=== PATIENT | male | born 1975 | race Caucasian/White ===

== ENCOUNTER 2020-02-04 13:03 | Outpatient (REF) | payer MEDICARE, MEDICAID, SELFPAY ==
[2020-02-04 13:58] LABS: MANUAL DIFF FLAG NO
[2020-02-04 14:12] LABS: Basophils Percent Auto 0.5 % (0-2); Eosinophils Absolute Auto 0.1 X10*3/uL (0.0-0.4); Eosinophils Percent Auto 1.3 % (0-4); Hematocrit 43.1 % (42-52); Hemoglobin 14.9 g/dl (14.0-18.0); Imm Gran Abs Auto 0.01 X10*3/uL (0.00-0.03); Imm Gran Pct Auto 0.1 % (0.0-0.4); Lymphocytes Absolute Auto 2.3 X10*3/uL (1.2-4.9); Lymphocytes Percent Auto 27.2 % (20-40); Mean Corpuscular HGB Conc 34.6 g/dl (31.0-36.0); Mean Corpuscular Hemoglobin 31.4 pg (27.0-33.0); Mean Corpuscular Volume 90.7 fL (80-98); Mean Platelet Volume 11.1 fL (9.4-12.4); Monocytes Absolute Auto 0.7 X10*3/uL (0.1-1.2); Monocytes Percent Auto 8.6 % (2-11); Neutrophils Absolute Auto 5.3 X10*3/uL (2.0-8.3); Neutrophils Percent Auto 62.3 % (45-73); Platelet Count 227 X10*3/uL (160-400); Red Blood Count 4.75 X10*6/uL (4.60-5.80); Red Cell Distribution Width 11.9 % (11.0-16.0); White Blood Count 8.5 X10*3/uL (4.8-10.8)
[2020-02-04 14:30] LABS: Alanine Aminotransferase 15 U/L (0-40); Albumin Level 4.5 g/dL (3.5-5.0); Alkaline Phosphatase 67 U/L (39-117); Anion Gap 14 (12-20); Aspartate Amino Transferase 19 U/L (5-37); Bilirubin Total 0.4 mg/dL (0.0-1.0); Blood Urea Nitrogen 9 mg/dL (9-16); Carbon Dioxide 27 mmol/L (22-29); Chloride 103 mmol/L (96-108); Estimated Glomerular Filt Rate > 60; Glucose Fasting 90 mg/dL (60-99); Potassium 4.2 mmol/l (3.3-5.1); Sodium 140 mmol/L (135-145); Total Protein 7.3 g/dL (6.5-8.0)
== END 2020-02-04 13:04 | disposition home or self-care (01) ==
LOC: HO.HMGCLDS 13:03
PROVIDERS: PCP Nurse Practitioner Family; Visit Provider Nurse Practitioner Family
DX: F20.9 Schizophrenia, unspecified (principal)
CPT/HCPCS: 36415; 80053; 85025

== ENCOUNTER 2020-03-22 12:42 | Outpatient (REF) | payer MEDICARE, MEDICAID, SELFPAY ==
--- NOTE | 2020-03-22 12:47 | XR_ITS ---
EXAMINATION: CHEST AND RIGHT RIB X-RAY CLINICAL INFORMATION: Pleurodynia. Chest pain with breathing. COMPARISON: Previous chest x-ray December 2015 TECHNIQUE: PA and lateral chest x-ray. 3 views of the right ribs. FINDINGS: Chest: Cardiac and mediastinal contours are normal. The lungs are clear. There is no pleural effusion or pneumothorax. Bony structures are unremarkable. Right rib x-rays: The no fracture or bone lesion is seen. XR/XR ribs RT 2V IMPRESSION: Unremarkable chest and right rib x-rays .
--- NOTE | 2020-03-22 12:47 | XR_ITS ---
EXAMINATION: CHEST AND RIGHT RIB X-RAY CLINICAL INFORMATION: Pleurodynia. Chest pain with breathing. COMPARISON: Previous chest x-ray December 2015 TECHNIQUE: PA and lateral chest x-ray. 3 views of the right ribs. FINDINGS: Chest: Cardiac and mediastinal contours are normal. The lungs are clear. There is no pleural effusion or pneumothorax. Bony structures are unremarkable. Right rib x-rays: The no fracture or bone lesion is seen. XR/XR chest 2V IMPRESSION: Unremarkable chest and right rib x-rays .
[2020-03-22 14:12] LABS: MANUAL DIFF FLAG NO
[2020-03-22 14:25] LABS: Basophils Absolute Auto 0.1 X10*3/uL (0.0-0.2); Basophils Percent Auto 0.6 % (0-2); Eosinophils Absolute Auto 0.2 X10*3/uL (0.0-0.4); Eosinophils Percent Auto 1.9 % (0-4); Hematocrit 40.6 % (42-52); Hemoglobin 13.5 g/dl (14.0-18.0); Imm Gran Abs Auto 0.07 X10*3/uL (0.00-0.03); Imm Gran Pct Auto 0.7 % (0.0-0.4); Lymphocytes Absolute Auto 3.2 X10*3/uL (1.2-4.9); Lymphocytes Percent Auto 33.2 % (20-40); Mean Corpuscular HGB Conc 33.3 g/dl (31.0-36.0); Mean Corpuscular Hemoglobin 31.4 pg (27.0-33.0); Mean Corpuscular Volume 94.4 fL (80-98); Monocytes Absolute Auto 0.9 X10*3/uL (0.1-1.2); Monocytes Percent Auto 8.7 % (2-11); Neutrophils Absolute Auto 5.4 X10*3/uL (2.0-8.3); Neutrophils Percent Auto 54.9 % (45-73); Platelet Count 223 X10*3/uL (160-400); Red Cell Distribution Width 13.2 % (11.0-16.0); White Blood Count 9.8 X10*3/uL (4.8-10.8)
[2020-03-22 14:33] LABS: Alanine Aminotransferase 11 U/L (0-40); Albumin Level 4.4 g/dL (3.5-5.0); Alkaline Phosphatase 64 U/L (39-117); Anion Gap 13 (12-20); Aspartate Amino Transferase 14 U/L (5-37); Bilirubin Total 0.3 mg/dL (0.0-1.0); Blood Urea Nitrogen 6 mg/dL (9-16); Calcium 9.1 mg/dL (8.4-10.2); Carbon Dioxide 29 mmol/L (22-29); Chloride 102 mmol/L (96-108); Estimated Glomerular Filt Rate > 60; Glucose Random 61 mg/dL (60-115); Potassium 4.3 mmol/l (3.3-5.1); Sodium 140 mmol/L (135-145); Total Protein 7.2 g/dL (6.5-8.0)
== END 2020-03-22 12:43 | disposition home or self-care (01) ==
LOC: HO.HMGCX 12:42
PROVIDERS: PCP Nurse Practitioner Family; Visit Provider Nurse Practitioner Family
DX: R07.1 Chest pain on breathing (principal); R07.81 Pleurodynia
CPT/HCPCS: 36415; 71046; 71100; 80053; 85025

== ENCOUNTER 2020-07-27 16:00 | Outpatient (RCR) | payer MEDICARE, MEDICAID, SELFPAY ==
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
--- NOTE | 2020-09-26 14:14 | MHC.PT.DC ---
[facility] [place] Office [place] Office [place] Office [address] Sarah Flynn [address] [phone] F: [phone] F: [phone] F: [phone] F: [phone] Physical Therapy Discharge Report Diagnosis: This is a 44 yo male presenting to skilled PT with a script for low back pain. Date of Surgery: Date of Evaluation: 05/02/20 Date of Discharge: 09/26/20 Treatments to Date: 8 Cancellations to Date: 0 No Shows to Date: 0 Discharge Status: Patient Elected to Stop Discharge Summary: Pt declined further exs at the last tx session. Pt discharged from his L/S declined DC paperwork. Per last note patient was not compliant with HEP. Electronically signed by: Lindsey Horn PT Please sign and return to therapist. Thank you for your referral.
== END 2020-09-26 14:15 | disposition home or self-care (01) ==
LOC: HO.PTCHIC 16:00
PROVIDERS: PCP Nurse Practitioner Family; Visit Provider Nurse Practitioner Family
DX: M54.5 Low back pain (principal)
CPT/HCPCS: 97110; 97162

== ENCOUNTER 2020-08-09 15:47 | Outpatient (REF) | payer MEDICARE, MEDICAID, SELFPAY ==
--- NOTE | ~2020-08-09 | XR_ITS ---
EXAMINATION: XR KNEE, LEFT CLINICAL INFORMATION: Pain left knee COMPARISON: None TECHNIQUE: Four views of the left knee. FINDINGS: Bones and soft tissues are normal. No fracture or joint effusion. Alignment is anatomic. Joint spaces are well maintained. No abnormal soft tissue calcification. XR/XR knee LT 4V IMPRESSION: Unremarkable left knee exam.
== END 2020-08-09 15:48 | disposition home or self-care (01) ==
LOC: HO.HMGCX 15:47
PROVIDERS: PCP Nurse Practitioner Family; Visit Provider Nurse Practitioner Family
DX: M25.562 Pain in left knee (principal)
CPT/HCPCS: 73564

== ENCOUNTER 2020-09-28 15:46 | Emergency (ER) | payer MEDICARE, MEDICAID, SELFPAY ==
[2020-09-28 16:08] VITALS: BP 131/81; PULSE 95; RESP 18; TEMP 36.7; O2SAT 100; BMI 21.4
--- NOTE | 2020-09-28 16:17 | PC.NURSE ---
Pt uncooperative with intake process, refused to speak to nurse, and refused to provide urine sample. Pt hostile, agitated.
--- NOTE | 2020-09-28 16:33 | ED_ITS ---
HPI - Psych General Chief Complaint: Psychiatric Symptoms Stated Complaint: CRISIS Time Seen by Provider: 09/28/20 16:25 Source: EMS Mode of arrival: EMS Limitations: other ( uncooperative) History of Present Illness HPI Narrative: patient comes to emergency room by EMS, accompanied by PD. Patient was seen earlier today by [facility]. Patient was Section 12. Patient states that he was told by a provider not to take fluphenazine, then told by another provider that if he would be off of that he needed to be hospitalized. Patient very angry, uncooperative. According to EMS, it earlier today, patient made disturbing call to his brother. Also per EMS, seems that the patient has been threatening homicidal ideation towards his sister. Patient states that he has been compliant with his medication, today is the 1st day that he does not fluphenazine complaint: homicidal ideation Related Data Home Medications Medication Instructions Recorded Confirmed divalproex 2 tab PO BEDTIME 09/28/20 09/28/20 Previous Rx's Medication Instructions Recorded ibuprofen 400 mg tablet 400 mg PO BID PRN #60 tab 03/30/20 thiamine HCl (vitamin B1) 100 mg 100 mg PO DAILY #90 tab 07/07/20 tablet cholecalciferol (vitamin D3) 50 50 mcg PO DAILY #90 cap 08/02/20 mcg (2,000 unit) capsule Allergies Allergy/AdvReac Type Severity Reaction Status Date / Time risperidone [From RISPERDAL] Allergy Unknown UNKNOWN Unverified 08/09/20 15:13 topiramate [From TOPAMAX] Allergy Unknown HEADACHE Unverified 08/09/20 15:13 Review of Systems Review of Systems: Endocrine : No Polyuria, No Polydipsia, No Temperature Intolerance Yes Other ( uncooperative) COUNT INCLUDES THE [facility] Past Medical History Medical History GERD (gastroesophageal reflux disease) Mood disorder Surgical History No pertinent past surgical history Family History Family History Father No problems noted. Mother Breast cancer Diabetes mellitus Brother No problems noted. Sister No problems noted. Social History Social History Alcohol intake: current Alcohol intake frequency: a few times a month Advance Directives: No Advance Directives Information Provided: Yes Physical Exam Vital Signs: Vital Signs: Last Vital Signs Temp 98.1 F 09/28/20 19:20 Pulse 76 09/28/20 19:20 Resp 18 09/28/20 19:20 BP 116/63 09/28/20 19:20 Pulse Ox 100 09/28/20 19:20 Body Mass Index 21.4 Appearance: Alert. Oriented X3. angry Eyes: Pupils equal, round and reactive to light. ENT: Pharynx normal. Neck: Normal inspection. CVS: refused physical exam Respiratory: refused Abdomen: refused Skin: normal skin color Extremities: moves all extremities, steady gait Neuro: Oriented X 3. no motor deficits, cranial nerves 2-12 grossly intact. Psych: Angry, not violent, refuses to talk Course Course Course Narrative: At this time, 18:00, physician javi velazquez is started, patient's vitals are stable, patient refusing labs. [facility] consult pending. Patient is under Section 12 N consult pending, sign out given to Dr. Ulloa physician observation was started, this is a late entry, so far patient has refused all his labs Discharge Plan Discharge Prescriptions: No Action ibuprofen 400 mg tablet 400 mg PO BID PRN (Reason: for fever) Qty: 60 RF: 2 thiamine HCl (vitamin B1) 100 mg tablet 100 mg PO DAILY Qty: 90 RF: 0 cholecalciferol (vitamin D3) 50 mcg (2,000 unit) capsule 50 mcg PO DAILY Qty: 90 RF: 1 divalproex 500 mg tablet extended release 24 hr 2 tab PO BEDTIME RF: 0
[2020-09-28] MEDS: Ibuprofen 400 MG TABLET PO (19:11)
[2020-09-28 19:20] VITALS: BP 116/63; PULSE 76; RESP 18; TEMP 36.7; O2SAT 100
--- NOTE | 2020-09-28 21:35 | MHC.CARE ---
I Contacted [facility] for some clarity. Pt was evaluated in the community, reportedly sectioned 12 bedsearch by [facility] howevever [facility] did not type an assessment. Interactive Media Designer Angela shares that she will be sending a new clinician over to see him due to the mistake.
[2020-09-28] MEDS: Divalproex Sodium ER 500 MG TAB.ER.24H 1000 MG PO (22:13)
--- NOTE | 2020-09-28 22:30 | PC.NURSE ---
Patient is pacing, restless, upset being here in [facility], using abusive comments towards his mother and sister, demanding loudly and disruptively for N clinician, compliant with his HS PO medication, refusing labs, [facility] called spoke with Gala, notified that patient is on section 12 inpatient bed search however patient will be seen tentatively tonight for full assessment, will continue to monitor.
--- NOTE | 2020-09-29 02:49 | PC.NURSE ---
JEREMY met with patient, reported patient may be discharge tomorrow however clinician did not get hold of collateral at this hour, disposition for the patient is MARGARETH f/u in the morning, patient appears sleeping at this time, will continue to monitor
--- NOTE | 2020-09-29 04:12 | PC.NURSE ---
Patient very rudely refused labs order for third time, stating that he doesn't have to be here, furious and upset for not being at [facility], pacing in and out of his room, will continue to monitor.
--- NOTE | 2020-09-29 06:41 | PC.NURSE ---
Patient was up whole night, pacing in and out of room, refused all labs, refused vital sign assessment, behavior loud and disruptive, self dialoguing at times, no distress observed/reported, refused to take meds for the restlessness, disposition is MARGARETH f/u by [facility] in AM, will continue to monitor.
--- NOTE | 2020-09-29 07:12 | PC.NURSE ---
patient awakened early appears in no distress, patient presentds as loud and irritable patient responds in a contradictory sarcastic fashion to staff thanks for yelling at me when staff spoke to him loudly from a distance in regard to returning trays. this staff writer told the patient your perceptions are unique .
--- NOTE | 2020-09-29 08:21 | PC.NURSE ---
patient continues to be rude and sarcastic to staff despite staff approaching client in an attempt at peacekeeping you gys are overworked and margie to have jobs nikole been unemployed since 2014
[2020-09-29] MEDS: Thiamine HCL 100 MG TABLET PO (09:49)
[2020-09-29] MEDS: Cholecalciferol (Vitamin D3) 25 MCG TABLET 50 MCG PO (09:49)
== END 2020-09-29 18:17 | disposition home or self-care (01) ==
PROVIDERS: Emergency Provider Emergency Medicine; PCP Nurse Practitioner Family
DX: F20.9 Schizophrenia, unspecified (principal); R45.850 Homicidal ideations; F12.10 Cannabis abuse, uncomplicated; Z79.899 Other long term (current) drug therapy
CPT/HCPCS: 99285

== ENCOUNTER 2020-11-04 14:00 | Outpatient (RCR) | payer MEDICARE, MEDICAID, SELFPAY ==
--- NOTE | 2020-09-15 15:06 | MHC.PT.EP ---
[facility] [place] Office [place] Office [place] Office [address] Sarah Flynn [address] [phone] F: [phone] F: [phone] F: [phone] F: [phone] Physical Therapy Plan of Care Date of Evaluation: Date of Surgery: Diagnosis: pain in left knee Assessment: 44 y/o male referred to PT for pain in L knee. The pain had insidious onset starting . Per pt rep~2 months ago with no specific incident, but he recalls hitting his knee on his bed post repeatedly and falling down the stairs around the time of the pain onset. Pt complains of limitations with functional squatting, sometimes walking, and with kneeling/gardening. Examination shows limited HS/gastroc length, impaired gait with longer stance phase on R, decreased trevon, and pain with functional squatting, decreased strength, R posterior innominate. Recommend PT 2x/week for 4 weeks to address impairments, implement HEP, and improve functional mobility. Pt requests 1x/week. Frequency and Duration: The patient will be seen 2x/week for 4 weeks Short Term Goals: 2 weeks: 1. I with HEP 2. Increase hip abd. strength B by 1 MMT score Perforator Operator Goals: 4 weeks: 1. I with HEP and self-management of sx 2. Pt will demonstrate proper squat form with pain <3/10 3. Pt will be able to kneel/garden with pain <3/10 Treatment Plan: Modalities to reduce pain, spasms and effusion. Manual therapy to restore motion and function. Therapeutic exercise to improve strength and flexibility. Neuromuscular re-education for posture and balance. Therapeutic activities to return to functional activities of daily living. Electronically signed by: Concha Licea PT Please sign and return to therapist. Thank you for your referral.
--- NOTE | 2020-11-25 12:52 | MHC.PT.DC ---
[facility] [place] Office [place] Office [place] [address] Sarah Flynn [address] [phone] F: [phone] F: [phone] F: [phone] F: [phone] Physical Therapy Discharge Report Diagnosis: pain in left knee Date of Surgery: Date of Evaluation: 09/15/20 Date of Discharge: 11/25/20 Treatments to Date: 6 Cancellations to Date: 4 No Shows to Date: 4 Discharge Status: Visit Non-compliance Discharge Summary: Pt d/d secondary to noncompliance with scheduling policy and noncompliance with physical therapy. He reports not wanting to perform PT exercises and id d/c. Electronically signed by: Concha Licea PT Please sign and return to therapist. Thank you for your referral.
== END 2020-11-25 12:52 | disposition home or self-care (01) ==
LOC: HO.PTCHIC 14:00
PROVIDERS: PCP Nurse Practitioner Family; Visit Provider Nurse Practitioner Family
DX: M25.562 Pain in left knee (principal)
CPT/HCPCS: 97110; 97140; 97161

== ENCOUNTER 2020-11-28 17:14 | Inpatient (IN) | payer MEDICARE, MEDICAID, SELFPAY ==
--- NOTE | ~2020-11-28 | XR_ITS ---
EXAMINATION: XR FACIAL BONES CLINICAL INFORMATION: Question foreign body COMPARISON: None TECHNIQUE: 2 views of the facial bones were obtained. FINDINGS: No gross facial bone fracture. Bilateral dental implants noted. No radiopaque foreign body identified. Visualized paranasal sinuses are well aerated. There is mild thickening of the left mastoid air cells. Visualized portion of the cervical spine are grossly unremarkable. XR/XR facial bones <3V IMPRESSION: No radiopaque foreign body.
[2020-11-28 17:31] VITALS: BP 127/87; PULSE 112; RESP 18; TEMP 37.4; O2SAT 96; BMI 28.2
--- NOTE | 2020-11-28 17:50 | PC.NURSE ---
YELENA Dorman at bedside for initial evaluation of patient. Pt calm/cooperative at this time, but occasionally having difficulty answering questions, not making direct eye contact. This RN having to repeat herself multiple times.
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
--- NOTE | 2020-11-28 18:03 | PC.NURSE ---
Patient refusing all orders except COVID swab and facial xray to check for shoelace in my sinus
[2020-11-28 18:35] LABS: COVID-19 Test Negative (Negative)
--- NOTE | 2020-11-28 18:39 | PC.NURSE ---
Patient having conversation with himself, responding to internal stimuli - occasionally swearing. Xray clear. Will continue to monitor.
--- NOTE | 2020-11-28 19:10 | MHC.CARE ---
CARE team contacted [facility] re: pt who arrived by ambulance on a Sect 12. Confirmed that pt has been evaluated and is an inpt psych bedsearch. pod staff updated. Requested that assessment be sent once it's completed by the caseworker intake.
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
[2020-11-28] MEDS: OLANZapine 5 MG TABLET PO (20:49)
[2020-11-28] MEDS: Divalproex Sodium ER 500 MG TAB.ER.24H 1000 MG PO (20:49)
--- NOTE | 2020-11-28 20:57 | PC.NURSE ---
Pysch consult completed, ordered Olanzapine 5 mg and Depakote, administered as ordered/patient compliant, will continue to monitor.
[2020-11-28 21:50] LABS: Amphetamine Screen Urine Not Detected (Not Detect); Barbiturates, Urine Not Detected (Not Detect); Benzodiazepines Screen Urine Not Detected (Not Detect); Cannabinoid Screen Urine POSITIVE (Not Detect); Cocaine Screen Urine Not Detected (Not Detect); Fentanyl, urine Not Detected (Not Detect); Opiate Screen Urine Not Detected (Not Detect); Phencyclidine Screen Urine Not Detected (Not Detect)
[2020-11-29 05:37] VITALS: BP 139/85; PULSE 83; RESP 18; TEMP 36.6; O2SAT 97
--- NOTE | 2020-11-29 06:18 | PC.NURSE ---
Patient slept through the night, no distress observed/reported, patient was out of room for bathroom use and back, was compliant VS assessment, provided urine sample for URIARTE, + effect from PRN Olanzapine 5 mg, patient disposition per [facility] is section 12 inpatient bed search, VSS, behavior non-concerning at this time, will continue to monitor.
[2020-11-29] MEDS: Ibuprofen 600 MG TABLET PO (08:30)
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
[2020-11-29 12:18] VITALS: RESP 20
[2020-11-29] MEDS: OLANZapine 5 MG TABLET PO (20:59)
[2020-11-29] MEDS: Divalproex Sodium ER 500 MG TAB.ER.24H 1000 MG PO (20:59)
--- NOTE | 2020-11-29 22:10 | PC.ADMIT ---
Pt is a 45 year old male who to M% from [facility] [place] ED at approx 21:30 on a cv status. Pt is covid -. Utox+ for MJ. Pt mentioned that he has been known to and was agitated and restless. Pt was evaluted in his home by Emir Florence which was initiated by his mother due to significant decompensation over the last week. Pt verbalized during admit that he stopped talking medication about a week ago, poor sleep, and talking non-stop. Pt denied SI/HI/VH/AH and pain during admit. Pt was loud, restless,sweating and refusing to respond to most questions during his admission.
[2020-11-30 06:00] VITALS: BP 125/62; PULSE 82; RESP 16; TEMP 36.2; O2SAT 95
[2020-11-30] MEDS: Thiamine HCL 100 MG TABLET PO (08:22)
[2020-11-30] MEDS: Cholecalciferol (Vitamin D3) 25 MCG TABLET 50 MCG PO (08:23)
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
[2020-11-30] MEDS: Divalproex Sodium 500 MG TABLET.DR PO (12:15)
[2020-11-30] MEDS: Divalproex Sodium ER 500 MG TAB.ER.24H 1000 MG PO (22:04)
[2020-12-01 07:00] VITALS: BMI 26.3
[2020-12-01] MEDS: Thiamine HCL 100 MG TABLET PO (08:12)
[2020-12-01] MEDS: Cholecalciferol (Vitamin D3) 25 MCG TABLET 50 MCG PO (08:12)
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
[2020-12-01 18:40] VITALS: RESP 16
[2020-12-01] MEDS: Acetaminophen 325 MG TABLET 650 MG PO (20:11)
[2020-12-01] MEDS: Divalproex Sodium ER 500 MG TAB.ER.24H 1500 MG PO (20:17)
--- NOTE | 2020-12-01 20:21 | PC.NURSE ---
Pt took 1000mg of Depakote. Pt refused to take one 500mg tab. Total dose ordered was 1500mg
[2020-12-02] MEDS: Thiamine HCL 100 MG TABLET PO (08:39)
[2020-12-02] MEDS: Cholecalciferol (Vitamin D3) 25 MCG TABLET 50 MCG PO (08:39)
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
[2020-12-02] MEDS: Magnesium Hydrox/Alum Hydrox 30 ML ORAL.SUSP PO (10:58)
--- NOTE | 2020-12-02 13:59 | PC.NURSE ---
Lambert approached the nurses station requesting the speak with this technical proposal writer as he wanted to know if he was being discharged on his 3 day notice. met with pt privately with the door open as he was hostile and agitated. Explained to pt we would be filing for court commitment as we feel he is not ready for discharge to his hostility and agitated behavior. Pt. is known to this technical proposal writer from [facility] and previous hospitalizations). pt stated to this technical proposal writer I remember the first time I came here as a patient and you said, lambert take this little white pill because it would make my zunilda bigger . I told pt I would never say that as it is not true and he stated you did, I'm not stupid or crazy. I remeber you saying that . as he put his fingers to his head suggesting a crazy gesture. Pt. continued the conversation asking how my black was. (knew him from [facility] years ago) What, did he take a big smelly shit and you kicked him out? Attempted to redirect pt to the topic of being here on the psych unit for treatment and he stated Do you guys still jerk each other off? At this point I told him the conversation was not appropriate and I was ending the conversation.
[2020-12-02 16:22] VITALS: RESP 16
[2020-12-02] MEDS: Divalproex Sodium ER 500 MG TAB.ER.24H 1500 MG PO (20:02)
--- NOTE | 2020-12-02 20:02 | PC.NURSE ---
Pt took 1000mg of Depakote. Pt refused to take one 500mg tab. Total dose ordered was 1500mg
[2020-12-03] MEDS: Thiamine HCL 100 MG TABLET PO (09:32)
[2020-12-03] MEDS: Cholecalciferol (Vitamin D3) 25 MCG TABLET 50 MCG PO (09:32)
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
[2020-12-03 16:32] VITALS: RESP 16
[2020-12-03] MEDS: Magnesium Hydrox/Alum Hydrox 30 ML ORAL.SUSP PO (19:22)
[2020-12-03] MEDS: Divalproex Sodium ER 500 MG TAB.ER.24H 1500 MG PO (19:23)
[2020-12-04] MEDS: Thiamine HCL 100 MG TABLET PO (07:55)
[2020-12-04] MEDS: Cholecalciferol (Vitamin D3) 25 MCG TABLET 50 MCG PO (07:55)
--- NOTE | 2020-12-04 12:34 | HO.PSYCHPN ---
Subjective Subjective Date of Service: 12/04/20 Reason For Visit: crisis Interim History: seen in bedroom. Guarded and paranoid with automobile and property underwriter. Reports that he feels half and that his family say he should not be taking medications. Reports that he sleeps so he can pay attention. Was asking the court process. Was stating that he does not believe he is being given medications and things may be getting switched and felt like Tylenol made his penis shrinking and his genital areas itch and paranoid around staff. . Medication Compliance: Intermittent Review of Systems Acute medical concerns: No Review of Systems Review of Systems Yes Unobtainable due to mental status Mental Status Exam Mental Status Exam Narrative: in day room. Irritable. Guarded. Disorganized and bizarre statements. Appear paranoid. No evidence of SI. Insight and judgment limited Diagnostics Vital Signs (24Hr): Vital Signs - 24 hr 12/03/20 16:32 Respiratory Rate 16 Body Mass Index 26.3 Imaging Radiology Impressions: ITS Impressions Face X-Ray 11/28/20 17:53 IMPRESSION: No radiopaque foreign body. Medications Medications Current Medications Generic Name Dose Route Start Last Admin Trade Name Freq PRN Reason Stop Dose Admin Acetaminophen 650 mg 11/29/20 21:10 12/01/20 20:11 Acetaminophen 325 Mg Tablet PO 650 mg Q6H PRN Administration Headache/Pain Mild Scale (1-3) Al Hydroxide/Mg Hydroxide 30 ml 11/29/20 21:10 12/03/20 19:22 Magnesium Hydrox/Alum Hydrox 30 Ml Oral.Susp PO 30 ml Q6H PRN Administration Heartburn/Nausea Divalproex Sodium 1,500 mg 12/01/20 21:00 12/03/20 19:23 Divalproex Sodium Er 500 Mg Tab.Er.24h PO 1,000 mg BEDTIME LORENZA Administration Ibuprofen 400 mg 11/29/20 21:10 Ibuprofen 400 Mg Tablet PO BID PRN for fever Lorazepam 1 mg 12/02/20 09:13 Lorazepam 1 Mg Tablet PO TID PRN anxiety/agitation Magnesium Hydroxide 30 ml 11/29/20 21:10 Milk Of Magnesia 30 Ml Oral.Susp PO DAILY PRN Constipation Olanzapine 5 mg 11/30/20 14:53 Olanzapine 5 Mg Tablet PO TID PRN psychosis, agitation Thiamine HCl 100 mg 11/30/20 09:00 12/04/20 07:55 Thiamine Hcl 100 Mg Tablet PO 100 mg DAILY LORENZA Administration Trazodone HCl 50 mg 11/29/20 21:10 Trazodone Hcl 50 Mg Tablet PO BEDTIME PRN Insomnia Vitamin D 50 mcg 11/30/20 09:00 12/04/20 07:55 Cholecalciferol (Vitamin D3) 25 Mcg Tablet PO 50 mcg DAILY LORENZA Administration Allergies Allergies Allergy/AdvReac Type Severity Reaction Status Date / Time risperidone [From RISPERDAL] Allergy Unknown UNKNOWN Verified 11/28/20 17:37 topiramate [From TOPAMAX] Allergy Unknown HEADACHE Verified 11/28/20 17:37 Assessment & Plan Assessment & Plan (1) Schizoaffective disorder, bipolar type: Status: Acute Code(s): F25.0 - Schizoaffective disorder, bipolar type Assessment and Plan: IMPRESSIoN: Patient is a 45 y.o. Male who carries a dx of schizoaffective disorder, bipolar type and moderate cannabis use disorder. Patient's mother called crisis Patient is currently floridly manic, with loud and pressured speech, disorganized in speech and behavior and with distinctly irritable/agitated presentation, glaring and yelling at people, intrusive and intimidating. Patient lacks insight. He says he is fine and wants to discharge. Patient is currently willing to take Depakote. He refuses other mood stabilizers or other medications. Patient gave automobile and property underwriter verbal permission to call his outpatient psychiatrist Dr. Hernandez (even giving automobile and property underwriter the correct phone number) to discuss his case; call placed. Pt remains floridly manic, intrusive, easily triggered to agitation, loud, provocative and confrontational. No insight. He is taking depakote but refuses any other medications including antipsychotics which he's been on in the past. Pt has 3 day notice due and insists on leaving hospital on 12/02/20 when 3 day notice due. Pt triggered a peer into feeling defensive and altercation only avoided by staff intervention. Patient has already made peers and staff on the unit, including automobile and property underwriter, wary of being alone with patient out of consideration for safety. Pt's illness and subsequent current symptoms are making others feel threatened and he is in imminent risk for defensive pre-emptive aggression from others. Team agrees need to file for civil commitment. PLAN: *filed for civil commitment. Patient initially signed CV; he later signed 3 day notice Q 15 minutes checks for now; will monitor and consider increasing Increased Depakote to 1500 mg q.h.s. (patient remains floridly manic despite being on 1000 mg for stay 2-3 days) -pt refuses labs for depakote level and associated med monitoring; will reschedule labs after a few more days when hopeful patient is more organized and willing to have labwork Zyprexa remains as a p.r.n. for agitation Will continue to pursue collateral (Dr. Hernandez: [phone]) Currently patient presents as intrusive, intimidating and is without any insight. 12/04/2020: No changes to current treatment plan as per primary team and court hearing pending Greater than 50% of the session was spent on counseling and/or coordination of care Reason for contiued inpatient stay Substantial Risk for: inability to function
[2020-12-04 16:33] VITALS: RESP 16
[2020-12-04] MEDS: Divalproex Sodium ER 500 MG TAB.ER.24H 1500 MG PO (20:04)
--- NOTE | 2020-12-04 20:05 | PC.NURSE ---
Pt took 1000mg of Depakote. Pt refused to take one 500mg tab. Total dose ordered was 1500mg
[2020-12-05] MEDS: Cholecalciferol (Vitamin D3) 25 MCG TABLET 50 MCG PO (07:47)
[2020-12-05] MEDS: Thiamine HCL 100 MG TABLET PO (07:48)
--- NOTE | 2020-12-05 12:35 | HO.PSYCHPN ---
Subjective Subjective Date of Service: 12/05/20 Reason For Visit: crisis Interim History: Seen in room today. Still guarded. Still expresses himself loudly and appears angry. Eager to focus on discharge planning. I agree regarding his family. Was making disorganized statements talking about needing water, then family, money and then his grandpa Boubacar. Medication Compliance: Yes Side effects from medications: No Review of Systems Acute medical concerns: No Review of Systems Review of Systems Noncontributory Mental Status Exam Mental Status Exam Narrative: Seen in bedroom. Irritable. Guarded. Disorganized and bizarre statements. Appear paranoid. No evidence of SI. Insight and judgment limited Diagnostics Vital Signs (24Hr): Vital Signs - 24 hr 12/04/20 16:33 Respiratory Rate 16 Body Mass Index 26.3 Imaging Radiology Impressions: ITS Impressions Face X-Ray 11/28/20 17:53 IMPRESSION: No radiopaque foreign body. Medications Medications Current Medications Generic Name Dose Route Start Last Admin Trade Name Freq PRN Reason Stop Dose Admin Acetaminophen 650 mg 11/29/20 21:10 12/01/20 20:11 Acetaminophen 325 Mg Tablet PO 650 mg Q6H PRN Administration Headache/Pain Mild Scale (1-3) Al Hydroxide/Mg Hydroxide 30 ml 11/29/20 21:10 12/03/20 19:22 Magnesium Hydrox/Alum Hydrox 30 Ml Oral.Susp PO 30 ml Q6H PRN Administration Heartburn/Nausea Divalproex Sodium 1,500 mg 12/01/20 21:00 12/04/20 20:04 Divalproex Sodium Er 500 Mg Tab.Er.24h PO 1,000 mg BEDTIME LORENZA Administration Ibuprofen 400 mg 11/29/20 21:10 Ibuprofen 400 Mg Tablet PO BID PRN for fever Lorazepam 1 mg 12/02/20 09:13 Lorazepam 1 Mg Tablet PO TID PRN anxiety/agitation Magnesium Hydroxide 30 ml 11/29/20 21:10 Milk Of Magnesia 30 Ml Oral.Susp PO DAILY PRN Constipation Olanzapine 5 mg 11/30/20 14:53 Olanzapine 5 Mg Tablet PO TID PRN psychosis, agitation Thiamine HCl 100 mg 11/30/20 09:00 12/05/20 07:48 Thiamine Hcl 100 Mg Tablet PO 100 mg DAILY LORENZA Administration Trazodone HCl 50 mg 11/29/20 21:10 Trazodone Hcl 50 Mg Tablet PO BEDTIME PRN Insomnia Vitamin D 50 mcg 11/30/20 09:00 12/05/20 07:47 Cholecalciferol (Vitamin D3) 25 Mcg Tablet PO 50 mcg DAILY LORENZA Administration Allergies Allergies Allergy/AdvReac Type Severity Reaction Status Date / Time risperidone [From RISPERDAL] Allergy Unknown UNKNOWN Verified 11/28/20 17:37 topiramate [From TOPAMAX] Allergy Unknown HEADACHE Verified 11/28/20 17:37 Assessment & Plan Assessment & Plan (1) Schizoaffective disorder, bipolar type: Status: Acute Code(s): F25.0 - Schizoaffective disorder, bipolar type Assessment and Plan: IMPRESSIoN: Patient is a 45 y.o. Male who carries a dx of schizoaffective disorder, bipolar type and moderate cannabis use disorder. Patient's mother called crisis Patient is currently floridly manic, with loud and pressured speech, disorganized in speech and behavior and with distinctly irritable/agitated presentation, glaring and yelling at people, intrusive and intimidating. Patient lacks insight. He says he is fine and wants to discharge. Patient is currently willing to take Depakote. He refuses other mood stabilizers or other medications. Patient gave junior underwriter verbal permission to call his outpatient psychiatrist Dr. Hernandez (even giving junior underwriter the correct phone number) to discuss his case; call placed. Pt remains floridly manic, intrusive, easily triggered to agitation, loud, provocative and confrontational. No insight. He is taking depakote but refuses any other medications including antipsychotics which he's been on in the past. Pt has 3 day notice due and insists on leaving hospital on 12/02/20 when 3 day notice due. Pt triggered a peer into feeling defensive and altercation only avoided by staff intervention. Patient has already made peers and staff on the unit, including junior underwriter, wary of being alone with patient out of consideration for safety. Pt's illness and subsequent current symptoms are making others feel threatened and he is in imminent risk for defensive pre-emptive aggression from others. Team agrees need to file for civil commitment. PLAN: *filed for civil commitment. Patient initially signed CV; he later signed 3 day notice Q 15 minutes checks for now; will monitor and consider increasing Increased Depakote to 1500 mg q.h.s. (patient remains floridly manic despite being on 1000 mg for stay 2-3 days) -pt refuses labs for depakote level and associated med monitoring; will reschedule labs after a few more days when hopeful patient is more organized and willing to have labwork Zyprexa remains as a p.r.n. for agitation Will continue to pursue collateral (Dr. Hernandez: [phone]) Currently patient presents as intrusive, intimidating and is without any insight. 12/05/2020: No changes to current treatment plan as per primary team and court hearing pending Greater than 50% of the session was spent on counseling and/or coordination of care Reason for contiued inpatient stay Substantial Risk for: inability to function
[2020-12-05 18:00] VITALS: PULSE 60; TEMP 36.3
[2020-12-05] MEDS: Divalproex Sodium ER 500 MG TAB.ER.24H 1500 MG PO (19:47)
--- NOTE | 2020-12-05 20:15 | PC.NURSE ---
Pt took 1000mg of Depakote. Pt refused to take one 500mg tab. Total dose ordered was 1500mg
[2020-12-05] MEDS: Calcium Carbonate 750 MG TAB.CHEW PO (20:16)
[2020-12-05] MEDS: Magnesium Hydrox/Alum Hydrox 30 ML ORAL.SUSP PO (23:21)
--- NOTE | 2020-12-06 16:53 | P.PNPSI_ITS ---
Subjective Subjective Date of Service: 12/06/20 Reason For Visit: crisis Interim History: pt seen on 12/06 Postage Machine Operator met with patient who remains loud and with pressured speech. Postage Machine Operator asked about if he would be willing to take other medications, such as Prolixin which his mother reported to the team that he had previously been doing well on and started to decompensate after he discontinued this medication. 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 He then asked job specification writer what medication the nurse gave him for his headache last , which was acetaminophen, and said it gave me a baby zunilda... What kind of place is this? Some doctor you are... Of note, earlier this morning social Work overheard patient yelling loudly in the hallway, throwing the medication he was given (which was a vitamin) and saying fucking poison you give me. He then proceeded to walk down the [place] loudly saying to no one fuck you and fuck the Catholics. Mental Status Exam Mental Status Exam Narrative: Pt is alert and oriented to self, place, but not situation. Behavior is guarded, irritable, talking loudly, sometimes yelling or swearing; unkempt hair; mood is irritable and affect irritable; eye contact intense; Speech is moderately pressured but less so, and loud; intermittent psychomotor agitation present; thought process is disorganized but a little improved and for moments he can remain goal directed but still returns to tangential, illogical thinking; Thought content is on discharge or other various, unrelated topics inappropriate for context, but less than on admission;? delusional content, paranoid ideations and grandiosity present; denies any SI/HI. Denies AVH; Patients insight and judgment impaired. Diagnostics Vital Signs (24Hr): Vital Signs - 24 hr 12/05/20 18:00 Temperature 97.3 F Pulse Rate 60 Body Mass Index 26.3 Imaging Radiology Impressions: ITS Impressions Face X-Ray 11/28/20 17:53 IMPRESSION: No radiopaque foreign body. Medications Medications Current Medications Generic Name Dose Route Start Last Admin Trade Name Freq PRN Reason Stop Dose Admin Acetaminophen 650 mg 11/29/20 21:10 12/01/20 20:11 Acetaminophen 325 Mg Tablet PO 650 mg Q6H PRN Administration Headache/Pain Mild Scale (1-3) Al Hydroxide/Mg Hydroxide 30 ml 11/29/20 21:10 12/05/20 23:21 Magnesium Hydrox/Alum Hydrox 30 Ml Oral.Susp PO 30 ml Q6H PRN Administration Heartburn/Nausea Calcium Carbonate 750 mg 12/05/20 09:00 12/06/20 08:40 Calcium Carbonate 750 Mg Tab.Chew PO Not Given BID@0900,1700 LORENZA Divalproex Sodium 1,500 mg 12/01/20 21:00 12/05/20 19:47 Divalproex Sodium Er 500 Mg Tab.Er.24h PO 1,000 mg BEDTIME LORENZA Administration Ibuprofen 400 mg 11/29/20 21:10 Ibuprofen 400 Mg Tablet PO BID PRN for fever Lorazepam 1 mg 12/02/20 09:13 Lorazepam 1 Mg Tablet PO TID PRN anxiety/agitation Magnesium Hydroxide 30 ml 11/29/20 21:10 Milk Of Magnesia 30 Ml Oral.Susp PO DAILY PRN Constipation Olanzapine 5 mg 11/30/20 14:53 Olanzapine 5 Mg Tablet PO TID PRN psychosis, agitation Thiamine HCl 100 mg 11/30/20 09:00 12/06/20 08:40 Thiamine Hcl 100 Mg Tablet PO Not Given DAILY LORENZA Trazodone HCl 50 mg 11/29/20 21:10 Trazodone Hcl 50 Mg Tablet PO BEDTIME PRN Insomnia Vitamin D 50 mcg 11/30/20 09:00 12/06/20 08:40 Cholecalciferol (Vitamin D3) 25 Mcg Tablet PO Not Given DAILY LORENZA Allergies Allergies Allergy/AdvReac Type Severity Reaction Status Date / Time risperidone [From RISPERDAL] Allergy Unknown UNKNOWN Verified 11/28/20 17:37 topiramate [From TOPAMAX] Allergy Unknown HEADACHE Verified 11/28/20 17:37 Assessment & Plan Assessment & Plan (1) Schizoaffective disorder, bipolar type: Status: Acute Code(s): F25.0 - Schizoaffective disorder, bipolar type Assessment and Plan: IMPRESSIoN: Patient is a 45 y.o. Male who carries a dx of schizoaffective disorder, bipolar type and moderate cannabis use disorder. Patient's mother called crisis Patient is currently floridly manic, with loud and pressured speech, disorganized in speech and behavior and with distinctly irritable/agitated presentation, glaring and yelling at people, intrusive and intimidating. Patient lacks insight. He says he is fine and wants to discharge. Patient is currently willing to take Depakote. He refuses other mood stabilizers or other medications. Patient gave job specification writer verbal permission to call his outpatient psychiatrist Dr. Hernandez (even giving job specification writer the correct phone number) to discuss his case; call placed. Pt remains floridly manic, intrusive, easily triggered to agitation, loud, provocative and confrontational. No insight. He is taking depakote but refuses any other medications including antipsychotics which he's been on in the past. Pt has 3 day notice due and insists on leaving hospital on 12/02/20 when 3 day notice due. Pt triggered a peer into feeling defensive and altercation only avoided by staff intervention. Patient has already made peers and staff on the unit, including job specification writer, wary of being alone with patient out of consideration for safety. Pt's illness and subsequent current symptoms are making others feel threatened and he is in imminent risk for defensive pre-emptive aggression from others. Team agrees need to file for civil commitment. Patient has improved a little since admission in taking Depakote 1000 mg regularly however he remains with disorganized speech and behavior, easily agitated and confrontational and without insight. Patient continues to refuse labs for Depakote level and associated medication monitoring. He refuses any other medication PLAN: *filed for civil commitment. Patient initially signed CV; he later signed 3 day notice Q 15 minutes checks for now; will monitor and consider increasing Increased Depakote to 1500 mg q.h.s. however, pt has refused only taking 1000mg (patient remains floridly manic despite being on 1000 mg for stay 2-3 days) -pt refuses labs for depakote level and associated med monitoring; will reschedule labs after a few more days when hopeful patient is more organized and willing to have labwork Zyprexa remains as a p.r.n. for agitation Will continue to pursue collateral (Dr. Hernandez: [phone]) Currently patient presents as intrusive, intimidating and is without any insight. Greater than 50% of the session was spent on counseling and/or coordination of care Reason for contiued inpatient stay Substantial Risk for: harm to self, harm to others, inability to function and rapid decompensation
[2020-12-06 18:00] VITALS: BP 124/76; PULSE 86
[2020-12-06] MEDS: Divalproex Sodium ER 500 MG TAB.ER.24H 1500 MG PO (20:49)
[2020-12-07 07:58] VITALS: BP 122/74; PULSE 92; RESP 18; TEMP 36.2; O2SAT 97
[2020-12-07] MEDS: Magnesium Hydrox/Alum Hydrox 30 ML ORAL.SUSP PO (20:14)
[2020-12-07] MEDS: Divalproex Sodium ER 500 MG TAB.ER.24H 1500 MG PO (20:16)
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
[2020-12-08 06:00] VITALS: BP 126/76; PULSE 101; RESP 16; TEMP 36.2; O2SAT 98
[2020-12-08 07:00] VITALS: BMI 25.9
[2020-12-08] MEDS: Calcium Carbonate 750 MG TAB.CHEW PO (08:09)
[2020-12-08] MEDS: Cholecalciferol (Vitamin D3) 25 MCG TABLET 50 MCG PO (08:09)
[2020-12-08 16:27] VITALS: RESP 16
--- NOTE | 2020-12-08 16:48 | HO.PSYCHPN ---
Subjective Subjective Date of Service: 12/08/20 Reason For Visit: crisis Interim History: Pt seen on 12/08 Patient walking up and down the halls singing and yelling loudly; as typewriter assembly and parts inspector approaches patient looks at typewriter assembly and parts inspector but keep some walking and does not stop to talk. Court held today for civil commitment and substituted judgment which was ordered. Mental Status Exam Mental Status Exam Narrative: ?Pt is alert and oriented to self, place, but not situation. Behavior is irritable, talking loudly, sometimes yelling or swearing; unkempt hair; mood is irritable and affect irritable; eye contact intense; Speech is moderately pressured and loud; psychomotor agitation present; thought process is disorganized; Thought content is on discharge or other various, unrelated topics inappropriate for context;? delusional content, paranoid ideations and grandiosity present; denies any SI/HI. Denies AVH; Patients insight and judgment impaired. Diagnostics Vital Signs (24Hr): Vital Signs - 24 hr 12/08/20 06:00 12/08/20 16:27 Temperature 97.1 F Pulse Rate 101 H Respiratory Rate 16 16 Blood Pressure 126/76 Pulse Oximetry 98 Body Mass Index 25.9 Imaging Radiology Impressions: ITS Impressions Face X-Ray 11/28/20 17:53 IMPRESSION: No radiopaque foreign body. Medications Medications Current Medications Generic Name Dose Route Start Last Admin Trade Name Venturaq PRN Reason Stop Dose Admin Acetaminophen 650 mg 11/29/20 21:10 12/01/20 20:11 Acetaminophen 325 Mg Tablet PO 650 mg Q6H PRN Administration Headache/Pain Mild Scale (1-3) Al Hydroxide/Mg Hydroxide 30 ml 11/29/20 21:10 12/07/20 20:14 Magnesium Hydrox/Alum Hydrox 30 Ml Oral.Susp PO 30 ml Q6H PRN Administration Heartburn/Nausea Artificial Tears 2 drop 12/07/20 13:54 Artificial Tears 15 Ml Drops EYE-BOTH TID PRN Dry Eyes Calcium Carbonate 750 mg 12/05/20 09:00 12/08/20 08:09 Calcium Carbonate 750 Mg Tab.Chew PO 750 mg BID@0900,1700 LORENZA Administration Divalproex Sodium 1,500 mg 12/01/20 21:00 12/07/20 20:16 Divalproex Sodium Er 500 Mg Tab.Er.24h PO 1,500 mg BEDTIME LORENZA Administration Ibuprofen 400 mg 11/29/20 21:10 Ibuprofen 400 Mg Tablet PO BID PRN for fever Magnesium Hydroxide 30 ml 11/29/20 21:10 Milk Of Magnesia 30 Ml Oral.Susp PO DAILY PRN Constipation Olanzapine 5 mg 11/30/20 14:53 Olanzapine 5 Mg Tablet PO TID PRN psychosis, agitation Trazodone HCl 50 mg 11/29/20 21:10 Trazodone Hcl 50 Mg Tablet PO BEDTIME PRN Insomnia Vitamin D 50 mcg 11/30/20 09:00 12/08/20 08:09 Cholecalciferol (Vitamin D3) 25 Mcg Tablet PO 50 mcg DAILY LORENZA Administration Allergies Allergies Allergy/AdvReac Type Severity Reaction Status Date / Time risperidone [From RISPERDAL] Allergy Unknown UNKNOWN Verified 11/28/20 17:37 topiramate [From TOPAMAX] Allergy Unknown HEADACHE Verified 11/28/20 17:37 Assessment & Plan Assessment & Plan (1) Schizoaffective disorder, bipolar type: Status: Acute Code(s): F25.0 - Schizoaffective disorder, bipolar type Assessment and Plan: IMPRESSIoN: Patient is a 45 y.o. Male who carries a dx of schizoaffective disorder, bipolar type and moderate cannabis use disorder. Patient's mother called crisis Patient is currently floridly manic, with loud and pressured speech, disorganized in speech and behavior and with distinctly irritable/agitated presentation, glaring and yelling at people, intrusive and intimidating. Patient lacks insight. He says he is fine and wants to discharge. Patient is currently willing to take Depakote. He refuses other mood stabilizers or other medications. Patient gave typewriter assembly and parts inspector verbal permission to call his outpatient psychiatrist Dr. Hernandez (even giving typewriter assembly and parts inspector the correct phone number) to discuss his case; call placed. Pt remains floridly manic, intrusive, easily triggered to agitation, loud, provocative and confrontational. No insight. He is taking depakote but refuses any other medications including antipsychotics which he's been on in the past. Pt has 3 day notice due and insists on leaving hospital on 12/02/20 when 3 day notice due. Pt triggered a peer into feeling defensive and altercation only avoided by staff intervention. Patient has already made peers and staff on the unit, including typewriter assembly and parts inspector, wary of being alone with patient out of consideration for safety. Pt's illness and subsequent current symptoms are making others feel threatened and he is in imminent risk for defensive pre-emptive aggression from others. Team agrees need to file for civil commitment. Patient has improved a little since admission in taking Depakote 1000 mg regularly however he remains with disorganized speech and behavior, easily agitated and confrontational and without insight. Patient continues to refuse labs for Depakote level and associated medication monitoring. He refuses any other medication PLAN: COURT ORDERED CIVIL COMMITMENT AND SUBSTITUTED JUDGMENT PATIENT ON DEUTSCH Will start Prolixin once court paperwork arrives Q 15 minutes checks for now; will monitor and consider increasing Increased Depakote to 1500 mg q.h.s. however, pt has thus far refused only taking 1000mg (patient remains floridly manic despite being on 1000 mg for stay 2-3 days) -pt refuses labs for depakote level and associated med monitoring; will reschedule labs after a few more days when hopeful patient is more organized and willing to have labwork Ansleyyprexa remains as a p.r.n. for agitation Currently patient presents as intrusive, intimidating and is without any insight. Greater than 50% of the session was spent on counseling and/or coordination of care Reason for contiued inpatient stay Substantial Risk for: inability to function
[2020-12-08] MEDS: Divalproex Sodium ER 500 MG TAB.ER.24H 1500 MG PO (20:16)
[2020-12-09 06:00] VITALS: BP 137/84; PULSE 74; RESP 16; TEMP 35.9; O2SAT 99
[2020-12-09] MEDS: Calcium Carbonate 750 MG TAB.CHEW PO ×3 (09:30→19:17)
[2020-12-09] MEDS: Cholecalciferol (Vitamin D3) 25 MCG TABLET 50 MCG PO (09:30)
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
[2020-12-09 16:19] VITALS: BP 153/60; PULSE 98; TEMP 36.7
[2020-12-09] MEDS: fluPHENAZine HCl 5 MG TABLET PO (19:17)
[2020-12-09] MEDS: Divalproex Sodium ER 500 MG TAB.ER.24H 1000 MG PO (19:17)
[2020-12-10 06:00] VITALS: BP 121/65; PULSE 60; RESP 16; TEMP 36.1; O2SAT 95
[2020-12-10] MEDS: Cholecalciferol (Vitamin D3) 25 MCG TABLET 50 MCG PO (08:30)
[2020-12-10] MEDS: Calcium Carbonate 750 MG TAB.CHEW PO ×4 (08:31→20:04)
[2020-12-10] MEDS: fluPHENAZine HCl 5 MG TABLET PO (20:04)
[2020-12-10] MEDS: Divalproex Sodium ER 500 MG TAB.ER.24H 1000 MG PO (20:04)
[2020-12-10] MEDS: Milk of Magnesia 30 ML ORAL.SUSP PO (20:04)
--- NOTE | 2020-12-11 00:27 | HO.PSYCHPN ---
Subjective Subjective Date of Service: 12/10/20 Reason For Visit: crisis Subjective Notes: Cerna Warning and Section 8 Healthcare Proxy: No Guardianship: No Medical Problems Affecting Mental Status: No Interim History: Patient seen and discussed with team. He has been adherent with prolixin per Pete's order. Patient evaluated this morning and upon interview he repoerts his mood is Not really that good, says this is because he feels sick and the medication is not working for my benefit. Says he doesnt get any sleep because someone wakes me up due to checks. He went to group, says it was boring. Thinks his father may be visiting today. Eating okay. No questions or concerns.? In the milieu, patient is safe in behavior, less agitated since starting medication, has been walking and is visible. Denies SI/SIB/HI upon inquiry. He appears less irritable and denies assaultive ideation. Says he feels safe. Medication Compliance: Yes Side effects from medications: No Attending Groups: Yes Review of Systems Medical Review of Systems: unchanged Mental Status Exam Mental Status Exam Narrative: Pt is alert and oriented to self, place, but not situation. Behavior is less irritable, talking loudly, sometimes yelling or swearing; unkempt hair; mood is notably less irritable since taking prolixin, affect irritable; eye contact intense; Speech is moderately pressured but less so, and softer; intermittent psychomotor agitation present; thought process is disorganized but a little improved and for moments he can remain goal directed but still returns to tangential, illogical thinking; Thought content is on discharge or other various, unrelated topics inappropriate for context, but less than on admission;? delusional content, paranoid ideations and grandiosity present; denies any SI/HI. Denies AVH; Patients insight and judgment impaired. Diagnostics Vital Signs (24Hr): Vital Signs - 24 hr 12/10/20 06:00 Temperature 97.0 F Pulse Rate 60 Respiratory Rate 16 Blood Pressure 121/65 Pulse Oximetry 95 Body Mass Index 25.9 Imaging Radiology Impressions: ITS Impressions Face X-Ray 11/28/20 17:53 IMPRESSION: No radiopaque foreign body. Medications Medications Current Medications Generic Name Dose Route Start Last Admin Trade Name Freq PRN Reason Stop Dose Admin Acetaminophen 650 mg 11/29/20 21:10 12/01/20 20:11 Acetaminophen 325 Mg Tablet PO 650 mg Q6H PRN Administration Headache/Pain Mild Scale (1-3) Al Hydroxide/Mg Hydroxide 30 ml 11/29/20 21:10 12/07/20 20:14 Magnesium Hydrox/Alum Hydrox 30 Ml Oral.Susp PO 30 ml Q6H PRN Administration Heartburn/Nausea Artificial Tears 2 drop 12/07/20 13:54 Artificial Tears 15 Ml Drops EYE-BOTH TID PRN Dry Eyes Calcium Carbonate 750 mg 12/09/20 16:00 12/10/20 20:04 Calcium Carbonate 750 Mg Tab.Chew PO 750 mg Q4H LORENZA Administration Divalproex Sodium 1,000 mg 12/09/20 21:00 12/10/20 20:04 Divalproex Sodium Er 500 Mg Tab.Er.24h PO 1,000 mg BEDTIME LORENZA Administration Fluphenazine HCl 5 mg 12/09/20 21:00 12/10/20 20:04 Fluphenazine Hcl 5 Mg Tablet PO 5 mg BEDTIME LORENZA Administration Ibuprofen 400 mg 11/29/20 21:10 Ibuprofen 400 Mg Tablet PO BID PRN for fever Magnesium Hydroxide 30 ml 11/29/20 21:10 12/10/20 20:04 Milk Of Magnesia 30 Ml Oral.Susp PO 30 ml DAILY PRN Administration Constipation Olanzapine 5 mg 11/30/20 14:53 Olanzapine 5 Mg Tablet PO TID PRN psychosis, agitation Trazodone HCl 50 mg 11/29/20 21:10 Trazodone Hcl 50 Mg Tablet PO BEDTIME PRN Insomnia Vitamin D 50 mcg 11/30/20 09:00 12/10/20 08:30 Cholecalciferol (Vitamin D3) 25 Mcg Tablet PO 50 mcg DAILY LORENZA Administration Ziprasidone 10 mg 12/09/20 12:40 Ziprasidone Mesylate 20 Mg Vial IM DAILY PRN IF REFUSES Scheduled Antipsychotic Allergies Allergies Allergy/AdvReac Type Severity Reaction Status Date / Time risperidone [From RISPERDAL] Allergy Unknown UNKNOWN Verified 11/28/20 17:37 topiramate [From TOPAMAX] Allergy Unknown HEADACHE Verified 11/28/20 17:37 Assessment & Plan Assessment & Plan (1) Schizoaffective disorder, bipolar type: Status: Acute Code(s): F25.0 - Schizoaffective disorder, bipolar type Assessment and Plan: IMPRESSIoN: Patient is a 45 y.o. Male who carries a dx of schizoaffective disorder, bipolar type and moderate cannabis use disorder. Patient's mother called crisis Patient is currently floridly manic, with loud and pressured speech, disorganized in speech and behavior and with distinctly irritable/agitated presentation, glaring and yelling at people, intrusive and intimidating. Patient lacks insight. He says he is fine and wants to discharge. Patient is currently willing to take Depakote. He refuses other mood stabilizers or other medications. Patient gave information writer verbal permission to call his outpatient psychiatrist Dr. Hernandez (even giving information writer the correct phone number) to discuss his case; call placed. Pt remains floridly manic, intrusive, easily triggered to agitation, loud, provocative and confrontational. No insight. He is taking depakote but refuses any other medications including antipsychotics which he's been on in the past. Pt has 3 day notice due and insists on leaving hospital on 12/02/20 when 3 day notice due. Pt triggered a peer into feeling defensive and altercation only avoided by staff intervention. Patient has already made peers and staff on the unit, including information writer, wary of being alone with patient out of consideration for safety. Pt's illness and subsequent current symptoms are making others feel threatened and he is in imminent risk for defensive pre-emptive aggression from others. Team agrees need to file for civil commitment. Patient has improved a little since admission in taking Depakote 1000 mg regularly however he remains with disorganized speech and behavior, easily agitated and confrontational and without insight. Patient continues to refuse labs for Depakote level and associated medication monitoring. He refuses any other medication PLAN: *filed for civil commitment. Patient initially signed CV; he later signed 3 day notice Q 15 minutes checks for now; will monitor and consider increasing Increased Depakote to 1500 mg q.h.s. however, pt has thus far refused only taking 1000mg (patient remains floridly manic despite being on 1000 mg for stay 2-3 days) -pt refuses labs for depakote level and associated med monitoring; will reschedule labs after a few more days when hopeful patient is more organized and willing to have labwork Zyprexa remains as a p.r.n. for agitation Will continue to pursue collateral (Dr. Hernandez: [phone]) Currently patient presents as intrusive, intimidating and is without any insight. 12/10: Pt is med adherent and overall less agitated/ irritable, softer spoken. Continues to present with paranoid ideations and poor insight into symptoms or risks of not treating his thought disorder, perseverative on discharge and that medication is not helpful to him despite apparent benefit. Greater than 50% of the session was spent on counseling and/or coordination of care Reason for contiued inpatient stay Substantial Risk for: rapid decompensation and med/psych decompensation
[2020-12-11] MEDS: Calcium Carbonate 750 MG TAB.CHEW PO ×4 (00:32→20:43)
[2020-12-11] MEDS: Cholecalciferol (Vitamin D3) 25 MCG TABLET 50 MCG PO ×2 (07:58→07:59)
--- NOTE | 2020-12-11 15:06 | P.PNPSI_ITS ---
Subjective Subjective Date of Service: 12/11/20 Reason For Visit: crisis Subjective Notes: Cerna Warning and Section 8 Healthcare Proxy: No Guardianship: No Medical Problems Affecting Mental Status: No Interim History: Patient seen and discussed with team. He has been adherent with prolixin per Pete's order. Per staff weapons officer he has better behavioral control since medication start but he is tense overall. He utilized PRN tums for indigestion. Patient evaluated this morning and upon interview he reports he took tums, I cant really eat hospital food. He is perseverative on not needing medication and says he is in the hospital because im always getting blamed for shit, claims he was med adherent prior to admission although he was not. Says his parents dont want to talk to him but denies this bothering him. No questions or concerns. In the milieu, patient is safe in behavior, less agitated since starting medication, has been walking and is visible. Denies SI/SIB/HI upon inquiry. He appears less irritable and denies assaultive ideation. Says he feels safe. Medication Compliance: Yes Side effects from medications: No Attending Groups: Yes Review of Systems Medical Review of Systems: unchanged Mental Status Exam Mental Status Exam Narrative: Pt is alert and oriented to self, place, but not situation. Behavior is less irritable, talking loudly, sometimes yelling or swearing; unkempt hair; mood is notably less irritable since taking prolixin, affect irritable; eye contact intense; Speech is moderately pressured but less so, and softer; intermittent psychomotor agitation present; thought process is disorganized but a little improved and for moments he can remain goal directed but still returns to tangential, illogical thinking; Thought content is on discharge or other various, unrelated topics inappropriate for context, but less than on admission;? delusional content, paranoid ideations and grandiosity present; denies any SI/HI. Denies AVH; Patients insight and judgment impaired. Diagnostics Vital Signs (24Hr): Body Mass Index 25.9 Imaging Radiology Impressions: ITS Impressions Face X-Ray 11/28/20 17:53 IMPRESSION: No radiopaque foreign body. Medications Medications Current Medications Generic Name Dose Route Start Last Admin Trade Name Freq PRN Reason Stop Dose Admin Acetaminophen 650 mg 11/29/20 21:10 12/01/20 20:11 Acetaminophen 325 Mg Tablet PO 650 mg Q6H PRN Administration Headache/Pain Mild Scale (1-3) Al Hydroxide/Mg Hydroxide 30 ml 11/29/20 21:10 12/07/20 20:14 Magnesium Hydrox/Alum Hydrox 30 Ml Oral.Susp PO 30 ml Q6H PRN Administration Heartburn/Nausea Artificial Tears 2 drop 12/07/20 13:54 Artificial Tears 15 Ml Drops EYE-BOTH TID PRN Dry Eyes Calcium Carbonate 750 mg 12/09/20 16:00 12/11/20 13:30 Calcium Carbonate 750 Mg Tab.Chew PO Not Given Q4H LORENZA Divalproex Sodium 1,000 mg 12/09/20 21:00 12/10/20 20:04 Divalproex Sodium Er 500 Mg Tab.Er.24h PO 1,000 mg BEDTIME LORENZA Administration Fluphenazine HCl 5 mg 12/09/20 21:00 12/10/20 20:04 Fluphenazine Hcl 5 Mg Tablet PO 5 mg BEDTIME LORENZA Administration Ibuprofen 400 mg 11/29/20 21:10 Ibuprofen 400 Mg Tablet PO BID PRN for fever Magnesium Hydroxide 30 ml 11/29/20 21:10 12/10/20 20:04 Milk Of Magnesia 30 Ml Oral.Susp PO 30 ml DAILY PRN Administration Constipation Olanzapine 5 mg 11/30/20 14:53 Olanzapine 5 Mg Tablet PO TID PRN psychosis, agitation Trazodone HCl 50 mg 11/29/20 21:10 Trazodone Hcl 50 Mg Tablet PO BEDTIME PRN Insomnia Vitamin D 50 mcg 11/30/20 09:00 12/11/20 07:59 Cholecalciferol (Vitamin D3) 25 Mcg Tablet PO 50 mcg DAILY LORENZA Administration Ziprasidone 10 mg 12/09/20 12:40 Ziprasidone Mesylate 20 Mg Vial IM DAILY PRN IF REFUSES Scheduled Antipsychotic Allergies Allergies Allergy/AdvReac Type Severity Reaction Status Date / Time risperidone [From RISPERDAL] Allergy Unknown UNKNOWN Verified 11/28/20 17:37 topiramate [From TOPAMAX] Allergy Unknown HEADACHE Verified 11/28/20 17:37 Assessment & Plan Assessment & Plan (1) Schizoaffective disorder, bipolar type: Status: Acute Code(s): F25.0 - Schizoaffective disorder, bipolar type Assessment and Plan: IMPRESSIoN: Patient is a 45 y.o. Male who carries a dx of schizoaffective disorder, bipolar type and moderate cannabis use disorder. Patient's mother called crisis Patient is currently floridly manic, with loud and pressured speech, disorganized in speech and behavior and with distinctly irritable/agitated presentation, glaring and yelling at people, intrusive and intimidating. Patient lacks insight. He says he is fine and wants to discharge. Patient is currently willing to take Depakote. He refuses other mood stabilizers or other medications. Patient gave assembly instructions writer verbal permission to call his outpatient psychiatrist Dr. Hernandez (even giving assembly instructions writer the correct phone number) to discuss his case; call placed. Pt remains floridly manic, intrusive, easily triggered to agitation, loud, provocative and confrontational. No insight. He is taking depakote but refuses any other medications including antipsychotics which he's been on in the past. Pt has 3 day notice due and insists on leaving hospital on 12/02/20 when 3 day notice due. Pt triggered a peer into feeling defensive and altercation only avoided by staff intervention. Patient has already made peers and staff on the unit, including assembly instructions writer, wary of being alone with patient out of consideration for safety. Pt's illness and subsequent current symptoms are making others feel threatened and he is in imminent risk for defensive pre-emptive aggression from others. Team agrees need to file for civil commitment. Patient has improved a little since admission in taking Depakote 1000 mg regularly however he remains with disorganized speech and behavior, easily agitated and confrontational and without insight. Patient continues to refuse labs for Depakote level and associated medication monitoring. He refuses any other medication PLAN: *filed for civil commitment. Patient initially signed CV; he later signed 3 day notice Q 15 minutes checks for now; will monitor and consider increasing Increased Depakote to 1500 mg q.h.s. however, pt has thus far refused only taking 1000mg (patient remains floridly manic despite being on 1000 mg for stay 2-3 days) -pt refuses labs for depakote level and associated med monitoring; will reschedule labs after a few more days when hopeful patient is more organized and willing to have labwork Zyprexa remains as a p.r.n. for agitation Will continue to pursue collateral (Dr. Hernandez: [phone]) Currently patient presents as intrusive, intimidating and is without any insight. 12/10: Pt is med adherent and overall less agitated/ irritable, softer spoken. Continues to present with paranoid ideations and poor insight into symptoms or risks of not treating his thought disorder, perseverative on discharge and that medication is not helpful to him despite apparent benefit. 12/11: Continues to be med adherent and responding to prolixin. Continues to lack insight and present with paranoid, persecutory delusions. Affect is irritable. Greater than 50% of the session was spent on counseling and/or coordination of care Reason for contiued inpatient stay Substantial Risk for: rapid decompensation and med/psych decompensation
[2020-12-11 17:45] VITALS: BP 117/62; PULSE 101; RESP 16; TEMP 36.4; O2SAT 96
[2020-12-11] MEDS: fluPHENAZine HCl 5 MG TABLET PO (20:43)
[2020-12-11] MEDS: Divalproex Sodium ER 500 MG TAB.ER.24H 1000 MG PO (20:43)
[2020-12-12] MEDS: Calcium Carbonate 750 MG TAB.CHEW PO ×6 (01:39→22:01)
[2020-12-12] MEDS: Cholecalciferol (Vitamin D3) 25 MCG TABLET 50 MCG PO (08:04)
--- NOTE | 2020-12-12 11:17 | P.PNPSI_ITS ---
Subjective Subjective Date of Service: 12/12/20 Reason For Visit: crisis Interim History: Patient said that he is sleeping a little better since starting Prolixin; denies side effects. He agrees to increasing to 10 mg. He asks when he can get out of here and director underwriter sales said that he seems to be more calm and doing better and hopefully it will be that long. Patient refers to his sister using angry words and somehow how she was in a pornographic magazine although he is able to be redirected back to pertinent topic. Patient refuses blood work saying he only gets blood drawn if his primary care says so. Clinical Information Systems Director offered to call primary care however patient said that he wanted to try and call him 1st to which director underwriter sales agreed. Staff agrees that patient is less intrusive and seems to be improving. Mental Status Exam Mental Status Exam Narrative: Pt is alert and oriented to self, place, but not situation. Behavior is less intrusive; unkempt hair; mood is notably less irritable since taking prolixin; affect irritable; eye contact adequate, not intense, not glaring; Speech is less pressured and he's able to listen for longer; still intermittent psychomotor agitation but less so; thought process is able to be goal directed for longer periods, though it is still disorganized and with tangential, illogical thinking; Thought content is on medications management and how long needs to be in hospital as well as on other various, unrelated topics inappropriate for context; delusional content, paranoid ideations and grandiosity present; denies any SI/HI. Denies AVH; Patients insight and judgment impaired but improving. Diagnostics Vital Signs (24Hr): Vital Signs - 24 hr 12/11/20 17:45 Temperature 97.5 F Pulse Rate 101 H Respiratory Rate 16 Blood Pressure 117/62 Pulse Oximetry 96 Body Mass Index 25.9 Imaging Radiology Impressions: ITS Impressions Face X-Ray 11/28/20 17:53 IMPRESSION: No radiopaque foreign body. Medications Medications Current Medications Generic Name Dose Route Start Last Admin Trade Name Freq PRN Reason Stop Dose Admin Acetaminophen 650 mg 11/29/20 21:10 12/01/20 20:11 Acetaminophen 325 Mg Tablet PO 650 mg Q6H PRN Administration Headache/Pain Mild Scale (1-3) Al Hydroxide/Mg Hydroxide 30 ml 11/29/20 21:10 12/07/20 20:14 Magnesium Hydrox/Alum Hydrox 30 Ml Oral.Susp PO 30 ml Q6H PRN Administration Heartburn/Nausea Artificial Tears 2 drop 12/07/20 13:54 Artificial Tears 15 Ml Drops EYE-BOTH TID PRN Dry Eyes Calcium Carbonate 750 mg 12/09/20 16:00 12/12/20 09:12 Calcium Carbonate 750 Mg Tab.Chew PO 750 mg Q4H LORENZA Administration Divalproex Sodium 1,000 mg 12/09/20 21:00 12/11/20 20:43 Divalproex Sodium Er 500 Mg Tab.Er.24h PO 1,000 mg BEDTIME LORENZA Administration Fluphenazine HCl 10 mg 12/12/20 21:00 Fluphenazine Hcl 5 Mg Tablet PO BEDTIME LORENZA Ibuprofen 400 mg 11/29/20 21:10 Ibuprofen 400 Mg Tablet PO BID PRN for fever Magnesium Hydroxide 30 ml 11/29/20 21:10 12/10/20 20:04 Milk Of Magnesia 30 Ml Oral.Susp PO 30 ml DAILY PRN Administration Constipation Olanzapine 5 mg 11/30/20 14:53 Olanzapine 5 Mg Tablet PO TID PRN psychosis, agitation Trazodone HCl 50 mg 11/29/20 21:10 Trazodone Hcl 50 Mg Tablet PO BEDTIME PRN Insomnia Vitamin D 50 mcg 11/30/20 09:00 12/12/20 08:04 Cholecalciferol (Vitamin D3) 25 Mcg Tablet PO 50 mcg DAILY LORENZA Administration Ziprasidone 10 mg 12/09/20 12:40 Ziprasidone Mesylate 20 Mg Vial IM DAILY PRN IF REFUSES Scheduled Antipsychotic Allergies Allergies Allergy/AdvReac Type Severity Reaction Status Date / Time risperidone [From RISPERDAL] Allergy Unknown UNKNOWN Verified 11/28/20 17:37 topiramate [From TOPAMAX] Allergy Unknown HEADACHE Verified 11/28/20 17:37 Assessment & Plan Assessment & Plan (1) Schizoaffective disorder, bipolar type: Status: Acute Code(s): F25.0 - Schizoaffective disorder, bipolar type Assessment and Plan: IMPRESSIoN: Patient is a 45 y.o. Male who carries a dx of schizoaffective disorder, bipolar type and moderate cannabis use disorder.? Patient's mother called crisis Patient is currently floridly manic, with loud and pressured speech, disorganized in speech and behavior and with distinctly irritable/agitated presentation, glaring and yelling at people, intrusive and intimidating.? Patient lacks insight.? He says he is fine and wants to discharge.? Patient is currently willing to take Depakote.? He refuses other mood stabilizers or other medications.? Patient gave director underwriter sales verbal permission to call his outpatient psychiatrist Dr. Hernandez (even giving director underwriter sales the correct phone number) to discuss his case; call placed. Pt remains floridly manic, intrusive, easily triggered to agitation, loud, provocative and confrontational. No insight. He is taking depakote but refuses any other medications including antipsychotics which he's been on in the past. Pt has 3 day notice due and insists on leaving hospital on 12/02/20 when 3 day notice due. Pt triggered a peer into feeling defensive and altercation only avoided by staff intervention. Patient has already made peers and staff on the unit, including director underwriter sales, wary of being alone with patient out of consideration for safety.? Pt's illness and subsequent current symptoms are making others feel threatened and he is in imminent risk for defensive pre-emptive aggression from others.? Team agrees need to file for civil commitment. Patient has improved a little since admission in taking Depakote 1000 mg regular [address] however he remains with disorganized speech and behavior, easily agitated and confrontational and without insight. Patient continues to refuse labs for Depakote level and associated medication monitoring. covering provider 12/10: Pt is med adherent and overall less agitated/ irritable, softer spoken. Continues to present with paranoid ideations and poor insight into symptoms or risks of not treating his thought disorder, perseverative on discharge and that medication is not helpful to him despite apparent benefit. 12/11: Continues to be med adherent and responding to prolixin. Continues to lack insight and present with paranoid, persecutory delusions. Affect is irritable. PLAN: COURT ORDERED CIVIL COMMITMENT AND SUBSTITUTED JUDGMENT on 12/08/20 PATIENT ON DEUTSCH INCREASED TO Prolixin 10 MG qhs (pt says he was on 20mg as oupt, though may have been 15mg) IM ziprasidone IF REFUSES PO Q 15 minutes checks for now; will monitor and consider increasing continue Depakote back to 1000 mg q.h.s. (outpt dose, since he is not on prolixin). -pt refuses labs for depakote level and associated med monitoring; will again reschedule labs after a few more days when hopeful patient is more organized and willing to have labwork Zyprexa p.r.n. for agitation Greater than 50% of the session was spent on counseling and/or coordination of care Reason for contiued inpatient stay Substantial Risk for: inability to function
[2020-12-12 18:30] VITALS: BP 133/79; PULSE 106; TEMP 36.1
[2020-12-12] MEDS: Divalproex Sodium ER 500 MG TAB.ER.24H 1000 MG PO (21:52)
[2020-12-12] MEDS: fluPHENAZine HCl 5 MG TABLET 10 MG PO (21:52)
[2020-12-13 06:00] VITALS: BP 125/75; PULSE 98; TEMP 35.9; O2SAT 99
[2020-12-13] MEDS: Calcium Carbonate 750 MG TAB.CHEW PO ×4 (06:03→21:01)
[2020-12-13] MEDS: Cholecalciferol (Vitamin D3) 25 MCG TABLET 50 MCG PO (08:33)
[2020-12-13 09:37] LABS: Alanine Aminotransferase 21 U/L (0-40); Alkaline Phosphatase 60 U/L (39-117); Anion Gap 11 (12-20); Aspartate Amino Transferase 17 U/L (5-37); Bilirubin Direct < 0.2 mg/dL (0.0-0.5); Bilirubin Total 0.5 mg/dL (0.0-1.0); Blood Urea Nitrogen 19 mg/dL (9-16); Carbon Dioxide 31 mmol/L (22-29); Chloride 104 mmol/L (96-108); Cholesterol 186 mg/dL; Creatinine Clr Calc Pharmacy 115.3; Estimated Glomerular Filt Rate > 60; HDL Cholesterol 42 mg/dL; LDL Cholesterol Calculated 127 mg/dl; Potassium 4.5 mmol/L (3.3-5.1); Sodium 141 mmol/L (135-145); Total Protein 6.4 g/dL (6.5-8.0); Triglycerides 86 mg/dL
[2020-12-13 11:10] LABS: Reflex LDLD? No
[2020-12-13 17:50] VITALS: RESP 16
[2020-12-13 19:39] LABS: MANUAL DIFF FLAG NO
[2020-12-13 19:50] LABS: Basophils Absolute Auto 0.1 X10*3/uL (0.0-0.2); Basophils Percent Auto 0.6 % (0-2); Eosinophils Absolute Auto 0.2 X10*3/uL (0.0-0.4); Eosinophils Percent Auto 2.9 % (0-4); Hematocrit 42.2 % (42-52); Hemoglobin 14.7 g/dl (14.0-18.0); Imm Gran Abs Auto 0.02 X10*3/uL (0.00-0.03); Imm Gran Pct Auto 0.3 % (0.0-0.4); Lymphocytes Absolute Auto 2.9 X10*3/uL (1.2-4.9); Lymphocytes Percent Auto 36.4 % (20-40); Mean Corpuscular HGB Conc 34.8 g/dl (31.0-36.0); Mean Corpuscular Hemoglobin 32.2 pg (27.0-33.0); Mean Corpuscular Volume 92.5 fL (80-98); Mean Platelet Volume 10.7 fL (9.4-12.4); Monocytes Absolute Auto 0.7 X10*3/uL (0.1-1.2); Monocytes Percent Auto 9.3 % (2-11); Neutrophils Percent Auto 50.5 % (45-73); Platelet Count 202 X10*3/uL (160-400); Red Blood Count 4.56 X10*6/uL (4.60-5.80); Red Cell Distribution Width 11.8 % (11.0-16.0); White Blood Count 7.9 X10*3/uL (4.8-10.8)
[2020-12-13 20:12] LABS: Valproate 55.1 mcg/mL (50.0-100.0)
[2020-12-13] MEDS: Divalproex Sodium ER 500 MG TAB.ER.24H 1000 MG PO (21:01)
[2020-12-13] MEDS: fluPHENAZine HCl 5 MG TABLET 10 MG PO (21:01)
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
[2020-12-14] MEDS: Cholecalciferol (Vitamin D3) 25 MCG TABLET 50 MCG PO (08:54)
[2020-12-14] MEDS: Calcium Carbonate 750 MG TAB.CHEW PO ×2 (12:05→20:28)
--- NOTE | 2020-12-14 13:09 | HO.PSYCHPN ---
Subjective Subjective Date of Service: 12/14/20 Reason For Visit: crisis Interim History: Patient said that he is sleeping better. He asks when he thinks he will be discharged and literary writer says that it be good to get his parents input to see if he is back to his normal self. Patient says parents are coming today and we can talk with them together. Patient says he thinks may read that Prolixin is an antibiotic because he felt like a war arm was crawling up his throat but now he does not feel that way, concluding that Prolixin has antibiotic properties. Field Automobile Adjuster did some reality testing highlighting bipolar disorders propensity to cause delusional thinking and how Prolixin has remedied that, however patient remained fixated on this delusional thought and Prolixin as an antibiotic. Patient says he does not want Dr. Hernandez any more but a younger doctor. Patient had a lot of questions about deciding whether to work with [facility], saying they do not allow any alcohol in their apartments. He says he'll buy a 6 pack of beer which will last the week and does not want to give that up. Patient agreed to continue considering Mental Status Exam Mental Status Exam Narrative: Pt is alert and oriented to self, place, and increasingly situation. Behavior still pacing halls, but he is more calm, not intense and not intrusive; unkempt hair but adequate hygiene; mood is better i guess and notably less irritable since taking prolixin; affect constricted; eye contact adequate, not intense, not glaring; Speech is not pressured, not so overly loud; mild intermittent psychomotor agitation with walking halls; thought process is able to be linear and goal directed for longer periods, though it is still becomes disorganized and with tangential, illogical thinking; Thought content is on medication management and how long needs to be in hospital as well as on other various, unrelated topics inappropriate for context; still with delusional content, paranoid ideations but less grandiosity; denies any SI/HI. Denies AVH; Patients insight and judgment impaired but improving. Diagnostics Vital Signs (24Hr): Vital Signs - 24 hr 12/13/20 17:50 Respiratory Rate 16 Body Mass Index 25.9 Labs Results: 12/13/20 19:29 12/13/20 08:19 Labs: Laboratory Results - last 48 hr 09/12/13/20 12/13/20 08:19 19:29 19:29 WBC 7.9 RBC 4.56 L Hgb 14.7 Hct 42.2 MCV 92.5 MCH 32.2 MCHC 34.8 RDW 11.8 Plt Count 202 MPV 10.7 Immature Gran % (Auto) 0.3 Neut % (Auto) 50.5 Lymph % (Auto) 36.4 [place] % (Auto) 9.3 Eos % (Auto) 2.9 Baso % (Auto) 0.6 Lymph # (Auto) 2.9 [place] # (Auto) 0.7 Eos # (Auto) 0.2 Baso # (Auto) 0.1 Abs Immat Gran (auto) 0.02 Absolute Neuts (auto) 4.0 Absolute Nucleated RBC 0.000 Nucleated RBC % (auto) 0.0 Sodium 141 Potassium 4.5 Chloride 104 Carbon Dioxide 31 H Anion Gap 11 L BUN 19 H D Creatinine 0.95 Estim Creat Clear Calc 115.3 Estimated GFR > 60 Total Bilirubin 0.5 Direct Bilirubin < 0.2 AST 17 ALT 21 Alkaline Phosphatase 60 Total Protein 6.4 L Albumin 4.0 Triglycerides 86 Cholesterol 186 LDL Cholesterol, Calc 127 HDL Cholesterol 42 Valproic Acid 55.1 Imaging Radiology Impressions: ITS Impressions Face X-Ray 11/28/20 17:53 IMPRESSION: No radiopaque foreign body. Medications Medications Current Medications Generic Name Dose Route Start Last Admin Trade Name Freq PRN Reason Stop Dose Admin Acetaminophen 650 mg 11/29/20 21:10 12/01/20 20:11 Acetaminophen 325 Mg Tablet PO 650 mg Q6H PRN Administration Headache/Pain Mild Scale (1-3) Al Hydroxide/Mg Hydroxide 30 ml 11/29/20 21:10 12/07/20 20:14 Magnesium Hydrox/Alum Hydrox 30 Ml Oral.Susp PO 30 ml Q6H PRN Administration Heartburn/Nausea Artificial Tears 2 drop 12/07/20 13:54 Artificial Tears 15 Ml Drops EYE-BOTH TID PRN Dry Eyes Calcium Carbonate 750 mg 12/09/20 16:00 12/14/20 12:05 Calcium Carbonate 750 Mg Tab.Chew PO 750 mg Q4H LORENZA Administration Divalproex Sodium 1,000 mg 12/09/20 21:00 12/13/20 21:01 Divalproex Sodium Er 500 Mg Tab.Er.24h PO 1,000 mg BEDTIME LORENZA Administration Fluphenazine HCl 10 mg 12/12/20 21:00 12/13/20 21:01 Fluphenazine Hcl 5 Mg Tablet PO 10 mg BEDTIME LORENZA Administration Ibuprofen 400 mg 11/29/20 21:10 Ibuprofen 400 Mg Tablet PO BID PRN for fever Magnesium Hydroxide 30 ml 11/29/20 21:10 12/10/20 20:04 Milk Of Magnesia 30 Ml Oral.Susp PO 30 ml DAILY PRN Administration Constipation Olanzapine 5 mg 11/30/20 14:53 Olanzapine 5 Mg Tablet PO TID PRN psychosis, agitation Trazodone HCl 50 mg 11/29/20 21:10 Trazodone Hcl 50 Mg Tablet PO BEDTIME PRN Insomnia Vitamin D 50 mcg 11/30/20 09:00 12/14/20 08:54 Cholecalciferol (Vitamin D3) 25 Mcg Tablet PO 50 mcg DAILY LORENZA Administration Ziprasidone 10 mg 12/09/20 12:40 Ziprasidone Mesylate 20 Mg Vial IM DAILY PRN IF REFUSES Scheduled Antipsychotic Allergies Allergies Allergy/AdvReac Type Severity Reaction Status Date / Time risperidone [From RISPERDAL] Allergy Unknown UNKNOWN Verified 11/28/20 17:37 topiramate [From TOPAMAX] Allergy Unknown HEADACHE Verified 11/28/20 17:37 Assessment & Plan Assessment & Plan (1) Schizoaffective disorder, bipolar type: Status: Acute Code(s): F25.0 - Schizoaffective disorder, bipolar type Assessment and Plan: IMPRESSIoN: Patient is a 45 y.o. Male who carries a dx of schizoaffective disorder, bipolar type and moderate cannabis use disorder.? Patient's mother called crisis Patient is currently floridly manic, with loud and pressured speech, disorganized in speech and behavior and with distinctly irritable/agitated presentation, glaring and yelling at people, intrusive and intimidating.? Patient lacks insight.? He says he is fine and wants to discharge.? Patient is currently willing to take Depakote.? He refuses other mood stabilizers or other medications.? Patient gave literary writer verbal permission to call his outpatient psychiatrist Dr. Hernandez (even giving literary writer the correct phone number) to discuss his case; call placed. Pt remains floridly manic, intrusive, easily triggered to agitation, loud, provocative and confrontational. No insight. He is taking depakote but refuses any other medications including antipsychotics which he's been on in the past. Pt has 3 day notice due and insists on leaving hospital on 12/02/20 when 3 day notice due. Pt triggered a peer into feeling defensive and altercation only avoided by staff intervention. Patient has already made peers and staff on the unit, including literary writer, wary of being alone with patient out of consideration for safety.? Pt's illness and subsequent current symptoms are making others feel threatened and he is in imminent risk for defensive pre-emptive aggression from others.? Team agrees need to file for civil commitment. Patient has improved a little since admission in taking Depakote 1000 mg regularly however he remains with disorganized speech and behavior, easily agitated and confrontational and without insight. Patient continues to refuse labs for Depakote level and associated medication monitoring. -still has paranoid delusions and some disorganized thinking however he continues to improve on Prolixin; no longer intrusive or confrontational and much more able to have conversation Consented to lab work -patient considering [facility] PL[facility]: COURT ORDERED CIVIL COMMITMENT AND SUBSTITUTED JUDGMENT on 12/08/20 PATIENT ON GET Continue Prolixin 10 MG qhs (pt says he was on 20mg as oupt, though may have been 15mg) IM ziprasidone IF REFUSES PO Q 15 minutes checks for now; will monitor and consider increasing continue Depakote 1000 mg q.h.s. (outpt dose, since he is not on prolixin). (labs/level grossly WNL) Zyprexa p.r.n. for agitation Greater than 50% of the session was spent on counseling and/or coordination of care Reason for contiued inpatient stay Substantial Risk for: rapid decompensation
[2020-12-14] MEDS: fluPHENAZine HCl 5 MG TABLET 10 MG PO (20:27)
[2020-12-14] MEDS: Divalproex Sodium ER 500 MG TAB.ER.24H 1000 MG PO (20:28)
[2020-12-15 06:00] VITALS: BP 121/66; PULSE 75; RESP 16; TEMP 36.2; O2SAT 98
[2020-12-15 07:00] VITALS: BMI 26.7
[2020-12-15] MEDS: Calcium Carbonate 750 MG TAB.CHEW PO (09:55)
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
[2020-12-15] MEDS: fluPHENAZine HCl 5 MG TABLET 15 MG PO (20:28)
[2020-12-15] MEDS: Divalproex Sodium ER 500 MG TAB.ER.24H 1000 MG PO (20:28)
[2020-12-16 06:00] VITALS: BP 99/56; PULSE 75; RESP 16; TEMP 36.5; O2SAT 98
[2020-12-16] MEDS: Calcium Carbonate 750 MG TAB.CHEW PO ×2 (08:29→12:42)
[2020-12-16] MEDS: Cholecalciferol (Vitamin D3) 25 MCG TABLET 50 MCG PO (08:29)
--- NOTE | 2020-12-16 16:39 | HO.PSYCHPN ---
Subjective Subjective Date of Service: 12/16/20 Reason For Visit: crisis Interim History: Irritable today. Denied any medication side effects. Asked video game script writer if he knew what he was doing. Patient asked video game script writer about DMH saying he was still considering. Mental Status Exam Mental Status Exam Narrative: Pt is alert and oriented to self, place, and increasingly situation. Behavior still pacing halls, but he is more calm, not intense and not intrusive; unkempt hair but adequate hygiene; mood is better i guess and notably less irritable since taking prolixin; affect constricted; eye contact adequate, not intense, not glaring; Speech is not pressured, not so overly loud; mild intermittent psychomotor agitation with walking halls; thought process is able to be linear and goal directed for longer periods, though it is still becomes disorganized and with tangential, illogical thinking; Thought content is on medication management and how long needs to be in hospital as well as on other various, unrelated topics inappropriate for context; still with delusional content, paranoid ideations but less grandiosity; denies any SI/HI. Denies AVH; Patients insight and judgment impaired but improving. Diagnostics Vital Signs (24Hr): Vital Signs - 24 hr 12/16/20 06:00 Temperature 97.7 F Pulse Rate 75 Respiratory Rate 16 Blood Pressure 99/56 L Pulse Oximetry 98 Body Mass Index 26.7 Labs Results: 12/13/20 19:29 12/13/20 08:19 Imaging Radiology Impressions: ITS Impressions Face X-Ray 11/28/20 17:53 IMPRESSION: No radiopaque foreign body. Medications Medications Current Medications Acetaminophen (Acetaminophen 325 Mg Tablet) 650 mg PO Q6H PRN PRN Reason: Headache/Pain Mild Scale (1-3) Last Admin: 12/01/20 20:11 Dose: 650 mg Documented by: Al Hydroxide/Mg Hydroxide (Magnesium Hydrox/Alum Hydrox 30 Ml Oral.Susp) 30 ml PO Q6H PRN PRN Reason: Heartburn/Nausea Last Admin: 12/07/20 20:14 Dose: 30 ml Documented by: Artificial Tears (Artificial Tears 15 Ml Drops) 2 drop EYE-BOTH TID PRN PRN Reason: Dry Eyes Calcium Carbonate (Calcium Carbonate 750 Mg Tab.Chew) 750 mg PO Q4H LORENZA Last Admin: 12/16/20 16:36 Dose: Not Given Documented by: Divalproex Sodium (Divalproex Sodium Er 500 Mg Tab.Er.24h) 1,000 mg PO BEDTIME LORENZA Last Admin: 12/15/20 20:28 Dose: 1,000 mg Documented by: Fluphenazine HCl (Fluphenazine Hcl 5 Mg Tablet) 15 mg PO BEDTIME LORENZA Last Admin: 12/15/20 20:28 Dose: 15 mg Documented by: Ibuprofen (Ibuprofen 400 Mg Tablet) 400 mg PO BID PRN PRN Reason: for fever Magnesium Hydroxide (Milk Of Magnesia 30 Ml Oral.Susp) 30 ml PO DAILY PRN PRN Reason: Constipation Last Admin: 12/10/20 20:04 Dose: 30 ml Documented by: Olanzapine (Olanzapine 5 Mg Tablet) 5 mg PO TID PRN PRN Reason: psychosis, agitation Trazodone HCl (Trazodone Hcl 50 Mg Tablet) 50 mg PO BEDTIME PRN PRN Reason: Insomnia Vitamin D (Cholecalciferol (Vitamin D3) 25 Mcg Tablet) 50 mcg PO DAILY LORENZA Last Admin: 12/16/20 08:29 Dose: 50 mcg Documented by: Ziprasidone (Ziprasidone Mesylate 20 Mg Vial) 10 mg IM DAILY PRN PRN Reason: IF REFUSES Scheduled Antipsychotic Allergies Allergies Allergy/AdvReac Type Severity Reaction Status Date / Time risperidone [From RISPERDAL] Allergy Unknown UNKNOWN Verified 11/28/20 17:37 topiramate [From TOPAMAX] Allergy Unknown HEADACHE Verified 11/28/20 17:37 Assessment & Plan Assessment & Plan (1) Schizoaffective disorder, bipolar type: Status: Acute Code(s): F25.0 - Schizoaffective disorder, bipolar type Assessment and Plan: IMPRESSIoN: Patient is a 45 y.o. Male who carries a dx of schizoaffective disorder, bipolar type and moderate cannabis use disorder.? Patient's mother called crisis Patient is currently floridly manic, with loud and pressured speech, disorganized in speech and behavior and with distinctly irritable/agitated presentation, glaring and yelling at people, intrusive and intimidating.? Patient lacks insight.? He says he is fine and wants to discharge.? Patient is currently willing to take Depakote.? He refuses other mood stabilizers or other medications.? Patient gave video game script writer verbal permission to call his outpatient psychiatrist Dr. Hernandez (even giving video game script writer the correct phone number) to discuss his case; call placed. Pt remains floridly manic, intrusive, easily triggered to agitation, loud, provocative and confrontational. No insight. He is taking depakote but refuses any other medications including antipsychotics which he's been on in the past. Pt has 3 day notice due and insists on leaving hospital on 12/02/20 when 3 day notice due. Pt triggered a peer into feeling defensive and altercation only avoided by staff intervention. Patient has already made peers and staff on the unit, including video game script writer, wary of being alone with patient out of consideration for safety.? Pt's illness and subsequent current symptoms are making others feel threatened and he is in imminent risk for defensive pre-emptive aggression from others.? Team agrees need to file for civil commitment. Patient has improved a little since admission in taking Depakote 1000 mg regularly however he remains with disorganized speech and behavior, easily agitated and confrontational and without insight. Patient continues to refuse labs for Depakote level and associated medication monitoring. -still has paranoid delusions and some disorganized thinking however he continues to improve on Prolixin; no longer intrusive or confrontational and much more able to have conversation Consented to lab work -patient considering [facility] PLAN: COURT ORDERED CIVIL COMMITMENT AND SUBSTITUTED JUDGMENT on 12/08/20 PATIENT ON GET INCREASE PROLIXIN TO 15 MG Q.H.S.(pt says he was on 20mg as oupt, though may have been 15mg) IM ziprasidone IF REFUSES PO Q 15 minutes checks for now; will monitor and consider increasing continue Depakote 1000 mg q.h.s. (outpt dose, since he is not on prolixin). (labs/level grossly WNL) Zyprexa p.r.n. for agitation Greater than 50% of the session was spent on counseling and/or coordination of care Reason for contiued inpatient stay Substantial Risk for: inability to function
[2020-12-16 18:00] VITALS: BP 150/79; PULSE 91; TEMP 36.1
[2020-12-16] MEDS: Divalproex Sodium ER 500 MG TAB.ER.24H 1000 MG PO (19:44)
[2020-12-16] MEDS: fluPHENAZine HCl 5 MG TABLET 15 MG PO (19:45)
[2020-12-17] MEDS: Calcium Carbonate 750 MG TAB.CHEW PO ×4 (05:48→20:13)
[2020-12-17] MEDS: Cholecalciferol (Vitamin D3) 25 MCG TABLET 50 MCG PO (08:18)
--- NOTE | 2020-12-17 09:46 | P.PNPSI_ITS ---
Subjective Subjective Date of Service: 12/17/20 Reason For Visit: crisis Interim History: pt seen on 12/17 said he thinks his mood is better; still irritable edge; asks if teletypewriter installer knows what he's doing. when am i getting outtta here doc? [employer] Supervisor again discussed discharge. Mental Status Exam Mental Status Exam Narrative: Pt is alert and oriented to self, place, and situation. Behavior more calm; less pacing; not intrusive; unkempt hair but adequate hygiene; mood is better i guess and notably less irritable since taking prolixin; affect constricted; eye contact adequate, not intense, not glaring; Speech is not pressured, not so overly loud; mild intermittent psychomotor agitation with walking halls; thought process is able to be linear and goal directed for longer periods, though it is still becomes disorganized with illogical thinking; Thought content is on medication management and how long needs to be in hospital as well as on other various, unrelated topics inappropriate for context; still with some delusional content, paranoid ideations but not really any grandiosity; denies any SI/HI. Denies AVH; Patients insight and judgment impaired but improving. Diagnostics Vital Signs (24Hr): Vital Signs - 24 hr 12/16/20 18:00 Temperature 97 F Pulse Rate 91 Blood Pressure 150/79 H Body Mass Index 26.7 Labs Results: 12/13/20 19:29 12/13/20 08:19 Imaging Radiology Impressions: ITS Impressions Face X-Ray 11/28/20 17:53 IMPRESSION: No radiopaque foreign body. Medications Medications Current Medications Acetaminophen (Acetaminophen 325 Mg Tablet) 650 mg PO Q6H PRN PRN Reason: Headache/Pain Mild Scale (1-3) Last Admin: 12/01/20 20:11 Dose: 650 mg Documented by: Al Hydroxide/Mg Hydroxide (Magnesium Hydrox/Alum Hydrox 30 Ml Oral.Susp) 30 ml PO Q6H PRN PRN Reason: Heartburn/Nausea Last Admin: 12/07/20 20:14 Dose: 30 ml Documented by: Artificial Tears (Artificial Tears 15 Ml Drops) 2 drop EYE-BOTH TID PRN PRN Reason: Dry Eyes Calcium Carbonate (Calcium Carbonate 750 Mg Tab.Chew) 750 mg PO Q4H LOR[facility] Last Admin: 12/17/20 08:19 Dose: Not Given Documented by: Divalproex Sodium (Divalproex Sodium Er 500 Mg Tab.Er.24h) 1,000 mg PO BEDTIME LOR[facility] Last Admin: 12/16/20 19:44 Dose: 1,000 mg Documented by: Fluphenazine HCl (Fluphenazine Hcl 5 Mg Tablet) 15 mg PO BEDTIME [facility] Last Admin: 12/16/20 19:45 Dose: 15 mg Documented by: Ibuprofen (Ibuprofen 400 Mg Tablet) 400 mg PO BID PRN PRN Reason: for fever Magnesium Hydroxide (Milk Of Magnesia 30 Ml Oral.Susp) 30 ml PO DAILY PRN PRN Reason: Constipation Last Admin: 12/10/20 20:04 Dose: 30 ml Documented by: Olanzapine (Olanzapine 5 Mg Tablet) 5 mg PO TID PRN PRN Reason: psychosis, agitation Trazodone HCl (Trazodone Hcl 50 Mg Tablet) 50 mg PO BEDTIME PRN PRN Reason: Insomnia Vitamin D (Cholecalciferol (Vitamin D3) 25 Mcg Tablet) 50 mcg PO DAILY [facility] Last Admin: 12/17/20 08:18 Dose: 50 mcg Documented by: Ziprasidone (Ziprasidone Mesylate 20 Mg Vial) 10 mg IM DAILY PRN PRN Reason: IF REFUSES Scheduled Antipsychotic Allergies Allergies Allergy/AdvReac Type Severity Reaction Status Date / Time risperidone [From RISPERDAL] Allergy Unknown UNKNOWN Verified 11/28/20 17:37 topiramate [From TOPAMAX] Allergy Unknown HEADACHE Verified 11/28/20 17:37 Assessment & Plan Assessment & Plan (1) Schizoaffective disorder, bipolar type: Status: Acute Code(s): F25.0 - Schizoaffective disorder, bipolar type Assessment and Plan: IMPRESSIoN: Patient is a 45 y.o. Male who carries a dx of schizoaffective disorder, bipolar type and moderate cannabis use disorder.? Patient's mother called crisis Patient is currently floridly manic, with loud and pressured speech, disorganized in speech and behavior and with distinctly irritable/agitated presentation, glaring and yelling at people, intrusive and intimidating.? Patient lacks insight.? He says he is fine and wants to discharge.? Patient is currently willing to take Depakote.? He refuses other mood stabilizers or other medications.? Patient gave teletypewriter installer verbal permission to call his outpatient psychiatrist Dr. Hernandez (even giving teletypewriter installer the correct phone number) to discuss his case; call placed. Until he started taking PROLIXIN....Pt remains floridly manic, intrusive, easily triggered to agitation, loud, provocative and confrontational. No insight. He is taking depakote but refuses any other medications including antipsychotics which he's been on in the past. Pt has 3 day notice due and insists on leaving hospital on 12/02/20 when 3 day notice due. Pt triggered a peer into feeling defensive and altercation only avoided by staff intervention. Patient has already made peers and staff on the unit, including teletypewriter installer, wary of being alone with patient out of consideration for safety.? Pt's illness and subsequent current symptoms are making others feel threatened and he is in imminent risk for defensive pre-emptive aggression from others.? Team agrees need to file for civil commitment. Patient did improve a little since admission in taking Depakote 1000 mg regularly however he remains with disorganized speech and behavior, easily agitated and confrontational and without insight. Patient continues to refuse labs for Depakote level and associated medication monitoring. -once started on Prolxin, delusions decreased, organization improved; no longer intrusive or confrontational and much more able to have conversation Consented to lab work -patient considering [facility] PLAN: COURT ORDERED CIVIL COMMITMENT AND SUBSTITUTED JUDGMENT on 12/08/20 PATIENT ON GET INCREASE PROLIXIN TO 15 MG Q.H.S.(pt says he was on 20mg as oupt, though may have been 15mg) IM ziprasidone IF REFUSES PO Q 15 minutes checks for now; will monitor and consider increasing continue Depakote 1000 mg q.h.s. (outpt dose, since he is not on prolixin). (labs/level grossly WNL) Zyprexa p.r.n. for agitation Greater than 50% of the session was spent on counseling and/or coordination of care Reason for contiued inpatient stay Substantial Risk for: med/psych decompensation
[2020-12-17] MEDS: fluPHENAZine HCl 5 MG TABLET 15 MG PO (20:12)
[2020-12-17] MEDS: Divalproex Sodium ER 500 MG TAB.ER.24H 1000 MG PO (20:13)
[2020-12-17 21:12] VITALS: BP 164/81; PULSE 90
[2020-12-18 06:00] VITALS: BP 129/73; PULSE 66; RESP 16; TEMP 36.1; O2SAT 96
[2020-12-18] MEDS: Calcium Carbonate 750 MG TAB.CHEW PO ×2 (06:14→20:54)
[2020-12-18] MEDS: Cholecalciferol (Vitamin D3) 25 MCG TABLET 50 MCG PO (08:23)
[2020-12-18] MEDS: Ibuprofen 400 MG TABLET PO (10:45)
[2020-12-18 17:45] VITALS: BP 112/68; PULSE 91; TEMP 37.1
[2020-12-18] MEDS: Divalproex Sodium ER 500 MG TAB.ER.24H 1000 MG PO (20:54)
[2020-12-18] MEDS: fluPHENAZine HCl 5 MG TABLET 15 MG PO (20:54)
--- NOTE | 2020-12-18 23:38 | P.PNPSI_ITS ---
Subjective Subjective Date of Service: 12/18/20 Reason For Visit: crisis Interim History: pt seen on12/18 mostly calm during day, however later in day he had an explosive outburst toward a peer in inadvertantly asked pt an innoculous question using his name...Pt yelled loudly, how dare you used my name... a few times and staff needed to intervene. he was then redirected. Mental Status Exam Mental Status Exam Narrative: Pt is alert and oriented to self, place, and situation. Behavior more calm; less pacing; not intrusive; unkempt hair but adequate hygiene; mood is better i guess and notably less irritable since taking prolixin; affect constricted; eye contact adequate, not intense, not glaring; Speech is not pressured, not so overly loud; mild intermittent psychomotor agitation with walking halls; thought process is able to be linear and goal directed for longer periods, though it is still becomes disorganized with illogical thinking; Thought content is on medication management and how long needs to be in hospital as well as on other various, unrelated topics inappropriate for context; still with some delusional content, paranoid ideations but not really any grandiosity; denies any SI/HI. Denies AVH; Patients insight and judgment impaired but improving. Diagnostics Vital Signs (24Hr): Vital Signs - 24 hr 12/18/20 06:00 12/18/20 17:45 Temperature 96.9 F 98.8 F Pulse Rate 66 91 Respiratory Rate 16 Blood Pressure 129/73 112/68 Pulse Oximetry 96 Body Mass Index 26.7 Labs Results: 12/13/20 19:29 12/13/20 08:19 Imaging Radiology Impressions: ITS Impressions Face X-Ray 11/28/20 17:53 IMPRESSION: No radiopaque foreign body. Medications Medications Current Medications Acetaminophen (Acetaminophen 325 Mg Tablet) 650 mg PO Q6H PRN PRN Reason: Headache/Pain Mild Scale (1-3) Last Admin: 12/01/20 20:11 Dose: 650 mg Documented by: Al Hydroxide/Mg Hydroxide (Magnesium Hydrox/Alum Hydrox 30 Ml Oral.Susp) 30 ml PO Q6H PRN PRN Reason: Heartburn/Nausea Last Admin: 12/07/20 20:14 Dose: 30 ml Documented by: Artificial Tears (Artificial Tears 15 Ml Drops) 2 drop EYE-BOTH TID PRN PRN Reason: Dry Eyes Calcium Carbonate (Calcium Carbonate 750 Mg Tab.Chew) 750 mg PO Q4H [facility] Last Admin: 12/18/20 20:54 Dose: 750 mg Documented by: Divalproex Sodium (Divalproex Sodium Er 500 Mg Tab.Er.24h) 1,000 mg PO BEDTIME LORENZA Last Admin: 12/18/20 20:54 Dose: 1,000 mg Documented by: Fluphenazine HCl (Fluphenazine Hcl 5 Mg Tablet) 15 mg PO BEDTIME [facility]ZA Last Admin: 12/18/20 20:54 Dose: 15 mg Documented by: Ibuprofen (Ibuprofen 400 Mg Tablet) 400 mg PO BID PRN PRN Reason: for fever Last Admin: 12/18/20 10:45 Dose: 400 mg Documented by: Magnesium Hydroxide (Milk Of Magnesia 30 Ml Oral.Susp) 30 ml PO DAILY PRN PRN Reason: Constipation Last Admin: 12/10/20 20:04 Dose: 30 ml Documented by: Olanzapine (Olanzapine 5 Mg Tablet) 5 mg PO TID PRN PRN Reason: psychosis, agitation Trazodone HCl (Trazodone Hcl 50 Mg Tablet) 50 mg PO BEDTIME PRN PRN Reason: Insomnia Vitamin D (Cholecalciferol (Vitamin D3) 25 Mcg Tablet) 50 mcg PO DAILY [facility] Last Admin: 12/18/20 08:23 Dose: 50 mcg Documented by: Ziprasidone (Ziprasidone Mesylate 20 Mg Vial) 10 mg IM DAILY PRN PRN Reason: IF REFUSES Scheduled Antipsychotic Allergies Allergies Allergy/AdvReac Type Severity Reaction Status Date / Time risperidone [From RISPERDAL] Allergy Unknown UNKNOWN Verified 11/28/20 17:37 topiramate [From TOPAMAX] Allergy Unknown HEADACHE Verified 11/28/20 17:37 Assessment & Plan Assessment & Plan (1) Schizoaffective disorder, bipolar type: Status: Acute Code(s): F25.0 - Schizoaffective disorder, bipolar type Assessment and Plan: IMPRESSIoN: Patient is a 45 y.o. Male who carries a dx of schizoaffective disorder, bipolar type and moderate cannabis use disorder.? Patient's mother called crisis Patient is currently floridly manic, with loud and pressured speech, disorganized in speech and behavior and with distinctly irritable/agitated presentation, glaring and yelling at people, intrusive and intimidating.? Patient lacks insight.? He says he is fine and wants to discharge.? Patient is currently willing to take Depakote.? He refuses other mood stabilizers or other medications.? Patient gave fiction and nonfiction prose writer verbal permission to call his outpatient psychiatrist Dr. Hernandez (even giving fiction and nonfiction prose writer the correct phone number) to discuss his case; call placed. Pt remains floridly manic, intrusive, easily triggered to agitation, loud, provocative and confrontational. No insight. He is taking depakote but refuses any other medications including antipsychotics which he's been on in the past. Pt has 3 day notice due and insists on leaving hospital on 12/02/20 when 3 day notice due. Pt triggered a peer into feeling defensive and altercation only avoided by staff intervention. Patient has already made peers and staff on the unit, including fiction and nonfiction prose writer, wary of being alone with patient out of consideration for safety.? Pt's illness and subsequent current symptoms are making others feel threatened and he is in imminent risk for defensive pre-emptive aggression from others.? Team agrees need to file for civil commitment. Until he started taking PROLIXIN....Pt remains floridly manic, intrusive, easily triggered to agitation, loud, provocative and confrontational. No insight. He is taking depakote but refuses any other medications including antipsychotics which he's been on in the past. Pt has 3 day notice due and insists on leaving hospital on 12/02/20 when 3 day notice due. Pt triggered a peer into feeling defensive and altercation only avoided by staff intervention. Patient has already made peers and staff on the unit, including fiction and nonfiction prose writer, wary of being alone with patient out of consideration for safety.? Pt's illness and subsequent current symptoms are making others feel threatened and he is in imminent risk for defensive pre-emptive aggression from others.? Team agrees need to file for civil commitment. Patient did improve a little since admission in taking Depakote 1000 mg regularly however he remains with disorganized speech and behavior, easily agitated and confrontational and without insight. Patient continues to refuse labs for Depakote level and associated medication monitoring. -once started on Prolxin, delusions decreased, organization improved; no longer intrusive or confrontational and much more able to have conversation Consented to lab work -patient considering [facility] PLAN: COURT ORDERED CIVIL COMMITMENT AND SUBSTITUTED JUDGMENT on 12/08/20 PATIENT ON GET INCREASE PROLIXIN TO 15 MG Q.H.S.(pt says he was on 20mg as oupt, though may have been 15mg) IM ziprasidone IF REFUSES PO Q 15 minutes checks for now; will monitor and consider increasing continue Depakote 1000 mg q.h.s. (outpt dose, since he is not on prolixin). ( labs/level grossly WNL) Zyprexa p.r.n. for agitation Greater than 50% of the session was spent on counseling and/or coordination of care Reason for contiued inpatient stay Substantial Risk for: inability to function
[2020-12-19] MEDS: Calcium Carbonate 750 MG TAB.CHEW PO ×3 (06:12→22:21)
[2020-12-19] MEDS: Cholecalciferol (Vitamin D3) 25 MCG TABLET 50 MCG PO (08:28)
[2020-12-19] MEDS: Ibuprofen 400 MG TABLET PO (08:58)
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
[2020-12-19 18:00] VITALS: BP 132/84; PULSE 105; TEMP 36.2
[2020-12-19] MEDS: fluPHENAZine HCl 5 MG TABLET 15 MG PO (20:08)
[2020-12-19] MEDS: Ibuprofen 600 MG TABLET PO (20:08)
[2020-12-19] MEDS: Divalproex Sodium ER 500 MG TAB.ER.24H 1000 MG PO (20:09)
[2020-12-20] MEDS: Calcium Carbonate 750 MG TAB.CHEW PO ×4 (05:55→20:33)
[2020-12-20 06:00] VITALS: BP 122/63; PULSE 68; RESP 16; TEMP 36.3; O2SAT 98
[2020-12-20] MEDS: Cholecalciferol (Vitamin D3) 25 MCG TABLET 50 MCG PO (08:26)
[2020-12-20] MEDS: Ibuprofen 600 MG TABLET PO (13:44)
[2020-12-20] MEDS: Artificial Tears 15 ML DROPS 2 DROP EYE-BOTH (13:49)
--- NOTE | 2020-12-20 16:54 | HO.PSYCHPN ---
Subjective Subjective Date of Service: 12/20/20 Reason For Visit: crisis Interim History: Patient reports that he is feeling better and ready for discharge. He said his conversation with his mom went pretty well. He asks for help getting a new psychiatrist which leader writer explained executive secretary social welfare's currently working on. Of note, patient has remained in good behavioral control, is calm and easy to talk with, with linear organized thinking and behaviors. Mental Status Exam Mental Status Exam Narrative: Pt is alert and oriented to self, place, and situation. Behavior calm, cooperative; neatly shaven and with adequate hygiene; mood is better and though affect constricted, it's also brighter; eye contact adequate; Speech normal rate and prosody, still a little loud, but not overly so; no psychomotor agitation; thought process is linear and goal directed, sometimes circumstantial; Thought content is on discharge, living situation; no delusional content, paranoid ideations or grandiosity expressed; denies any SI/HI. Denies AVH; Patients insight and judgment appear intact. Diagnostics Vital Signs (24Hr): Vital Signs - 24 hr 12/19/20 18:00 12/20/20 06:00 Temperature 97.2 F 97.4 F Pulse Rate 105 H 68 Respiratory Rate 16 Blood Pressure 132/84 122/63 Pulse Oximetry 98 Body Mass Index 26.7 Labs Results: 12/13/20 19:29 12/13/20 08:19 Imaging Radiology Impressions: ITS Impressions Face X-Ray 11/28/20 17:53 IMPRESSION: No radiopaque foreign body. Medications Medications Current Medications Acetaminophen (Acetaminophen 325 Mg Tablet) 650 mg PO Q6H PRN PRN Reason: Headache/Pain Mild Scale (1-3) Last Admin: 12/01/20 20:11 Dose: 650 mg Documented by: Al Hydroxide/Mg Hydroxide (Magnesium Hydrox/Alum Hydrox 30 Ml Oral.Susp) 30 ml PO Q6H PRN PRN Reason: Heartburn/Nausea Last Admin: 12/07/20 20:14 Dose: 30 ml Documented by: Artificial Tears (Artificial Tears 15 Ml Drops) 2 drop EYE-BOTH TID PRN PRN Reason: Dry Eyes Last Admin: 12/20/20 13:49 Dose: 2 drop Documented by: Calcium Carbonate (Calcium Carbonate 750 Mg Tab.Chew) 750 mg PO Q4H LORENZA Last Admin: 12/20/20 16:27 Dose: 750 mg Documented by: Divalproex Sodium (Divalproex Sodium Er 500 Mg Tab.Er.24h) 1,000 mg PO BEDTIME [facility] Last Admin: 12/19/20 20:09 Dose: 1,000 mg Documented by: Fluphenazine HCl (Fluphenazine Hcl 5 Mg Tablet) 15 mg PO BEDTIME [facility] Last Admin: 12/19/20 20:08 Dose: 15 mg Documented by: Ibuprofen (Ibuprofen 600 Mg Tablet) 600 mg PO Q6H PRN PRN Reason: for fever Last Admin: 12/20/20 13:44 Dose: 600 mg Documented by: Magnesium Hydroxide (Milk Of Magnesia 30 Ml Oral.Susp) 30 ml PO DAILY PRN PRN Reason: Constipation Last Admin: 12/10/20 20:04 Dose: 30 ml Documented by: Olanzapine (Olanzapine 5 Mg Tablet) 5 mg PO TID PRN PRN Reason: psychosis, agitation Trazodone HCl (Trazodone Hcl 50 Mg Tablet) 50 mg PO BEDTIME PRN PRN Reason: Insomnia Vitamin D (Cholecalciferol (Vitamin D3) 25 Mcg Tablet) 50 mcg PO DAILY [facility] Last Admin: 12/20/20 08:26 Dose: 50 mcg Documented by: Ziprasidone (Ziprasidone Mesylate 20 Mg Vial) 10 mg IM DAILY PRN PRN Reason: IF REFUSES Scheduled Antipsychotic Allergies Allergies Allergy/AdvReac Type Severity Reaction Status Date / Time risperidone [From RISPERDAL] Allergy Unknown UNKNOWN Verified 11/28/20 17:37 topiramate [From TOPAMAX] Allergy Unknown HEADACHE Verified 11/28/20 17:37 Assessment & Plan Assessment & Plan (1) Schizoaffective disorder, bipolar type: Status: Acute Code(s): F25.0 - Schizoaffective disorder, bipolar type Assessment and Plan: IMPRESSIoN: Patient is a 45 y.o. Male who carries a dx of schizoaffective disorder, bipolar type and moderate cannabis use disorder.? Patient's mother called crisis Patient is currently floridly manic, with loud and pressured speech, disorganized in speech and behavior and with distinctly irritable/agitated presentation, glaring and yelling at people, intrusive and intimidating.? Patient lacks insight.? He says he is fine and wants to discharge.? Patient is currently willing to take Depakote.? He refuses other mood stabilizers or other medications.? Patient gave leader writer verbal permission to call his outpatient psychiatrist Dr. Hernandez (even giving leader writer the correct phone number) to discuss his case; call placed. Pt remains floridly manic, intrusive, easily triggered to agitation, loud, provocative and confrontational. No insight. He is taking depakote but refuses any other medications including antipsychotics which he's been on in the past. Pt has 3 day notice due and insists on leaving hospital on 12/02/20 when 3 day notice due. Pt triggered a peer into feeling defensive and altercation only avoided by staff intervention. Patient has already made peers and staff on the unit, including leader writer, wary of being alone with patient out of consideration for safety.? Pt's illness and subsequent current symptoms are making others feel threatened and he is in imminent risk for defensive pre-emptive aggression from others.? Team agrees need to file for civil commitment. Until he started taking PROLIXIN....Pt remains floridly manic, intrusive, easily triggered to agitation, loud, provocative and confrontational. No insight. He is taking depakote but refuses any other medications including antipsychotics which he's been on in the past. Pt has 3 day notice due and insists on leaving hospital on 12/02/20 when 3 day notice due. Pt triggered a peer into feeling defensive and altercation only avoided by staff intervention. Patient has already made peers and staff on the unit, including leader writer, wary of being alone with patient out of consideration for safety.? Pt's illness and subsequent current symptoms are making others feel threatened and he is in imminent risk for defensive pre-emptive aggression from others.? Team agrees need to file for civil commitment. Patient did improve a little since admission in taking Depakote 1000 mg regularly however he remains with disorganized speech and behavior, easily agitated and confrontational and without insight. Patient continues to refuse labs for Depakote level and associated medication monitoring. -once started on Prolxin, delusions decreased, organization improved; no longer intrusive or confrontational and much more able to have conversation Consented to lab work -patient considering DM much improved; mildly irritable, but calm and cooperative; no delusional or bizarre thoughts; not intrusive or confrontational. Patient appears to be either back were very close to baseline PLAN: COURT ORDERED CIVIL COMMITMENT AND SUBSTITUTED JUDGMENT on 12/08/20 PATIENT ON DEUTSCH PROLIXIN TO 15 MG Q.H.S.(pt says he was on 20mg as oupt, though may have been 15mg) IM ziprasidone IF REFUSES PO Q 15 minutes checks for now; will monitor and consider increasing continue Depakote 1000 mg q.h.s. (outpt dose, since he is not on prolixin). (labs/level grossly WNL) Zyprexa p.r.n. for agitation Greater than 50% of the session was spent on counseling and/or coordination of care Reason for contiued inpatient stay Substantial Risk for: other (likely stable for discharge)
[2020-12-20 18:00] VITALS: BP 138/73; PULSE 97; TEMP 36.3
[2020-12-20] MEDS: fluPHENAZine HCl 5 MG TABLET 15 MG PO (20:33)
[2020-12-20] MEDS: Divalproex Sodium ER 500 MG TAB.ER.24H 1000 MG PO (20:33)
[2020-12-21 08:30] VITALS: BP 111/59; PULSE 85; RESP 16; O2SAT 97
[2020-12-21] MEDS: Calcium Carbonate 750 MG TAB.CHEW PO ×4 (08:34→20:17)
[2020-12-21] MEDS: Cholecalciferol (Vitamin D3) 25 MCG TABLET 50 MCG PO (08:34)
[2020-12-21] MEDS: Ibuprofen 600 MG TABLET PO ×2 (09:40→16:02)
--- NOTE | 2020-12-21 17:47 | HO.PSYCHPN ---
Subjective Subjective Date of Service: 12/21/20 Reason For Visit: crisis Interim History: Patient calm, cooperative and a good mood. He made an appropriate and amusing joke with instructional writer that was well received. Patient reports that his mood is overall good and that he is ready for discharge. He denies any SI or HI or AVH. He is returning home to his parents and plans to continue taking his medications. Patient demonstrated insight saying that he knows he needs his medications. Mental Status Exam Mental Status Exam Narrative: ?Pt is alert and oriented to self, place, and situation. Behavior calm, cooperative; neatly shaven and with adequate hygiene; mood is better and though affect constricted, it's also brighter; eye contact adequate; Speech normal rate and prosody, still a little loud, but not overly so; no psychomotor agitation; thought process is linear and goal directed, sometimes circumstantial; Thought content is on discharge, living situation; no? delusional content, paranoid ideations or grandiosity expressed; denies any SI/HI. Denies AVH; Patients insight and judgment appear intact. Diagnostics Vital Signs (24Hr): Vital Signs - 24 hr 12/20/20 18:00 12/21/20 08:30 Temperature 97.3 F Pulse Rate 97 85 Respiratory Rate 16 Blood Pressure 138/73 111/59 L Pulse Oximetry 97 Body Mass Index 26.7 Labs Results: 12/13/20 19:29 12/13/20 08:19 Imaging Radiology Impressions: ITS Impressions Face X-Ray 11/28/20 17:53 IMPRESSION: No radiopaque foreign body. Medications Medications Current Medications Acetaminophen (Acetaminophen 325 Mg Tablet) 650 mg PO Q6H PRN PRN Reason: Headache/Pain Mild Scale (1-3) Last Admin: 12/01/20 20:11 Dose: 650 mg Documented by: Al Hydroxide/Mg Hydroxide (Magnesium Hydrox/Alum Hydrox 30 Ml Oral.Susp) 30 ml PO Q6H PRN PRN Reason: Heartburn/Nausea Last Admin: 12/07/20 20:14 Dose: 30 ml Documented by: Artificial Tears (Artificial Tears 15 Ml Drops) 2 drop EYE-BOTH TID PRN PRN Reason: Dry Eyes Last Admin: 12/20/20 13:49 Dose: 2 drop Documented by: Calcium Carbonate (Calcium Carbonate 750 Mg Tab.Chew) 750 mg PO Q4H LORENZA Last Admin: 12/21/20 16:07 Dose: 750 mg Documented by: Divalproex Sodium (Divalproex Sodium Er 500 Mg Tab.Er.24h) 1,000 mg PO BEDTIME LORENZA Last Admin: 12/20/20 20:33 Dose: 1,000 mg Documented by: Fluphenazine HCl (Fluphenazine Hcl 5 Mg Tablet) 15 mg PO BEDTIME LORENZA Last Admin: 12/20/20 20:33 Dose: 15 mg Documented by: Ibuprofen (Ibuprofen 600 Mg Tablet) 600 mg PO Q6H PRN PRN Reason: for fever Last Admin: 12/21/20 16:02 Dose: 600 mg Documented by: Magnesium Hydroxide (Milk Of Magnesia 30 Ml Oral.Susp) 30 ml PO DAILY PRN PRN Reason: Constipation Last Admin: 12/10/20 20:04 Dose: 30 ml Documented by: Olanzapine (Olanzapine 5 Mg Tablet) 5 mg PO TID PRN PRN Reason: psychosis, agitation Trazodone HCl (Trazodone Hcl 50 Mg Tablet) 50 mg PO BEDTIME PRN PRN Reason: Insomnia Vitamin D (Cholecalciferol (Vitamin D3) 25 Mcg Tablet) 50 mcg PO DAILY [facility] Last Admin: 12/21/20 08:34 Dose: 50 mcg Documented by: Ziprasidone (Ziprasidone Mesylate 20 Mg Vial) 10 mg IM DAILY PRN PRN Reason: IF REFUSES Scheduled Antipsychotic Allergies Allergies Allergy/AdvReac Type Severity Reaction Status Date / Time risperidone [From RISPERDAL] Allergy Unknown UNKNOWN Verified 11/28/20 17:37 topiramate [From TOPAMAX] Allergy Unknown HEADACHE Verified 11/28/20 17:37 Assessment & Plan Assessment & Plan (1) Schizoaffective disorder, bipolar type: Status: Chronic Code(s): F25.0 - Schizoaffective disorder, bipolar type Assessment and Plan: IMPRESSIoN: Patient is a 45 y.o. Male who carries a dx of schizoaffective disorder, bipolar type and moderate cannabis use disorder.? Patient's mother called crisis Patient is currently floridly manic, with loud and pressured speech, disorganized in speech and behavior and with distinctly irritable/agitated presentation, glaring and yelling at people, intrusive and intimidating.? Patient lacks insight.? He says he is fine and wants to discharge.? Patient is currently willing to take Depakote.? He refuses other mood stabilizers or other medications.? Patient gave instructional writer verbal permission to call his outpatient psychiatrist Dr. Hernandez (even giving instructional writer the correct phone number) to discuss his case; call placed. Pt remains floridly manic, intrusive, easily triggered to agitation, loud, provocative and confrontational. No insight. He is taking depakote but refuses any other medications including antipsychotics which he's been on in the past. Pt has 3 day notice due and insists on leaving hospital on 12/02/20 when 3 day notice due. Pt triggered a peer into feeling defensive and altercation only avoided by staff intervention. Patient has already made peers and staff on the unit, including instructional writer, wary of being alone with patient out of consideration for safety.? Pt's illness and subsequent current symptoms are making others feel threatened and he is in imminent risk for defensive pre-emptive aggression from others.? Team agrees need to file for civil commitment. Until he started taking PROLIXIN....Pt remains floridly manic, intrusive, easily triggered to agitation, loud, provocative and confrontational. No insight. He is taking depakote but refuses any other medications including antipsychotics which he's been on in the past. Pt has 3 day notice due and insists on leaving hospital on 12/02/20 when 3 day notice due. Pt triggered a peer into feeling defensive and altercation only avoided by staff intervention. Patient has already made peers and staff on the unit, including instructional writer, wary of being alone with patient out of consideration for safety.? Pt's illness and subsequent current symptoms are making others feel threatened and he is in imminent risk for defensive pre-emptive aggression from others.? Team agrees need to file for civil commitment. Patient did improve a little since admission in taking Depakote 1000 mg regularly however he remains with disorganized speech and behavior, easily agitated and confrontational and without insight. Patient continues to refuse labs for Depakote level and associated medication monitoring. -once started on Prolxin, delusions decreased, organization improved; no longer intrusive or confrontational and much more able to have conversation Consented to lab work -patient considering DM much improved; mildly irritable, but calm and cooperative; no delusional or bizarre thoughts; not intrusive or confrontational. Patient appears to be either back were very close to baseline 12/21 patient remains stable, in overall good mood, without SI, HI or AVH and demonstrating appropriate behaviors and good impulse control. He feels ready for discharge is looking forward to going home tomorrow. Patient's mother has met with patient this week and she agrees that he is overall back to his baseline and ready for discharge and welcomes to come home. Team also agrees the patient is not in imminent risk for harm to self or others and his request for discharge is honored. PLAN: COURT ORDERED CIVIL COMMITMENT AND SUBSTITUTED JUDGMENT on 12/08/20 PATIENT ON DEUTSCH PROLIXIN TO 15 MG Q.H.S.(pt says he was on 20mg as oupt, though may have been 15mg) IM ziprasidone IF REFUSES PO Q 15 minutes checks for now; will monitor and consider increasing continue Depakote 1000 mg q.h.s. (outpt dose, since he is not on prolixin). (labs/level grossly WNL) Zyprexa p.r.n. for agitation Greater than 50% of the session was spent on counseling and/or coordination of care Reason for contiued inpatient stay Substantial Risk for: stable for discharge
--- NOTE | 2020-12-21 17:58 | P.DS_ITS ---
DS: Providers Provider Date of Service: 12/22/20 Date of admission: 11/29/20 21:09 Date of discharge: 12/22/20 Primary care physician: Unknown Physician Attending physician on admission: Ervin Foster Attending physician on discharge: Ervin Foster DS: Diagnosis Discharge Diagnosis (1) Schizoaffective disorder, bipolar type: Status: Chronic DS: Medications Discharge Medications Home Medications: Previous Rx's Medication Instructions Recorded calcium carbonate 300 mg (750 mg) 750 mg PO Q4H PRN 30 Days #60 tab 12/21/20 chewable tablet (Tums) cholecalciferol (vitamin D3) 50 50 mcg PO DAILY 30 Days #30 cap 12/21/20 mcg (2,000 unit) capsule divalproex 500 mg tablet,extended 1,000 mg PO BEDTIME 30 Days #60 tab 12/21/20 release 24 hr fluphenazine HCl 5 mg tablet 15 mg PO BEDTIME 30 Days #90 tab 12/21/20 polyvinyl alcohol 1.4 % eye drops 2 drp OPHTHALMIC (EYE) TID PRN 30 12/21/20 (Artificial Tears (polyvinyl Days #15 ml alcohol)) Mental Status Exam Mental Status Exam Narrative: Pt is alert and oriented to self, place, and situation. Behavior calm, cooperative; neatly shaven and with adequate hygiene; mood is better and though affect constricted, it's also brighter; eye contact adequate; Speech normal rate and prosody, still a little loud, but not overly so; no psychomotor agitation; thought process is linear and goal directed, sometimes circumstantial; Thought content is on discharge, living situation; no? delusio nal content, paranoid ideations or grandiosity expressed; denies any SI/HI. Denies AVH; Patients insight and judgment appear intact. Data Imaging Diagnostic Imaging Impressions Face X-Ray 11/28/20 17:53 IMPRESSION: No radiopaque foreign body. DS: Summary Hospital Course Hospital Course: Patient is a 45 y.o. Male who carries a dx of schizoaffective disorder, bipolar type and moderate cannabis use disorder.? Patient's mother called crisis Patient is currently floridly manic, with loud and pressured speech, disorganized in speech and behavior and with distinctly irritable/agitated presentation, glaring and yelling at people, intrusive and intimidating.? Patient lacks insight.? He says he is fine and wants to discharge.? Patient is currently willing to take Depakote.? He refuses other mood stabilizers or other medications.? Patient gave leader writer verbal permission to call his outpatient psychiatrist Dr. Hernandez and case discussed. for much of admission, until started on Prolixin, Pt remained floridly manic, intrusive, easily triggered to agitation, loud, provocative and confrontational. No insight. He is taking depakote but refuses any other medications including an tipsychotics which he's been on in the past. Pt has 3 day notice due and insists on leaving hospital on 12/02/20 when 3 day notice due. Pt triggered a peer into feeling defensive and altercation only avoided by staff intervention. Patient has already made peers and staff on the unit, including leader writer, wary of being alone with patient out of consideration for safety.? Pt's illness and subsequent current symptoms are making others feel threatened and he is in imminent risk for defensive pre-emptive aggression from others.? Team agrees need to file for civil commitment. Civil commitment and court ordered substituted judgment: started on Prolixin: Until he started taking PROLIXIN....Pt remains floridly manic, intrusive, easily triggered to agitation, loud, provocative and confrontational. No insight. -once started on Prolxin, delusions decreased, organization improved; no longer intrusive or confrontational and much more able to have conversation Consented to lab work which was WNL His mood improved, and though sometimes intermittently mildly irritable he was overall calm and cooperative. Patient's mother met with patient frequently agreed that he was significantly better and had returned to baseline and okay for discharge home. Patient agreed to continue taking medications upon discharge. He was in an overall good mood, with much brighter affect, clean-s haven and neatly groomed. Patient was without any SI or HI as he had been throughout his admission and thought process was linear and organized. Patient was no longer in imminent risk for harm to self or others and his request for discharge honored. Status at Discharge Functional status at discharge: independent ambulation Overall status at discharge: patient is back to baseline Time Spent with Patient Time attestation: Total time spent providing and/or coordinating discharge services: Time spent: Less than 30 minutes Discharge Plan Discharge Patient Disposition: Home, Self-Care Discharge Diagnosis: Schizoaffective disorder, bipolar type recurrent, severe in full remission Referrals: Genesis Dickerson RN [Other] - 12/23/20 Amy Ibarra (therapy) [Other] - 12/23/20 12:00 pm (The initial intake appointment is in-office at the above location. If you miss this appointment, your follow-up psychiatry appointments will be cancelled ) Gisela Winston (psychiatry) [Other] - 01/20/21 9:00 am (This is a Telehealth appointment. Please use your mom's phone to complete the virtual appointment) Gisela Winston (psychiatry) [Other] - 02/16/21 10:20 am (This is a Telehealth appointment. Please use your mother's phone to connect to the virtual session) Raissa Garibay (Department of Mental Health) [Other] - 1 Week ([facility] should be reaching out to you to complete a needs/means assessment. Please contact Raissa at the above number if you have any questions about your application) Jose Holguin, VIOLET-BC [Nurse Practitioner] - 12/27/20 3:00 pm (in office) Discharge Medications: New fluphenazine HCl 5 mg Tablet 15 mg PO BEDTIME 30 Days Qty: 90 RF: 0 polyvinyl alcohol [Artificial Tears (polyvin alc)] 1.4 % Drops 2 drp ophthalmic (eye) TID PRN (Reason: Dry Eyes) 30 Days Qty: 15 RF: 0 calcium carbonate [Tums] 300 mg (750 mg) Tablet,Chewable 750 mg PO Q4H PRN (Reason: dyspepsia) 30 Days Qty: 60 RF: 0 Continued cholecalciferol (vitamin D3) 50 mcg (2,000 unit) capsule 50 mcg PO DAILY 30 Days Qty: 30 RF: 1 Changed divalproex 500 mg tablet extended release 24 hr 1,000 mg PO BEDTIME 30 Days Qty: 60 RF: 0 Discontinued ibuprofen 400 mg tablet 400 mg PO BID PRN (Reason: for fever) Qty: 60 RF: 2 thiamine HCl (vitamin B1) 100 mg tablet 100 mg PO DAILY Qty: 90 RF: 0 divalproex 500 mg tablet extended release 24 hr 2 tab PO BEDTIME RF: 0 Discharge Orders: Discharge Order (Routine); Ordered 12/22/20 Ordered By: Ervin Foster Diet: regular diet Activity on Discharge: As tolerated Stand Alone Forms: Patient Portal Discharge page, Community Support Care Plan Goals: Maintain mood and safe behaviors Take medications as prescribed Practice coping skills Continue with outpatient providers and reach out to them as needed Health Concerns: Mood stability and behaviors Plan of Treatment: Follow up with your PCP and psychiatric provider regarding above concerns Take medications as prescribed? Assessment: Risk assessment at time of discharge:? Patient was interviewed prior to discharge and found to be fully oriented and without any SI or HI. Patient has insight and demonstrates good judgment in terms of wanting to pursue treatment. Patient is not in imminent risk of harm to self or others and has a safety plan that includes presenting to the closest ER or calling 911 if feeling unsafe.? Patient has been observed closely by nursing and unit staff throughout admission; once patient started treatment, he did not engaged in any behaviors that suggest dangerousness to self or others and has demonstrated appropriate behaviors and impulse control. Discharge Date/Time: 12/22/20 14:21
[2020-12-21 18:00] VITALS: BP 131/71; PULSE 88; RESP 18; TEMP 36.5; O2SAT 100
[2020-12-21] MEDS: Divalproex Sodium ER 500 MG TAB.ER.24H 1000 MG PO (20:17)
[2020-12-21] MEDS: fluPHENAZine HCl 5 MG TABLET 15 MG PO (20:17)
[2020-12-22] MEDS: Cholecalciferol (Vitamin D3) 25 MCG TABLET 50 MCG PO (08:22)
[2020-12-22] MEDS: Calcium Carbonate 750 MG TAB.CHEW PO (08:22)
--- NOTE | 2020-12-22 21:22 | P.PNPSI_ITS ---
Subjective Subjective Date of Service: 12/22/20 Reason For Visit: crisis Medical Problems Affecting Mental Status: No Interim History: Pt planning discharge today. He reports feeling ready. He denies SI, HI, denies perceptual alterations, concerns, worries. Mood is constricted. Pt is pacing in the sanders. He is approachable, initiates conversation, answers questions clearly, asks appropriate questions regarding his discharge plan of care, has eye contact, and reports he feels that he has received the help he needs to return to his life. Medication Compliance: Yes Side effects from medications: No Attending Groups: No Review of Systems Acute medical concerns: No Review of Systems Psychiatric: Reports no additional psychiatric complaints Mental Status Exam Mental Status Exam Patient Appearance: Appropriate Patient Orientation: Person, Place, Time and Situation Level of Consciousness: Awake, Appropriate and Alert Patient Behavior: Appropriate, Talkative, Cooperative and Good Eye Contact Mood Description: Constricted Affect Description: Constricted Patient Cognition Impaired: No Ability to Follow Directions: Good Speech Pattern: Spontaneous Speech Memory Description: Intact and Episodic Impaired Hallucinations: None Delusions: Not Present Thought Process: Intact and Goal Oriented Thought Content: positive for Intact and positive for Goal Oriented Judgement: Good Diagnostics Vital Signs (24Hr): Body Mass Index 26.7 Labs Results: 12/13/20 19:29 12/13/20 08:19 Imaging Radiology Impressions: ITS Impressions Face X-Ray 11/28/20 17:53 IMPRESSION: No radiopaque foreign body. Medications Allergies Allergies Allergy/AdvReac Type Severity Reaction Status Date / Time risperidone [From RISPERDAL] Allergy Unknown UNKNOWN Verified 11/28/20 17:37 topiramate [From TOPAMAX] Allergy Unknown HEADACHE Verified 11/28/20 17:37 Assessment & Plan Assessment & Plan (1) Schizoaffective disorder, bipolar type: Status: Chronic Code(s): F25.0 - Schizoaffective disorder, bipolar type Assessment and Plan: IMPRESSIoN: Patient is a 45 y.o. Male who carries a dx of schizoaffective disorder, bipolar type and moderate cannabis use disorder.? Patient's mother called crisis Patient is currently floridly manic, with loud and pressured speech, disorganized in speech and behavior and with distinctly irritable/agitated pr esentation, glaring and yelling at people, intrusive and intimidating.? Patient lacks insight.? He says he is fine and wants to discharge.? Patient is currently willing to take Depakote.? He refuses other mood stabilizers or other medications.? Patient gave automobile and property underwriter verbal permission to call his outpatient psychiatrist Dr. Hernandez (even giving automobile and property underwriter the correct phone number) to discuss his case; call placed. Pt remains floridly manic, intrusive, easily triggered to agitation, loud, provocative and confrontational. No insight. He is taking depakote but refuses any other medications including antipsychotics which he's been on in the past. Pt has 3 day notice due and insists on leaving hospital on 12/02/20 when 3 day notice due. Pt triggered a peer into feeling defensive and altercation only av oided by staff intervention. Patient has already made peers and staff on the unit, including automobile and property underwriter, wary of being alone with patient out of consideration for safety.? Pt's illness and subsequent current symptoms are making others feel threatened and he is in imminent risk for defensive pre-emptive aggression from others.? Team agrees need to file for civil commitment. Until he started taking PROLIXIN....Pt remains floridly manic, intrusive, easily triggered to agitation, loud, provocative and confrontational. No insight. He is taking depakote but refuses any other medications including antipsychotics which he's been on in the past. Pt has 3 day notice due and insists on leaving hospital on 12/02/20 when 3 day notice due. Pt triggered a peer into feeling defensive and altercation only avoided by staff intervention. Patient has already made peers and staff on the unit, including automobile and property underwriter, wary of being alone with patient out of consideration for safety.? Pt's illness and subsequent current symptoms are making others feel threatened and he is in imminent risk for defensive pre-emptive aggression from others.? Team agrees need to file for civil commitment. Patient did improve a little since admission in taking Depakote 1000 mg regularly however he remains with disorganized speech and behavior, easily agitated and confrontational and without insight. Patient continues to refuse labs for Depakote level and associated medication monitoring. -once started on Prolxin, delusions decreased, organization improved; no longer intrusive or confrontational and much more able to have conversation Consented to lab work -patient considering DMH much improved; mildly irritable, but calm and cooperative; no delusional or bizarre thoughts; not intrusive or confrontational. Patient appears to be either back were very close to baseline 12/21 patient remains stable, in overall good mood, without SI, HI or AVH and demonstrating appropriate behaviors and good impulse control. He feels ready for discharge is looking forward to going home tomorrow. Patient's mother has met with patient this week and she agrees that he is overall back to his baseline and ready for discharge and welcomes to come home. Team also agrees the patient is not in imminent risk for harm to self or others and his request for discharge is honored. PLAN: COURT ORDERED CIVIL COMMITMENT AND SUBSTITUTED JUDGMENT on 12/08/20 PATIENT ON DEUTSCH PROLIXIN TO 15 MG Q.H.S.(pt says he was on 20mg as oupt, though may have been 15mg) IM ziprasidone IF REFUSES PO Q 15 minutes checks for now; will monitor and consider increasing continue Depakote 1000 mg q.h.s. (outpt dose, since he is not on prolixin). (labs/level grossly WNL) Zyprexa p.r.n. for agitation 12/22/20: Coverage today: Pt's plan to discharge today. Parents will pick him up at 1pm he reports. Alert, oriented, calm, constricted, no sx of agitation, psychosis, lability, feels prepared to leave. Greater than 50% of the session was spent on counseling and/or coordination of care Patient educated on: therapeutic strategies Informed Consent: understands Reason for contiued inpatient stay Substantial Risk for: stable for discharge
== END 2020-12-22 14:21 | disposition home or self-care (01) | DRG 885 ==
LOC: HO.ED 11-29 19:21 → HO.PM5 11-29 21:26
PROVIDERS: Nurse Practitioner Family; Admitting Provider Psychiatry & Neurology Psychiatry; Emergency Provider Internal Medicine; Visit Provider Psychiatry & Neurology Psychiatry
DX: F25.0 Schizoaffective disorder, bipolar type (principal); K21.9 Gastro-esophageal reflux disease without esophagitis; Z91.14 Patient's other noncompliance with medication regimen; Z20.822 Contact with and (suspected) exposure to COVID-19; Z79.899 Other long term (current) drug therapy
CPT/HCPCS: 36415; 70140; 80051; 80061; 80076; 80164; 80307; 82565; 84520; 85025; 87635; 99285

== ENCOUNTER 2021-01-27 11:19 | Inpatient (IN) | payer MEDICARE, MEDICAID, SELFPAY ==
[2021-01-27 11:31] VITALS: BP 125/72; BP 140/91; PULSE 88; PULSE 90; RESP 18; TEMP 36.9; O2SAT 97; O2SAT 98; BMI 32.1
--- NOTE | 2021-01-27 11:44 | PC.NURSE ---
Patient declined the urine test, as he states he has a medical marijuana card and that will be the only thing to show in his urine screen. Patient also states that the EMS team reported a urine screen would not be necessary at this time, therefore the patient is further declining the urine screen.
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
[2021-01-27 12:51] LABS: COVID-19 Test Negative (Negative)
[2021-01-27 12:58] LABS: MANUAL DIFF FLAG NO
[2021-01-27 13:00] LABS: Basophils Percent Auto 0.4 % (0-2); Eosinophils Absolute Auto 0.2 X10*3/uL (0.0-0.4); Eosinophils Percent Auto 2.4 % (0-4); Hematocrit 43.2 % (42-52); Hemoglobin 14.3 g/dl (14.0-18.0); Imm Gran Abs Auto 0.03 X10*3/uL (0.00-0.03); Imm Gran Pct Auto 0.3 % (0.0-0.4); Lymphocytes Absolute Auto 2.9 X10*3/uL (1.2-4.9); Lymphocytes Percent Auto 32.4 % (20-40); Mean Corpuscular HGB Conc 33.1 g/dl (31.0-36.0); Mean Corpuscular Hemoglobin 31.4 pg (27.0-33.0); Mean Corpuscular Volume 94.7 fL (80-98); Mean Platelet Volume 10.2 fL (9.4-12.4); Monocytes Absolute Auto 0.9 X10*3/uL (0.1-1.2); Monocytes Percent Auto 9.6 % (2-11); Neutrophils Absolute Auto 4.9 X10*3/uL (2.0-8.3); Neutrophils Percent Auto 54.9 % (45-73); Platelet Count 228 X10*3/uL (160-400); Red Blood Count 4.56 X10*6/uL (4.60-5.80); Red Cell Distribution Width 12.1 % (11.0-16.0); White Blood Count 8.9 X10*3/uL (4.8-10.8)
[2021-01-27 13:15] LABS: Ethanol < 10 mg/dL
[2021-01-27 13:16] LABS: Acetaminophen LAB < 1 mcg/mL (<30); Alanine Aminotransferase 12 U/L (0-40); Albumin Level 4.4 g/dL (3.5-5.0); Alkaline Phosphatase 67 U/L (39-117); Anion Gap 10 (12-20); Aspartate Amino Transferase 15 U/L (5-37); Bilirubin Direct 0.2 mg/dL (0.0-0.5); Bilirubin Total 0.4 mg/dL (0.0-1.0); Blood Urea Nitrogen 12 mg/dL (9-16); Calcium 9.4 mg/dL (8.4-10.2); Carbon Dioxide 30 mmol/L (22-29); Chloride 103 mmol/L (96-108); Creatinine Clr Calc Pharmacy 108.2; Estimated Glomerular Filt Rate > 60; Glucose Random 107 mg/dL (60-115); Potassium 4.2 mmol/L (3.3-5.1); Salicylate < 5.0 mg/dL (15-30); Sodium 139 mmol/L (135-145); Total Protein 7.3 g/dL (6.5-8.0)
--- NOTE | 2021-01-27 13:17 | PC.NURSE ---
JEREMY referral submitted with confirmation. Last from Care Team aware. Pt refused labs to be drawn by females, he stated I want a 31 year old white male to take my blood . He allowed JOHN Zuniga to do his labs. Pt also refused to give urine when asked by female staff but he did agree to give urine when asked by JOHN Zuniga. Pt currently pacing back and forth from his room to the television. He requested tv channel be changed, Efrain changed the channel for him. No c/o. No incidents noted/reported.
--- NOTE | 2021-01-27 13:29 | PC.NURSE ---
Clara from [facility] called to verify if pt is medically cleared to be able to start the intake process. This public relations writer verified with YELENA Barrientos and yes pt is medically cleared. Clara aware. Pt currently eating lunch. will continue to monitor.
--- NOTE | 2021-01-27 13:43 | PHA.MEDREC ---
Pharmacy Consult ? Medication Reconciliation Pharmacy has completed the medication reconciliation. Patient was switch from Fluphazine to Olanzapine last saturday per patient. He has a script for trazodone but reports he does not use it. He has a prescription for Olanzapine 2.5 mg BID PRN that was filled 01/23/2021 however it has not been picked up yet. Tiara Martinez, PharmD
[2021-01-27 14:34] LABS: Amphetamine Screen Urine Not Detected (Not Detect); Barbiturates, Urine Not Detected (Not Detect); Benzodiazepines Screen Urine Not Detected (Not Detect); Cannabinoid Screen Urine POSITIVE (Not Detect); Cocaine Screen Urine Not Detected (Not Detect); Fentanyl, urine Not Detected (Not Detect); Opiate Screen Urine Not Detected (Not Detect); Phencyclidine Screen Urine Not Detected (Not Detect)
--- NOTE | 2021-01-27 16:15 | PC.NURSE ---
[facility] meeting with pt at this time. pt talking in a loud voice repetitively stating he doesn't want a female visiting nurse anymore because she got upset with him and called 911 on him, he will be putting in a request for a male visiting nurse . Pt continued to talk about the same situation, disregarding questions from [facility] clinician. [facility] clinician was not able to complete full assessment with pt
[2021-01-27 17:29] VITALS: BP 127/85; PULSE 86; RESP 15; TEMP 37.1; O2SAT 99
[2021-01-27 18:00] VITALS: BP 140/65; PULSE 65; TEMP 36.6
--- NOTE | 2021-01-27 18:17 | PC.NURSE ---
pt given supper. pt was transported to by JESSICA Gaytan and security. Belongings sent with pt. pt alert and oriented, vss.
[2021-01-27] MEDS: Divalproex Sodium ER 500 MG TAB.ER.24H 1000 MG PO (20:23)
--- NOTE | 2021-01-27 22:01 | PC.ADMIT ---
Pt is a 41 year old male who presents to and has been known to this unit. Pt is diagnosed with schizoaffective disorder, bipolar type. Pt is covid -, utox + for THC. Pt denied SI/HI/VH/AH during admit. Pt was brought into [facility] for assessment of altered mental status. Start treatment plan and monitor for safety
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
[2021-01-28] MEDS: Ezetimibe 10 MG TABLET PO (08:25)
[2021-01-28] MEDS: Cholecalciferol (Vitamin D3) 25 MCG TABLET 50 MCG PO (08:25)
[2021-01-28] MEDS: Thiamine HCL 100 MG TABLET PO (08:25)
[2021-01-28] MEDS: Acetaminophen 325 MG TABLET 650 MG PO ×2 (08:28→15:47)
[2021-01-28 08:31] VITALS: BP 130/61; PULSE 113; RESP 18; TEMP 36.4; O2SAT 98
--- NOTE | 2021-01-28 09:21 | HO.PSYCHPN ---
Subjective Subjective Date of Service: 01/28/21 Reason For Visit: crisis Interim History: H and P reviewed. Known to TW from previous visits. Pt is manic with POS/FOI, paranoia towards F, grandiosely talked about large winnings at the [employer]. Uniterrupted loud speech. Agreed to 10 mg BID of OLZ. Medication Compliance: Yes Side effects from medications: No Review of Systems Acute medical concerns: No Review of Systems Review of Systems CVS: No c/o chest pain, palpitations, no SOB [employer]: No c/o dizziness, headache GI: No c/o Nausea, Vomiting, diarrhea, constipation or heartburn Yes all other systems are reviewed and are negative Constitutional: Reports no additional constitutional complaints, Denies body ache(s), Denies chills, Denies fever(s), Denies headache(s) and Denies weakness Eyes: Reports no additional eye complaints and Denies change in vision Reports system reviewed and no additional complaints, except as documented, Denies dizziness, Denies headache(s), Denies nasal congestion, Denies nasal discharge and Denies neck pain Cardiovascular: Reports no additional cardiovascular complaints, Denies chest pain, Denies leg edema and Denies dyspnea Respiratory: Reports no additional respiratory complaints, Denies cough and Denies dyspnea Gastrointestinal: Reports no additional gastrointestinal complaints, Denies abdominal pain, Denies diarrhea, Denies nausea and Denies vomiting Genitourinary: Denies urinary incontinence Musculoskeletal: Reports no additional musculoskeletal complaints, Denies back pain, Denies arthralgias, Denies joint swelling, Denies neck pain, Denies numbness and Denies tingling Skin/Breast: Reports system reviewed and no additional complaints, except as docu and Denies rash Reports system reviewed and no additional complaints, except as documented, Denies Abnormal speech present, Reports behavioral changes, Denies dizziness, Denies headache(s), Denies numbness, Denies tingling and Denies weakness Psychiatric: Reports behavioral changes Mental Status Exam Mental Status Exam Narrative: A&O. Casual dress, well groomed, good hygiene, normal body habitus (has had some wt gain since last admission). Intense eye contact, inattentive. No Tics or Tremors. No abnormal involuntary movements. Agitated, activated, difficult to re-direct. Has loud, pressured speech, spontaneous with regular rate and rhythm, no aprosody. No prolonged speech latency or dysarthria. Mood is agitated, hostile at times, affect is irritable. Denies SI/SIB/HI upon inquiry. Denies A/VH. Presents with delusional thought content. Thoughts are disorganized. No known cognitive or memory impairment. Insight/ Judgment limited but adequate. Patient Appearance: Disheveled Patient Orientation: Person, Place, Time and Situation Level of Consciousness: Awake and Restless Patient Behavior: Talkative, Hyperactive and Restless Mood Description: Hostile, Labile and Angry Affect Description: Suspicious, Hostile and Labile Patient Cognition Impaired: No Ability to Follow Directions: Poor Speech Pattern: Perseverating, Pressured and Includes Profanity Memory Description: Intact Hallucinations: None Delusions: Paranoid Ideation and Grandiose Thought Process: Racing and Illogical Thought Content: positive for Flight of Ideas and positive for Loose Associations Abnormal Motor Activity Signs and Symptoms: Agitation Judgement: Poor Diagnostics Vital Signs (24Hr): Vital Signs - 24 hr 01/27/21 11:31 01/27/21 17:29 01/27/21 18:00 Temperature 98.4 F 98.8 F 98 F Pulse Rate 90 86 65 Respiratory Rate 18 15 Blood Pressure 125/72 127/85 140/65 H Pulse Oximetry 97 99 01/28/21 08:31 Temperature 97.5 F Pulse Rate 113 H Respiratory Rate 18 Blood Pressure 130/61 Pulse Oximetry 98 Body Mass Index 32.1 Labs Results: 01/27/21 12:34 01/27/21 12:47 Labs: Laboratory Results - last 48 hr 01/27/21 01/27/21 01/27/21 12:22 12:34 12:47 WBC 8.9 RBC 4.56 L Hgb 14.3 Hct 43.2 MCV 94.7 MCH 31.4 MCHC 33.1 RDW 12.1 Plt Count 228 MPV 10.2 Immature Gran % (Auto) 0.3 Neut % (Auto) 54.9 Lymph % (Auto) 32.4 Trigg % (Auto) 9.6 Eos % (Auto) 2.4 Baso % (Auto) 0.4 Lymph # (Auto) 2.9 Trigg # (Auto) 0.9 Eos # (Auto) 0.2 Baso # (Auto) 0.0 Abs Immat Gran (auto) 0.03 Absolute Neuts (auto) 4.9 Absolute Nucleated RBC 0.000 Nucleated RBC % (auto) 0.0 Sodium 139 Potassium 4.2 Chloride 103 Carbon Dioxide 30 H Anion Gap 10 L BUN 12 Creatinine 1.07 Estim Creat Clear Calc 108.2 Estimated GFR > 60 Random Glucose 107 D Calcium 9.4 Total Bilirubin 0.4 Direct Bilirubin 0.2 AST 15 ALT 12 Alkaline Phosphatase 67 Total Protein 7.3 Albumin 4.4 Salicylates < 5.0 L Urine Opiates Screen Urine Fentanyl Screen Acetaminophen < 1 Ur Barbiturates Screen Ur Phencyclidine Scrn Ur Amphetamines Screen U Benzodiazepines Scrn Urine Cocaine Screen U Marijuana (THC) Screen Ethyl Alcohol COVID-19 ([facility]) Negative COVID-19 [facility] See Note 01/27/21 01/27/21 12:47 14:01 WBC RBC Hgb Hct MCV MCH MCHC RDW Plt Count MPV Immature Gran % (Auto) Neut % (Auto) Lymph % (Auto) Trigg % (Auto) Eos % (Auto) Baso % (Auto) Lymph # (Auto) Trigg # (Auto) Eos # (Auto) Baso # (Auto) Abs Immat Gran (auto) Absolute Neuts (auto) Absolute Nucleated RBC Nucleated RBC % (auto) Sodium Potassium Chloride Carbon Dioxide Anion Gap BUN Creatinine Estim Creat Clear Calc Estimated GFR Random Glucose Calcium Total Bilirubin Direct Bilirubin AST ALT Alkaline Phosphatase Total Protein Albumin Salicylates Urine Opiates Screen Not Detected Urine Fentanyl Screen Not Detected Acetaminophen Ur Barbiturates Screen Not Detected Ur Phencyclidine Scrn Not Detected Ur Amphetamines Screen Not Detected U Benzodiazepines Scrn Not Detected Urine Cocaine Screen Not Detected U Marijuana (THC) Screen POSITIVE H Ethyl Alcohol < 10 COVID-19 ([facility]) COVID-19 [facility] Medications Medications Current Medications Acetaminophen (Acetaminophen 325 Mg Tablet) 650 mg PO Q6H PRN PRN Reason: Headache/Pain Mild Scale (1-3) Last Admin: 01/28/21 08:28 Dose: 650 mg Documented by: Al Hydroxide/Mg Hydroxide (Magnesium Hydrox/Alum Hydrox 30 Ml Oral.Susp) 30 ml PO Q6H PRN PRN Reason: Heartburn/Nausea Artificial Tears (Artificial Tears 15 Ml Drops) 2 drop EYE-BOTH TID PRN PRN Reason: Dry Eyes Calcium Carbonate (Calcium Carbonate 750 Mg Tab.Chew) 750 mg PO Q4H PRN PRN Reason: dyspepsia Divalproex Sodium (Divalproex Sodium Er 500 Mg Tab.Er.24h) 1,000 mg PO BEDTIME [facility] Last Admin: 01/27/21 20:23 Dose: 1,000 mg Documented by: Ezetimibe (Ezetimibe 10 Mg Tablet) 10 mg PO DAILY [facility] Last Admin: 01/28/21 08:25 Dose: 10 mg Documented by: Hydroxyzine HCl (Hydroxyzine Hcl 25 Mg Tablet) 25 mg PO BEDTIME PRN PRN Reason: Anxiety Ibuprofen (Ibuprofen 400 Mg Tablet) 400 mg PO BID PRN PRN Reason: pain Magnesium Hydroxide (Milk Of Magnesia 30 Ml Oral.Susp) 30 ml PO DAILY PRN PRN Reason: Constipation Olanzapine (Olanzapine 10 Mg Tablet) 10 mg PO BEDTIME [facility] Last Admin: 01/27/21 20:23 Dose: 10 mg Documented by: Thiamine HCl (Thiamine Hcl 100 Mg Tablet) 100 mg PO DAILY [facility] Last Admin: 01/28/21 08:25 Dose: 100 mg Documented by: Trazodone HCl (Trazodone Hcl 50 Mg Tablet) 50 mg PO BEDTIME PRN PRN Reason: Insomnia Vitamin D (Cholecalciferol (Vitamin D3) 25 Mcg Tablet) 50 mcg PO DAILY [facility] Last Admin: 01/28/21 08:25 Dose: 50 mcg Documented by: Allergies Allergies Allergy/AdvReac Type Severity Reaction Status Date / Time risperidone [From RISPERDAL] Allergy Unknown UNKNOWN Verified 12/27/20 15:50 topiramate [From TOPAMAX] Allergy Unknown HEADACHE Verified 12/27/20 15:50 Assessment & Plan Assessment & Plan (1) Schizoaffective disorder, bipolar type: Status: Chronic Code(s): F25.0 - Schizoaffective disorder, bipolar type Assessment and Plan: Ryan is a 45-year-old male who carries a dx of schizoaffective disorder, bipolar type. He presented to [facility] on 01/27/21 due to parents called EMS for increased agitation, aggression towards the visiting nurse. Recent medication change from fluphenazine to olanzapine. Prev M5 admission 11/2020, was on section 7/8. Plan: Discussed possibility of changing olanzapine to zydis and increasing dose to 20 mg to target sx of agitation, disorganized thoughts, however Ryan is adamant against medication changes. He is adherent with olanzapine PO 10 mg QHS at this time. Monitor response to medications. Monitor for safety in the milieu. Discharge on stabilization. Patient seen. Chart reviewed. Discussed with team. Obtain collateral contact info?as needed 01/28: Agreed to OLZ 10 mg BID but not Zydis I spent minutes with the patient and/or on the patient floor today, greater than?50% of which was spent counseling/coordinating care. Reason for contiued inpatient stay Substantial Risk for: rapid decompensation
[2021-01-28] MEDS: OLANZapine 10 MG TABLET PO ×2 (10:20→23:41)
[2021-01-28 18:00] VITALS: BP 137/88; PULSE 111; TEMP 36.2
[2021-01-28] MEDS: Divalproex Sodium ER 500 MG TAB.ER.24H 1000 MG PO (20:31)
--- NOTE | 2021-01-29 05:08 | PC.NURSE ---
Pt submitted Three Day Notice on Saturday01/27/21 up on Saturday02/01/21.
[2021-01-29 06:00] VITALS: BP 130/76; PULSE 112; RESP 20; O2SAT 97
--- NOTE | 2021-01-29 06:38 | PC.NURSE ---
Patient is loud, irritable, agitated at start and throughout shift. Patient is awake pacing hallway, self-dialoguing with violent punching gestures and yelling at staff throughout overnight period. Patient is resistant to all staff interventions and taking medications. Presents with paranoid delusional thought content. Consistently requesting Valium and Morphine. Covering M.D. Rashaun Guevara is contacted at 1:16am to report agitation and anxiety. M.D. ordered 2mg Ativan; Patient refused reporting it gives him Parkinson's. Covering M.D. Rashaun Guevara is contacted again at 4:55am to report continued agitation and escalation with yelling. 10mg Diazepam is ordered and presented to patient. Patient yells at this administrative underwriter stating the medication presented is Inderal and we're trying to poison him. Patient cites different shape, size, color of pills as reason for believing we're not administering correct medications. Patient returns to his room at 6am. Patient has been loud and disruptive in room as well on unit throughout overnight period. May require private room during this time.
[2021-01-29] MEDS: Cholecalciferol (Vitamin D3) 25 MCG TABLET 50 MCG PO (08:23)
[2021-01-29] MEDS: OLANZapine 10 MG TABLET PO ×2 (08:23→20:39)
[2021-01-29] MEDS: Thiamine HCL 100 MG TABLET PO (08:23)
[2021-01-29] MEDS: Ezetimibe 10 MG TABLET PO (08:23)
--- NOTE | 2021-01-29 08:38 | HO.PSYCHPN ---
Subjective Subjective Date of Service: 01/29/21 Reason For Visit: crisis Interim History: 01/28:H and P reviewed. Known to TW from previous visits. Pt is manic with POS/FOI, paranoia towards F, grandiosely talked about large winnings [place] the [place]. Uniterrupted loud speech. Agreed to 10 mg BID of OLZ. 01/29: Was disruptive but redirectable. Up at night. Loud speech directed at no one in particular. Pacing on unit. Agreed to take Clonaz . Claimed Lorazepam caused him to drool . Much anger towards father. 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 GI: No c/o Nausea, Vomiting, diarrhea, constipation or heartburn Yes all other systems are reviewed and are negative Constitutional: Reports no additional constitutional complaints, Denies body ache(s), Denies chills, Denies fever(s), Denies headache(s) and Denies weakness Eyes: Reports no additional eye complaints and Denies change in vision Reports system reviewed and no additional complaints, except as documented, Denies dizziness, Denies headache(s), Denies nasal congestion, Denies nasal discharge and Denies neck pain Cardiovascular: Reports no additional cardiovascular complaints, Denies chest pain, Denies leg edema and Denies dyspnea Respiratory: Reports no additional respiratory complaints, Denies cough and Denies dyspnea Gastrointestinal: Reports no additional gastrointestinal complaints, Denies abdominal pain, Denies diarrhea, Denies nausea and Denies vomiting Genitourinary: Denies urinary incontinence Musculoskeletal: Reports no additional musculoskeletal complaints, Denies back pain, Denies arthralgias, Denies joint swelling, Denies neck pain, Denies numbness and Denies tingling Skin/Breast: Reports system reviewed and no additional complaints, except as docu and Denies rash Reports system reviewed and no additional complaints, except as documented, Denies Abnormal speech present, Reports behavioral changes, Denies dizziness, Denies headache(s), Denies numbness, Denies tingling and Denies weakness Psychiatric: Reports behavioral changes Mental Status Exam Mental Status Exam Narrative: A&O. Casual dress, well groomed, good hygiene, normal body habitus (has had some wt gain since last admission). Intense eye contact, inattentive. No Tics or Tremors. No abnormal involuntary movements. Agitated, activated, difficult to re-direct. Has loud, pressured speech, spontaneous with regular rate and rhythm, no aprosody. No prolonged speech latency or dysarthria. Mood is agitated, hostile at times, affect is irritable. Denies SI/SIB/HI upon inquiry. Denies A/VH. Presents with delusional thought content. Thoughts are disorganized. No known cognitive or memory impairment. Insight/ Judgment limited but adequate. Patient Appearance: Disheveled Patient Orientation: Person, Place, Time and Situation Level of Consciousness: Awake and Restless Patient Behavior: Talkative, Hyperactive and Restless Mood Description: Hostile, Labile and Angry Affect Description: Suspicious, Hostile and Labile Patient Cognition Impaired: No Ability to Follow Directions: Poor Speech Pattern: Perseverating, Pressured and Includes Profanity Memory Description: Intact Diagnostics Vital Signs (24Hr): Vital Signs - 24 hr 01/28/21 18:00 01/29/21 06:00 Temperature 97.2 F Pulse Rate 111 H 112 H Respiratory Rate 20 Blood Pressure 137/88 130/76 Pulse Oximetry 97 Body Mass Index 32.1 Labs Results: 01/27/21 12:34 01/27/21 12:47 Labs: Laboratory Results - last 48 hr 01/27/21 01/27/21 01/27/21 12:22 12:34 12:47 WBC 8.9 RBC 4.56 L Hgb 14.3 Hct 43.2 MCV 94.7 MCH 31.4 MCHC 33.1 RDW 12.1 Plt Count 228 MPV 10.2 Immature Gran % (Auto) 0.3 Neut % (Auto) 54.9 Lymph % (Auto) 32.4 [place] % (Auto) 9.6 Eos % (Auto) 2.4 Baso % (Auto) 0.4 Lymph # (Auto) 2.9 [place] # (Auto) 0.9 Eos # (Auto) 0.2 Baso # (Auto) 0.0 Abs Immat Gran (auto) 0.03 Absolute Neuts (auto) 4.9 Absolute Nucleated RBC 0.000 Nucleated RBC % (auto) 0.0 Sodium 139 Potassium 4.2 Chloride 103 Carbon Dioxide 30 H Anion Gap 10 L BUN 12 Creatinine 1.07 Estim Creat Clear Calc 108.2 Estimated GFR > 60 Random Glucose 107 D Calcium 9.4 Total Bilirubin 0.4 Direct Bilirubin 0.2 AST 15 ALT 12 Alkaline Phosphatase 67 Total Protein 7.3 Albumin 4.4 Salicylates < 5.0 L Urine Opiates Screen Urine Fentanyl Screen Acetaminophen < 1 Ur Barbiturates Screen Ur Phencyclidine Scrn Ur Amphetamines Screen U Benzodiazepines Scrn Urine Cocaine Screen U Marijuana (THC) Screen Ethyl Alcohol COVID-19 (MARK) Negative COVID-19 Clin Com See Note 01/27/21 01/27/21 12:47 14:01 WBC RBC Hgb Hct MCV MCH MCHC RDW Plt Count MPV Immature Gran % (Auto) Neut % (Auto) Lymph % (Auto) [place] % (Auto) Eos % (Auto) Baso % (Auto) Lymph # (Auto) [place] # (Auto) Eos # (Auto) Baso # (Auto) Abs Immat Gran (auto) Absolute Neuts (auto) Absolute Nucleated RBC Nucleated RBC % (auto) Sodium Potassium Chloride Carbon Dioxide Anion Gap BUN Creatinine Estim Creat Clear Calc Estimated GFR Random Glucose Calcium Total Bilirubin Direct Bilirubin AST ALT Alkaline Phosphatase Total Protein Albumin Salicylates Urine Opiates Screen Not Detected Urine Fentanyl Screen Not Detected Acetaminophen Ur Barbiturates Screen Not Detected Ur Phencyclidine Scrn Not Detected Ur Amphetamines Screen Not Detected U Benzodiazepines Scrn Not Detected Urine Cocaine Screen Not Detected U Marijuana (THC) Screen POSITIVE H Ethyl Alcohol < 10 COVID-19 (MARK) COVID-19 Clin Com Medications Medications Current Medications Acetaminophen (Acetaminophen 325 Mg Tablet) 650 mg PO Q6H PRN PRN Reason: Headache/Pain Mild Scale (1-3) Last Admin: 01/28/21 15:47 Dose: 650 mg Documented by: Al Hydroxide/Mg Hydroxide (Magnesium Hydrox/Alum Hydrox 30 Ml Oral.Susp) 30 ml PO Q6H PRN PRN Reason: Heartburn/Nausea Artificial Tears (Artificial Tears 15 Ml Drops) 2 drop EYE-BOTH TID PRN PRN Reason: Dry Eyes Calcium Carbonate (Calcium Carbonate 750 Mg Tab.Chew) 750 mg PO Q4H PRN PRN Reason: dyspepsia Divalproex Sodium (Divalproex Sodium Er 500 Mg Tab.Er.24h) 1,000 mg PO BEDTIME [facility] Last Admin: 01/28/21 20:31 Dose: 1,000 mg Documented by: Ezetimibe (Ezetimibe 10 Mg Tablet) 10 mg PO DAILY [facility] Last Admin: 01/29/21 08:23 Dose: 10 mg Documented by: Hydroxyzine HCl (Hydroxyzine Hcl 25 Mg Tablet) 25 mg PO BEDTIME PRN PRN Reason: Anxiety Ibuprofen (Ibuprofen 400 Mg Tablet) 400 mg PO BID PRN PRN Reason: pain Magnesium Hydroxide (Milk Of Magnesia 30 Ml Oral.Susp) 30 ml PO DAILY PRN PRN Reason: Constipation Olanzapine (Olanzapine 10 Mg Tablet) 10 mg PO BID [facility] Last Admin: 01/29/21 08:23 Dose: 10 mg Documented by: Olanzapine (Olanzapine 5 Mg Tablet) 5 mg PO RQ8H PRN PRN Reason: anxiety/restlessness Thiamine HCl (Thiamine Hcl 100 Mg Tablet) 100 mg PO DAILY [facility] Last Admin: 01/29/21 08:23 Dose: 100 mg Documented by: Trazodone HCl (Trazodone Hcl 50 Mg Tablet) 50 mg PO BEDTIME PRN PRN Reason: Insomnia Vitamin D (Cholecalciferol (Vitamin D3) 25 Mcg Tablet) 50 mcg PO DAILY [facility] Last Admin: 01/29/21 08:23 Dose: 50 mcg Documented by: Allergies Allergies Allergy/AdvReac Type Severity Reaction Status Date / Time risperidone [From RISPERDAL] Allergy Unknown UNKNOWN Verified 12/27/20 15:50 topiramate [From TOPAMAX] Allergy Unknown HEADACHE Verified 12/27/20 15:50 Assessment & Plan Assessment & Plan (1) Schizoaffective disorder, bipolar type: Status: Chronic Code(s): F25.0 - Schizoaffective disorder, bipolar type Assessment and Plan: Ryan is a 45-year-old male who carries a dx of schizoaffective disorder, bipolar type. He presented to [facility] ED on 01/27/21 due to parents called EMS for increased agitation, aggression towards the visiting nurse. Recent medication change from fluphenazine to olanzapine. Prev M5 admission 11/2020, was on section 7/8. Plan: Discussed possibility of changing olanzapine to zydis and increasing dose to 20 mg to target sx of agitation, disorganized thoughts, however Ryan is adamant against medication changes. He is adherent with olanzapine PO 10 mg QHS at this time. Monitor response to medications. Monitor for safety in the milieu. Discharge on stabilization. Patient seen. Chart reviewed. Discussed with team. Obtain collateral contact info?as needed 01/29: Add Clonazepam 1 mg TID (brief course) I spent minutes with the patient and/or on the patient floor today, greater than?50% of which was spent counseling/coordinating care. Reason for contiued inpatient stay Substantial Risk for: rapid decompensation
[2021-01-29] MEDS: clonazePAM 1 MG TABLET PO ×2 (10:12→20:33)
[2021-01-29 18:00] VITALS: BP 145/84; PULSE 85; TEMP 36.2
[2021-01-29] MEDS: Divalproex Sodium ER 500 MG TAB.ER.24H 1000 MG PO (20:34)
[2021-01-30 06:00] VITALS: BP 138/80; PULSE 105; RESP 18; TEMP 36.1; O2SAT 98
[2021-01-30] MEDS: clonazePAM 1 MG TABLET PO (08:39)
[2021-01-30] MEDS: Ezetimibe 10 MG TABLET PO (08:40)
[2021-01-30] MEDS: Thiamine HCL 100 MG TABLET PO (08:40)
[2021-01-30] MEDS: Cholecalciferol (Vitamin D3) 25 MCG TABLET 50 MCG PO (08:40)
[2021-01-30] MEDS: OLANZapine 10 MG TABLET PO (10:06)
--- NOTE | 2021-01-30 10:14 | PC.NURSE ---
message left with pts mom to bring in his zyprexa from home as he does not trust zyprexa here as it is a different shaped pill than what he takes at home.
--- NOTE | 2021-01-30 11:03 | HO.PSYCHPN ---
Subjective Subjective Date of Service: 01/30/21 Reason For Visit: crisis Interim History: pt calm, pleasant, reasonable on approach; discussed treatment in organized way and with insight. Pt says he was switched to Zyprexa which he thinks is more helpful. He would like to go back to 10mg at bedtime and says if he needs more medications, wonders if depakote can be increased instead of going higher on Zyprexa. He's open to either. He says he feels his VNA overreacted to his comments which he says he knows are brusque and thinks a male VNA would have not felt a need for pt to go to hospital. Pt denies any SI or HI or AVH. He says he did feel angry on admission but this has resovled. He reports sleeping well. Pt has 3 day notice in but says it's no big deal and can retract it. Discussed clonazepam and pt says it helped in past; he agrees to lowering it to 0.5mg and making it a prn. Mental Status Exam Mental Status Exam Narrative: Pt is alert and oriented; behavior is cooperative, friendly and calm; patient is not in distress; dressed in casual attire with some scruffy facial hair but good adequate hygiene; mood is described as good and affect congruent; eye contact appropriate; Speech is normal rate, volume and prosody and not pressured; no psychomotor agitation/retardation present; thought process is organized and goal directed; Thought content is on tx; otherwise pertinent to relevant topics; no delusional or paranoid ideations expressed; denies any SI/HI. There is no evidence of perceptual disturbance and he denies AVH; patients insight and judgment appear intact. Diagnostics Vital Signs (24Hr): Vital Signs - 24 hr 01/29/21 18:00 01/30/21 06:00 Temperature 97.1 F 96.9 F Pulse Rate 85 105 H Respiratory Rate 18 Blood Pressure 145/84 H 138/80 Pulse Oximetry 98 Body Mass Index 32.1 Labs Results: 01/27/21 12:34 01/27/21 12:47 Medications Medications Current Medications Acetaminophen (Acetaminophen 325 Mg Tablet) 650 mg PO Q6H PRN PRN Reason: Headache/Pain Mild Scale (1-3) Last Admin: 01/28/21 15:47 Dose: 650 mg Documented by: Al Hydroxide/Mg Hydroxide (Magnesium Hydrox/Alum Hydrox 30 Ml Oral.Susp) 30 ml PO Q6H PRN PRN Reason: Heartburn/Nausea Artificial Tears (Artificial Tears 15 Ml Drops) 2 drop EYE-BOTH TID PRN PRN Reason: Dry Eyes Calcium Carbonate (Calcium Carbonate 750 Mg Tab.Chew) 750 mg PO Q4H PRN PRN Reason: dyspepsia Clonazepam (Clonazepam 1 Mg Tablet) 1 mg PO TID [facility] Last Admin: 01/30/21 08:39 Dose: 1 mg Documented by: Divalproex Sodium (Divalproex Sodium Er 500 Mg Tab.Er.24h) 1,000 mg PO BEDTIME [facility] Last Admin: 01/29/21 20:34 Dose: 1,000 mg Documented by: Ezetimibe (Ezetimibe 10 Mg Tablet) 10 mg PO DAILY [facility] Last Admin: 01/30/21 08:40 Dose: 10 mg Documented by: Hydroxyzine HCl (Hydroxyzine Hcl 25 Mg Tablet) 25 mg PO BEDTIME PRN PRN Reason: Anxiety Ibuprofen (Ibuprofen 400 Mg Tablet) 400 mg PO BID PRN PRN Reason: pain Magnesium Hydroxide (Milk Of Magnesia 30 Ml Oral.Susp) 30 ml PO DAILY PRN PRN Reason: Constipation Olanzapine (Olanzapine 10 Mg Tablet) 10 mg PO BID [facility] Last Admin: 01/30/21 10:06 Dose: 10 mg Documented by: Olanzapine (Olanzapine 5 Mg Tablet) 5 mg PO RQ8H PRN PRN Reason: anxiety/restlessness Thiamine HCl (Thiamine Hcl 100 Mg Tablet) 100 mg PO DAILY [facility] Last Admin: 01/30/21 08:40 Dose: 100 mg Documented by: Trazodone HCl (Trazodone Hcl 50 Mg Tablet) 50 mg PO BEDTIME PRN PRN Reason: Insomnia Vitamin D (Cholecalciferol (Vitamin D3) 25 Mcg Tablet) 50 mcg PO DAILY [facility] Last Admin: 01/30/21 08:40 Dose: 50 mcg Documented by: Allergies Allergies Allergy/AdvReac Type Severity Reaction Status Date / Time risperidone [From RISPERDAL] Allergy Unknown UNKNOWN Verified 12/27/20 15:50 topiramate [From TOPAMAX] Allergy Unknown HEADACHE Verified 12/27/20 15:50 Assessment & Plan Assessment & Plan (1) Schizoaffective disorder, bipolar type: Status: Chronic Code(s): F25.0 - Schizoaffective disorder, bipolar type Assessment and Plan: Ryan is a 45-year-old male who carries a dx of schizoaffective disorder, bipolar type. He presented to [facility] ED on 01/27/21 due to parents called EMS for increased agitation, aggression towards the visiting nurse. Recent medication change from fluphenazine to olanzapine. Prev M5 admission 11/2020, was on section 7/. Hospitial course/medical decision makin/1 pt calm, reasonable he has been on zyprexa 10mg BID; pt prefers increase in depakote and lower dose of zyprexa if possible; no recent depakote level; will leave zyprexa at 20mg total dosing (give at bedtime) until can get depakote level and see if possible to increase dose Plan: 3 day due on 02/01 SWITCH zyprexa to 20mg at bed (instead of 10mg BID) CHECK depakote level; if can go higher will see if increase in depakote can allow for lower dose of Zyprexa lowered clonazepam to 0.5mg and changed to prn Discussed possibility of changing olanzapine to zydis and increasing dose to 20 mg to target sx of agitation, disorganized thoughts, however Ryan is adamant against medication changes. He is adherent with olanzapine PO 10 mg QHS at this time. Monitor response to medications. Monitor for safety in the milieu. Discharge on stabilization. Patient seen. Chart reviewed. Discussed with team. Obtain collateral contact info?as needed 01/29: Add Clonazepam 1 mg TID (brief course) I spent minutes with the patient and/or on the patient floor today, greater than?50% of which was spent counseling/coordinating care. Reason for contiued inpatient stay Substantial Risk for: med/psych decompensation
[2021-01-30 18:00] VITALS: BP 140/78; PULSE 80
[2021-01-30] MEDS: clonazePAM 0.5 MG TABLET PO (21:34)
[2021-01-30] MEDS: Divalproex Sodium ER 500 MG TAB.ER.24H 1000 MG PO (21:34)
[2021-01-31] MEDS: Thiamine HCL 100 MG TABLET PO (08:03)
[2021-01-31] MEDS: Ezetimibe 10 MG TABLET PO (08:03)
[2021-01-31] MEDS: Cholecalciferol (Vitamin D3) 25 MCG TABLET 50 MCG PO (08:03)
[2021-01-31 08:41] LABS: Ammonia 39 umol/L (13-55)
[2021-01-31 08:58] LABS: Alanine Aminotransferase 16 U/L (0-40); Albumin Level 4.2 g/dL (3.5-5.0); Alkaline Phosphatase 61 U/L (39-117); Aspartate Amino Transferase 16 U/L (5-37); Bilirubin Direct 0.2 mg/dL (0.0-0.5); Bilirubin Total 0.5 mg/dL (0.0-1.0); Total Protein 6.9 g/dL (6.5-8.0)
[2021-01-31 09:03] LABS: Valproate 49.7 mcg/mL (50.0-100.0)
--- NOTE | 2021-01-31 10:15 | P.PNPSI_ITS ---
Subjective Subjective Date of Service: 01/31/21 Reason For Visit: crisis Interim History: good mood; no SI/HI or AVH. good behavioral control; feels ready for discharge. Patient really wants a male VNA feeling female VNA's are too sensitive and don't get jokes; understands this is may not be possible; wants increase in depakote given levels. Mental Status Exam Mental Status Exam Narrative: Pt is alert and oriented; behavior is cooperative, friendly and calm; patient is not in distress; dressed in casual attire with some scruffy facial hair but good adequate hygiene; mood is described as good and affect congruent; eye contact appropriate; Speech is normal rate, volume and prosody and not pressured; no psychomotor agitation/retardation present; thought process is organized and goal directed; Thought content is on tx; otherwise pertinent to relevant topics; no delusional or paranoid ideations expressed; denies any SI/HI. There is no evidence of perceptual disturbance and he denies AVH; patients insight and judgment appear intact. Diagnostics Vital Signs (24Hr): Vital Signs - 24 hr 01/30/21 18:00 Pulse Rate 80 Blood Pressure 140/78 H Body Mass Index 32.1 Labs Results: 01/27/21 12:34 01/27/21 12:47 Labs: Laboratory Results - last 48 hr 01/31/21 01/31/21 07:54 07:55 Total Bilirubin 0.5 Direct Bilirubin 0.2 AST 16 ALT 16 Alkaline Phosphatase 61 Ammonia 39 Total Protein 6.9 Albumin 4.2 Valproic Acid 49.7 L Medications Medications Current Medications Acetaminophen (Acetaminophen 325 Mg Tablet) 650 mg PO Q6H PRN PRN Reason: Headache/Pain Mild Scale (1-3) Last Admin: 01/28/21 15:47 Dose: 650 mg Documented by: Al Hydroxide/Mg Hydroxide (Magnesium Hydrox/Alum Hydrox 30 Ml Oral.Susp) 30 ml PO Q6H PRN PRN Reason: Heartburn/Nausea Artificial Tears (Artificial Tears 15 Ml Drops) 2 drop EYE-BOTH TID PRN PRN Reason: Dry Eyes Calcium Carbonate (Calcium Carbonate 750 Mg Tab.Chew) 750 mg PO Q4H PRN PRN Reason: dyspepsia Clonazepam (Clonazepam 0.5 Mg Tablet) 0.5 mg PO TID PRN PRN Reason: anxiety Last Admin: 01/30/21 21:34 Dose: 0.5 mg Documented by: Divalproex Sodium (Divalproex Sodium Er 500 Mg Tab.Er.24h) 1,000 mg PO BEDTIME [facility] Last Admin: 01/30/21 21:34 Dose: 1,000 mg Documented by: Ezetimibe (Ezetimibe 10 Mg Tablet) 10 mg PO DAILY [facility] Last Admin: 01/31/21 08:03 Dose: 10 mg Documented by: Hydroxyzine HCl (Hydroxyzine Hcl 25 Mg Tablet) 25 mg PO BEDTIME PRN PRN Reason: Anxiety Ibuprofen (Ibuprofen 400 Mg Tablet) 400 mg PO BID PRN PRN Reason: pain Magnesium Hydroxide (Milk Of Magnesia 30 Ml Oral.Susp) 30 ml PO DAILY PRN PRN Reason: Constipation Nicotine (Nicotine 21 Mg Patch.Td24) 21 mg TRANSDERMA DAILY [facility] Last Admin: 01/31/21 08:05 Dose: Not Given Documented by: Nicotine Polacrilex (Nicotine Polacrilex Lozenge 4 Mg Lozenge) 4 mg BUCCAL Q2H PRN PRN Reason: Nicotine Cravings Patient Own Medication ( Olanzapine 10 Mg) 2 each PO BEDTIME [facility] Last Admin: 01/30/21 21:31 Dose: 2 each Documented by: Olanzapine (Olanzapine 5 Mg Tablet) 5 mg PO RQ8H PRN PRN Reason: anxiety/restlessness Thiamine HCl (Thiamine Hcl 100 Mg Tablet) 100 mg PO DAILY [facility] Last Admin: 01/31/21 08:03 Dose: 100 mg Documented by: Trazodone HCl (Trazodone Hcl 50 Mg Tablet) 50 mg PO BEDTIME PRN PRN Reason: Insomnia Vitamin D (Cholecalciferol (Vitamin D3) 25 Mcg Tablet) 50 mcg PO DAILY [facility] Last Admin: 01/31/21 08:03 Dose: 50 mcg Documented by: Allergies Allergies Allergy/AdvReac Type Severity Reaction Status Date / Time risperidone [From RISPERDAL] Allergy Unknown UNKNOWN Verified 12/27/20 15:50 topiramate [From TOPAMAX] Allergy Unknown HEADACHE Verified 12/27/20 15:50 Assessment & Plan Assessment & Plan (1) Schizoaffective disorder, bipolar type: Status: Chronic Code(s): F25.0 - Schizoaffective disorder, bipolar type Assessment and Plan: Ryan is a 45-year-old male who carries a dx of schizoaffective disorder, bipolar type. He presented to [facility] on 01/27/21 due to parents called EMS for increased agitation, aggression towards the visiting nurse. Recent medication change from fluphenazine to olanzapine. Prev M5 admission 11/2020, was on section 7/8. Hospitial course/medical decision makin/1 pt calm, reasonable he has been on zyprexa 10mg BID; pt prefers increase in depakote and lower dose of zyprexa if possible; no recent depakote level; will leave zyprexa at 20mg total dosing (give at bedtime) until can get depakote level and see if possible to increase dose at baseline; appropriat for disharge Plan: 3 day due on 02/01 lower to zyprexa to 10mg at bed (instead of 10mg BID) increase Depakote (depakote level WNL and pt prefers higher depakote dose to substitute for lower dose of Zyprexa) lowered clonazepam to 0.5mg and changed to prn Discussed possibility of changing olanzapine to zydis and increasing dose to 20 mg to target sx of agitation, disorganized thoughts, however Ryan is adamant against medication changes. He is adherent with olanzapine PO 10 mg QHS at this time. Monitor response to medications. Monitor for safety in the milieu. Discharge on stabilization. Patient seen. Chart reviewed. Discussed with team. Obtain collateral contact info?as needed 01/29: Add Clonazepam 1 mg TID (brief course) I spent minutes with the patient and/or on the patient floor today, greater than?50% of which was spent counseling/coordinating care. Reason for contiued inpatient stay Substantial Risk for: stable for discharge
[2021-01-31 18:00] VITALS: BP 135/65; PULSE 91; TEMP 36.1
[2021-01-31] MEDS: clonazePAM 0.5 MG TABLET PO (20:59)
[2021-01-31] MEDS: Divalproex Sodium ER 500 MG TAB.ER.24H 1500 MG PO (20:59)
[2021-02-01] MEDS: clonazePAM 0.5 MG TABLET PO (03:19)
[2021-02-01 06:00] VITALS: BP 141/81; PULSE 98; RESP 18; TEMP 35.8; O2SAT 97
[2021-02-01] MEDS: Cholecalciferol (Vitamin D3) 25 MCG TABLET 50 MCG PO (08:22)
[2021-02-01] MEDS: Thiamine HCL 100 MG TABLET PO (08:22)
[2021-02-01] MEDS: Ezetimibe 10 MG TABLET PO (08:22)
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
== END 2021-02-01 13:20 | disposition home or self-care (01) | DRG 885 ==
LOC: HO.ED 18:19 → HO.PM5 18:47
PROVIDERS: Nurse Practitioner Family; Admitting Provider Registered Nurse; Emergency Provider Emergency Medicine; PCP Nurse Practitioner Family; Visit Provider Psychiatry & Neurology Psychiatry
DX: F25.0 Schizoaffective disorder, bipolar type (principal); K21.9 Gastro-esophageal reflux disease without esophagitis; Z20.822 Contact with and (suspected) exposure to COVID-19; F17.210 Nicotine dependence, cigarettes, uncomplicated; Z71.6 Tobacco abuse counseling; Z79.1 Long term (current) use of non-steroidal anti-inflammatories (NSAID); Z79.899 Other long term (current) drug therapy
CPT/HCPCS: 36415; 80048; 80076; 80143; 80164; 80179; 80307; 82077; 82140; 85025; 87635; 99285

== ENCOUNTER 2021-04-20 12:10 | Outpatient (REF) | payer MEDICARE, MEDICAID, SELFPAY ==
[2021-04-20 13:49] LABS: MANUAL DIFF FLAG NO
[2021-04-20 14:10] LABS: Basophils Absolute Auto 0.1 X10*3/uL (0.0-0.2); Basophils Percent Auto 0.6 % (0-2); Eosinophils Absolute Auto 0.1 X10*3/uL (0.0-0.4); Eosinophils Percent Auto 1.6 % (0-4); Hemoglobin 14.7 g/dl (14.0-18.0); Imm Gran Abs Auto 0.02 X10*3/uL (0.00-0.03); Imm Gran Pct Auto 0.2 % (0.0-0.4); Lymphocytes Absolute Auto 3.2 X10*3/uL (1.2-4.9); Mean Corpuscular HGB Conc 32.7 g/dl (31.0-36.0); Mean Corpuscular Hemoglobin 30.1 pg (27.0-33.0); Mean Corpuscular Volume 92.2 fL (80.0-98.0); Mean Platelet Volume 11.3 fL (9.4-12.4); Monocytes Absolute Auto 0.7 X10*3/uL (0.1-1.2); Monocytes Percent Auto 8.3 % (2-11); Neutrophils Absolute Auto 4.1 x10*3/uL (2.0-8.3); Neutrophils Percent Auto 50.3 % (45-73); Platelet Count 201 X10*3/uL (160-400); Red Blood Count 4.88 X10*6/uL (4.60-5.80); Red Cell Distribution Width 12.1 % (11.0-16.0); White Blood Count 8.2 X10*3/uL (4.8-10.8)
[2021-04-20 14:24] LABS: Appearance Urine CLEAR; Color Urine YELLOW; Glucose Urine UA NEG (NEG); Leukocyte Esterase Urine NEG (NEG); Nitrite Urine NEG (NEG); Urine Blood NEG (NEG); Urine Ketones NEG (NEG); Urine Protein NEG (NEG-TRACE)
[2021-04-20 14:42] LABS: Alanine Aminotransferase 30 U/L (0-40); Albumin Level 4.1 g/dL (3.5-5.0); Alkaline Phosphatase 66 U/L (39-117); Anion Gap 13 (12-20); Aspartate Amino Transferase 22 U/L (5-37); Bilirubin Total 0.5 mg/dL (0.0-1.0); Blood Urea Nitrogen 12 mg/dL (9-16); Calcium 9.4 mg/dL (8.4-10.2); Carbon Dioxide 24 mmol/L (22-29); Chloride 109 mmol/L (96-108); Cholesterol 183 mg/dL; Estimated Glomerular Filt Rate > 60; Glucose Fasting 100 mg/dL (60-99); HDL Cholesterol 48 mg/dL; LDL Cholesterol Calculated 111 mg/dl; Potassium 4.5 mmol/L (3.3-5.1); Sodium 141 mmol/L (135-145); Total Protein 7.4 g/dL (6.5-8.0); Triglycerides 124 mg/dL
[2021-04-20 14:50] LABS: TSH reflex Free T4 2.54 uIU/mL (0.32-4.0)
== END 2021-04-20 12:11 | disposition home or self-care (01) ==
LOC: HO.HMGCLDS 12:10
PROVIDERS: Visit Provider Nurse Practitioner Family
DX: D64.9 Anemia, unspecified (principal)
CPT/HCPCS: 36415; 80053; 80061; 81003; 84443; 85025

== ENCOUNTER → 2022-06-14 14:29 | Outpatient (BNVA) | payer MEDICARE, MEDICAID, SELFPAY | PROVIDERS: PCP Nurse Practitioner Family; Visit Provider Physician Assistant | DX: Z01.818 Encounter for other preprocedural examination (principal) | CPT/HCPCS: 99202 ==

== ENCOUNTER 2022-07-18 08:26 | Inpatient (IN) | payer MEDICARE, MEDICAID, SELFPAY ==
--- NOTE | ~2022-07-18 | XR_ITS ---
EXAMINATION: XR FOOT, RIGHT CLINICAL INFORMATION: Swelling. History of recent trauma. COMPARISON: None available. TECHNIQUE: AP, lateral, and oblique views of the right foot. FINDINGS: The bones and soft tissues are normal. No fracture. Alignment is anatomic. Joint spaces are maintained. XR/XR foot RT min 3V IMPRESSION: Normal right foot.
--- NOTE | ~2022-07-18 | XR_ITS ---
EXAMINATION: XR SOFT TISSUE NECK CLINICAL INDICATION: Question foreign body COMPARISON: CT cervical spine from 02/20/2018 TECHNIQUE: 2 views of the soft tissue neck were obtained. FINDINGS: The pharyngeal soft tissues are unremarkable. No evidence of thickening of the aryepiglottic folds. No prevertebral soft tissue swelling. No evidence of radiopaque foreign body. The trachea is midline in position. The cervical vertebra have normal height and alignment. Small vertebral osteophytes and slight narrowing of disc space at C5-C6 and C6-C7. Lung apices are normal. XR/XR soft tissue neck IMPRESSION: No acute abnormality. No evidence of radiopaque foreign body in the neck or upper chest.
--- NOTE | 2022-07-18 08:47 | ED.PSYCH ---
HPI - Psych General Chief Complaint: Psychiatric Symptoms Stated Complaint: CRISIS per EMS Time Seen by Provider: 07/18/22 08:46 Source: patient and EMS Mode of arrival: EMS Limitations: no limitations History of Present Illness HPI Narrative: 46 yo male with history of schizoaffective disorder, bipolar type, anemia, chronic low back pain who presents to the ER via EMS for psych evaluation. He says he swallowed a mouse and it is stuck in his throat. Patient has a history of several inpatient psychiatric admissions at [facility] and here, follows with a psychiatrist at [facility]. Patient states he has a cat that likes to bring in field mice. He reports a mouse got into his throat and is stuck. He likes to drink [place] water to drown it because it can't swim. He does not want to eat any food because it is in his throat. He denies any N/V/D or abdominal pain. He states he has been compliant with all of his medications, including his depakote even though he is allergic. He states the depakote makes his butthole itchy and his fingers dirty. He is requesting an x-ray to assess placement of the mouse. MD complaint: anxiety and hallucinations Onset (ago): unknown History of same: Yes Relieving factors: none Exacerbating factors: none Associated psychiatric symptoms: delusions Associated symptoms: denies other symptoms Treatments prior to arrival: none Related Data Home Medications Medication Instructions Recorded Confirmed olanzapine 5 mg tablet 5 mg PO BEDTIME 03/21/22 07/18/22 divalproex 500 mg tablet,extended 1,000 mg PO BEDTIME 07/18/22 07/18/22 release 24 hr Previous Rx's Medication Instructions Recorded polyvinyl alcohol 1.4 % eye drops 2 drp ophthalmic (eye) TID PRN Dry 12/21/20 (Artificial Tears (polyvinyl Eyes 30 days #15 mL alcohol)) cholecalciferol (vitamin D3) 50 50 mcg PO DAILY 90 days #90 caps 01/04/21 mcg (2,000 unit) capsule thiamine mononitrate (vit B1) 100 100 mg PO DAILY 90 days #90 tabs 01/04/21 mg tablet clonazepam 0.5 mg tablet 0.5 mg PO TID PRN anxiety 30 days 02/01/21 #90 tabs bisacodyl 5 mg tablet,delayed 10 mg PO ONCE colonoscopy prep 1 06/14/22 release (Dulcolax (bisacodyl)) day #2 tabs polyethylene glycol 3350 17 238 g PO ONCE 1 day #238 grams 06/14/22 gram/dose oral powder (Miralax) Allergies Allergy/AdvReac Type Severity Reaction Status Date / Time risperidone [From RISPERDAL] Allergy Unknown UNKNOWN Verified 06/14/22 14:37 topiramate [From TOPAMAX] Allergy Unknown HEADACHE Verified 06/14/22 14:37 Review of Systems Review of Systems: Yes all other systems are reviewed and are negative [facility] Past Medical History Medical History GERD (gastroesophageal reflux disease) Mood disorder Psychosis Surgical History No pertinent past surgical history Family History Family History Father No problems noted. Mother Breast cancer Diabetes mellitus Brother No problems noted. Sister No problems noted. Social History Social History Household Members: Family Housing: House Do you presently have visiting nurse or other home services: No Unable to assess alcohol history related to: Refusing to respond Alcohol intake: current Alcohol intake frequency: does not drink Patient Tobacco Use Status: Former Tobacco user Tobacco use type: Cigarette e-Cigarette/Vaping Use: Never Used Second Hand Smoke Exposure: Yes Substance Use Type: Marijuana Advance Directives: No service: No Current occupational status: disabled Current occupational exposures/hazards: No Sexual orientation: Cisgender Physical Exam Vital Signs: Vital Signs: Last Vital Signs Temp 97.6 F 07/18/22 08:50 Pulse 74 07/18/22 08:50 Resp 18 07/18/22 08:50 BP 147/85 H 07/18/22 08:50 Pulse Ox 96 07/18/22 08:50 O2 Del Method Room Air 07/18/22 08:50 BMI result Body Mass Index 29.6 Appearance: Alert. Oriented X3. No acute distress. Head: normocephalic, atraumatic. Eyes: Pupils equal, round and reactive to light. ENT: Pharynx normal. No tonsillar swelling or exudate. Neck: Normal inspection. Neck supple. CVS: Normal heart rate and rhythm. Pulses normal. Respiratory: No respiratory distress. Breath sounds normal. Abdomen: Soft and nontender. +BS x4 Skin: Skin warm and dry. Normal skin color. Normal skin turgor. No rashes. Extremities: No lower extremity edema. No joint swelling. Neuro/psych: Oriented X 3. No motor deficit. No sensory deficit. CN II-XII intact. Normal speech and cognition. Makes eye contact. Fixed on delusion of mouse in his throat. yells at times. Course Consultations Consultation #1: CARE TEAM Medical Decision Making Medical Decision Making MDM Narrative: 46-year-old male with history of schizoaffective disorder, bipolar type presents the ER for evaluation of fixed delusions. He is fixated on a mouse being his throat. He is trying to drown it with water. He reports compliance with his Depakote however his level is not detectable in his blood indicating medication noncompliance. Concern he woke wire inpatient level of care. Medical workup is unremarkable including a soft tissue x-ray of the throat. Patient was shown the visual proof that his airway is patent and there is no foreign body. Will place patient in physician observation at this time Physician observation started at 11:04am. Patient placed in physician observation because patient is awaiting CARE team evaluation for the possible need of inpatient psych admission. At the time observation was started patient's vital signs were stable. Patient is alert and oriented. Neuro exam is non-focal. CV: RRR and lungs are clear. Will continue to monitor. Differential Diagnosis Differential Diagnoses: The differential diagnosis associated with the presentation includes substance induced mood disorder, acute psychosis, schizophrenia, schizoaffective disorder, PTSD, bipolar disorder, major depression with psychotic features Admission/Observation Consideration of admission/observation: Escalation of care including admission/observation considered Consult Healthcare Provider Management of the patient was discussed with: Behavioral Health Provider Lab Data [facility] Lab Attestation statement: I reviewed the patient's lab results. 07/18/22 10:34 07/18/22 10:34 Labs: Lab Results 07/18/22 07/18/22 07/18/22 Range/Units 10:34 10:34 10:34 WBC 6.0 (4.8-10.8) X10*3/uL RBC 4.75 (4.60-5.80) X10*6/uL Hgb 14.9 (14.0-18.0) g/dl Hct 43.4 (42.0-52.0) % MCV 91.4 (80.0-98.0) fL MCH 31.4 (27.0-33.0) pg MCHC 34.3 (31.0-36.0) g/dl RDW 11.9 (11.0-16.0) % Plt Count 186 (160-400) X10*3/uL MPV 11.4 (9.4-12.4) fL Immature Gran % (Auto) 0.2 (0.0-0.4) % Neut % (Auto) 61.0 (45-73) % Lymph % (Auto) 25.5 (20-40) % [place] % (Auto) 9.7 (2-11) % Eos % (Auto) 3.3 (0-4) % Baso % (Auto) 0.3 (0-2) % Lymph # (Auto) 1.5 (1.2-4.9) X10*3/uL [place] # (Auto) 0.6 (0.1-1.2) X10*3/uL Eos # (Auto) 0.2 (0.0-0.4) X10*3/uL Baso # (Auto) 0.0 (0.0-0.2) X10*3/uL Abs Immat Gran (auto) 0.01 (0.00-0.03) X10*3/uL Absolute Neuts (auto) 3.7 (2.0-8.3) x10*3/uL Absolute Nucleated RBC 0.000 (0.0-0.012) X10*3/uL Nucleated RBC % (auto) 0.0 (0.0-0.2) /100WBC Sodium 138 (135-145) mmol/L Potassium 4.0 (3.3-5.1) mmol/L Chloride 105 (96-108) mmol/L Carbon Dioxide 25 (22-29) mmol/L Anion Gap 12 (12-20) BUN 14 (9-16) mg/dL Creatinine 0.95 (0.5-1.4) mg/dL Estim Creat Clear Calc 126.7 Estimated GFR > 60 Random Glucose 79 (60-115) mg/dL Calcium 9.3 (8.4-10.2) mg/dL Magnesium 2.0 (1.6-2.6) mg/dL Total Bilirubin 0.9 (0.0-1.0) mg/dL Direct Bilirubin 0.3 (0.0-0.5) mg/dL AST 63 H (5-37) U/L ALT 63 H (0-40) U/L Alkaline Phosphatase 60 (39-117) U/L Total Protein 6.7 (6.5-8.0) g/dL Albumin 4.2 (3.5-5.0) g/dL Valproic Acid (50.0-100.0) mcg/mL Ethyl Alcohol < 10 mg/dL COVID-19 (MARK) Negative (Negative) COVID-19 Clin Com See Note 07/18/22 Range/Units 10:34 WBC (4.8-10.8) X10*3/uL RBC (4.60-5.80) X10*6/uL Hgb (14.0-18.0) g/dl Hct (42.0-52.0) % MCV (80.0-98.0) fL MCH (27.0-33.0) pg MCHC (31.0-36.0) g/dl RDW (11.0-16.0) % Plt Count (160-400) X10*3/uL MPV (9.4-12.4) fL Immature Gran % (Auto) (0.0-0.4) % Neut % (Auto) (45-73) % Lymph % (Auto) (20-40) % [place] % (Auto) (2-11) % Eos % (Auto) (0-4) % Baso % (Auto) (0-2) % Lymph # (Auto) (1.2-4.9) X10*3/uL [place] # (Auto) (0.1-1.2) X10*3/uL Eos # (Auto) (0.0-0.4) X10*3/uL Baso # (Auto) (0.0-0.2) X10*3/uL Abs Immat Gran (auto) (0.00-0.03) X10*3/uL Absolute Neuts (auto) (2.0-8.3) x10*3/uL Absolute Nucleated RBC (0.0-0.012) X10*3/uL Nucleated RBC % (auto) (0.0-0.2) /100WBC Sodium (135-145) mmol/L Potassium (3.3-5.1) mmol/L Chloride (96-108) mmol/L Carbon Dioxide (22-29) mmol/L Anion Gap (12-20) BUN (9-16) mg/dL Creatinine (0.5-1.4) mg/dL Estim Creat Clear Calc Estimated GFR Random Glucose (60-115) mg/dL Calcium (8.4-10.2) mg/dL Magnesium (1.6-2.6) mg/dL Total Bilirubin (0.0-1.0) mg/dL Direct Bilirubin (0.0-0.5) mg/dL AST (5-37) U/L ALT (0-40) U/L Alkaline Phosphatase (39-117) U/L Total Protein (6.5-8.0) g/dL Albumin (3.5-5.0) g/dL Valproic Acid < 12.5 L (50.0-100.0) mcg/mL Ethyl Alcohol mg/dL COVID-19 (MARK) (Negative) COVID-19 Clin Com Independent Historian Clinical information obtained from an independent historian. History obtained from or confirmed by: EMS External Record Review External record reviewed: Outpatient record, Prior outpatient labs and Prior outpatient radiology Prescription Management I considered prescription management with: Other (antipsychotic) Chronic Conditions Patient?s care impacted by: Other (schizoaffective disorder) Critical Care Time Critical Care Time Critical Care Time: No Discharge Plan Discharge Clinical Impression: Acute psychosis Patient Disposition: Still a Patient Prescriptions: No Action thiamine mononitrate (vit B1) 100 mg tablet 100 mg PO DAILY 90 Days Qty: 90 0RF cholecalciferol (vitamin D3) 50 mcg (2,000 unit) capsule 50 mcg PO DAILY 90 Days Qty: 90 1RF polyvinyl alcohol [Artificial Tears (polyvin alc)] 1.4 % Drops 2 drp ophthalmic (eye) TID PRN (Reason: Dry Eyes) 30 Days Qty: 15 0RF clonazepam 0.5 mg Tablet 0.5 mg PO TID PRN (Reason: anxiety) 30 Days Qty: 90 0RF divalproex 500 mg tablet extended release 24 hr 1,000 mg PO BEDTIME olanzapine 5 mg tablet 5 mg PO BEDTIME bisacodyl [Dulcolax (bisacodyl)] 5 mg tablet,delayed release (DR/EC) 10 mg PO ONCE 1 Days Qty: 2 0RF Rx Instructions: Take 2 tablets by mouth at 12:00pm the day before your procedure. polyethylene glycol 3350 [Miralax] 17 gram/dose powder 238 g PO ONCE 1 Days Qty: 238 0RF Rx Instructions: Take as directed by mouth the day before your procedure.
[2022-07-18 08:50] VITALS: BP 147/85; PULSE 74; RESP 18; TEMP 36.4; O2SAT 96; BMI 29.6
[2022-07-18 10:40] LABS: MANUAL DIFF FLAG NO
[2022-07-18 10:41] LABS: Basophils Percent Auto 0.3 % (0-2); Eosinophils Absolute Auto 0.2 X10*3/uL (0.0-0.4); Eosinophils Percent Auto 3.3 % (0-4); Hematocrit 43.4 % (42.0-52.0); Hemoglobin 14.9 g/dl (14.0-18.0); Imm Gran Abs Auto 0.01 X10*3/uL (0.00-0.03); Imm Gran Pct Auto 0.2 % (0.0-0.4); Lymphocytes Absolute Auto 1.5 X10*3/uL (1.2-4.9); Lymphocytes Percent Auto 25.5 % (20-40); Mean Corpuscular HGB Conc 34.3 g/dl (31.0-36.0); Mean Corpuscular Hemoglobin 31.4 pg (27.0-33.0); Mean Corpuscular Volume 91.4 fL (80.0-98.0); Mean Platelet Volume 11.4 fL (9.4-12.4); Monocytes Absolute Auto 0.6 X10*3/uL (0.1-1.2); Monocytes Percent Auto 9.7 % (2-11); Neutrophils Absolute Auto 3.7 x10*3/uL (2.0-8.3); Platelet Count 186 X10*3/uL (160-400); Red Blood Count 4.75 X10*6/uL (4.60-5.80); Red Cell Distribution Width 11.9 % (11.0-16.0)
[2022-07-18 10:55] LABS: Valproate < 12.5 mcg/mL (50.0-100.0)
[2022-07-18 10:58] LABS: COVID-19 Test Negative (Negative); IDNOW Serial# 08D9AD1C
[2022-07-18 11:01] LABS: Alanine Aminotransferase 63 U/L (0-40); Albumin Level 4.2 g/dL (3.5-5.0); Alkaline Phosphatase 60 U/L (39-117); Anion Gap 12 (12-20); Aspartate Amino Transferase 63 U/L (5-37); Bilirubin Direct 0.3 mg/dL (0.0-0.5); Bilirubin Total 0.9 mg/dL (0.0-1.0); Blood Urea Nitrogen 14 mg/dL (9-16); Calcium 9.3 mg/dL (8.4-10.2); Carbon Dioxide 25 mmol/L (22-29); Chloride 105 mmol/L (96-108); Creatinine Clr Calc Pharmacy 126.7; Estimated Glomerular Filt Rate > 60; Ethanol < 10 mg/dL; Glucose Random 79 mg/dL (60-115); Sodium 138 mmol/L (135-145); Total Protein 6.7 g/dL (6.5-8.0)
--- NOTE | 2022-07-18 13:44 | MHC.CARE ---
Section 12 placed in pt's chart
[2022-07-18 17:10] LABS: Amphetamine Screen Urine Not Detected (Not Detect); Barbiturates, Urine Not Detected (Not Detect); Benzodiazepines Screen Urine Not Detected (Not Detect); Cannabinoid Screen Urine POSITIVE (Not Detect); Cocaine Screen Urine Not Detected (Not Detect); Fentanyl, urine Not Detected (Not Detect); Opiate Screen Urine Not Detected (Not Detect); Phencyclidine Screen Urine Not Detected (Not Detect)
[2022-07-18] MEDS: Calcium Carbonate 750 MG TAB.CHEW PO (22:05)
[2022-07-19] MEDS: Acetaminophen 325 MG TABLET 650 MG PO (03:36)
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
[2022-07-19 07:00] VITALS: BMI 27.4
[2022-07-19 08:33] VITALS: RESP 18
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
[2022-07-19] MEDS: clonazePAM 0.5 MG TABLET PO (21:43)
--- NOTE | 2022-07-20 00:10 | PC.NURSE ---
Ryan is noted to have an intense affect and is purposefully ignoring this magnetic tape typewriter operator. when approached to introduce myself or attempt to obtain vital signs the patient would not even look at this magnetic tape typewriter operator or acknowledge her in any way. the patient was observed laughing to himself throughout the evening. he agreed to take only his Clonazepam and Zyprexa stating that he doesn't want to take the Depakote any more because it is giving him a rash however, he would not show this magnetic tape typewriter operator the rash. when this magnetic tape typewriter operator presented the Zyprexa the patient stated that the pill is supposed to be round not oval what is this patient stated that he only wants it if its the round one. patient stated that he will as his mother to bring his medication from home. patient denies all psych symptoms but is noted to be responding to internal stimuli. monitor for safety, encourage medication compliance, continue Plan of Care
[2022-07-20] MEDS: Thiamine HCL 100 MG TABLET PO (08:50)
[2022-07-20] MEDS: Cholecalciferol (Vitamin D3) 25 MCG TABLET 50 MCG PO (08:50)
[2022-07-20] MEDS: Calcium Carbonate 750 MG TAB.CHEW PO (15:11)
[2022-07-20] MEDS: Magnesium Hydrox/Alum Hydrox 30 ML ORAL.SUSP PO (15:11)
--- NOTE | 2022-07-20 17:34 | P.PNPSI_ITS ---
Subjective Subjective Date of Service: 07/20/22 Reason For Visit: Psychosis Subjective Notes: 3 Day Healthcare Proxy: No Guardianship: No Interim History: PATIENT CONTINUES TO REFUSE MEDICATION. IRRITABLE EASILY AGITATED PERIODS OF INTRUSIVE AGGRESSION. PATIENT IS PARANOID WITH SOMATIC PREOCCUPATION AND DELUSIONS. PATIENT CURRENTLY DOES NOT EXCEPT THAT HE HAS MENTAL ILLNESS THAT HE NEEDS TO BE ON MEDICATION WAS THREATENING AND AGGRESSIVE AT HOME. PREOCCUPIED WITH BIZARRE SOMATIC IRRATIONAL THOUGHTS Medication Compliance: No Mental Status Exam Mental Status Exam Narrative: Mental Status Exam Narrative: Appearance: DISHEVELED Behavior: Cooperative angry tone psychomotor: Restless agitated Speech: Clear pressured Thought proccess disorganized , illogical Thought content: Somatic preoccupation irrational rambling paranoid concerns regarding his parents who he feels may not be as parents That they are looking to harm him steal from him Mood: Angry hostile Affect: Labile irritable easily agitated SI:denies HI:denies VH/AH:none Delusions: Somatically delusions regarding mouse has body paranoid concerns regarding Insight/judgment: Markedly poor insight and judgment Memory/cog: Knows he is in the hospital knows that he has been on olanzapine and Depakote Diagnostics Vital Signs (24Hr): BMI result Body Mass Index 27.4 Labs 07/18/22 10:34 07/18/22 10:34 Imaging Radiology Impressions: ITS Impressions Soft Tissue Neck X-Ray 07/18/22 09:56 IMPRESSION: No acute abnormality. No evidence of radiopaque foreign body in the neck or upper chest. Medications Medications Current Medications Acetaminophen (Acetaminophen 325 Mg Tablet) 650 mg PO Q6H PRN PRN Reason: Headache/Pain Mild Scale (1-3) Last Admin: 07/19/22 03:36 Dose: 650 mg Al Hydroxide/Mg Hydroxide (Magnesium Hydrox/Alum Hydrox 30 Ml Oral.Susp) 30 ml PO Q6H PRN PRN Reason: Heartburn/Nausea Last Admin: 07/20/22 15:11 Dose: 30 ml Artificial Tears (Artificial Tears 15 Ml Drops) 2 drop EYE-BOTH TID PRN PRN Reason: Dry Eyes Bisacodyl (Bisacodyl 5 Mg Tablet.Dr) 10 mg PO ONCE LORENZA Calcium Carbonate (Calcium Carbonate 750 Mg Tab.Chew) 750 mg PO Q4H PRN PRN Reason: GI Upset Last Admin: 07/20/22 15:11 Dose: 750 mg Clonazepam (Clonazepam 0.5 Mg Tablet) 0.5 mg PO TID PRN PRN Reason: anxiety Last Admin: 07/19/22 21:43 Dose: 0.5 mg Divalproex Sodium (Divalproex Sodium Er 500 Mg Tab.Er.24h) 1,000 mg PO BEDTIME [facility] Last Admin: 07/19/22 21:52 Dose: Not Given Hydroxyzine HCl (Hydroxyzine Hcl 25 Mg Tablet) 25 mg PO Q6H PRN PRN Reason: Anxiety Magnesium Hydroxide (Milk Of Magnesia 30 Ml Oral.Susp) 30 ml PO DAILY PRN PRN Reason: Constipation Olanzapine (Olanzapine 2.5 Mg Tablet) 2.5 mg PO Q4H PRN PRN Reason: Psychosis Olanzapine (Olanzapine Odt 10 Mg Tab.Rapdis) 10 mg TRANSLINGU BEDTIME [facility] Last Admin: 07/19/22 21:53 Dose: Not Given Polyethylene Glycol (Polyethylene Glycol 3350 17 Gm Powd.Pack) 238 gm PO ONCE LORENZA Thiamine HCl (Thiamine Hcl 100 Mg Tablet) 100 mg PO DAILY [facility] Last Admin: 07/20/22 08:50 Dose: 100 mg Trazodone HCl (Trazodone Hcl 50 Mg Tablet) 50 mg PO BEDTIME MRX1 PRN PRN Reason: Insomnia Vitamin D (Cholecalciferol (Vitamin D3) 25 Mcg Tablet) 50 mcg PO DAILY [facility] Last Admin: 07/20/22 08:50 Dose: 50 mcg Allergies Allergies Allergy/AdvReac Type Severity Reaction Status Date / Time risperidone [From RISPERDAL] Allergy Unknown UNKNOWN Verified 06/14/22 14:37 topiramate [From TOPAMAX] Allergy Unknown HEADACHE Verified 06/14/22 14:37 Assessment & Plan Assessment & Plan (1) Schizoaffective disorder, bipolar type: Status: Chronic Code(s): F25.0 - Schizoaffective disorder, bipolar type (2) Noncompliance with medication regimen: Status: Acute Code(s): Z91.148 - Patient's other noncompliance with medication regimen for other reason Plan Patient acutely psychotic disorganized irritable agitated floridly paranoid regarding his parents with whom he lives with. Not excepting medication or need for treatment patient does not except that he has mental illness need medication does not understand impact of his recent behavior that led to hospitalization encourage therapeutic [place] treatment ac ceptance patient has accepted previously olanzapine and Depakote Patient educated on: diagnosis and medication risk/benefits Informed Consent: does not understand Reason for continued inpatient stay Substantial Risk for: harm to others and rapid decompensation Time Spent With Patient Time: Total time managing care of this patient today ____ minutes.
[2022-07-20 20:48] VITALS: BP 120/61; PULSE 86; TEMP 36.7; O2SAT 97
[2022-07-20] MEDS: clonazePAM 0.5 MG TABLET PO (21:36)
[2022-07-20] MEDS: OLANZapine ODT 10 MG TAB.RAPDIS TRANSLINGU (21:36)
[2022-07-20] MEDS: Milk of Magnesia 30 ML ORAL.SUSP PO (21:36)
[2022-07-21] MEDS: Thiamine HCL 100 MG TABLET PO (08:10)
[2022-07-21] MEDS: Cholecalciferol (Vitamin D3) 25 MCG TABLET 50 MCG PO (08:10)
[2022-07-21] MEDS: Omeprazole 20 MG CAPSULE.DR PO (08:10)
--- NOTE | 2022-07-21 12:20 | P.PNPSI_ITS ---
Subjective Subjective Date of Service: 07/21/22 Reason For Visit: Psychosis Subjective Notes: Section 12B Healthcare Proxy: No Guardianship: No Medical Problems Affecting Mental Status: No Interim History: Patient was seen and discussed in rounds today. Records and plans were reviewed. He continues to be irritable, angry, pacing. He is declining most psychotropics but taking his other medications. He refused vital signs today. Last night he took p.r.n. Zyprexa and Klonopin which was helpful. Eating and sleeping adequately. No changes were made today Medication Compliance: No Attending Groups: No Review of Systems Review of Systems Some constipation but did not want anything for it Yes all other systems are reviewed and are negative Diagnostics Vital Signs (24Hr): Vital Signs - 24 hr 07/20/22 20:48 Temperature 98.1 F Pulse Rate 86 Blood Pressure 120/61 Pulse Oximetry 97 Oxygen Delivery Method Room Air BMI result Body Mass Index 27.4 Labs 07/18/22 10:34 07/18/22 10:34 Imaging Radiology Impressions: ITS Impressions Soft Tissue Neck X-Ray 07/18/22 09:56 IMPRESSION: No acute abnormality. No evidence of radiopaque foreign body in the neck or upper chest. Medications Medications Current Medications Acetaminophen (Acetaminophen 325 Mg Tablet) 650 mg PO Q6H PRN PRN Reason: Headache/Pain Mild Scale (1-3) Last Admin: 07/19/22 03:36 Dose: 650 mg Al Hydroxide/Mg Hydroxide (Magnesium Hydrox/Alum Hydrox 30 Ml Oral.Susp) 30 ml PO Q6H PRN PRN Reason: Heartburn/Nausea Last Admin: 07/20/22 15:11 Dose: 30 ml Artificial Tears (Artificial Tears 15 Ml Drops) 2 drop EYE-BOTH TID PRN PRN Reason: Dry Eyes Bisacodyl (Bisacodyl 5 Mg Tablet.Dr) 10 mg PO ONCE LORENZA Calcium Carbonate (Calcium Carbonate 750 Mg Tab.Chew) 750 mg PO Q4H PRN PRN Reason: GI Upset Last Admin: 07/20/22 15:11 Dose: 750 mg Clonazepam (Clonazepam 0.5 Mg Tablet) 0.5 mg PO TID PRN PRN Reason: anxiety Last Admin: 07/20/22 21:36 Dose: 0.5 mg Divalproex Sodium (Divalproex Sodium Er 500 Mg Tab.Er.24h) 1,000 mg PO BEDTIME [facility] Last Admin: 07/20/22 21:39 Dose: Not Given Hydroxyzine HCl (Hydroxyzine Hcl 25 Mg Tablet) 25 mg PO Q6H PRN PRN Reason: Anxiety Magnesium Hydroxide (Milk Of Magnesia 30 Ml Oral.Susp) 30 ml PO DAILY PRN PRN Reason: Constipation Last Admin: 07/20/22 21:36 Dose: 30 ml Olanzapine (Olanzapine 2.5 Mg Tablet) 2.5 mg PO Q4H PRN PRN Reason: Psychosis Olanzapine (Olanzapine Odt 10 Mg Tab.Rapdis) 10 mg TRANSLINGU BEDTIME [facility] Last Admin: 07/20/22 21:36 Dose: 10 mg Omeprazole (Omeprazole 20 Mg Capsule.Dr) 20 mg PO DAILY@0630 [facility] Last Admin: 07/21/22 08:10 Dose: 20 mg Polyethylene Glycol (Polyethylene Glycol 3350 17 Gm Powd.Pack) 238 gm PO ONCE LORENZA Thiamine HCl (Thiamine Hcl 100 Mg Tablet) 100 mg PO DAILY [facility] Last Admin: 07/21/22 08:10 Dose: 100 mg Trazodone HCl (Trazodone Hcl 50 Mg Tablet) 50 mg PO BEDTIME MRX1 PRN PRN Reason: Insomnia Vitamin D (Cholecalciferol (Vitamin D3) 25 Mcg Tablet) 50 mcg PO DAILY [facility] Last Admin: 07/21/22 08:10 Dose: 50 mcg Allergies Allergies Allergy/AdvReac Type Severity Reaction Status Date / Time risperidone [From RISPERDAL] Allergy Unknown UNKNOWN Verified 06/14/22 14:37 topiramate [From TOPAMAX] Allergy Unknown HEADACHE Verified 06/14/22 14:37 Assessment & Plan Assessment & Plan (1) Schizoaffective disorder, bipolar type: Status: Chronic Code(s): F25.0 - Schizoaffective disorder, bipolar type (2) Noncompliance with medication regimen: Status: Acute Code(s): Z91.148 - Patient's other noncompliance with medication regimen for other reason Plan Patient acutely psychotic disorganized irritable agitated floridly paranoid regarding his parents with whom he lives with. Not excepting medication or need for treatment patient does not except that he has mental illness need medication does not understand impact of his recent behavior that led to hospitalization encourage therapeutic [place] treatment acceptance patient has accepted previously olanzapine and Depakote 07/21: Continue current regimen and plans Reason for continued inpatient stay Substantial Risk for: med/psych decompensation Time Spent With Patient Time: Total time managing care of this patient today ____ minutes.
[2022-07-21 20:46] VITALS: BP 143/86; PULSE 120; TEMP 36.4; O2SAT 97
[2022-07-21] MEDS: clonazePAM 0.5 MG TABLET PO (20:49)
[2022-07-21] MEDS: OLANZapine ODT 10 MG TAB.RAPDIS TRANSLINGU (20:49)
[2022-07-21] MEDS: traZODone HCL 50 MG TABLET PO (23:49)
[2022-07-22] MEDS: Cholecalciferol (Vitamin D3) 25 MCG TABLET 50 MCG PO (07:48)
[2022-07-22] MEDS: Thiamine HCL 100 MG TABLET PO (07:50)
--- NOTE | 2022-07-22 11:48 | P.PNPSI_ITS ---
Subjective Subjective Date of Service: 07/22/22 Reason For Visit: Psychosis Subjective Notes: Section 12B Healthcare Proxy: No Guardianship: No Medical Problems Affecting Mental Status: No Interim History: Patient was seen and discussed in rounds today. Records and plans were reviewed. He continues to take his medications very selectively. He took the Zyprexa and Klonopin last night but refused the Depakote. He is taking his dietary supplements. He continues to be angry and irritable and does a lot of pacing. There was also some reports of swollen feet and possible blisters but it does not let anybody to look added. No complaints. No changes were made Medication Compliance: No Attending Groups: No Review of Systems Review of Systems Yes all other systems are reviewed and are negative Mental Status Exam Mental Status Exam Narrative: In today's visit he is alert, somewhat irritable but in control. Speech is normal. Moderate eye contact. Affect is irritable. No acute signs of psychosis observed. No SI. Cognitively is grossly intact. Could not assess judgment Diagnostics Vital Signs (24Hr): Vital Signs - 24 hr 07/21/22 20:46 Temperature 97.5 F Pulse Rate 120 H Blood Pressure 143/86 H Pulse Oximetry 97 Oxygen Delivery Method Room Air BMI result Body Mass Index 27.4 Labs 07/18/22 10:34 07/18/22 10:34 Imaging Radiology Impressions: ITS Impressions Soft Tissue Neck X-Ray 07/18/22 09:56 IMPRESSION: No acute abnormality. No evidence of radiopaque foreign body in the neck or upper chest. Medications Medications Current Medications Acetaminophen (Acetaminophen 325 Mg Tablet) 650 mg PO Q6H PRN PRN Reason: Headache/Pain Mild Scale (1-3) Last Admin: 07/19/22 03:36 Dose: 650 mg Al Hydroxide/Mg Hydroxide (Magnesium Hydrox/Alum Hydrox 30 Ml Oral.Susp) 30 ml PO Q6H PRN PRN Reason: Heartburn/Nausea Last Admin: 07/20/22 15:11 Dose: 30 ml Artificial Tears (Artificial Tears 15 Ml Drops) 2 drop EYE-BOTH TID PRN PRN Reason: Dry Eyes Bisacodyl (Bisacodyl 5 Mg Tablet.Dr) 10 mg PO ONCE LORENZA Calcium Carbonate (Calcium Carbonate 750 Mg Tab.Chew) 750 mg PO Q4H PRN PRN Reason: GI Upset Last Admin: 07/20/22 15:11 Dose: 750 mg Clonazepam (Clonazepam 0.5 Mg Tablet) 0.5 mg PO TID PRN PRN Reason: anxiety Last Admin: 07/21/22 20:49 Dose: 0.5 mg Divalproex Sodium (Divalproex Sodium Er 500 Mg Tab.Er.24h) 1,000 mg PO BEDTIME [facility] Last Admin: 07/21/22 20:50 Dose: Not Given Hydroxyzine HCl (Hydroxyzine Hcl 25 Mg Tablet) 25 mg PO Q6H PRN PRN Reason: Anxiety Magnesium Hydroxide (Milk Of Magnesia 30 Ml Oral.Susp) 30 ml PO DAILY PRN PRN Reason: Constipation Last Admin: 07/20/22 21:36 Dose: 30 ml Olanzapine (Olanzapine 2.5 Mg Tablet) 2.5 mg PO Q4H PRN PRN Reason: Psychosis Olanzapine (Olanzapine Odt 10 Mg Tab.Rapdis) 10 mg TRANSLINGU BEDTIME [facility] Last Admin: 07/21/22 20:49 Dose: 10 mg Omeprazole (Omeprazole 20 Mg Capsule.Dr) 20 mg PO DAILY@0630 [facility] Last Admin: 07/22/22 07:46 Dose: Not Given Polyethylene Glycol (Polyethylene Glycol 3350 17 Gm Powd.Pack) 238 gm PO ONCE LORENZA Thiamine HCl (Thiamine Hcl 100 Mg Tablet) 100 mg PO DAILY [facility] Last Admin: 07/22/22 07:50 Dose: 100 mg Trazodone HCl (Trazodone Hcl 50 Mg Tablet) 50 mg PO BEDTIME MRX1 PRN PRN Reason: Insomnia Last Admin: 07/21/22 23:49 Dose: 50 mg Vitamin D (Cholecalciferol (Vitamin D3) 25 Mcg Tablet) 50 mcg PO DAILY [facility] Last Admin: 07/22/22 07:48 Dose: 50 mcg Allergies Allergies Allergy/AdvReac Type Severity Reaction Status Date / Time risperidone [From RISPERDAL] Allergy Unknown UNKNOWN Verified 06/14/22 14:37 topiramate [From TOPAMAX] Allergy Unknown HEADACHE Verified 06/14/22 14:37 Assessment & Plan Assessment & Plan (1) Schizoaffective disorder, bipolar type: Status: Chronic Code(s): F25.0 - Schizoaffective disorder, bipolar type (2) Noncompliance with medication regimen: Status: Acute Code(s): Z91.148 - Patient's other noncompliance with medication regimen for other reason Plan Patient acutely psychotic disorganized irritable agitated floridly paranoid regarding his parents with whom he lives with. Not excepting medication or need for treatment patient does not except that he has mental illness need medication does not understand impact of his recent behavior that led to hospitalization encourage therapeutic [place] treatment acceptance patient has accepted previously olanzapine and Depakote 07/21: Continue current regimen and plans 07/22: Continue current plans Reason for continued inpatient stay Substantial Risk for: med/psych decompensation Time Spent With Patient Time: Total time managing care of this patient today ____ minutes.
[2022-07-22] MEDS: clonazePAM 0.5 MG TABLET PO (20:48)
--- NOTE | 2022-07-22 23:28 | PC.NURSE ---
Pt refused HS Depakote, stating it gives me a rash . Pt also refused olanzapine, citing several reasons. Pt appeared suspicious over contents of package. Pt stated he would not take the olanzapine since it was oval-shaped and yellow in color.
[2022-07-23 06:00] VITALS: BP 123/88; PULSE 110; TEMP 36.2; O2SAT 98
[2022-07-23] MEDS: Thiamine HCL 100 MG TABLET PO (08:52)
[2022-07-23] MEDS: Cholecalciferol (Vitamin D3) 25 MCG TABLET 50 MCG PO (08:52)
--- NOTE | 2022-07-23 13:23 | PC.NURSE ---
Patient reported some blisters both feet which had 'popped'- he stated this and shortly after reported that there was poison [place] and [place]. Left foot with two healing open areas, no erythema, no drainage, and a calloused area around heel. Right foot appeared swollen, with open area near ankle that appeared erythamous, and open, healing blister under great toe extending to between great and second toe. No erythema or drainage noted there. Bacitracin applied to open areas after reviewing w/ provider, dressing applied. Pt advised to cover with clean socks, which he did.
--- NOTE | 2022-07-23 15:46 | HO.PSYCHPN ---
Subjective Subjective Date of Service: 07/23/22 Reason For Visit: Psychosis Interim History: found sleeping in his room late morning. rousable to loud voice. disorganized, unable to have interaction of much substance. astudillo warning provided, pt informed of petition to commit to be filed today. per staff, 12b up today. irritable. non-sequiturs. delusional. asking, what is anxiety? expansive, disorganized. slept 11-1 only. refused VPA and zyprexa. Mental Status Exam Mental Status Exam Narrative: adequately dressed and groomed. cooperative with interview. no PMA/PMR. speech incr in rate and amount, decr latency. nml loudness and tone. thoughts disorganized, non-sequitur. affect constricted, hyper-intense, min-labile. mood not assessed. no SI/HI/AVH expressed. Diagnostics Vital Signs (24Hr): Vital Signs - 24 hr 07/23/22 06:00 Temperature 97.2 F Pulse Rate 110 H Blood Pressure 123/88 Pulse Oximetry 98 Oxygen Delivery Method Room Air BMI result Body Mass Index 27.4 Labs 07/18/22 10:34 07/18/22 10:34 Imaging Radiology Impressions: ITS Impressions Soft Tissue Neck X-Ray 07/18/22 09:56 IMPRESSION: No acute abnormality. No evidence of radiopaque foreign body in the neck or upper chest. Foot X-Ray 07/23/22 14:00 IMPRESSION: Normal right foot. Medications Medications Current Medications Acetaminophen (Acetaminophen 325 Mg Tablet) 650 mg PO Q6H PRN PRN Reason: Headache/Pain Mild Scale (1-3) Last Admin: 07/19/22 03:36 Dose: 650 mg Al Hydroxide/Mg Hydroxide (Magnesium Hydrox/Alum Hydrox 30 Ml Oral.Susp) 30 ml PO Q6H PRN PRN Reason: Heartburn/Nausea Last Admin: 07/20/22 15:11 Dose: 30 ml Artificial Tears (Artificial Tears 15 Ml Drops) 2 drop EYE-BOTH TID PRN PRN Reason: Dry Eyes Bisacodyl (Bisacodyl 5 Mg Tablet.Dr) 10 mg PO ONCE LORENZA Calcium Carbonate (Calcium Carbonate 750 Mg Tab.Chew) 750 mg PO Q4H PRN PRN Reason: GI Upset Last Admin: 07/20/22 15:11 Dose: 750 mg Clonazepam (Clonazepam 0.5 Mg Tablet) 0.5 mg PO TID PRN PRN Reason: anxiety Last Admin: 07/22/22 20:48 Dose: 0.5 mg Divalproex Sodium (Divalproex Sodium Er 500 Mg Tab.Er.24h) 1,000 mg PO BEDTIME LORENZA Last Admin: 07/22/22 20:49 Dose: Not Given Hydroxyzine HCl (Hydroxyzine Hcl 25 Mg Tablet) 25 mg PO Q6H PRN PRN Reason: Anxiety Magnesium Hydroxide (Milk Of Magnesia 30 Ml Oral.Susp) 30 ml PO DAILY PRN PRN Reason: Constipation Last Admin: 07/20/22 21:36 Dose: 30 ml Olanzapine (Olanzapine 2.5 Mg Tablet) 2.5 mg PO Q4H PRN PRN Reason: Psychosis Olanzapine (Olanzapine Odt 10 Mg Tab.Rapdis) 10 mg TRANSLINGU BEDTIME LORENZA Last Admin: 07/22/22 20:49 Dose: Not Given Omeprazole (Omeprazole 20 Mg Capsule.Dr) 20 mg PO DAILY@0630 [facility] Last Admin: 07/23/22 08:53 Dose: Not Given Polyethylene Glycol (Polyethylene Glycol 3350 17 Gm Powd.Pack) 238 gm PO ONCE LORENZA Thiamine HCl (Thiamine Hcl 100 Mg Tablet) 100 mg PO DAILY [facility] Last Admin: 07/23/22 08:52 Dose: 100 mg Trazodone HCl (Trazodone Hcl 50 Mg Tablet) 50 mg PO BEDTIME MRX1 PRN PRN Reason: Insomnia Last Admin: 07/21/22 23:49 Dose: 50 mg Vitamin D (Cholecalciferol (Vitamin D3) 25 Mcg Tablet) 50 mcg PO DAILY [facility] Last Admin: 07/23/22 08:52 Dose: 50 mcg Allergies Allergies Allergy/AdvReac Type Severity Reaction Status Date / Time risperidone [From RISPERDAL] Allergy Unknown UNKNOWN Verified 06/14/22 14:37 topiramate [From TOPAMAX] Allergy Unknown HEADACHE Verified 06/14/22 14:37 Assessment & Plan Assessment & Plan (1) Schizoaffective disorder, bipolar type: Status: Chronic Code(s): F25.0 - Schizoaffective disorder, bipolar type (2) Noncompliance with medication regimen: Status: Acute Code(s): Z91.148 - Patient's other noncompliance with medication regimen for other reason Plan Patient acutely psychotic disorganized irritable agitated floridly paranoid regarding his parents with whom he lives with. Not excepting medication or need for treatment patient does not except that he has mental illness need medication does not understand impact of his recent behavior that led to hospitalization encourage therapeutic [place] treatment acceptance patient has accepted previously olanzapine and Depakote 07/21: Continue current regimen and plans 07/22: Continue current plans 07/23: continue to offer VPA and olanzapine. filed for commitment. Reason for continued inpatient stay Substantial Risk for: harm to others and inability to function Time Spent With Patient Time: Total time managing care of this patient today __35__ minutes.
[2022-07-24 09:05] VITALS: RESP 20
--- NOTE | 2022-07-24 11:48 | PC.NURSE ---
Pt offered tylenol for right foot pain which he declined.
--- NOTE | 2022-07-24 13:13 | P.PNPSI_ITS ---
Subjective Subjective Date of Service: 07/24/22 Reason For Visit: Psychosis Interim History: no change in presentation. lying in bed in the dark, awake. disorganized, non- sequiturs, bizarre. acknowledged having frightened his parents with his behaviors. declining to take medication. paranoid. does not appear to have a fact-based decision-making process re medications (including tylenol), impervious to education. per staff, c/o foot pain. re being asked about HI yesterday, i couldn't tell you. loud singing, watching TV, non-sequiturs, RIS. saturday 2 pm hearing. appeared to sleep from 2-5 a.m. Mental Status Exam Mental Status Exam Narrative: adequately dressed and groomed. cooperative with interview. no PMA/PMR. speech incr in rate and amount, decr latency. nml loudness and tone. thoughts disorganized, non-sequitur. affect constricted, hyper-intense, min-labile. mood not assessed. no SI/HI/AVH expressed. Diagnostics Vital Signs (24Hr): Vital Signs - 24 hr 07/24/22 09:05 Respiratory Rate 20 BMI result Body Mass Index 27.4 Labs 07/18/22 10:34 07/18/22 10:34 Imaging Radiology Impressions: ITS Impressions Soft Tissue Neck X-Ray 07/18/22 09:56 IMPRESSION: No acute abnormality. No evidence of radiopaque foreign body in the neck or upper chest. Foot X-Ray 07/23/22 14:00 IMPRESSION: Normal right foot. Medications Medications Current Medications Acetaminophen (Acetaminophen 325 Mg Tablet) 650 mg PO Q6H PRN PRN Reason: Headache/Pain Mild Scale (1-3) Last Admin: 07/19/22 03:36 Dose: 650 mg Al Hydroxide/Mg Hydroxide (Magnesium Hydrox/Alum Hydrox 30 Ml Oral.Susp) 30 ml PO Q6H PRN PRN Reason: Heartburn/Nausea Last Admin: 07/20/22 15:11 Dose: 30 ml Artificial Tears (Artificial Tears 15 Ml Drops) 2 drop EYE-BOTH TID PRN PRN Reason: Dry Eyes Bisacodyl (Bisacodyl 5 Mg Tablet.Dr) 10 mg PO ONCE LORENZA Calcium Carbonate (Calcium Carbonate 750 Mg Tab.Chew) 750 mg PO Q4H PRN PRN Reason: GI Upset Last Admin: 07/20/22 15:11 Dose: 750 mg Divalproex Sodium (Divalproex Sodium Er 500 Mg Tab.Er.24h) 1,000 mg PO BEDTIME [facility] Last Admin: 07/23/22 21:44 Dose: Not Given Hydroxyzine HCl (Hydroxyzine Hcl 25 Mg Tablet) 25 mg PO Q6H PRN PRN Reason: Anxiety Magnesium Hydroxide (Milk Of Magnesia 30 Ml Oral.Susp) 30 ml PO DAILY PRN PRN Reason: Constipation Last Admin: 07/20/22 21:36 Dose: 30 ml Olanzapine (Olanzapine 2.5 Mg Tablet) 2.5 mg PO Q4H PRN PRN Reason: Psychosis Olanzapine (Olanzapine Odt 10 Mg Tab.Rapdis) 10 mg TRANSLINGU BEDTIME [facility] Last Admin: 07/23/22 22:39 Dose: Not Given Omeprazole (Omeprazole 20 Mg Capsule.Dr) 20 mg PO DAILY@0630 [facility] Last Admin: 07/24/22 10:43 Dose: Not Given Polyethylene Glycol (Polyethylene Glycol 3350 17 Gm Powd.Pack) 238 gm PO ONCE LORENZA Thiamine HCl (Thiamine Hcl 100 Mg Tablet) 100 mg PO DAILY [facility] Last Admin: 07/24/22 10:43 Dose: Not Given Trazodone HCl (Trazodone Hcl 50 Mg Tablet) 50 mg PO BEDTIME MRX1 PRN PRN Reason: Insomnia Last Admin: 07/21/22 23:49 Dose: 50 mg Vitamin D (Cholecalciferol (Vitamin D3) 25 Mcg Tablet) 50 mcg PO DAILY [facility] Last Admin: 07/24/22 10:43 Dose: Not Given Allergies Allergies Allergy/AdvReac Type Severity Reaction Status Date / Time risperidone [From RISPERDAL] Allergy Unknown UNKNOWN Verified 06/14/22 14:37 topiramate [From TOPAMAX] Allergy Unknown HEADACHE Verified 06/14/22 14:37 Assessment & Plan Assessment & Plan (1) Schizoaffective disorder, bipolar type: Status: Chronic Code(s): F25.0 - Schizoaffective disorder, bipolar type (2) Noncompliance with medication regimen: Status: Acute Code(s): Z91.148 - Patient's other noncompliance with medication regimen for other reason Plan Patient acutely psychotic disorganized irritable agitated floridly paranoid regarding his parents with whom he lives with. Not excepting medication or need for treatment patient does not except that he has mental illness need medication does not understand impact of his recent behavior that led to hospitalization encourage therapeutic [place] treatment acceptance patient has accepted previously olanzapine and Depakote 07/21: Continue current regimen and plans 07/22: Continue current plans 07/23: continue to offer VPA and olanzapine. filed for commitment. 07/24: continues to refuse medications. commitment hearing thursday 07/27 at 2 pm. Reason for continued inpatient stay Substantial Risk for: harm to others, inability to function and rapid decompensa tion Time Spent With Patient Time: Total time managing care of this patient today __25__ minutes.
--- NOTE | 2022-07-24 15:59 | PC.NURSE ---
Late entry: Wounds right, left foot assessed. Left foot: small open areas healing, no erythema, no drainage. Right foot: Abrasion near ankle with erythema, though improved from yesterday. Peeled area between great and second toe: moist, no drainage, no erythema. Silver alginate and telfa applied as ordered. Pt aware and educated.
[2022-07-25] MEDS: clonazePAM 0.5 MG TABLET PO (00:14)
[2022-07-25] MEDS: OLANZapine ODT 10 MG TAB.RAPDIS TRANSLINGU ×2 (00:18→12:39)
--- NOTE | 2022-07-25 00:19 | PC.NURSE ---
At HS pt refused all meds and VS. Around 2345 pt was sitting in common area talking with a peer, but continued to get louder and was resistant to redirection to lower the volume of his voice. After speaking with RN for 10-15 mins pt was agreeable to take prn klonopin and something for sleep. Pt was offered scheduled Zydis 10mg which he accepted. Of note, this particular brand was round and yellow; pt previously refused Zydis due to its oval shape, unclear if this contributed to compliance or not.
[2022-07-25 08:38] VITALS: BP 131/64; PULSE 126; RESP 18; TEMP 36.3; O2SAT 97
--- NOTE | 2022-07-25 14:28 | HO.PSYCHPN ---
Subjective Subjective Date of Service: 07/25/22 Reason For Visit: Psychosis Interim History: more engageable today, seen in the [place]. more linear and logical. seems agreeable to take increased dosing of zyprexa. declining mood stabilizers, however. foot lesions healing adequately, some rubor at margins but does not appear infected. per staff, court saturday. irritable, yelling, cursing. pacing, racing thoughts. met with design architect. pedal wounds were dressed yesterday. took zydis and klonopin last NOC. refusing VPA. Mental Status Exam Mental Status Exam Narrative: adequately dressed and groomed. cooperative with interview. no PMA/PMR. speech incr in rate, nml amount, decr latency. nml loudness and tone. thoughts more organized and topical. affect more flexible, normo-intense, non-labile. mood not assessed. no SI/HI/AVH expressed. Diagnostics Vital Signs (24Hr): Vital Signs - 24 hr 07/25/22 08:38 Temperature 97.3 F Pulse Rate 126 H Respiratory Rate 18 Blood Pressure 131/64 Pulse Oximetry 97 Oxygen Delivery Method Room Air BMI result Body Mass Index 27.4 Labs 07/18/22 10:34 07/18/22 10:34 Imaging Radiology Impressions: ITS Impressions Soft Tissue Neck X-Ray 07/18/22 09:56 IMPRESSION: No acute abnormality. No evidence of radiopaque foreign body in the neck or upper chest. Foot X-Ray 07/23/22 14:00 IMPRESSION: Normal right foot. Medications Medications Current Medications Acetaminophen (Acetaminophen 325 Mg Tablet) 650 mg PO Q6H PRN PRN Reason: Headache/Pain Mild Scale (1-3) Last Admin: 07/19/22 03:36 Dose: 650 mg Al Hydroxide/Mg Hydroxide (Magnesium Hydrox/Alum Hydrox 30 Ml Oral.Susp) 30 ml PO Q6H PRN PRN Reason: Heartburn/Nausea Last Admin: 07/20/22 15:11 Dose: 30 ml Artificial Tears (Artificial Tears 15 Ml Drops) 2 drop EYE-BOTH TID PRN PRN Reason: Dry Eyes Bisacodyl (Bisacodyl 5 Mg Tablet.Dr) 10 mg PO ONCE LORENZA Calcium Carbonate (Calcium Carbonate 750 Mg Tab.Chew) 750 mg PO Q4H PRN PRN Reason: GI Upset Last Admin: 07/20/22 15:11 Dose: 750 mg Clonazepam (Clonazepam 0.5 Mg Tablet) 0.5 mg PO TID PRN PRN Reason: Anxiety Last Admin: 07/25/22 00:14 Dose: 0.5 mg Divalproex Sodium (Divalproex Sodium Er 500 Mg Tab.Er.24h) 1,000 mg PO BEDTIME [facility] Last Admin: 07/24/22 21:34 Dose: Not Given Hydroxyzine HCl (Hydroxyzine Hcl 25 Mg Tablet) 25 mg PO Q6H PRN PRN Reason: Anxiety Magnesium Hydroxide (Milk Of Magnesia 30 Ml Oral.Susp) 30 ml PO DAILY PRN PRN Reason: Constipation Last Admin: 07/20/22 21:36 Dose: 30 ml Olanzapine (Olanzapine 2.5 Mg Tablet) 2.5 mg PO Q4H PRN PRN Reason: Psychosis Olanzapine (Olanzapine Odt 10 Mg Tab.Rapdis) 10 mg TRANSLINGU BID [facility] Last Admin: 07/25/22 12:39 Dose: 10 mg Omeprazole (Omeprazole 20 Mg Capsule.Dr) 20 mg PO DAILY@0630 [facility] Last Admin: 07/25/22 08:16 Dose: Not Given Polyethylene Glycol (Polyethylene Glycol 3350 17 Gm Powd.Pack) 238 gm PO ONCE [facility] Thiamine HCl (Thiamine Hcl 100 Mg Tablet) 100 mg PO DAILY [facility] Last Admin: 07/25/22 08:16 Dose: Not Given Trazodone HCl (Trazodone Hcl 50 Mg Tablet) 50 mg PO BEDTIME MRX1 PRN PRN Reason: Insomnia Last Admin: 07/21/22 23:49 Dose: 50 mg Vitamin D (Cholecalciferol (Vitamin D3) 25 Mcg Tablet) 50 mcg PO DAILY [facility] Last Admin: 07/25/22 08:16 Dose: Not Given Allergies Allergies Allergy/AdvReac Type Severity Reaction Status Date / Time risperidone [From RISPERDAL] Allergy Unknown UNKNOWN Verified 06/14/22 14:37 topiramate [From TOPAMAX] Allergy Unknown HEADACHE Verified 06/14/22 14:37 Assessment & Plan Assessment & Plan (1) Schizoaffective disorder, bipolar type: Status: Chronic Code(s): F25.0 - Schizoaffective disorder, bipolar type (2) Noncompliance with medication regimen: Status: Acute Code(s): Z91.148 - Patient's other noncompliance with medication regimen for other reason Plan Patient acutely psychotic disorganized irritable agitated floridly paranoid regarding his parents with whom he lives with. Not excepting medication or need for treatment patient does not except that he has mental illness need medication does not understand impact of his recent behavior that led to hospitalization encourage therapeutic [place] treatment acceptance patient has accepted previously olanzapine and Depakote 07/21: Continue current regimen and plans 07/22: Continue current plans 07/23: continue to offer VPA and olanzapine. filed for commitment. 07/24: continues to refuse medications. commitment hearing thursday 07/27 at 2 pm. 07/25: accepted zydis last night, appears more organized and less labile today. amenable to have another dose of zydis added in the morning, for a total of 10 BID. still refusing VPA, however. Reason for continued inpatient stay Substantial Risk for: harm to others, inability to function and rapid decompensation Time Spent With Patient Time: Total time managing care of this patient today __25__ minutes.
--- NOTE | 2022-07-25 20:40 | PC.NURSE ---
Addendum entered by Gladis March RN 07/26/22 01:57: Ryan accepted a round Zyprexa 10mg and klonopin 0.5 mg Addendum entered by Gladis March RN 07/26/22 00:10: Ryan refused his HS medications Original Note: Ryan remains delusional with flight of ideas. he asked this poem writer multiple times if I was Thai and if I spoke Thai . I told him I did not and he repeatedly said so your Thai . This poem writer informed the patient that he was getting a room mate. I told him the patients name and he kept repeating so his name is Ry which is not the patients name. He said I don't know him, we're not friends, I'm not even gonna speak to the lindsay, I'm not even going to look at him He then thanked this poem writer for giving me a heads up . The patient c/o G.I. upset and agreed to take Maalox however when this poem writer brought it to him he proceeded to pour some of it on his blankets and said I know what that is I'm not taking that He declined nikki terell stating that definitely not the doctor and the dentist told me never to drink soda the patient refused vital signs never again in this building, I don't like it, it makes me sick and gives me anxiety, I don't like the way it makes me feel, it hurts my arm. patient is noted to be isolating in his room and talking to himself loudly. contnue to monitor for safety, encourage medication compliance, continue Plan of Care.
[2022-07-26] MEDS: OLANZapine ODT 10 MG TAB.RAPDIS TRANSLINGU (01:53)
[2022-07-26] MEDS: clonazePAM 0.5 MG TABLET PO (01:53)
[2022-07-26] MEDS: Cholecalciferol (Vitamin D3) 25 MCG TABLET 50 MCG PO (09:37)
[2022-07-26] MEDS: Thiamine HCL 100 MG TABLET PO (09:40)
--- NOTE | 2022-07-26 10:12 | PC.NURSE ---
0953 Pt refused Zyprexa ODT 10mg. Pt stated its not round, i'm not taking it Dr. Guevara aware. New order for Zyprexa 10mg tablet ordered .
[2022-07-26] MEDS: OLANZapine 10 MG TABLET PO (10:19)
--- NOTE | 2022-07-26 15:02 | HO.PSYCHPN ---
Subjective Subjective Date of Service: 07/26/22 Reason For Visit: Psychosis Interim History: pt seen in his room. did ultimately take the zyprexa ordered this morning after round pill offered, rather than the oval ODT he refused. MD asked about the lesions on his feet, and pt reported they were slightly improved. he did note, however, what i really need to do is take a scalpel and cut out the rat poison. MD suggested he rather continue to apply bacitracin, keep them clean, and dress them daily (RNs doing that). per staff, difficult to engage. loud, angry tone. refused meds in a.m. Mental Status Exam Mental Status Exam Narrative: adequately dressed and groomed. cooperative with interview. no PMA/PMR. speech incr in rate, nml amount, decr latency. incr loudness, nml tone. thoughts more organized and topical. affect constricted, normo-intense, non-labile. mood not assessed. no SI/HI/AVH expressed. Diagnostics Vital Signs (24Hr): BMI result Body Mass Index 27.4 Labs 07/18/22 10:34 07/18/22 10:34 Imaging Radiology Impressions: ITS Impressions Soft Tissue Neck X-Ray 07/18/22 09:56 IMPRESSION: No acute abnormality. No evidence of radiopaque foreign body in the neck or upper chest. Foot X-Ray 07/23/22 14:00 IMPRESSION: Normal right foot. Medications Medications Current Medications Acetaminophen (Acetaminophen 325 Mg Tablet) 650 mg PO Q6H PRN PRN Reason: Headache/Pain Mild Scale (1-3) Last Admin: 07/19/22 03:36 Dose: 650 mg Al Hydroxide/Mg Hydroxide (Magnesium Hydrox/Alum Hydrox 30 Ml Oral.Susp) 30 ml PO Q6H PRN PRN Reason: Heartburn/Nausea Last Admin: 07/20/22 15:11 Dose: 30 ml Artificial Tears (Artificial Tears 15 Ml Drops) 2 drop EYE-BOTH TID PRN PRN Reason: Dry Eyes Bisacodyl (Bisacodyl 5 Mg Tablet.Dr) 10 mg PO ONCE LORENZA Calcium Carbonate (Calcium Carbonate 750 Mg Tab.Chew) 750 mg PO Q4H PRN PRN Reason: GI Upset Last Admin: 07/20/22 15:11 Dose: 750 mg Clonazepam (Clonazepam 0.5 Mg Tablet) 0.5 mg PO TID PRN PRN Reason: Anxiety Last Admin: 07/26/22 01:53 Dose: 0.5 mg Divalproex Sodium (Divalproex Sodium Er 500 Mg Tab.Er.24h) 1,000 mg PO BEDTIME [facility] Last Admin: 07/25/22 21:00 Dose: Not Given Hydroxyzine HCl (Hydroxyzine Hcl 25 Mg Tablet) 25 mg PO Q6H PRN PRN Reason: Anxiety Magnesium Hydroxide (Milk Of Magnesia 30 Ml Oral.Susp) 30 ml PO DAILY PRN PRN Reason: Constipation Last Admin: 07/20/22 21:36 Dose: 30 ml Olanzapine (Olanzapine 2.5 Mg Tablet) 2.5 mg PO Q4H PRN PRN Reason: Psychosis Olanzapine (Olanzapine Odt 10 Mg Tab.Rapdis) 10 mg TRANSLINGU BID [facility] Last Admin: 07/26/22 09:40 Dose: Not Given Olanzapine (Olanzapine 10 Mg Tablet) 10 mg PO BID [facility] Last Admin: 07/26/22 10:19 Dose: 10 mg Omeprazole (Omeprazole 20 Mg Capsule.Dr) 20 mg PO DAILY@0630 [facility] Last Admin: 07/26/22 09:41 Dose: Not Given Polyethylene Glycol (Polyethylene Glycol 3350 17 Gm Powd.Pack) 238 gm PO ONCE [facility] Thiamine HCl (Thiamine Hcl 100 Mg Tablet) 100 mg PO DAILY [facility] Last Admin: 07/26/22 09:40 Dose: 100 mg Trazodone HCl (Trazodone Hcl 50 Mg Tablet) 50 mg PO BEDTIME MRX1 PRN PRN Reason: Insomnia Last Admin: 07/21/22 23:49 Dose: 50 mg Vitamin D (Cholecalciferol (Vitamin D3) 25 Mcg Tablet) 50 mcg PO DAILY [facility] Last Admin: 07/26/22 09:37 Dose: 50 mcg Allergies Allergies Allergy/AdvReac Type Severity Reaction Status Date / Time risperidone [From RISPERDAL] Allergy Unknown UNKNOWN Verified 06/14/22 14:37 topiramate [From TOPAMAX] Allergy Unknown HEADACHE Verified 06/14/22 14:37 Assessment & Plan Assessment & Plan (1) Schizoaffective disorder, bipolar type: Status: Chronic Code(s): F25.0 - Schizoaffective disorder, bipolar type (2) Noncompliance with medication regimen: Status: Acute Code(s): Z91.148 - Patient's other noncompliance with medication regimen for other reason Plan Patient acutely psychotic disorganized irritable agitated floridly paranoid regarding his parents with whom he lives with. Not excepting medication or need for treatment patient does not except that he has mental illness need medication does not understand impact of his recent behavior that led to hospitalization encourage therapeutic [place] treatment acceptance patient has accepted previously olanzapine and Depakote 07/21: Continue current regimen and plans 07/22: Continue current plans 07/23: continue to offer VPA and olanzapine. filed for commitment. 07/24: continues to refuse medications. commitment hearing thursday 07/27 at 2 pm. 07/25: accepted zydis last night, appears more organized and less labile today. amenable to have another dose of zydis added in the morning, for a total of 10 BID. still refusing VPA, however. 07/26: accepting zyprexa 10 BID at the moment. refusing VPA. taking klonopin. court tomorrow. Patient educated on: other (legal) Reason for continued inpatient stay Substantial Risk for: harm to others, inability to function and rapid decompensation Time Spent With Patient Time: Total time managing care of this patient today __25__ minutes.
--- NOTE | 2022-07-26 21:02 | PC.NURSE ---
Ryan refused to have HS vital signs stating I told you never again in this building, It causes me pain. patient had been redirected for being loud and swearing on the phone at his mother around 1900. he has been isolating in his room since that time. this medical underwriter did not hear the patient engaging in self dialogue as of yet this evening. he refused his HS Zyprexa stating at this point I don't think it's working he also c/o a really bad headache when offered Tylenol he responded with I don't think you have Tylenol here How about Excedrin? this medical underwriter told him that he didn't have an order for Excedrin but that I could get him some Tylenol Patient refused the Tylenol as well as the Zyprexa. encourage medication compliance, monitor for safety, continue Plan of Care
[2022-07-27] MEDS: Thiamine HCL 100 MG TABLET PO (10:12)
[2022-07-27] MEDS: Cholecalciferol (Vitamin D3) 25 MCG TABLET 50 MCG PO (10:12)
--- NOTE | 2022-07-27 10:21 | PC.NURSE ---
Pt asked what meds am i taking ? so bond writer read aloud his medications, I handed Ryan the medication cup. Ryan handed me back Zyprexa and said im not taking that one. Dr Guevara aware.
--- NOTE | 2022-07-27 11:32 | PC.NURSE ---
This am during medication pass, Pt was suspicious regarding medication, insisted that i was giving him Thorazine. I encouraged Ryan to look at my computer screen so that he could read the meds as i was pointing to them. Ryan disregarded this and said no i know its Thorazine and i'm not taking it . 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 He then responded , and said taking a pulse he then started talking about the lights in his room and swearing. Pt only took vitamins during this med pass. later observed Pt in milieu wrapped in blanket including his head. Laughing out loud at times appearing to respond to internal stimuli.
--- NOTE | 2022-07-27 17:23 | P.PNPSI_ITS ---
Subjective Subjective Date of Service: 07/27/22 Reason For Visit: Psychosis Interim History: depakote is cocaine. marijuana is penicillin. seems to indicate concussion is his only illness. paranoid about his food's being poisoned. talking of [employer] spraying noxious substances in his living area. hearing held, committed. per staff, loud, agitated. verbally aggressive with peers. racial slurs, mocking peers' haitian accents. confrontational with roommate re use of bathroom. up most of the night, loud and disruptive in the [place]. Mental Status Exam Mental Status Exam Narrative: adequately dressed and groomed. cooperative with interview. no PMA/PMR. speech incr in rate, amount. decr latency. incr loudness, nml tone. thoughts disorganized and bizarre, non-sequiturs. affect constricted, normo-intense, non-labile. mood not assessed. no SI/HI/AVH expressed. Diagnostics Vital Signs (24Hr): BMI result Body Mass Index 27.4 Labs 07/18/22 10:34 07/18/22 10:34 Imaging Radiology Impressions: ITS Impressions Soft Tissue Neck X-Ray 07/18/22 09:56 IMPRESSION: No acute abnormality. No evidence of radiopaque foreign body in the neck or upper chest. Foot X-Ray 07/23/22 14:00 IMPRESSION: Normal right foot. Medications Medications Current Medications Acetaminophen (Acetaminophen 325 Mg Tablet) 650 mg PO Q6H PRN PRN Reason: Headache/Pain Mild Scale (1-3) Last Admin: 07/19/22 03:36 Dose: 650 mg Al Hydroxide/Mg Hydroxide (Magnesium Hydrox/Alum Hydrox 30 Ml Oral.Susp) 30 ml PO Q6H PRN PRN Reason: Heartburn/Nausea Last Admin: 07/20/22 15:11 Dose: 30 ml Artificial Tears (Artificial Tears 15 Ml Drops) 2 drop EYE-BOTH TID PRN PRN Reason: Dry Eyes Bisacodyl (Bisacodyl 5 Mg Tablet.Dr) 10 mg PO ONCE [facility] Calcium Carbonate (Calcium Carbonate 750 Mg Tab.Chew) 750 mg PO Q4H PRN PRN Reason: GI Upset Last Admin: 07/20/22 15:11 Dose: 750 mg Clonazepam (Clonazepam 0.5 Mg Tablet) 0.5 mg PO TID PRN PRN Reason: Anxiety Last Admin: 07/26/22 01:53 Dose: 0.5 mg Divalproex Sodium (Divalproex Sodium Er 500 Mg Tab.Er.24h) 1,000 mg PO BEDTIME [facility] Last Admin: 07/26/22 21:37 Dose: Not Given Hydroxyzine HCl (Hydroxyzine Hcl 25 Mg Tablet) 25 mg PO Q6H PRN PRN Reason: Anxiety Magnesium Hydroxide (Milk Of Magnesia 30 Ml Oral.Susp) 30 ml PO DAILY PRN PRN Reason: Constipation Last Admin: 07/20/22 21:36 Dose: 30 ml Olanzapine (Olanzapine 2.5 Mg Tablet) 2.5 mg PO Q4H PRN PRN Reason: Psychosis Olanzapine (Olanzapine 10 Mg Tablet) 10 mg PO BID [facility] Last Admin: 07/27/22 10:21 Dose: Not Given Omeprazole (Omeprazole 20 Mg Capsule.Dr) 20 mg PO DAILY@0630 [facility] Last Admin: 07/27/22 06:30 Dose: Not Given Polyethylene Glycol (Polyethylene Glycol 3350 17 Gm Powd.Pack) 238 gm PO ONCE [facility] Thiamine HCl (Thiamine Hcl 100 Mg Tablet) 100 mg PO DAILY [facility] Last Admin: 07/27/22 10:12 Dose: 100 mg Trazodone HCl (Trazodone Hcl 50 Mg Tablet) 50 mg PO BEDTIME MRX1 PRN PRN Reason: Insomnia Last Admin: 07/21/22 23:49 Dose: 50 mg Vitamin D (Cholecalciferol (Vitamin D3) 25 Mcg Tablet) 50 mcg PO DAILY [facility] Last Admin: 07/27/22 10:12 Dose: 50 mcg Allergies Allergies Allergy/AdvReac Type Severity Reaction Status Date / Time risperidone [From RISPERDAL] Allergy Unknown UNKNOWN Verified 06/14/22 14:37 topiramate [From TOPAMAX] Allergy Unknown HEADACHE Verified 06/14/22 14:37 Assessment & Plan Assessment & Plan (1) Schizoaffective disorder, bipolar type: Status: Chronic Code(s): F25.0 - Schizoaffective disorder, bipolar type (2) Noncompliance with medication regimen: Status: Acute Code(s): Z91.148 - Patient's other noncompliance with medication regimen for other reason Plan Patient acutely psychotic disorganized irritable agitated floridly paranoid regarding his parents with whom he lives with. Not excepting medication or need for treatment patient does not except that he has mental illness need medication does not understand impact of his recent behavior that led to hospitalization encourage therapeutic [place] treatment a cceptance patient has accepted previously olanzapine and Depakote 07/21: Continue current regimen and plans 07/22: Continue current plans 07/23: continue to offer VPA and olanzapine. filed for commitment. 07/24: continues to refuse medications. commitment hearing thursday 07/27 at 2 pm. 07/25: accepted zydis last night, appears more organized and less labile today. amenable to have another dose of zydis added in the morning, for a total of 10 BID. still refusing VPA, however. 07/26: accepting zyprexa 10 BID at the moment. refusing VPA. taking klonopin. court tomorrow. 07/27: committed and ordered medication in court. remains disorganized, bizarre. Reason for continued inpatient stay Substantial Risk for: harm to self, harm to others, inability to function and rapid decompensation Time Spent With Patient Time: Total time managing care of this patient today _240___ minutes.
[2022-07-27] MEDS: OLANZapine 10 MG TABLET PO (22:58)
[2022-07-27] MEDS: clonazePAM 0.5 MG TABLET PO (22:58)
[2022-07-27 23:04] VITALS: RESP 18
[2022-07-28] MEDS: OLANZapine 10 MG TABLET PO ×2 (09:47→21:55)
[2022-07-28] MEDS: Thiamine HCL 100 MG TABLET PO (09:47)
[2022-07-28] MEDS: Cholecalciferol (Vitamin D3) 25 MCG TABLET 50 MCG PO (09:47)
[2022-07-28 13:11] VITALS: RESP 18
[2022-07-28] MEDS: carBAMazepine ER 200 MG TAB.ER.12H PO ×2 (13:28→21:55)
--- NOTE | 2022-07-28 16:48 | HO.PSYCHPN ---
Subjective Subjective Date of Service: 07/28/22 Reason For Visit: Psychosis Interim History: reluctantly agrees to trial of tegretol. started at 200 BID. no change in presentation from yesterday. per staff, loud singing, intrusive. took zyprexa the last 2 doses. slept from 1130 on last night. Mental Status Exam Mental Status Exam Narrative: adequately dressed and groomed. cooperative with interview. no PMA/PMR. speech incr in rate, amount. decr latency. incr loudness, nml tone. thoughts disorganized and bizarre, non-sequiturs. affect constricted, normo-intense, non-labile. mood not assessed. no SI/HI/AVH expressed. Diagnostics Vital Signs (24Hr): Vital Signs - 24 hr 07/27/22 23:04 07/28/22 13:11 Respiratory Rate 18 18 BMI result Body Mass Index 27.4 Labs 07/18/22 10:34 07/18/22 10:34 Imaging Radiology Impressions: ITS Impressions Soft Tissue Neck X-Ray 07/18/22 09:56 IMPRESSION: No acute abnormality. No evidence of radiopaque foreign body in the neck or upper chest. Foot X-Ray 07/23/22 14:00 IMPRESSION: Normal right foot. Medications Medications Current Medications Acetaminophen (Acetaminophen 325 Mg Tablet) 650 mg PO Q6H PRN PRN Reason: Headache/Pain Mild Scale (1-3) Last Admin: 07/19/22 03:36 Dose: 650 mg Al Hydroxide/Mg Hydroxide (Magnesium Hydrox/Alum Hydrox 30 Ml Oral.Susp) 30 ml PO Q6H PRN PRN Reason: Heartburn/Nausea Last Admin: 07/20/22 15:11 Dose: 30 ml Artificial Tears (Artificial Tears 15 Ml Drops) 2 drop EYE-BOTH TID PRN PRN Reason: Dry Eyes Bisacodyl (Bisacodyl 5 Mg Tablet.Dr) 10 mg PO ONCE [facility] Calcium Carbonate (Calcium Carbonate 750 Mg Tab.Chew) 750 mg PO Q4H PRN PRN Reason: GI Upset Last Admin: 07/20/22 15:11 Dose: 750 mg Carbamazepine (Carbamazepine Er 200 Mg Tab.Er.12h) 200 mg PO BID [facility] Last Admin: 07/28/22 13:28 Dose: 200 mg Clonazepam (Clonazepam 0.5 Mg Tablet) 0.5 mg PO TID PRN PRN Reason: Anxiety Last Admin: 07/27/22 22:58 Dose: 0.5 mg Divalproex Sodium (Divalproex Sodium Er 500 Mg Tab.Er.24h) 1,000 mg PO BEDTIME [facility] Last Admin: 07/27/22 23:03 Dose: Not Given Hydroxyzine HCl (Hydroxyzine Hcl 25 Mg Tablet) 25 mg PO Q6H PRN PRN Reason: Anxiety Magnesium Hydroxide (Milk Of Magnesia 30 Ml Oral.Susp) 30 ml PO DAILY PRN PRN Reason: Constipation Last Admin: 07/20/22 21:36 Dose: 30 ml Olanzapine (Olanzapine 2.5 Mg Tablet) 2.5 mg PO Q4H PRN PRN Reason: Psychosis Olanzapine (Olanzapine 10 Mg Tablet) 10 mg PO BID [facility] Last Admin: 07/28/22 09:47 Dose: 10 mg Omeprazole (Omeprazole 20 Mg Capsule.Dr) 20 mg PO DAILY@0630 [facility] Last Admin: 07/28/22 09:50 Dose: Not Given Polyethylene Glycol (Polyethylene Glycol 3350 17 Gm Powd.Pack) 238 gm PO ONCE [facility] Thiamine HCl (Thiamine Hcl 100 Mg Tablet) 100 mg PO DAILY [facility] Last Admin: 07/28/22 09:47 Dose: 100 mg Trazodone HCl (Trazodone Hcl 50 Mg Tablet) 50 mg PO BEDTIME MRX1 PRN PRN Reason: Insomnia Last Admin: 07/21/22 23:49 Dose: 50 mg Vitamin D (Cholecalciferol (Vitamin D3) 25 Mcg Tablet) 50 mcg PO DAILY [facility] Last Admin: 07/28/22 09:47 Dose: 50 mcg Allergies Allergies Allergy/AdvReac Type Severity Reaction Status Date / Time risperidone [From RISPERDAL] Allergy Unknown UNKNOWN Verified 06/14/22 14:37 topiramate [From TOPAMAX] Allergy Unknown HEADACHE Verified 06/14/22 14:37 Assessment & Plan Assessment & Plan (1) Schizoaffective disorder, bipolar type: Status: Chronic Code(s): F25.0 - Schizoaffective disorder, bipolar type (2) Noncompliance with medication regimen: Status: Acute Code(s): Z91.148 - Patient's other noncompliance with medication regimen for other reason Plan Patient acutely psychotic disorganized irritable agitated floridly paranoid regarding his parents with whom he lives with. Not excepting medication or need for treatment patient does not except that he has mental illness need medication does not understand impact of his recent behavior that led to hospitalization encourage therapeutic [place] treatment acceptance patient has accepted previously olanzapine and Depakote 07/21: Continue current regimen and plans 07/22: Continue current plans 07/23: continue to offer VPA and olanzapine. filed for commitment. 07/24: continues to refuse medications. commitment hearing thursday 07/27 at 2 pm. 07/25: accepted zydis last night, appears more organized and less labile today. amenable to have another dose of zydis added in the morning, for a total of 10 BID. still refusing VPA, however. 07/26: accepting zyprexa 10 BID at the moment. refusing VPA. taking klonopin. court tomorrow. 07/27: committed and ordered medication in court. remains disorganized, bizarre. 07/28: taking zyprexa 10 BID. agreed to tegretol XR 200 BID, started this morning. Reason for continued inpatient stay Substantial Risk for: harm to others, inability to function and rapid decompensation Time Spent With Patient Time: Total time managing care of this patient today ____ minutes.
[2022-07-28] MEDS: clonazePAM 0.5 MG TABLET PO (21:55)
[2022-07-28 22:04] VITALS: RESP 18
[2022-07-29 08:30] VITALS: RESP 18
[2022-07-29] MEDS: OLANZapine 10 MG TABLET PO ×2 (08:42→21:40)
[2022-07-29] MEDS: Thiamine HCL 100 MG TABLET PO (08:42)
[2022-07-29] MEDS: carBAMazepine ER 200 MG TAB.ER.12H PO ×2 (08:42→21:40)
--- NOTE | 2022-07-29 16:40 | HO.PSYCHPN ---
Subjective Subjective Date of Service: 07/29/22 Reason For Visit: Psychosis Interim History: more calm and linear. still loud and bizarre. c/o bodily convulsions, headache, and dyskinesia from tegretol. no such Sx observed by staff. per staff, slept well. isolating. less bizarre/disorganized. Mental Status Exam Mental Status Exam Narrative: adequately dressed and groomed. cooperative with interview. no PMA/PMR. speech incr in rate, amount. decr latency. incr loudness, nml tone. thoughts more organized and less bizarre. affect constricted, hyper-intense, non-labile. mood not assessed. no SI/HI/AVH expressed. Diagnostics Vital Signs (24Hr): Vital Signs - 24 hr 07/28/22 22:04 07/29/22 08:30 Respiratory Rate 18 18 BMI result Body Mass Index 27.4 Labs 07/18/22 10:34 07/18/22 10:34 Imaging Radiology Impressions: ITS Impressions Soft Tissue Neck X-Ray 07/18/22 09:56 IMPRESSION: No acute abnormality. No evidence of radiopaque foreign body in the neck or upper chest. Foot X-Ray 07/23/22 14:00 IMPRESSION: Normal right foot. Medications Medications Current Medications Acetaminophen (Acetaminophen 325 Mg Tablet) 650 mg PO Q6H PRN PRN Reason: Headache/Pain Mild Scale (1-3) Last Admin: 07/19/22 03:36 Dose: 650 mg Al Hydroxide/Mg Hydroxide (Magnesium Hydrox/Alum Hydrox 30 Ml Oral.Susp) 30 ml PO Q6H PRN PRN Reason: Heartburn/Nausea Last Admin: 07/20/22 15:11 Dose: 30 ml Artificial Tears (Artificial Tears 15 Ml Drops) 2 drop EYE-BOTH TID PRN PRN Reason: Dry Eyes Bisacodyl (Bisacodyl 5 Mg Tablet.Dr) 10 mg PO ONCE [facility] Calcium Carbonate (Calcium Carbonate 750 Mg Tab.Chew) 750 mg PO Q4H PRN PRN Reason: GI Upset Last Admin: 07/20/22 15:11 Dose: 750 mg Carbamazepine (Carbamazepine Er 200 Mg Tab.Er.12h) 200 mg PO BID [facility] Last Admin: 07/29/22 08:42 Dose: 200 mg Clonazepam (Clonazepam 0.5 Mg Tablet) 0.5 mg PO TID PRN PRN Reason: Anxiety Last Admin: 07/28/22 21:55 Dose: 0.5 mg Hydroxyzine HCl (Hydroxyzine Hcl 25 Mg Tablet) 25 mg PO Q6H PRN PRN Reason: Anxiety Magnesium Hydroxide (Milk Of Magnesia 30 Ml Oral.Susp) 30 ml PO DAILY PRN PRN Reason: Constipation Last Admin: 07/20/22 21:36 Dose: 30 ml Olanzapine (Olanzapine 2.5 Mg Tablet) 2.5 mg PO Q4H PRN PRN Reason: Psychosis Olanzapine (Olanzapine 10 Mg Tablet) 10 mg PO BID [facility] Last Admin: 07/29/22 08:42 Dose: 10 mg Omeprazole (Omeprazole 20 Mg Capsule.Dr) 20 mg PO DAILY@0630 [facility] Last Admin: 07/29/22 08:44 Dose: Not Given Polyethylene Glycol (Polyethylene Glycol 3350 17 Gm Powd.Pack) 238 gm PO ONCE [facility] Thiamine HCl (Thiamine Hcl 100 Mg Tablet) 100 mg PO DAILY [facility] Last Admin: 07/29/22 08:42 Dose: 100 mg Trazodone HCl (Trazodone Hcl 50 Mg Tablet) 50 mg PO BEDTIME MRX1 PRN PRN Reason: Insomnia Last Admin: 07/21/22 23:49 Dose: 50 mg Vitamin D (Cholecalciferol (Vitamin D3) 25 Mcg Tablet) 50 mcg PO DAILY [facility] Last Admin: 07/29/22 08:44 Dose: Not Given Allergies Allergies Allergy/AdvReac Type Severity Reaction Status Date / Time risperidone [From RISPERDAL] Allergy Unknown UNKNOWN Verified 06/14/22 14:37 topiramate [From TOPAMAX] Allergy Unknown HEADACHE Verified 06/14/22 14:37 Assessment & Plan Assessment & Plan (1) Schizoaffective disorder, bipolar type: Status: Chronic Code(s): F25.0 - Schizoaffective disorder, bipolar type (2) Noncompliance with medication regimen: Status: Acute Code(s): Z91.148 - Patient's other noncompliance with medication regimen for other reason Plan Patient acutely psychotic disorganized irritable agitated floridly paranoid regarding his parents with whom he lives with. Not excepting medication or need for treatment patient does not except that he has mental illness need medication does not understand impact of his recent behavior that led to hospitalization encourage therapeutic [place] treatment acceptance patient has accepted previously olanzapine and Depakote 07/21: Continue current regimen and plans 07/22: Continue current plans 07/23: continue to offer VPA and olanzapine. filed for commitment. 07/24: continues to refuse medications. commitment hearing thursday 07/27 at 2 pm. 07/25: accepted zydis last night, appears more organized and less labile today. amenable to have another dose of zydis added in the morning, for a total of 10 BID. still refusing VPA, however. 07/26: accepting zyprexa 10 BID at the moment. refusing VPA. taking klonopin. court tomorrow. 07/27: committed and ordered medication in court. remains disorganized, bizarre. 07/28: taking zyprexa 10 BID. agreed to tegretol XR 200 BID, started this morning. 07/29: compliant with zyprexa and tegretol. clear improvement in manic Sx. Reason for continued inpatient stay Substantial Risk for: harm to self, harm to others, inability to function and rapid decompensation Time Spent With Patient Time: Total time managing care of this patient today ____ minutes.
[2022-07-29] MEDS: clonazePAM 0.5 MG TABLET PO (21:40)
[2022-07-30] MEDS: carBAMazepine ER 200 MG TAB.ER.12H PO ×2 (08:06→22:29)
[2022-07-30] MEDS: Thiamine HCL 100 MG TABLET PO (08:07)
[2022-07-30] MEDS: OLANZapine 10 MG TABLET PO ×2 (08:07→22:30)
[2022-07-30] MEDS: Cholecalciferol (Vitamin D3) 25 MCG TABLET 50 MCG PO (08:07)
[2022-07-30] MEDS: Acetaminophen 325 MG TABLET 650 MG PO (08:45)
--- NOTE | 2022-07-30 10:10 | PC.NURSE ---
Pt was calm and cooperative this am, Took all am meds except Omeprazole. Observed Ryan in [place], He asked for something for a Headache. Tylenol 650mg given.
--- NOTE | 2022-07-30 14:24 | HO.PSYCHPN ---
Subjective Subjective Date of Service: 07/30/22 Reason For Visit: Psychosis Interim History: in bed, resting. says he had a ZUÑIGA and was given some medication for it which made him sleepy. no complaints or requests. asking how long he will be in the hospital. per staff, alert and oriented. taking tegretol, zyprexa, and klonopin. quieter. less irritable. +RIS. +meds/meals. slept well. Mental Status Exam Mental Status Exam Narrative: adequately dressed and groomed. cooperative with interview. no PMA/PMR. speech incr in rate, amount. decr latency. incr loudness, nml tone. thoughts more organized and less bizarre. affect constricted, hyper-intense, non-labile. mood not assessed. no SI/HI/AVH expressed. Diagnostics Vital Signs (24Hr): BMI result Body Mass Index 27.4 Labs 07/18/22 10:34 07/18/22 10:34 Imaging Radiology Impressions: ITS Impressions Soft Tissue Neck X-Ray 07/18/22 09:56 IMPRESSION: No acute abnormality. No evidence of radiopaque foreign body in the neck or upper chest. Foot X-Ray 07/23/22 14:00 IMPRESSION: Normal right foot. Medications Medications Current Medications Acetaminophen (Acetaminophen 325 Mg Tablet) 650 mg PO Q6H PRN PRN Reason: Headache/Pain Mild Scale (1-3) Last Admin: 07/30/22 08:45 Dose: 650 mg Al Hydroxide/Mg Hydroxide (Magnesium Hydrox/Alum Hydrox 30 Ml Oral.Susp) 30 ml PO Q6H PRN PRN Reason: Heartburn/Nausea Last Admin: 07/20/22 15:11 Dose: 30 ml Artificial Tears (Artificial Tears 15 Ml Drops) 2 drop EYE-BOTH TID PRN PRN Reason: Dry Eyes Bisacodyl (Bisacodyl 5 Mg Tablet.Dr) 10 mg PO ONCE [facility] Calcium Carbonate (Calcium Carbonate 750 Mg Tab.Chew) 750 mg PO Q4H PRN PRN Reason: GI Upset Last Admin: 07/20/22 15:11 Dose: 750 mg Carbamazepine (Carbamazepine Er 200 Mg Tab.Er.12h) 200 mg PO BID [facility] Last Admin: 07/30/22 08:06 Dose: 200 mg Clonazepam (Clonazepam 0.5 Mg Tablet) 0.5 mg PO TID PRN PRN Reason: Anxiety Last Admin: 07/29/22 21:40 Dose: 0.5 mg Hydroxyzine HCl (Hydroxyzine Hcl 25 Mg Tablet) 25 mg PO Q6H PRN PRN Reason: Anxiety Magnesium Hydroxide (Milk Of Magnesia 30 Ml Oral.Susp) 30 ml PO DAILY PRN PRN Reason: Constipation Last Admin: 07/20/22 21:36 Dose: 30 ml Olanzapine (Olanzapine 2.5 Mg Tablet) 2.5 mg PO Q4H PRN PRN Reason: Psychosis Olanzapine (Olanzapine 10 Mg Tablet) 10 mg PO BID [facility] Last Admin: 07/30/22 08:07 Dose: 10 mg Omeprazole (Omeprazole 20 Mg Capsule.Dr) 20 mg PO DAILY@0630 [facility] Last Admin: 07/30/22 08:08 Dose: Not Given Polyethylene Glycol (Polyethylene Glycol 3350 17 Gm Powd.Pack) 238 gm PO ONCE [facility] Thiamine HCl (Thiamine Hcl 100 Mg Tablet) 100 mg PO DAILY [facility] Last Admin: 07/30/22 08:07 Dose: 100 mg Trazodone HCl (Trazodone Hcl 50 Mg Tablet) 50 mg PO BEDTIME MRX1 PRN PRN Reason: Insomnia Last Admin: 07/21/22 23:49 Dose: 50 mg Vitamin D (Cholecalciferol (Vitamin D3) 25 Mcg Tablet) 50 mcg PO DAILY [facility] Last Admin: 07/30/22 08:07 Dose: 50 mcg Allergies Allergies Allergy/AdvReac Type Severity Reaction Status Date / Time risperidone [From RISPERDAL] Allergy Unknown UNKNOWN Verified 06/14/22 14:37 topiramate [From TOPAMAX] Allergy Unknown HEADACHE Verified 06/14/22 14:37 Assessment & Plan Assessment & Plan (1) Schizoaffective disorder, bipolar type: Status: Chronic Code(s): F25.0 - Schizoaffective disorder, bipolar type (2) Noncompliance with medication regimen: Status: Acute Code(s): Z91.148 - Patient's other noncompliance with medication regimen for other reason Plan Patient acutely psychotic disorganized irritable agitated floridly paranoid regarding his parents with whom he lives with. Not excepting medication or need for treatment patient does not except that he has mental illness need medication does not understand impact of his recent behavior that led to hospitalization encourage therapeutic [place] treatment acceptance patient has accepted previously olanzapine and Depakote 07/21: Continue current regimen and plans 07/22: Continue current plans 07/23: continue to offer VPA and olanzapine. filed for commitment. 07/24: continues to refuse medications. commitment hearing thursday 07/27 at 2 pm. 07/25: accepted zydis last night, appears more organized and less labile today. amenable to have another dose of zydis added in the morning, for a total of 10 BID. still refusing VPA, however. 07/26: accepting zyprexa 10 BID at the moment. refusing VPA. taking klonopin. court tomorrow. 07/27: committed and ordered medication in court. remains disorganized, bizarre. 07/28: taking zyprexa 10 BID. agreed to tegretol XR 200 BID, started this morning. 07/29: compliant with zyprexa and tegretol. clear improvement in manic Sx. 07/30: improvements in manic Sx continue. continue current mgmt. sleeping well, less irritable. Reason for continued inpatient stay Substantial Risk for: inability to function and rapid decompensation Time Spent With Patient Time: Total time managing care of this patient today ____ minutes.
[2022-07-30] MEDS: clonazePAM 0.5 MG TABLET PO (22:30)
[2022-07-30 22:34] VITALS: RESP 18
[2022-07-31] MEDS: clonazePAM 0.5 MG TABLET PO ×2 (02:41→20:21)
[2022-07-31] MEDS: OLANZapine 10 MG TABLET PO ×2 (08:30→20:21)
[2022-07-31] MEDS: Cholecalciferol (Vitamin D3) 25 MCG TABLET 50 MCG PO (08:31)
[2022-07-31] MEDS: Thiamine HCL 100 MG TABLET PO (08:32)
[2022-07-31] MEDS: carBAMazepine ER 200 MG TAB.ER.12H PO ×2 (08:32→20:21)
--- NOTE | 2022-07-31 08:55 | PC.NURSE ---
Pt did take all morning medications except Omeprazole. He was very suspicious regarding what meds he was taking. I reviewed meds with him, punched them into med cup and he asked again What are these meds. I asked him if he had pain he replied in my frontal lobe I have diarrhea I asked him if he wanted Tylenol and he refused. Pt is observed pacing in halls.
--- NOTE | 2022-07-31 15:28 | HO.PSYCHPN ---
Subjective Subjective Date of Service: 07/31/22 Reason For Visit: Psychosis Interim History: pt seen in his room, trying to nap early afternoon. no questions or complaints. per staff, taking all meds except omeprazole. says he is eating and sleeping poorly. up most of the night. get klonopin x 2 last NOC. Mental Status Exam Mental Status Exam Narrative: adequately dressed and groomed. cooperative with interview. no PMA/PMR. speech incr in rate, nml amount. decr latency. incr loudness, nml tone. thoughts more organized and less bizarre. affect constricted, hyper-intense, non-labile. mood not assessed. no SI/HI/AVH expressed. Diagnostics Vital Signs (24Hr): Vital Signs - 24 hr 07/30/22 22:34 Respiratory Rate 18 BMI result Body Mass Index 27.4 Labs 07/18/22 10:34 07/18/22 10:34 Imaging Radiology Impressions: ITS Impressions Soft Tissue Neck X-Ray 07/18/22 09:56 IMPRESSION: No acute abnormality. No evidence of radiopaque foreign body in the neck or upper chest. Foot X-Ray 07/23/22 14:00 IMPRESSION: Normal right foot. Medications Medications Current Medications Acetaminophen (Acetaminophen 325 Mg Tablet) 650 mg PO Q6H PRN PRN Reason: Headache/Pain Mild Scale (1-3) Last Admin: 07/30/22 08:45 Dose: 650 mg Al Hydroxide/Mg Hydroxide (Magnesium Hydrox/Alum Hydrox 30 Ml Oral.Susp) 30 ml PO Q6H PRN PRN Reason: Heartburn/Nausea Last Admin: 07/20/22 15:11 Dose: 30 ml Artificial Tears (Artificial Tears 15 Ml Drops) 2 drop EYE-BOTH TID PRN PRN Reason: Dry Eyes Bisacodyl (Bisacodyl 5 Mg Tablet.Dr) 10 mg PO ONCE [facility] Calcium Carbonate (Calcium Carbonate 750 Mg Tab.Chew) 750 mg PO Q4H PRN PRN Reason: GI Upset Last Admin: 07/20/22 15:11 Dose: 750 mg Carbamazepine (Carbamazepine Er 200 Mg Tab.Er.12h) 200 mg PO BID [facility] Last Admin: 07/31/22 08:32 Dose: 200 mg Clonazepam (Clonazepam 0.5 Mg Tablet) 0.5 mg PO TID PRN PRN Reason: Anxiety Last Admin: 07/31/22 02:41 Dose: 0.5 mg Hydroxyzine HCl (Hydroxyzine Hcl 25 Mg Tablet) 25 mg PO Q6H PRN PRN Reason: Anxiety Magnesium Hydroxide (Milk Of Magnesia 30 Ml Oral.Susp) 30 ml PO DAILY PRN PRN Reason: Constipation Last Admin: 07/20/22 21:36 Dose: 30 ml Olanzapine (Olanzapine 2.5 Mg Tablet) 2.5 mg PO Q4H PRN PRN Reason: Psychosis Olanzapine (Olanzapine 10 Mg Tablet) 10 mg PO BID [facility] Last Admin: 07/31/22 08:30 Dose: 10 mg Omeprazole (Omeprazole 20 Mg Capsule.Dr) 20 mg PO DAILY@0630 [facility] Last Admin: 07/31/22 08:35 Dose: Not Given Polyethylene Glycol (Polyethylene Glycol 3350 17 Gm Powd.Pack) 238 gm PO ONCE [facility] Thiamine HCl (Thiamine Hcl 100 Mg Tablet) 100 mg PO DAILY [facility] Last Admin: 07/31/22 08:32 Dose: 100 mg Trazodone HCl (Trazodone Hcl 50 Mg Tablet) 50 mg PO BEDTIME MRX1 PRN PRN Reason: Insomnia Last Admin: 07/21/22 23:49 Dose: 50 mg Vitamin D (Cholecalciferol (Vitamin D3) 25 Mcg Tablet) 50 mcg PO DAILY [facility] Last Admin: 07/31/22 08:31 Dose: 50 mcg Allergies Allergies Allergy/AdvReac Type Severity Reaction Status Date / Time risperidone [From RISPERDAL] Allergy Unknown UNKNOWN Verified 06/14/22 14:37 topiramate [From TOPAMAX] Allergy Unknown HEADACHE Verified 06/14/22 14:37 Assessment & Plan Assessment & Plan (1) Schizoaffective disorder, bipolar type: Status: Chronic Code(s): F25.0 - Schizoaffective disorder, bipolar type (2) Noncompliance with medication regimen: Status: Acute Code(s): Z91.148 - Patient's other noncompliance with medication regimen for other reason Plan Patient acutely psychotic disorganized irritable agitated floridly paranoid regarding his parents with whom he lives with. Not excepting medication or need for treatment patient does not except that he has mental illness need medication does not understand impact of his recent behavior that led to hospitalization encourage therapeutic [place] treatment acceptance patient has accepted previously olanzapine and Depakote 07/21: Continue current regimen and plans 07/22: Continue current plans 07/23: continue to offer VPA and olanzapine. filed for commitment. 07/24: continues to refuse medications. commitment hearing thursday 07/27 at 2 pm. 07/25: accepted zydis last night, appears more organized and less labile today. amenable to have another dose of zydis added in the morning, for a total of 10 BID. still refusing VPA, however. 07/26: accepting zyprexa 10 BID at the moment. refusing VPA. taking klonopin. court tomorrow. 07/27: committed and ordered medication in court. remains disorganized, bizarre. 07/28: taking zyprexa 10 BID. agreed to tegretol XR 200 BID, started this morning. 07/29: compliant with zyprexa and tegretol. clear improvement in manic Sx. 07/30: improvements in manic Sx continue. continue current mgmt. sleeping well, less irritable. 07/31: poor sleep last night. improvements in manic Sx continue. T/C increase in tegretol dosing after 5 days. Reason for continued inpatient stay Substantial Risk for: harm to self, harm to others, inability to function and rapid decompensation Time Spent With Patient Time: Total time managing care of this patient today ____ minutes.
[2022-08-01] MEDS: carBAMazepine ER 200 MG TAB.ER.12H PO (08:58)
[2022-08-01] MEDS: OLANZapine 10 MG TABLET PO ×2 (08:58→20:21)
[2022-08-01] MEDS: Cholecalciferol (Vitamin D3) 25 MCG TABLET 50 MCG PO (08:59)
[2022-08-01] MEDS: Thiamine HCL 100 MG TABLET PO (09:02)
--- NOTE | 2022-08-01 15:17 | P.PNPSI_ITS ---
Subjective Subjective Date of Service: 08/01/22 Reason For Visit: Psychosis Interim History: walking the sanders, spontaneously expressing delusional material. calm, cooperative. per staff, not attending groups. racing thoughts. loud. pacing. denies anx/dep. poor sleep. slept until 424. Mental Status Exam Mental Status Exam Narrative: adequately dressed and groomed. cooperative with interview. no PMA/PMR. speech incr in rate, nml amount. decr latency. incr loudness, nml tone. thoughts more organized. bizarre delusions. affect constricted, hyper-intense, non-labile. mood not assessed. no SI/HI/AVH expressed. Diagnostics Vital Signs (24Hr): BMI result Body Mass Index 27.4 Labs 07/18/22 10:34 07/18/22 10:34 Imaging Radiology Impressions: ITS Impressions Soft Tissue Neck X-Ray 07/18/22 09:56 IMPRESSION: No acute abnormality. No evidence of radiopaque foreign body in the neck or upper chest. Foot X-Ray 07/23/22 14:00 IMPRESSION: Normal right foot. Medications Medications Current Medications Acetaminophen (Acetaminophen 325 Mg Tablet) 650 mg PO Q6H PRN PRN Reason: Headache/Pain Mild Scale (1-3) Last Admin: 07/30/22 08:45 Dose: 650 mg Al Hydroxide/Mg Hydroxide (Magnesium Hydrox/Alum Hydrox 30 Ml Oral.Susp) 30 ml PO Q6H PRN PRN Reason: Heartburn/Nausea Last Admin: 07/20/22 15:11 Dose: 30 ml Artificial Tears (Artificial Tears 15 Ml Drops) 2 drop EYE-BOTH TID PRN PRN Reason: Dry Eyes Bisacodyl (Bisacodyl 5 Mg Tablet.Dr) 10 mg PO ONCE [facility] Calcium Carbonate (Calcium Carbonate 750 Mg Tab.Chew) 750 mg PO Q4H PRN PRN Reason: GI Upset Last Admin: 07/20/22 15:11 Dose: 750 mg Carbamazepine (Carbamazepine Er 200 Mg Tab.Er.12h) 200 mg PO BID [facility] Last Admin: 08/01/22 08:58 Dose: 200 mg Clonazepam (Clonazepam 0.5 Mg Tablet) 0.5 mg PO TID PRN PRN Reason: Anxiety Last Admin: 07/31/22 20:21 Dose: 0.5 mg Hydroxyzine HCl (Hydroxyzine Hcl 25 Mg Tablet) 25 mg PO Q6H PRN PRN Reason: Anxiety Magnesium Hydroxide (Milk Of Magnesia 30 Ml Oral.Susp) 30 ml PO DAILY PRN PRN Reason: Constipation Last Admin: 07/20/22 21:36 Dose: 30 ml Olanzapine (Olanzapine 2.5 Mg Tablet) 2.5 mg PO Q4H PRN PRN Reason: Psychosis Olanzapine (Olanzapine 10 Mg Tablet) 10 mg PO BID [facility] Last Admin: 08/01/22 08:58 Dose: 10 mg Omeprazole (Omeprazole 20 Mg Capsule.Dr) 20 mg PO DAILY@0630 [facility] Last Admin: 08/01/22 06:15 Dose: Not Given Polyethylene Glycol (Polyethylene Glycol 3350 17 Gm Powd.Pack) 238 gm PO ONCE [facility] Thiamine HCl (Thiamine Hcl 100 Mg Tablet) 100 mg PO DAILY [facility] Last Admin: 08/01/22 09:02 Dose: 100 mg Trazodone HCl (Trazodone Hcl 50 Mg Tablet) 50 mg PO BEDTIME MRX1 PRN PRN Reason: Insomnia Last Admin: 07/21/22 23:49 Dose: 50 mg Vitamin D (Cholecalciferol (Vitamin D3) 25 Mcg Tablet) 50 mcg PO DAILY [facility] Last Admin: 08/01/22 08:59 Dose: 50 mcg Allergies Allergies Allergy/AdvReac Type Severity Reaction Status Date / Time risperidone [From RISPERDAL] Allergy Unknown UNKNOWN Verified 06/14/22 14:37 topiramate [From TOPAMAX] Allergy Unknown HEADACHE Verified 06/14/22 14:37 Assessment & Plan Assessment & Plan (1) Schizoaffective disorder, bipolar type: Status: Chronic Code(s): F25.0 - Schizoaffective disorder, bipolar type (2) Noncompliance with medication regimen: Status: Acute Code(s): Z91.148 - Patient's other noncompliance with medication regimen for other reason Plan Patient acutely psychotic disorganized irritable agitated floridly paranoid regarding his parents with whom he lives with. Not excepting medication or need for treatment patient does not except that he has mental illness need medication does not understand impact of his recent behavior that led to hospitalization encourage therapeutic [place] treatment acceptance patient has accepted previously olanzapine and Depakote 07/21: Continue current regimen and plans 07/22: Continue current plans 07/23: continue to offer VPA and olanzapine. filed for commitment. 07/24: continues to refuse medications. commitment hearing thursday 07/27 at 2 pm. 07/25: accepted zydis last night, appears more organized and less labile today. amenable to have another dose of zydis added in the morning, for a total of 10 BID. still refusing VPA, however. 07/26: accepting zyprexa 10 BID at the moment. refusing VPA. taking klonopin. court tomorrow. 07/27: committed and ordered medication in court. remains disorganized, bizarre. 07/28: taking zyprexa 10 BID. agreed to tegretol XR 200 BID, started this morning. 07/29: compliant with zyprexa and tegretol. clear improvement in manic Sx. 07/30: improvements in manic Sx continue. continue current mgmt. sleeping well, less irritable. 07/31: poor sleep last night. improvements in manic Sx continue. T/C increase in tegretol dosing after 5 days. 08/01: poor sleep, manic. increase tegretol to 300 BID as of tonight. Reason for continued inpatient stay Substantial Risk for: harm to self, harm to others, inability to function and rapid decompensation Time Spent With Patient Time: Total time managing care of this patient today __25__ minutes.
[2022-08-01] MEDS: carBAMazepine ER 100 MG TAB.ER.12H 300 MG PO (20:20)
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
[2022-08-02] MEDS: carBAMazepine ER 100 MG TAB.ER.12H 300 MG PO (08:22)
[2022-08-02] MEDS: OLANZapine 10 MG TABLET PO (08:22)
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
[2022-08-02] MEDS: clonazePAM 0.5 MG TABLET PO (22:21)
[2022-08-02] MEDS: OLANZapine 5 MG TABLET 10 MG PO (22:22)
[2022-08-02] MEDS: Calcium Carbonate 750 MG TAB.CHEW PO (22:42)
[2022-08-03 08:30] VITALS: RESP 18
[2022-08-03] MEDS: Calcium Carbonate 750 MG TAB.CHEW PO (08:48)
[2022-08-03] MEDS: Famotidine 20 MG TABLET PO (11:23)
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
[2022-08-03] MEDS: OLANZapine 10 MG TABLET 20 MG PO (21:55)
[2022-08-03] MEDS: carBAMazepine ER 200 MG TAB.ER.12H 600 MG PO (21:56)
[2022-08-03 22:01] VITALS: BP 154/77; PULSE 111; TEMP 36.4; O2SAT 95
[2022-08-03] MEDS: clonazePAM 0.5 MG TABLET PO (22:04)
[2022-08-04] MEDS: Acetaminophen 325 MG TABLET 650 MG PO (05:18)
[2022-08-04] MEDS: OLANZapine 2.5 MG TABLET PO (06:46)
[2022-08-04] MEDS: clonazePAM 0.5 MG TABLET PO ×2 (06:46→20:19)
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
--- NOTE | 2022-08-04 07:11 | PC.NURSE ---
patient also reports being very hungry-does not want any snacks that are available at this time.
[2022-08-04] MEDS: OLANZapine 10 MG TABLET 20 MG PO (20:19)
[2022-08-04] MEDS: carBAMazepine ER 200 MG TAB.ER.12H 600 MG PO (20:19)
[2022-08-04 20:22] VITALS: BP 133/90; PULSE 119; TEMP 36.6; O2SAT 96
--- NOTE | 2022-08-04 20:48 | P.PNPSI_ITS ---
Subjective Subjective Date of Service: 08/04/22 Reason For Visit: Psychosis Subjective Notes: Bella Order and Section 8 Medical Problems Affecting Mental Status: No Interim History: Loud, irritable, internally stimulated. States he had a bad morning and wants to sleep it off. Unable to elaborate on same. Medication Compliance: Yes Side effects from medications: No Attending Groups: No Review of Systems Acute medical concerns: No Review of Systems Review of Systems Yes Unobtainable due to mental status Mental Status Exam Mental Status Exam Narrative: adequately dressed and groomed. cooperative with interview. no PMA/PMR. speech incr in rate, nml amount. decr latency. incr loudness, nml tone. thoughts disorganized bizarre delusions. affect constricted, hyper-intense, non-labile. mood not assessed. no SI/HI/AVH expressed. Diagnostics Vital Signs (24Hr): Vital Signs - 24 hr 08/03/22 22:01 08/04/22 20:22 Temperature 97.6 F 97.8 F Pulse Rate 111 H 119 H Blood Pressure 154/77 H 133/90 H Pulse Oximetry 95 96 Oxygen Delivery Method Room Air Room Air BMI result Body Mass Index 27.4 Labs 07/18/22 10:34 07/18/22 10:34 Imaging Radiology Impressions: ITS Impressions Soft Tissue Neck X-Ray 07/18/22 09:56 IMPRESSION: No acute abnormality. No evidence of radiopaque foreign body in the neck or upper chest. Foot X-Ray 07/23/22 14:00 IMPRESSION: Normal right foot. Medications Medications Current Medications Acetaminophen (Acetaminophen 325 Mg Tablet) 650 mg PO Q6H PRN PRN Reason: Headache/Pain Mild Scale (1-3) Last Admin: 08/04/22 05:18 Dose: 650 mg Al Hydroxide/Mg Hydroxide (Magnesium Hydrox/Alum Hydrox 30 Ml Oral.Susp) 30 ml PO Q6H PRN PRN Reason: Heartburn/Nausea Last Admin: 07/20/22 15:11 Dose: 30 ml Artificial Tears (Artificial Tears 15 Ml Drops) 2 drop EYE-BOTH TID PRN PRN Reason: Dry Eyes Bisacodyl (Bisacodyl 5 Mg Tablet.Dr) 10 mg PO ONCE LORENZA Calcium Carbonate (Calcium Carbonate 750 Mg Tab.Chew) 750 mg PO Q4H PRN PRN Reason: GI Upset Last Admin: 08/03/22 08:48 Dose: 750 mg Carbamazepine (Carbamazepine Er 200 Mg Tab.Er.12h) 600 mg PO BEDTIME LORENZA Last Admin: 08/04/22 20:19 Dose: 600 mg Clonazepam (Clonazepam 0.5 Mg Tablet) 0.5 mg PO TID PRN PRN Reason: Anxiety Last Admin: 08/04/22 20:19 Dose: 0.5 mg Famotidine (Famotidine 20 Mg Tablet) 20 mg PO DAILY [facility] Last Admin: 08/04/22 09:37 Dose: Not Given Hydroxyzine HCl (Hydroxyzine Hcl 25 Mg Tablet) 25 mg PO Q6H PRN PRN Reason: Anxiety Magnesium Hydroxide (Milk Of Magnesia 30 Ml Oral.Susp) 30 ml PO DAILY PRN PRN Reason: Constipation Last Admin: 07/20/22 21:36 Dose: 30 ml Pt Own (Systane Eye (Drops)) 2 drop EYE-BOTH Q4H PRN PRN Reason: Dry Eyes Last Admin: 08/04/22 06:04 Dose: 2 drop Olanzapine (Olanzapine 2.5 Mg Tablet) 2.5 mg PO Q4H PRN PRN Reason: Psychosis Last Admin: 08/04/22 06:46 Dose: 2.5 mg Olanzapine (Olanzapine 10 Mg Tablet) 20 mg PO BEDTIME LORENZA Last Admin: 08/04/22 20:19 Dose: 20 mg Polyethylene Glycol (Polyethylene Glycol 3350 17 Gm Powd.Pack) 238 gm PO ONCE LORENZA Trazodone HCl (Trazodone Hcl 50 Mg Tablet) 50 mg PO BEDTIME MRX1 PRN PRN Reason: Insomnia Last Admin: 07/21/22 23:49 Dose: 50 mg Vitamin D (Cholecalciferol (Vitamin D3) 25 Mcg Tablet) 50 mcg PO DAILY [facility] Last Admin: 08/04/22 09:37 Dose: Not Given Allergies Allergies Allergy/AdvReac Type Severity Reaction Status Date / Time risperidone [From RISPERDAL] Allergy Unknown UNKNOWN Verified 06/14/22 14:37 topiramate [From TOPAMAX] Allergy Unknown HEADACHE Verified 06/14/22 14:37 Assessment & Plan Assessment & Plan (1) Schizoaffective disorder, bipolar type: Status: Chronic Code(s): F25.0 - Schizoaffective disorder, bipolar type (2) Noncompliance with medication regimen: Status: Acute Code(s): Z91.148 - Patient's other noncompliance with medication regimen for other reason Plan Patient acutely psychotic disorganized irritable agitated floridly paranoid regarding his parents with whom he lives with. Not excepting medication or need for treatment patient does not except that he has mental illness need medication does not understand impact of his recent behavior that led to hospitalization encourage therapeutic [place] treatment acceptance patient has accepted previously olanzapine and Depakote 07/21: Continue current regimen and plans 07/22: Continue current plans 07/23: continue to offer VPA and olanzapine. filed for commitment. 07/24: continues to refuse medications. commitment hearing thursday 07/27 at 2 pm. 07/25: accepted zydis last night, appears more organized and less labile today. amenable to have another dose of zydis added in the morning, for a total of 10 BID. still refusing VPA, however. 07/26: accepting zyprexa 10 BID at the moment. refusing VPA. taking klonopin. court tomorrow. 07/27: committed and ordered medication in court. remains disorganized, bizarre. 07/28: taking zyprexa 10 BID. agreed to tegretol XR 200 BID, started this morning. 07/29: compliant with zyprexa and tegretol. clear improvement in manic Sx. 07/30: improvements in manic Sx continue. continue current mgmt. sleeping well, less irritable. 07/31: poor sleep last night. improvements in manic Sx continue. T/C increase in tegretol dosing after 5 days. 08/01: poor sleep, manic. increase tegretol to 300 BID as of tonight. 08/02: patient remains manic; guarded and ambivalent about medications; medical technical writer agreed to move medications to bedtime; encouraged patient to consider Depakote Change to Tegretol ER 600 mg q.h.s. Changed to Zyprexa 20 mg q.h.s. 08/03: remains symptomatic of beverly, attenuated from admission. continue current mgmt. 08/04: no changes Reason for continued inpatient stay Substantial Risk for: inability to function Time Spent With Patient Time: Total time managing care of this patient today ____ minutes.
[2022-08-05] MEDS: clonazePAM 0.5 MG TABLET PO ×2 (06:08→22:21)
[2022-08-05] MEDS: OLANZapine 2.5 MG TABLET PO (06:08)
--- NOTE | 2022-08-05 06:53 | PC.NURSE ---
am agitation-again agitated in AM. reports feeling hungry.
--- NOTE | 2022-08-05 14:14 | P.PNPSI_ITS ---
Subjective Subjective Date of Service: 08/05/22 Reason For Visit: Psychosis Interim History: In room. Slightly less loud and irritable today. Still feels irritable and frustrated. Prefers to be in his room. Unable to elaborate on exactly how he is feeling or what is contributing to things or what might be helpful. Denied SI, HI. Is paranoid Medication Compliance: Yes Side effects from medications: No Attending Groups: No Review of Systems Acute medical concerns: No Review of Systems Review of Systems Some constipation but did not want anything for it Yes Unobtainable due to mental status Mental Status Exam Mental Status Exam Narrative: adequately dressed and groomed. cooperative with interview. no PMA/PMR. speech incr in rate, nml amount. decr latency. incr loudness, nml tone. thoughts disorganized bizarre delusions. affect constricted, hyper-intense, non-labile. mood not assessed. no SI/HI/AVH expressed. Diagnostics Vital Signs (24Hr): Vital Signs - 24 hr 08/04/22 20:22 Temperature 97.8 F Pulse Rate 119 H Blood Pressure 133/90 H Pulse Oximetry 96 Oxygen Delivery Method Room Air BMI result Body Mass Index 27.4 Labs 07/18/22 10:34 07/18/22 10:34 Imaging Radiology Impressions: ITS Impressions Soft Tissue Neck X-Ray 07/18/22 09:56 IMPRESSION: No acute abnormality. No evidence of radiopaque foreign body in the neck or upper chest. Foot X-Ray 07/23/22 14:00 IMPRESSION: Normal right foot. Medications Medications Current Medications Acetaminophen (Acetaminophen 325 Mg Tablet) 650 mg PO Q6H PRN PRN Reason: Headache/Pain Mild Scale (1-3) Last Admin: 08/04/22 05:18 Dose: 650 mg Al Hydroxide/Mg Hydroxide (Magnesium Hydrox/Alum Hydrox 30 Ml Oral.Susp) 30 ml PO Q6H PRN PRN Reason: Heartburn/Nausea Last Admin: 07/20/22 15:11 Dose: 30 ml Artificial Tears (Artificial Tears 15 Ml Drops) 2 drop EYE-BOTH TID PRN PRN Reason: Dry Eyes Bisacodyl (Bisacodyl 5 Mg Tablet.Dr) 10 mg PO ONCE LORENZA Calcium Carbonate (Calcium Carbonate 750 Mg Tab.Chew) 750 mg PO Q4H PRN PRN Reason: GI Upset Last Admin: 08/03/22 08:48 Dose: 750 mg Carbamazepine (Carbamazepine Er 200 Mg Tab.Er.12h) 600 mg PO BEDTIME LORENZA Last Admin: 08/04/22 20:19 Dose: 600 mg Clonazepam (Clonazepam 0.5 Mg Tablet) 0.5 mg PO TID PRN PRN Reason: Anxiety Last Admin: 08/05/22 06:08 Dose: 0.5 mg Famotidine (Famotidine 20 Mg Tablet) 20 mg PO DAILY LOREN[facility] Last Admin: 08/05/22 10:52 Dose: Not Given Hydroxyzine HCl (Hydroxyzine Hcl 25 Mg Tablet) 25 mg PO Q6H PRN PRN Reason: Anxiety Magnesium Hydroxide (Milk Of Magnesia 30 Ml Oral.Susp) 30 ml PO DAILY PRN PRN Reason: Constipation Last Admin: 07/20/22 21:36 Dose: 30 ml Pt Own (Systane Eye (Drops)) 2 drop EYE-BOTH Q4H PRN PRN Reason: Dry Eyes Last Admin: 08/04/22 06:04 Dose: 2 drop Olanzapine (Olanzapine 2.5 Mg Tablet) 2.5 mg PO Q4H PRN PRN Reason: Psychosis Last Admin: 08/05/22 06:08 Dose: 2.5 mg Olanzapine (Olanzapine 10 Mg Tablet) 20 mg PO BEDTIME LORENZA Last Admin: 08/04/22 20:19 Dose: 20 mg Polyethylene Glycol (Polyethylene Glycol 3350 17 Gm Powd.Pack) 238 gm PO ONCE LORENZA Trazodone HCl (Trazodone Hcl 50 Mg Tablet) 50 mg PO BEDTIME MRX1 PRN PRN Reason: Insomnia Last Admin: 07/21/22 23:49 Dose: 50 mg Vitamin D (Cholecalciferol (Vitamin D3) 25 Mcg Tablet) 50 mcg PO DAILY [facility] Last Admin: 08/05/22 10:52 Dose: Not Given Allergies Allergies Allergy/AdvReac Type Severity Reaction Status Date / Time risperidone [From RISPERDAL] Allergy Unknown UNKNOWN Verified 06/14/22 14:37 topiramate [From TOPAMAX] Allergy Unknown HEADACHE Verified 06/14/22 14:37 Assessment & Plan Assessment & Plan (1) Schizoaffective disorder, bipolar type: Status: Chronic Code(s): F25.0 - Schizoaffective disorder, bipolar type (2) Noncompliance with medication regimen: Status: Acute Code(s): Z91.148 - Patient's other noncompliance with medication regimen for other reason Plan Patient acutely psychotic disorganized irritable agitated floridly paranoid regarding his parents with whom he lives with. Not excepting medication or need for treatment patient does not except that he has mental illness need medication does not understand impact of his recent behavior that led to hospitalization encourage therapeutic [place] treatment acceptance patient has accepted previously olanzapine and Depakote 07/21: Continue current regimen and plans 07/22: Continue current plans 07/23: continue to offer VPA and olanzapine. filed for commitment. 07/24: continues to refuse medications. commitment hearing thursday 07/27 at 2 pm. 07/25: accepted zydis last night, appears more organized and less labile today. amenable to have another dose of zydis added in the morning, for a total of 10 BID. still refusing VPA, however. 07/26: accepting zyprexa 10 BID at the moment. refusing VPA. taking klonopin. court tomorrow. 07/27: committed and ordered medication in court. remains disorganized, bizarre. 07/28: taking zyprexa 10 BID. agreed to tegretol XR 200 BID, started this morning. 07/29: compliant with zyprexa and tegretol. clear improvement in manic Sx. 07/30: improvements in manic Sx continue. continue current mgmt. sleeping well, less irritable. 07/31: poor sleep last night. improvements in manic Sx continue. T/C increase in tegretol dosing after 5 days. 08/01: poor sleep, manic. increase tegretol to 300 BID as of tonight. 08/02: patient remains manic; guarded and ambivalent about medications; automatic typewriter inspector agreed to move medications to bedtime; encouraged patient to consider Depakote Change to Tegretol ER 600 mg q.h.s. Changed to Zyprexa 20 mg q.h.s. 08/03: remains symptomatic of beverly, attenuated from admission. continue current mgmt. 08/05: no changes Reason for continued inpatient stay Substantial Risk for: inability to function and rapid decompensation Time Spent With Patient Time: Total time managing care of this patient today ____ minutes.
[2022-08-05] MEDS: Calcium Carbonate 750 MG TAB.CHEW PO (18:10)
[2022-08-05 22:10] VITALS: RESP 18
[2022-08-05] MEDS: carBAMazepine ER 200 MG TAB.ER.12H 600 MG PO (22:20)
[2022-08-05] MEDS: OLANZapine 10 MG TABLET 20 MG PO (22:20)
[2022-08-06] MEDS: clonazePAM 0.5 MG TABLET PO ×2 (06:33→22:12)
[2022-08-06 11:37] VITALS: RESP 18
--- NOTE | 2022-08-06 15:37 | HO.PSYCHPN ---
Subjective Subjective Date of Service: 08/06/22 Reason For Visit: Psychosis Interim History: pt calm and cooperative. asking to DC tegretol and start VPA. agrees to do so. asking for his home meds to be brought in in that case, SW called sister and made request. per staff, c/o medications. agitated, angry, irritated, labile. disrupted sleep. Mental Status Exam Mental Status Exam Narrative: adequately dressed and groomed. cooperative with interview. no PMA/PMR. speech nml in rate, nml amount. decr latency. incr loudness, nml tone. thoughts more organized. bizarre delusions. affect constricted, hyper-intense, non-labile. mood not assessed. no SI/HI/AVH expressed. Diagnostics Vital Signs (24Hr): Vital Signs - 24 hr 08/05/22 22:10 08/06/22 11:37 Respiratory Rate 18 18 BMI result Body Mass Index 27.4 Labs 07/18/22 10:34 07/18/22 10:34 Imaging Radiology Impressions: ITS Impressions Soft Tissue Neck X-Ray 07/18/22 09:56 IMPRESSION: No acute abnormality. No evidence of radiopaque foreign body in the neck or upper chest. Foot X-Ray 07/23/22 14:00 IMPRESSION: Normal right foot. Medications Medications Current Medications Acetaminophen (Acetaminophen 325 Mg Tablet) 650 mg PO Q6H PRN PRN Reason: Headache/Pain Mild Scale (1-3) Last Admin: 08/04/22 05:18 Dose: 650 mg Al Hydroxide/Mg Hydroxide (Magnesium Hydrox/Alum Hydrox 30 Ml Oral.Susp) 30 ml PO Q6H PRN PRN Reason: Heartburn/Nausea Last Admin: 07/20/22 15:11 Dose: 30 ml Artificial Tears (Artificial Tears 15 Ml Drops) 2 drop EYE-BOTH TID PRN PRN Reason: Dry Eyes Bisacodyl (Bisacodyl 5 Mg Tablet.Dr) 10 mg PO ONCE LORENZA Calcium Carbonate (Calcium Carbonate 750 Mg Tab.Chew) 750 mg PO Q4H PRN PRN Reason: GI Upset Last Admin: 08/05/22 18:10 Dose: 750 mg Clonazepam (Clonazepam 0.5 Mg Tablet) 0.5 mg PO TID PRN PRN Reason: Anxiety Last Admin: 08/06/22 06:33 Dose: 0.5 mg Divalproex Sodium (Divalproex Sodium Er 500 Mg Tab.Er.24h) 2,000 mg PO BEDTIME LORENZA Famotidine (Famotidine 20 Mg Tablet) 20 mg PO DAILY [facility] Last Admin: 08/06/22 09:27 Dose: Not Given Hydroxyzine HCl (Hydroxyzine Hcl 25 Mg Tablet) 25 mg PO Q6H PRN PRN Reason: Anxiety Magnesium Hydroxide (Milk Of Magnesia 30 Ml Oral.Susp) 30 ml PO DAILY PRN PRN Reason: Constipation Last Admin: 07/20/22 21:36 Dose: 30 ml Pt Own (Systane Eye (Drops)) 2 drop EYE-BOTH Q4H PRN PRN Reason: Dry Eyes Last Admin: 08/04/22 06:04 Dose: 2 drop Olanzapine (Olanzapine 2.5 Mg Tablet) 2.5 mg PO Q4H PRN PRN Reason: Psychosis Last Admin: 08/05/22 06:08 Dose: 2.5 mg Olanzapine (Olanzapine 10 Mg Tablet) 20 mg PO BEDTIME [facility] Last Admin: 08/05/22 22:20 Dose: 20 mg Polyethylene Glycol (Polyethylene Glycol 3350 17 Gm Powd.Pack) 238 gm PO ONCE LORENZA Trazodone HCl (Trazodone Hcl 50 Mg Tablet) 50 mg PO BEDTIME MRX1 PRN PRN Reason: Insomnia Last Admin: 07/21/22 23:49 Dose: 50 mg Vitamin D (Cholecalciferol (Vitamin D3) 25 Mcg Tablet) 50 mcg PO DAILY [facility] Last Admin: 08/06/22 09:27 Dose: Not Given Allergies Allergies Allergy/AdvReac Type Severity Reaction Status Date / Time risperidone [From RISPERDAL] Allergy Unknown UNKNOWN Verified 06/14/22 14:37 topiramate [From TOPAMAX] Allergy Unknown HEADACHE Verified 06/14/22 14:37 Assessment & Plan Assessment & Plan (1) Schizoaffective disorder, bipolar type: Status: Chronic Code(s): F25.0 - Schizoaffective disorder, bipolar type (2) Noncompliance with medication regimen: Status: Acute Code(s): Z91.148 - Patient's other noncompliance with medication regimen for other reason Plan Patient acutely psychotic disorganized irritable agitated floridly paranoid regarding his parents with whom he lives with. Not excepting medication or need for treatment patient does not except that he has mental illness need medication does not understand impact of his recent behavior that led to hospitalization encourage therapeutic [place] treatment acceptance patient has accepted previously olanzapine and Depakote 07/21: Continue current regimen and plans 07/22: Continue current plans 07/23: continue to offer VPA and olanzapine. filed for commitment. 07/24: continues to refuse medications. commitment hearing thursday 07/27 at 2 pm. 07/25: accepted zydis last night, appears more organized and less labile today. amenable to have another dose of zydis added in the morning, for a total of 10 BID. still refusing VPA, however. 07/26: accepting zyprexa 10 BID at the moment. refusing VPA. taking klonopin. court tomorrow. 07/27: committed and ordered medication in court. remains disorganized, bizarre. 07/28: taking zyprexa 10 BID. agreed to tegretol XR 200 BID, started this morning. 07/29: compliant with zyprexa and tegretol. clear improvement in manic Sx. 07/30: improvements in manic Sx continue. continue current mgmt. sleeping well, less irritable. 07/31: poor sleep last night. improvements in manic Sx continue. T/C increase in tegretol dosing after 5 days. 08/01: poor sleep, manic. increase tegretol to 300 BID as of tonight. 08/02: patient remains manic; guarded and ambivalent about medications; sba underwriter agreed to move medications to bedtime; encouraged patient to consider Depakote Change to Tegretol ER 600 mg q.h.s. Changed to Zyprexa 20 mg q.h.s. 08/03: remains symptomatic of beverly, attenuated from admission. continue current mgmt. 08/05: no changes 08/06: requesting DC of tegretol and start of VPA, which is accommodated. thorazine IM for refusal of VPA or zyprexa added. manic Sx reportedly continued with concerning severity over w/e. Patient educated on: medication risk/benefits Reason for continued inpatient stay Substantial Risk for: harm to self, harm to others, inability to function and rapid decompensation Time Spent With Patient Time: Total time managing care of this patient today _25___ minutes.
[2022-08-06] MEDS: Divalproex Sodium ER 500 MG TAB.ER.24H 2000 MG PO (22:07)
[2022-08-06] MEDS: OLANZapine 10 MG TABLET 20 MG PO (22:09)
--- NOTE | 2022-08-06 22:15 | PC.NURSE ---
Ryan is noted to be visible on the unit, he has an underlying irritability but require only minor redirection regarding becoming argumentative with this medical technical writer regarding vital signs and medications. patient was stating that I was not supposed to be talking about medications in front of other patients this medical technical writer redirected the patient that I was not discussing his medications just simply asking him what time he wanted me to give them to him. no further redirections have been required at this time. continue to monitor for safety, redirect for inappropriate behaviors as needed, continue Plan of Care
[2022-08-07] MEDS: clonazePAM 0.5 MG TABLET PO ×2 (06:46→21:51)
[2022-08-07] MEDS: Cholecalciferol (Vitamin D3) 25 MCG TABLET 50 MCG PO (08:39)
[2022-08-07 08:40] VITALS: RESP 20
--- NOTE | 2022-08-07 15:04 | HE.PHANOTE ---
Spoke with Dr. Guevara about patient own medication. Dr. Guevara order Divaloprex ER 500 mg tablets as a patient own. However patient brought in divaloprex DR 500 mg tablets. Since patient is on once a day dosing, Dr. Guevara wants to continue with the hospital supply of Divalproex ER tablets. Sayda brought PT Own triplicate form to pharmacy, and medication was place in safe in the pharmacy. Tiara Martinez, PharmD
--- NOTE | 2022-08-07 15:36 | HO.PSYCHPN ---
Subjective Subjective Date of Service: 08/07/22 Reason For Visit: Psychosis Interim History: calm, cooperative. loud. slept better last night, about 7 hours, he says. feeling pretty fuckin pissed off about being in the hospital still as he sees other patients coming and going. per staff, eves angry and irritable. loud at times. swearing at mother on the phone. slept about 7 hours. pleasant this morning. Mental Status Exam Mental Status Exam Narrative: adequately dressed and groomed. cooperative with interview. no PMA/PMR. speech nml in rate, nml amount. decr latency. incr loudness, nml tone. thoughts more organized. bizarre delusions. affect constricted, hyper-intense, non-labile. mood pretty fuckin pissed off. no SI/HI/AVH expressed. Diagnostics Vital Signs (24Hr): Vital Signs - 24 hr 08/07/22 08:40 Respiratory Rate 20 BMI result Body Mass Index 27.4 Labs 07/18/22 10:34 07/18/22 10:34 Imaging Radiology Impressions: ITS Impressions Soft Tissue Neck X-Ray 07/18/22 09:56 IMPRESSION: No acute abnormality. No evidence of radiopaque foreign body in the neck or upper chest. Foot X-Ray 07/23/22 14:00 IMPRESSION: Normal right foot. Medications Medications Current Medications Acetaminophen (Acetaminophen 325 Mg Tablet) 650 mg PO Q6H PRN PRN Reason: Headache/Pain Mild Scale (1-3) Last Admin: 08/04/22 05:18 Dose: 650 mg Al Hydroxide/Mg Hydroxide (Magnesium Hydrox/Alum Hydrox 30 Ml Oral.Susp) 30 ml PO Q6H PRN PRN Reason: Heartburn/Nausea Last Admin: 07/20/22 15:11 Dose: 30 ml Artificial Tears (Artificial Tears 15 Ml Drops) 2 drop EYE-BOTH TID PRN PRN Reason: Dry Eyes Bisacodyl (Bisacodyl 5 Mg Tablet.Dr) 10 mg PO ONCE [facility] Calcium Carbonate (Calcium Carbonate 750 Mg Tab.Chew) 750 mg PO Q4H PRN PRN Reason: GI Upset Last Admin: 08/05/22 18:10 Dose: 750 mg Chlorpromazine HCl (Chlorpromazine Hcl 25 Mg/Ml Ampul) 100 mg IM BEDTIME PRN PRN Reason: per lj's order Clonazepam (Clonazepam 0.5 Mg Tablet) 0.5 mg PO TID PRN PRN Reason: Anxiety Last Admin: 08/07/22 06:46 Dose: 0.5 mg Divalproex Sodium (Divalproex Sodium Er 500 Mg Tab.Er.24h) 2,000 mg PO BEDTIME [facility] Last Admin: 08/06/22 22:07 Dose: 2,000 mg Famotidine (Famotidine 20 Mg Tablet) 20 mg PO DAILY [facility] Last Admin: 08/07/22 08:41 Dose: Not Given Hydroxyzine HCl (Hydroxyzine Hcl 25 Mg Tablet) 25 mg PO Q6H PRN PRN Reason: Anxiety Magnesium Hydroxide (Milk Of Magnesia 30 Ml Oral.Susp) 30 ml PO DAILY PRN PRN Reason: Constipation Last Admin: 07/20/22 21:36 Dose: 30 ml Pt Own (Systane Eye (Drops)) 2 drop EYE-BOTH Q4H PRN PRN Reason: Dry Eyes Last Admin: 08/04/22 06:04 Dose: 2 drop Olanzapine (Olanzapine 2.5 Mg Tablet) 2.5 mg PO Q4H PRN PRN Reason: Psychosis Last Admin: 08/05/22 06:08 Dose: 2.5 mg Olanzapine (Olanzapine 10 Mg Tablet) 20 mg PO BEDTIME [facility] Last Admin: 08/06/22 22:09 Dose: 20 mg Polyethylene Glycol (Polyethylene Glycol 3350 17 Gm Powd.Pack) 238 gm PO ONCE [facility] Trazodone HCl (Trazodone Hcl 50 Mg Tablet) 50 mg PO BEDTIME MRX1 PRN PRN Reason: Insomnia Last Admin: 07/21/22 23:49 Dose: 50 mg Vitamin D (Cholecalciferol (Vitamin D3) 25 Mcg Tablet) 50 mcg PO DAILY [facility] Last Admin: 08/07/22 08:39 Dose: 50 mcg Allergies Allergies Allergy/AdvReac Type Severity Reaction Status Date / Time risperidone [From RISPERDAL] Allergy Unknown UNKNOWN Verified 06/14/22 14:37 topiramate [From TOPAMAX] Allergy Unknown HEADACHE Verified 06/14/22 14:37 Assessment & Plan Assessment & Plan (1) Schizoaffective disorder, bipolar type: Status: Chronic Code(s): F25.0 - Schizoaffective disorder, bipolar type (2) Noncompliance with medication regimen: Status: Acute Code(s): Z91.148 - Patient's other noncompliance with medication regimen for other reason Plan Patient acutely psychotic disorganized irritable agitated floridly paranoid regarding his parents with whom he lives with. Not excepting medication or need for treatment patient does not except that he has mental illness need medication does not understand impact of his recent behavior that led to hospitalization encourage therapeutic [place] treatment acceptance patient has accepted previously olanzapine and Depakote 07/21: Continue current regimen and plans 07/22: Continue current plans 07/23: continue to offer VPA and olanzapine. filed for commitment. 07/24: continues to refuse medications. commitment hearing thursday 07/27 at 2 pm. 07/25: accepted zydis last night, appears more organized and less labile today. amenable to have another dose of zydis added in the morning, for a total of 10 BID. still refusing VPA, however. 07/26: accepting zyprexa 10 BID at the moment. refusing VPA. taking klonopin. court tomorrow. 07/27: committed and ordered medication in court. remains disorganized, bizarre. 07/28: taking zyprexa 10 BID. agreed to tegretol XR 200 BID, started this morning. 07/29: compliant with zyprexa and tegretol. clear improvement in manic Sx. 07/30: improvements in manic Sx continue. continue current mgmt. sleeping well, less irritable. 07/31: poor sleep last night. improvements in manic Sx continue. T/C increase in tegretol dosing after 5 days. 08/01: poor sleep, manic. increase tegretol to 300 BID as of tonight. 08/02: patient remains manic; guarded and ambivalent about medications; television script writer agreed to move medications to bedtime; encouraged patient to consider Depakote Change to Tegretol ER 600 mg q.h.s. Changed to Zyprexa 20 mg q.h.s. 08/03: remains symptomatic of beverly, attenuated from admission. continue current mgmt. 08/05: no changes 08/06: requesting DC of tegretol and start of VPA, which is accommodated. thorazine IM for refusal of VPA or zyprexa added. manic Sx reportedly continued with concerning severity over w/e. 08/07: slept better last night on VPA, more pleasant this morning. continue current mgmt. Reason for continued inpatient stay Substantial Risk for: harm to self, harm to others, inability to function and rapid decompensation Time Spent With Patient Time: Total time managing care of this patient today __25__ minutes.
[2022-08-07 18:00] VITALS: BP 122/74; PULSE 110; TEMP 37.1; O2SAT 97
[2022-08-07] MEDS: Calcium Carbonate 750 MG TAB.CHEW PO (20:02)
[2022-08-07] MEDS: Divalproex Sodium ER 500 MG TAB.ER.24H 2000 MG PO (20:16)
[2022-08-07] MEDS: OLANZapine 10 MG TABLET 20 MG PO (20:17)
[2022-08-08] MEDS: OLANZapine 2.5 MG TABLET PO (02:25)
[2022-08-08] MEDS: clonazePAM 0.5 MG TABLET PO ×2 (02:25→21:33)
--- NOTE | 2022-08-08 15:20 | HO.PSYCHPN ---
Subjective Subjective Date of Service: 08/08/22 Reason For Visit: Psychosis Interim History: calm, cooperative. appears incrementally improved. c/o problems sleeping last night 2/2 hemorrhoidal pain. interested in cream. per staff, not attending groups. pacing, wandering. safe. grandiose. non-sensical at times. TV eves. mumbling to self. 0200 loud in the milieu, verbal altercation with irritable peer. Mental Status Exam Mental Status Exam Narrative: adequately dressed and groomed. cooperative with interview. no PMA/PMR. speech nml in rate, nml amount. decr latency. incr loudness, nml tone. thoughts more organized. affect constricted, normo-intense, non-labile. no SI/HI/AVH expressed. Diagnostics Vital Signs (24Hr): Vital Signs - 24 hr 08/07/22 18:00 Temperature 98.7 F Pulse Rate 110 H Blood Pressure 122/74 Pulse Oximetry 97 Oxygen Delivery Method Room Air BMI result Body Mass Index 27.4 Labs 07/18/22 10:34 07/18/22 10:34 Imaging Radiology Impressions: ITS Impressions Soft Tissue Neck X-Ray 07/18/22 09:56 IMPRESSION: No acute abnormality. No evidence of radiopaque foreign body in the neck or upper chest. Foot X-Ray 07/23/22 14:00 IMPRESSION: Normal right foot. Medications Medications Current Medications Acetaminophen (Acetaminophen 325 Mg Tablet) 650 mg PO Q6H PRN PRN Reason: Headache/Pain Mild Scale (1-3) Last Admin: 08/04/22 05:18 Dose: 650 mg Al Hydroxide/Mg Hydroxide (Magnesium Hydrox/Alum Hydrox 30 Ml Oral.Susp) 30 ml PO Q6H PRN PRN Reason: Heartburn/Nausea Last Admin: 07/20/22 15:11 Dose: 30 ml Artificial Tears (Artificial Tears 15 Ml Drops) 2 drop EYE-BOTH TID PRN PRN Reason: Dry Eyes Bisacodyl (Bisacodyl 5 Mg Tablet.Dr) 10 mg PO ONCE [facility] Calcium Carbonate (Calcium Carbonate 750 Mg Tab.Chew) 750 mg PO Q4H PRN PRN Reason: GI Upset Last Admin: 08/07/22 20:02 Dose: 750 mg Chlorpromazine HCl (Chlorpromazine Hcl 25 Mg/Ml Ampul) 100 mg IM BEDTIME PRN PRN Reason: per lj's order Clonazepam (Clonazepam 0.5 Mg Tablet) 0.5 mg PO TID PRN PRN Reason: Anxiety Last Admin: 08/08/22 02:25 Dose: 0.5 mg Divalproex Sodium (Divalproex Sodium Er 500 Mg Tab.Er.24h) 2,000 mg PO BEDTIME [facility] Last Admin: 08/07/22 20:16 Dose: 2,000 mg Famotidine (Famotidine 20 Mg Tablet) 20 mg PO DAILY [facility] Last Admin: 08/08/22 09:31 Dose: Not Given Hydrocortisone (Hydrocortisone 2.5 % Rectal Cr 30 Gm Tube) 1 appl NM BID [facility] Stop: 08/15/22 11:54 Last Admin: 08/08/22 14:38 Dose: Not Given Hydroxyzine HCl (Hydroxyzine Hcl 25 Mg Tablet) 25 mg PO Q6H PRN PRN Reason: Anxiety Magnesium Hydroxide (Milk Of Magnesia 30 Ml Oral.Susp) 30 ml PO DAILY PRN PRN Reason: Constipation Last Admin: 07/20/22 21:36 Dose: 30 ml Pt Own (Systane Eye (Drops)) 2 drop EYE-BOTH Q4H PRN PRN Reason: Dry Eyes Last Admin: 08/04/22 06:04 Dose: 2 drop Olanzapine (Olanzapine 2.5 Mg Tablet) 2.5 mg PO Q4H PRN PRN Reason: Psychosis Last Admin: 08/08/22 02:25 Dose: 2.5 mg Olanzapine (Olanzapine 10 Mg Tablet) 20 mg PO BEDTIME [facility] Last Admin: 08/07/22 20:17 Dose: 20 mg Polyethylene Glycol (Polyethylene Glycol 3350 17 Gm Powd.Pack) 238 gm PO ONCE [facility] Trazodone HCl (Trazodone Hcl 50 Mg Tablet) 50 mg PO BEDTIME MRX1 PRN PRN Reason: Insomnia Last Admin: 07/21/22 23:49 Dose: 50 mg Vitamin D (Cholecalciferol (Vitamin D3) 25 Mcg Tablet) 50 mcg PO DAILY [facility] Last Admin: 08/08/22 09:31 Dose: Not Given Allergies Allergies Allergy/AdvReac Type Severity Reaction Status Date / Time risperidone [From RISPERDAL] Allergy Unknown UNKNOWN Verified 06/14/22 14:37 topiramate [From TOPAMAX] Allergy Unknown HEADACHE Verified 06/14/22 14:37 Assessment & Plan Assessment & Plan (1) Schizoaffective disorder, bipolar type: Status: Chronic Code(s): F25.0 - Schizoaffective disorder, bipolar type (2) Noncompliance with medication regimen: Status: Acute Code(s): Z91.148 - Patient's other noncompliance with medication regimen for other reason Plan Patient acutely psychotic disorganized irritable agitated floridly paranoid regarding his parents with whom he lives with. Not excepting medication or need for treatment patient does not except that he has mental illness need medication does not understand impact of his recent behavior that led to hospitalization encourage therapeutic [place] treatment acceptance patient has accepted previously olanzapine and Depakote 07/21: Continue current regimen and plans 07/22: Continue current plans 07/23: continue to offer VPA and olanzapine. filed for commitment. 07/24: continues to refuse medications. commitment hearing thursday 07/27 at 2 pm. 07/25: accepted zydis last night, appears more organized and less labile today. amenable to have another dose of zydis added in the morning, for a total of 10 BID. still refusing VPA, however. 07/26: accepting zyprexa 10 BID at the moment. refusing VPA. taking klonopin. court tomorrow. 07/27: committed and ordered medication in court. remains disorganized, bizarre. 07/28: taking zyprexa 10 BID. agreed to tegretol XR 200 BID, started this morning. 07/29: compliant with zyprexa and tegretol. clear improvement in manic Sx. 07/30: improvements in manic Sx continue. continue current mgmt. sleeping well, less irritable. 07/31: poor sleep last night. improvements in manic Sx continue. T/C increase in tegretol dosing after 5 days. 08/01: poor sleep, manic. increase tegretol to 300 BID as of tonight. 08/02: patient remains manic; guarded and ambivalent about medications; headline writer agreed to move medications to bedtime; encouraged patient to consider Depakote Change to Tegretol ER 600 mg q.h.s. Changed to Zyprexa 20 mg q.h.s. 08/03: remains symptomatic of beverly, attenuated from admission. continue current mgmt. 08/05: no changes 08/06: requesting DC of tegretol and start of VPA, which is accommodated. thorazine IM for refusal of VPA or zyprexa added. manic Sx reportedly continued with concerning severity over /. 08/07: slept better last night on VPA, more pleasant this morning. continue current mgmt. 08/08: poor sleep 2/2 hemorrhoid pain. steroid cream Rxed today. appearing slightly improved today. Reason for continued inpatient stay Substantial Risk for: inability to function and rapid decompensation Time Spent With Patient Time: Total time managing care of this patient today __25__ minutes.
[2022-08-08] MEDS: Calcium Carbonate 750 MG TAB.CHEW PO (18:06)
[2022-08-08] MEDS: OLANZapine 10 MG TABLET 20 MG PO (21:32)
[2022-08-08] MEDS: Hydrocortisone 2.5 % Rectal Cr 30 GM TUBE 1 APPL PR (21:32)
[2022-08-08] MEDS: Divalproex Sodium ER 500 MG TAB.ER.24H 2000 MG PO (21:32)
[2022-08-08 21:36] VITALS: BP 162/89; PULSE 110; TEMP 36.6; O2SAT 98
[2022-08-08] MEDS: hydrOXYzine HCL 25 MG TABLET PO (23:05)
[2022-08-09] MEDS: Acetaminophen 325 MG TABLET 650 MG PO (05:19)
[2022-08-09 06:00] VITALS: RESP 16
[2022-08-09] MEDS: Cholecalciferol (Vitamin D3) 25 MCG TABLET 50 MCG PO (10:05)
--- NOTE | 2022-08-09 15:32 | P.PNPSI_ITS ---
Subjective Subjective Date of Service: 08/09/22 Reason For Visit: Psychosis Interim History: incremental progress re manic Sx. per staff, improved behavior. Mental Status Exam Mental Status Exam Narrative: adequately dressed and groomed. cooperative with interview. no PMA/PMR. speec h nml in rate, nml amount. decr latency. incr loudness, nml tone. thoughts more organized. affect constricted, normo-intense, non-labile. no SI/HI/AVH expressed. Diagnostics Vital Signs (24Hr): Vital Signs - 24 hr 08/08/22 21:36 08/09/22 06:00 Temperature 97.8 F Pulse Rate 110 H Respiratory Rate 16 Blood Pressure 162/89 H Pulse Oximetry 98 Oxygen Delivery Method Room Air BMI result Body Mass Index 27.4 Labs 07/18/22 10:34 07/18/22 10:34 Imaging Radiology Impressions: ITS Impressions Soft Tissue Neck X-Ray 07/18/22 09:56 IMPRESSION: No acute abnormality. No evidence of radiopaque foreign body in the neck or upper chest. Foot X-Ray 07/23/22 14:00 IMPRESSION: Normal right foot. Medications Medications Current Medications Acetaminophen (Acetaminophen 325 Mg Tablet) 650 mg PO Q6H PRN PRN Reason: Headache/Pain Mild Scale (1-3) Last Admin: 08/09/22 05:19 Dose: 650 mg Al Hydroxide/Mg Hydroxide (Magnesium Hydrox/Alum Hydrox 30 Ml Oral.Susp) 30 ml PO Q6H PRN PRN Reason: Heartburn/Nausea Last Admin: 07/20/22 15:11 Dose: 30 ml Artificial Tears (Artificial Tears 15 Ml Drops) 2 drop EYE-BOTH TID PRN PRN Reason: Dry Eyes Bisacodyl (Bisacodyl 5 Mg Tablet.Dr) 10 mg PO ONCE [facility] Calcium Carbonate (Calcium Carbonate 750 Mg Tab.Chew) 750 mg PO Q4H PRN PRN Reason: GI Upset Last Admin: 08/08/22 18:06 Dose: 750 mg Chlorpromazine HCl (Chlorpromazine Hcl 25 Mg/Ml Ampul) 100 mg IM BEDTIME PRN PRN Reason: per lj's order Clonazepam (Clonazepam 0.5 Mg Tablet) 0.5 mg PO TID PRN PRN Reason: Anxiety Last Admin: 08/08/22 21:33 Dose: 0.5 mg Divalproex Sodium (Divalproex Sodium Er 500 Mg Tab.Er.24h) 2,000 mg PO BEDTIME [facility] Last Admin: 08/08/22 21:32 Dose: 2,000 mg Famotidine (Famotidine 20 Mg Tablet) 20 mg PO DAILY [facility] Last Admin: 08/09/22 10:05 Dose: Not Given Hydrocortisone (Hydrocortisone 2.5 % Rectal Cr 30 Gm Tube) 1 appl AR BID [facility] Stop: 08/15/22 11:54 Last Admin: 08/09/22 10:05 Dose: Not Given Hydroxyzine HCl (Hydroxyzine Hcl 25 Mg Tablet) 25 mg PO Q6H PRN PRN Reason: Anxiety Last Admin: 08/08/22 23:05 Dose: 25 mg Magnesium Hydroxide (Milk Of Magnesia 30 Ml Oral.Susp) 30 ml PO DAILY PRN PRN Reason: Constipation Last Admin: 07/20/22 21:36 Dose: 30 ml Pt Own (Systane Eye (Drops)) 2 drop EYE-BOTH Q4H PRN PRN Reason: Dry Eyes Last Admin: 08/04/22 06:04 Dose: 2 drop Olanzapine (Olanzapine 2.5 Mg Tablet) 2.5 mg PO Q4H PRN PRN Reason: Psychosis Last Admin: 08/08/22 02:25 Dose: 2.5 mg Olanzapine (Olanzapine 10 Mg Tablet) 20 mg PO BEDTIME [facility] Last Admin: 08/08/22 21:32 Dose: 20 mg Polyethylene Glycol (Polyethylene Glycol 3350 17 Gm Powd.Pack) 238 gm PO ONCE [facility] Trazodone HCl (Trazodone Hcl 50 Mg Tablet) 50 mg PO BEDTIME MRX1 PRN PRN Reason: Insomnia Last Admin: 07/21/22 23:49 Dose: 50 mg Vitamin D (Cholecalciferol (Vitamin D3) 25 Mcg Tablet) 50 mcg PO DAILY [facility] Last Admin: 08/09/22 10:05 Dose: 50 mcg Allergies Allergies Allergy/AdvReac Type Severity Reaction Status Date / Time risperidone [From RISPERDAL] Allergy Unknown UNKNOWN Verified 06/14/22 14:37 topiramate [From TOPAMAX] Allergy Unknown HEADACHE Verified 06/14/22 14:37 Assessment & Plan Assessment & Plan (1) Schizoaffective disorder, bipolar type: Status: Chronic Code(s): F25.0 - Schizoaffective disorder, bipolar type (2) Noncompliance with medication regimen: Status: Acute Code(s): Z91.148 - Patient's other noncompliance with medication regimen for other reason Plan Patient acutely psychotic disorganized irritable agitated floridly paranoid regarding his parents with whom he lives with. Not excepting medication or need for treatment patient does not except that he has mental illness need medication does not understand impact of his recent behavior that led to hospitalization encourage therapeutic [place] treatment acceptance patient has accepted previously olanzapine and Depakote 07/21: Continue current regimen and plans 07/22: Continue current plans 07/23: continue to offer VPA and olanzapine. filed for commitment. 07/24: continues to refuse medications. commitment hearing thursday 07/27 at 2 pm. 07/25: accepted zydis last night, appears more organized and less labile today. amenable to have another dose of zydis added in the morning, for a total of 10 BID. still refusing VPA, however. 07/26: accepting zyprexa 10 BID at the moment. refusing VPA. taking klonopin. court tomorrow. 07/27: committed and ordered medication in court. remains disorganized, bizarre. 07/28: taking zyprexa 10 BID. agreed to tegretol XR 200 BID, started this morning. 07/29: compliant with zyprexa and tegretol. clear improvement in manic Sx. 07/30: improvements in manic Sx continue. continue current mgmt. sleeping well, less irritable. 07/31: poor sleep last night. improvements in manic Sx continue. T/C increase in tegretol dosing after 5 days. 08/01: poor sleep, manic. increase tegretol to 300 BID as of tonight. 08/02: patient remains manic; guarded and ambivalent about medications; selling underwriter agreed to move medications to bedtime; encouraged patient to consider Depakote Change to Tegretol ER 600 mg q.h.s. Changed to Zyprexa 20 mg q.h.s. 08/03: remains symptomatic of beverly, attenuated from admission. continue current mgmt. 08/05: no changes 08/06: requesting DC of tegretol and start of VPA, which is accommodated. thorazine IM for refusal of VPA or zyprexa added. manic Sx reportedly continued with concerning severity over w/e. 08/07: slept better last night on VPA, more pleasant this morning. continue current mgmt. 08/08: poor sleep 2/2 hemorrhoid pain. steroid cream Rxed today. appearing slightly improved today. 08/09: steroid cream helpful. gradual improvement in manic Sx. continue current mgmt. Reason for continued inpatient stay Substantial Risk for: harm to self, harm to others, inability to function and rapid decompensation Time Spent With Patient Time: Total time managing care of this patient today ____ minutes.
[2022-08-09] MEDS: clonazePAM 0.5 MG TABLET PO ×2 (15:52→22:04)
[2022-08-09 20:33] VITALS: BP 140/82; PULSE 108; RESP 18; TEMP 36.3; O2SAT 98
[2022-08-09] MEDS: Divalproex Sodium ER 500 MG TAB.ER.24H 2000 MG PO (22:03)
[2022-08-09] MEDS: OLANZapine 10 MG TABLET 20 MG PO (22:04)
[2022-08-09] MEDS: Hydrocortisone 2.5 % Rectal Cr 30 GM TUBE 1 APPL PR (22:10)
[2022-08-10 12:15] VITALS: BMI 27.8
--- NOTE | 2022-08-10 15:47 | P.PNPSI_ITS ---
Subjective Subjective Date of Service: 08/10/22 Reason For Visit: Psychosis Interim History: napping late morning. states he gets sleepy after eating (breakfast had been a couple hours prior), which he blames on the VPA formulation. planning to have labs checked saturday morenita. no other complaints or requests. per staff, pleasant on days. loud and swearing NOC shift. meds and meals [id number]. attended a group. slept on and off throughout the night. up at 0500. Mental Status Exam Mental Status Exam Narrative: adequately dressed and groomed. cooperative with interview. no PMA/PMR. speech nml in rate, nml amount. nml latency. incr loudness, nml tone. thoughts more organized. affect constricted, normo-intense, non-labile. no SI/HI/AVH expressed. Diagnostics Vital Signs (24Hr): Vital Signs - 24 hr 08/09/22 20:33 Temperature 97.4 F Pulse Rate 108 H Respiratory Rate 18 Blood Pressure 140/82 H Pulse Oximetry 98 Oxygen Delivery Method Room Air BMI result Body Mass Index 27.8 Labs 07/18/22 10:34 07/18/22 10:34 Imaging Radiology Impressions: ITS Impressions Soft Tissue Neck X-Ray 07/18/22 09:56 IMPRESSION: No acute abnormality. No evidence of radiopaque foreign body in the neck or upper chest. Foot X-Ray 07/23/22 14:00 IMPRESSION: Normal right foot. Medications Medications Current Medications Acetaminophen (Acetaminophen 325 Mg Tablet) 650 mg PO Q6H PRN PRN Reason: Headache/Pain Mild Scale (1-3) Last Admin: 08/09/22 05:19 Dose: 650 mg Al Hydroxide/Mg Hydroxide (Magnesium Hydrox/Alum Hydrox 30 Ml Oral.Susp) 30 ml PO Q6H PRN PRN Reason: Heartburn/Nausea Last Admin: 07/20/22 15:11 Dose: 30 ml Artificial Tears (Artificial Tears 15 Ml Drops) 2 drop EYE-BOTH TID PRN PRN Reason: Dry Eyes Bisacodyl (Bisacodyl 5 Mg Tablet.Dr) 10 mg PO ONCE LORENZA Calcium Carbonate (Calcium Carbonate 750 Mg Tab.Chew) 750 mg PO Q4H PRN PRN Reason: GI Upset Last Admin: 08/08/22 18:06 Dose: 750 mg Chlorpromazine HCl (Chlorpromazine Hcl 25 Mg/Ml Ampul) 100 mg IM BEDTIME PRN PRN Reason: per lj's order Clonazepam (Clonazepam 0.5 Mg Tablet) 0.5 mg PO TID PRN PRN Reason: Anxiety Last Admin: 08/09/22 22:04 Dose: 0.5 mg Divalproex Sodium (Divalproex Sodium Er 500 Mg Tab.Er.24h) 2,000 mg PO BEDTIME LORENZA Last Admin: 08/09/22 22:03 Dose: 2,000 mg Famotidine (Famotidine 20 Mg Tablet) 20 mg PO DAILY LORENZA Last Admin: 08/10/22 09:55 Dose: Not Given Hydrocortisone (Hydrocortisone 2.5 % Rectal Cr 30 Gm Tube) 1 appl [place] BID LORENZA Stop: 08/15/22 11:54 Last Admin: 08/10/22 09:55 Dose: Not Given Hydroxyzine HCl (Hydroxyzine Hcl 25 Mg Tablet) 25 mg PO Q6H PRN PRN Reason: Anxiety Last Admin: 08/08/22 23:05 Dose: 25 mg Magnesium Hydroxide (Milk Of Magnesia 30 Ml Oral.Susp) 30 ml PO DAILY PRN PRN Reason: Constipation Last Admin: 07/20/22 21:36 Dose: 30 ml Pt Own (Systane Eye (Drops)) 2 drop EYE-BOTH Q4H PRN PRN Reason: Dry Eyes Last Admin: 08/10/22 05:49 Dose: 2 drop Olanzapine (Olanzapine 2.5 Mg Tablet) 2.5 mg PO Q4H PRN PRN Reason: Psychosis Last Admin: 08/08/22 02:25 Dose: 2.5 mg Olanzapine (Olanzapine 10 Mg Tablet) 20 mg PO BEDTIME LORENZA Last Admin: 08/09/22 22:04 Dose: 20 mg Polyethylene Glycol (Polyethylene Glycol 3350 17 Gm Powd.Pack) 238 gm PO ONCE LORENZA Trazodone HCl (Trazodone Hcl 50 Mg Tablet) 50 mg PO BEDTIME MRX1 PRN PRN Reason: Insomnia Last Admin: 07/21/22 23:49 Dose: 50 mg Vitamin D (Cholecalciferol (Vitamin D3) 25 Mcg Tablet) 50 mcg PO DAILY LORENZA Last Admin: 08/10/22 09:55 Dose: Not Given Allergies Allergies Allergy/AdvReac Type Severity Reaction Status Date / Time risperidone [From RISPERDAL] Allergy Unknown UNKNOWN Verified 06/14/22 14:37 topiramate [From TOPAMAX] Allergy Unknown HEADACHE Verified 06/14/22 14:37 Assessment & Plan Assessment & Plan (1) Schizoaffective disorder, bipolar type: Status: Chronic Code(s): F25.0 - Schizoaffective disorder, bipolar type (2) Noncompliance with medication regimen: Status: Acute Code(s): Z91.148 - Patient's other noncompliance with medication regimen for other reason Plan Patient acutely psychotic disorganized irritable agitated floridly paranoid regarding his parents with whom he lives with. Not excepting medication or need for treatment patient does not except that he has mental illness need medication does not understand impact of his recent behavior that led to hospitalization encourage therapeutic [place] treatment acceptance patient has accepted previously olanzapine and Depakote 07/21: Continue current regimen and plans 07/22: Continue current plans 07/23: continue to offer VPA and olanzapine. filed for commitment. 07/24: continues to refuse medications. commitment hearing thursday 07/27 at 2 pm. 07/25: accepted zydis last night, appears more organized and less labile today. amenable to have another dose of zydis added in the morning, for a total of 10 BID. still refusing VPA, however. 07/26: accepting zyprexa 10 BID at the moment. refusing VPA. taking klonopin. court tomorrow. 07/27: committed and ordered medication in court. remains disorganized, bizarre. 07/28: taking zyprexa 10 BID. agreed to tegretol XR 200 BID, started this mor [facility]. 07/29: compliant with zyprexa and tegretol. clear improvement in manic Sx. 07/30: improvements in manic Sx continue. continue current mgmt. sleeping well, less irritable. 2: poor sleep last night. improvements in manic Sx continue. T/C increase in tegretol dosing after 5 days. 08/01: poor sleep, manic. increase tegretol to 300 BID as of tonight. 08/02: patient remains manic; guarded and ambivalent about medications; medical writer agreed to move medications to bedtime; encouraged patient to consider Depakote Change to Tegretol ER 600 mg q.h.s. Changed to Zyprexa 20 mg q.h.s. 08/03: remains symptomatic of beverly, attenuated from admission. continue current mgmt. 08/05: no changes 08/06: requesting DC of tegretol and start of VPA, which is accommodated. thorazine IM for refusal of VPA or zyprexa added. manic Sx reportedly continued with concerning severity over w/e. 08/07: slept better last night on VPA, more pleasant this morning. continue current mgmt. 08/08: poor sleep 2/2 hemorrhoid pain. steroid cream Rxed today. appearing slightly improved today. 08/09: steroid cream helpful. gradual improvement in manic Sx. continue current mgmt. 08/10: continue current mgmt. gradual improvements. check labs saturday morenita (ordered). Reason for continued inpatient stay Substantial Risk for: harm to self, harm to others, inability to function and rapid decompensation Time Spent With Patient Time: Total time managing care of this patient today __25__ minutes.
[2022-08-10] MEDS: clonazePAM 0.5 MG TABLET PO ×2 (16:19→22:18)
[2022-08-10 21:27] VITALS: BP 129/70; PULSE 100; RESP 18; TEMP 36.3; O2SAT 98
[2022-08-10] MEDS: Divalproex Sodium ER 500 MG TAB.ER.24H 2000 MG PO (22:18)
[2022-08-10] MEDS: OLANZapine 10 MG TABLET 20 MG PO (22:18)
[2022-08-11 08:30] VITALS: RESP 18
[2022-08-11] MEDS: Famotidine 20 MG TABLET PO (09:12)
[2022-08-11] MEDS: Cholecalciferol (Vitamin D3) 25 MCG TABLET 50 MCG PO (09:13)
--- NOTE | 2022-08-11 10:10 | P.PNPSI_ITS ---
Subjective Subjective Date of Service: 08/11/22 Reason For Visit: Psychosis Medical Problems Affecting Mental Status: No Interim History: Patient remembers me as the psychiatrist that started him on prolixin years ago - found it to be terrible not on that now- reports here due to conflicts with parents that they are stealing money he won gambling. He reports he slept- 6 hrs, then naps in day - too much going on on unit. Nursing reports he was less disorganized Medication Compliance: Yes Side effects from medications: No Attending Groups: Intermittent Review of Systems Acute medical concerns: No Medical Review of Systems: unchanged Mental Status Exam Mental Status Exam Patient Appearance: Disheveled Patient Orientation: Person, Place, Time and Situation Level of Consciousness: Awake and Restless Patient Behavior: Talkative Mood Description: Hostile (mildly) Affect Description: Blunted Patient Cognition Impaired: No Ability to Follow Directions: Fair Speech Pattern: Rambling and Excessive Hallucinations: None Thought Process: Distracted Thought Content: positive for Tangential and positive for Disorganized Abnormal Motor Activity Signs and Symptoms: Restlessness Judgement: Poor Diagnostics Vital Signs (24Hr): Vital Signs - 24 hr 08/10/22 21:27 08/11/22 08:30 Temperature 97.4 F Pulse Rate 100 Respiratory Rate 18 18 Blood Pressure 129/70 Pulse Oximetry 98 Oxygen Delivery Method Room Air BMI result Body Mass Index 27.8 Labs 07/18/22 10:34 07/18/22 10:34 Imaging Radiology Impressions: ITS Impressions Soft Tissue Neck X-Ray 07/18/22 09:56 IMPRESSION: No acute abnormality. No evidence of radiopaque foreign body in the neck or upper chest. Foot X-Ray 07/23/22 14:00 IMPRESSION: Normal right foot. Medications Medications Current Medications Acetaminophen (Acetaminophen 325 Mg Tablet) 650 mg PO Q6H PRN PRN Reason: Headache/Pain Mild Scale (1-3) Last Admin: 08/09/22 05:19 Dose: 650 mg Al Hydroxide/Mg Hydroxide (Magnesium Hydrox/Alum Hydrox 30 Ml Oral.Susp) 30 ml PO Q6H PRN PRN Reason: Heartburn/Nausea Last Admin: 07/20/22 15:11 Dose: 30 ml Artificial Tears (Artificial Tears 15 Ml Drops) 2 drop EYE-BOTH TID PRN PRN Reason: Dry Eyes Bisacodyl (Bisacodyl 5 Mg Tablet.Dr) 10 mg PO ONCE LORENZA Calcium Carbonate (Calcium Carbonate 750 Mg Tab.Chew) 750 mg PO Q4H PRN PRN Reason: GI Upset Last Admin: 08/08/22 18:06 Dose: 750 mg Chlorpromazine HCl (Chlorpromazine Hcl 25 Mg/Ml Ampul) 100 mg IM BEDTIME PRN PRN Reason: per lj's order Clonazepam (Clonazepam 0.5 Mg Tablet) 0.5 mg PO TID PRN PRN Reason: Anxiety Last Admin: 08/10/22 22:18 Dose: 0.5 mg Divalproex Sodium (Divalproex Sodium Er 500 Mg Tab.Er.24h) 2,000 mg PO BEDTIME LORENZA Last Admin: 08/10/22 22:18 Dose: 2,000 mg Famotidine (Famotidine 20 Mg Tablet) 20 mg PO DAILY LORENZA Last Admin: 08/11/22 09:12 Dose: 20 mg Hydrocortisone (Hydrocortisone 2.5 % Rectal Cr 30 Gm Tube) 1 appl [place] BID LORENZA Stop: 08/15/22 11:54 Last Admin: 08/10/22 23:17 Dose: Not Given Hydroxyzine HCl (Hydroxyzine Hcl 25 Mg Tablet) 25 mg PO Q6H PRN PRN Reason: Anxiety Last Admin: 08/08/22 23:05 Dose: 25 mg Magnesium Hydroxide (Milk Of Magnesia 30 Ml Oral.Susp) 30 ml PO DAILY PRN PRN Reason: Constipation Last Admin: 07/20/22 21:36 Dose: 30 ml Pt Own (Systane Eye (Drops)) 2 drop EYE-BOTH Q4H PRN PRN Reason: Dry Eyes Last Admin: 08/10/22 05:49 Dose: 2 drop Olanzapine (Olanzapine 2.5 Mg Tablet) 2.5 mg PO Q4H PRN PRN Reason: Psychosis Last Admin: 08/08/22 02:25 Dose: 2.5 mg Olanzapine (Olanzapine 10 Mg Tablet) 20 mg PO BEDTIME LORENZA Last Admin: 08/10/22 22:18 Dose: 20 mg Polyethylene Glycol (Polyethylene Glycol 3350 17 Gm Powd.Pack) 238 gm PO ONCE LORENZA Trazodone HCl (Trazodone Hcl 50 Mg Tablet) 50 mg PO BEDTIME MRX1 PRN PRN Reason: Insomnia Last Admin: 07/21/22 23:49 Dose: 50 mg Vitamin D (Cholecalciferol (Vitamin D3) 25 Mcg Tablet) 50 mcg PO DAILY LORENZA Last Admin: 08/11/22 09:13 Dose: 50 mcg Allergies Allergies Allergy/AdvReac Type Severity Reaction Status Date / Time risperidone [From RISPERDAL] Allergy Unknown UNKNOWN Verified 06/14/22 14:37 topiramate [From TOPAMAX] Allergy Unknown HEADACHE Verified 06/14/22 14:37 Assessment & Plan Assessment & Plan (1) Schizoaffective disorder, bipolar type: Status: Chronic Code(s): F25.0 - Schizoaffective disorder, bipolar type (2) Noncompliance with medication regimen: Status: Acute Code(s): Z91.148 - Patient's other noncompliance with medication regimen for other reason Plan Patient acutely psychotic disorganized irritable agitated floridly paranoid regarding his parents with whom he lives with. Not excepting medication or need for treatment patient does not except that he has mental illness need medication does not understand impact of his recent behavior that led to hospitalization encourage therapeutic [place] treatment acceptance patient has accepted previously olanzapine and Depakote 07/21: Continue current regimen and plans 07/22: Continue current plans 07/23: continue to offer VPA and olanzapine. filed for commitment. 07/24: continues to refuse medications. commitment hearing thursday 07/27 at 2 pm. 07/25: accepted zydis last night, appears more organized and less labile today. amenable to have another dose of zydis added in the morning, for a total of 10 BID. still refusing VPA, however. 07/26: accepting zyprexa 10 BID at the moment. refusing VPA. taking klonopin. court tomorrow. 07/27: committed and ordered medication in court. remains disorganized, bizarre. 07/28: taking zyprexa 10 BID. agreed to tegretol XR 200 BID, started this beatriz stevenson. 07/29: compliant with zyprexa and tegretol. clear improvement in manic Sx. 07/30: improvements in manic Sx continue. continue current mgmt. sleeping well, less irritable. 2: poor sleep last night. improvements in manic Sx continue. T/C increase in tegretol dosing after 5 days. 08/01: poor sleep, manic. increase tegretol to 300 BID as of tonight. 08/02: patient remains manic; guarded and ambivalent about medications; video games storywriter agreed to move medications to bedtime; encouraged patient to consider Depakote Change to Tegretol ER 600 mg q.h.s. Changed to Zyprexa 20 mg q.h.s. 08/03: remains symptomatic of beverly, attenuated from admission. continue current mgmt. 08/05: no changes 08/06: requesting DC of tegretol and start of VPA, which is accommodated. thorazine IM for refusal of VPA or zyprexa added. manic Sx reportedly continued with concerning severity over w/e. 08/07: slept better last night on VPA, more pleasant this morning. continue current mgmt. 08/08: poor sleep 2/2 hemorrhoid pain. steroid cream Rxed today. appearing slightly improved today. 08/09: steroid cream helpful. gradual improvement in manic Sx. continue current mgmt. 08/10: continue current mgmt. gradual improvements. check labs saturday morenita (ordered). Patient educated on: medication risk/benefits and other Informed Consent: further education needed Reason for continued inpatient stay Substantial Risk for: inability to function and rapid decompensation Time Spent With Patient Time: Total time managing care of this patient today ____ minutes.
[2022-08-11] MEDS: clonazePAM 0.5 MG TABLET PO (19:53)
[2022-08-11 21:20] VITALS: BP 122/72; PULSE 94; RESP 18; TEMP 36.2; O2SAT 96
[2022-08-11] MEDS: OLANZapine 10 MG TABLET 20 MG PO (21:23)
[2022-08-11] MEDS: Divalproex Sodium ER 500 MG TAB.ER.24H 2000 MG PO (21:23)
[2022-08-12] MEDS: Famotidine 20 MG TABLET PO (08:33)
[2022-08-12] MEDS: Cholecalciferol (Vitamin D3) 25 MCG TABLET 50 MCG PO (08:34)
[2022-08-12 09:32] VITALS: RESP 16
--- NOTE | 2022-08-12 10:17 | P.PNPSI_ITS ---
Subjective Subjective Date of Service: 08/12/22 Reason For Visit: Psychosis Subjective Notes: Section [employer] Proxy: No Guardianship: Yes (robbin) Medical Problems Affecting Mental Status: No (though slight elevated ammonia l vl) Interim History: Patient interested in when his blood test will be done- I moved order from 8pm to 11am, still might be off as likely took depakote closer to 9-10pm last pm so maybe more like 13 hr trough depakote lvl Medication Compliance: Yes Side effects from medications: Yes (co of some achiness) Attending Groups: Yes (hangs around the periphery of groups, today asked for newspaper) Review of Systems Acute medical concerns: Yes ? slight elevation of ammonia Medical Review of Systems: changed Review of Systems: co myalgias/?bruising Mental Status Exam Mental Status Exam Patient Appearance: Well Grooomed and Appropriate Patient Orientation: Person, Place and Situation Level of Consciousness: Awake Patient Behavior: Appropriate, Talkative and Poor Eye Contact Mood Description: Apprehensive Affect Description: Flat Patient Cognition Impaired: No Ability to Follow Directions: Good Speech Pattern: Clear Hallucinations: None Thought Process: Intact Thought Content: positive for Preoccupation Depressive Symptoms: Muscle Tension Abnormal Motor Activity Signs and Symptoms: Restlessness Judgement: Fair Diagnostics Vital Signs (24Hr): Vital Signs - 24 hr 08/11/22 21:20 08/12/22 09:32 Temperature 97.2 F Pulse Rate 94 Respiratory Rate 18 16 Blood Pressure 122/72 Pulse Oximetry 96 Oxygen Delivery Method Room Air BMI result Body Mass Index 27.8 Labs 07/18/22 10:34 07/18/22 10:34 Labs: valproic acid lvl 95- ammonia 97 normal to 55 Imaging Radiology Impressions: ITS Impressions Soft Tissue Neck X-Ray 07/18/22 09:56 IMPRESSION: No acute abnormality. No evidence of radiopaque foreign body in the neck or upper chest. Foot X-Ray 07/23/22 14:00 IMPRESSION: Normal right foot. Medications Medications Current Medications Acetaminophen (Acetaminophen 325 Mg Tablet) 650 mg PO Q6H PRN PRN Reason: Headache/Pain Mild Scale (1-3) Last Admin: 08/09/22 05:19 Dose: 650 mg Al Hydroxide/Mg Hydroxide (Magnesium Hydrox/Alum Hydrox 30 Ml Oral.Susp) 30 ml PO Q6H PRN PRN Reason: Heartburn/Nausea Last Admin: 07/20/22 15:11 Dose: 30 ml Artificial Tears (Artificial Tears 15 Ml Drops) 2 drop EYE-BOTH TID PRN PRN Reason: Dry Eyes Bisacodyl (Bisacodyl 5 Mg Tablet.Dr) 10 mg PO ONCE LORENZA Calcium Carbonate (Calcium Carbonate 750 Mg Tab.Chew) 750 mg PO Q4H PRN PRN Reason: GI Upset Last Admin: 08/08/22 18:06 Dose: 750 mg Chlorpromazine HCl (Chlorpromazine Hcl 25 Mg/Ml Ampul) 100 mg IM BEDTIME PRN PRN Reason: per lj's order Clonazepam (Clonazepam 0.5 Mg Tablet) 0.5 mg PO TID PRN PRN Reason: Anxiety Last Admin: 08/11/22 19:53 Dose: 0.5 mg Divalproex Sodium (Divalproex Sodium Er 500 Mg Tab.Er.24h) 2,000 mg PO BEDTIME LORENZA Last Admin: 08/11/22 21:23 Dose: 2,000 mg Famotidine (Famotidine 20 Mg Tablet) 20 mg PO DAILY [facility] Last Admin: 08/12/22 08:33 Dose: 20 mg Hydrocortisone (Hydrocortisone 2.5 % Rectal Cr 30 Gm Tube) 1 appl [place] BID LORENZA Stop: 08/15/22 11:54 Last Admin: 08/12/22 09:30 Dose: Not Given Hydroxyzine HCl (Hydroxyzine Hcl 25 Mg Tablet) 25 mg PO Q6H PRN PRN Reason: Anxiety Last Admin: 08/08/22 23:05 Dose: 25 mg Magnesium Hydroxide (Milk Of Magnesia 30 Ml Oral.Susp) 30 ml PO DAILY PRN PRN Reason: Constipation Last Admin: 07/20/22 21:36 Dose: 30 ml Pt Own (Systane Eye (Drops)) 2 drop EYE-BOTH Q4H PRN PRN Reason: Dry Eyes Last Admin: 08/11/22 22:14 Dose: 2 drop Olanzapine (Olanzapine 2.5 Mg Tablet) 2.5 mg PO Q4H PRN PRN Reason: Psychosis Last Admin: 08/08/22 02:25 Dose: 2.5 mg Olanzapine (Olanzapine 10 Mg Tablet) 20 mg PO BEDTIME LORENZA Last Admin: 08/11/22 21:23 Dose: 20 mg Polyethylene Glycol (Polyethylene Glycol 3350 17 Gm Powd.Pack) 238 gm PO ONCE LORENZA Trazodone HCl (Trazodone Hcl 50 Mg Tablet) 50 mg PO BEDTIME MRX1 PRN PRN Reason: Insomnia Last Admin: 07/21/22 23:49 Dose: 50 mg Vitamin D (Cholecalciferol (Vitamin D3) 25 Mcg Tablet) 50 mcg PO DAILY LORENZA Last Admin: 08/12/22 08:34 Dose: 50 mcg Allergies Allergies Allergy/AdvReac Type Severity Reaction Status Date / Time risperidone [From RISPERDAL] Allergy Unknown UNKNOWN Verified 06/14/22 14:37 topiramate [From TOPAMAX] Allergy Unknown HEADACHE Verified 06/14/22 14:37 Assessment & Plan Assessment & Plan (1) Schizoaffective disorder, bipolar type: Status: Chronic Code(s): F25.0 - Schizoaffective disorder, bipolar type (2) Noncompliance with medication regimen: Status: Acute Code(s): Z91.148 - Patient's other noncompliance with medication regimen for other reason Plan Patient acutely psychotic disorganized irritable agitated floridly paranoid regarding his parents with whom he lives with. Not excepting medication or need for treatment patient does not except that he has mental illness need medication does not understand impact of his recent behavior that led to hospitalization encourage therapeutic [place] treatment acceptance patient has accepted previously olanzapine and Depakote 07/21: Continue current regimen and plans 07/22: Continue current plans 07/23: continue to offer VPA and olanzapine. filed for commitment. 07/24: continues to refuse medications. commitment hearing thursday 07/27 at 2 pm. 07/25: accepted zydis last night, appears more organized and less labile today. amenable to have another dose of zydis added in the morning, for a total of 10 BID. still refusing VPA, however. 07/26: accepting zyprexa 10 BID at the moment. refusing VPA. taking klonopin. court tomorrow. 07/27: committed and ordered medication in court. remains disorganized, bizarre. 07/28: taking zyprexa 10 BID. agreed to tegretol XR 200 BID, started this morning. 07/29: compliant with zyprexa and tegretol. clear improvement in manic Sx. 07/30: improvements in manic Sx continue. continue current mgmt. sleeping well, less irritable. 07/31: poor sleep last night. improvements in manic Sx continue. T/C increase in tegretol dosing after 5 days. 08/01: poor sleep, manic. increase tegretol to 300 BID as of tonight. 08/02: patient remains manic; guarded and ambivalent about medications; va underwriter agreed to move medications to bedtime; encouraged patient to consider Depakote Change to Tegretol ER 600 mg q.h.s. Changed to Zyprexa 20 mg q.h.s. 08/03: remains symptomatic of beverly, attenuated from admission. continue current mgmt. 08/05: no changes 08/06: requesting DC of tegretol and start of VPA, which is accommodated. thorazine IM for refusal of VPA or zyprexa added. manic Sx reportedly continued with concerning severity over w/e. 08/07: slept better last night on VPA, more pleasant this morning. continue current mgmt. 08/08: poor sleep 2/2 hemorrhoid pain. steroid cream Rxed today. appearing slightly improved today. 08/09: steroid cream helpful. gradual improvement in manic Sx. continue current mgmt. 08/10: continue current mgmt. gradual improvements. check labs saturday (ordered). 08/12 - weekday team may consider dec depakote to dec ammonia and ? s/e - too bad as patient has seemed more appropriate to staff Patient educated on: medication risk/benefits Informed Consent: further education needed Reason for continued inpatient stay Substantial Risk for: rapid decompensation Time Spent With Patient Time: Total time managing care of this patient today ____ minutes.
[2022-08-12 11:02] LABS: MANUAL DIFF FLAG NO
[2022-08-12 11:05] LABS: Basophils Percent Auto 0.4 % (0-2); Eosinophils Absolute Auto 0.2 X10*3/uL (0.0-0.4); Eosinophils Percent Auto 2.6 % (0-4); Hematocrit 41.5 % (42.0-52.0); Hemoglobin 13.9 g/dl (14.0-18.0); Imm Gran Abs Auto 0.03 X10*3/uL (0.00-0.03); Imm Gran Pct Auto 0.4 % (0.0-0.4); Lymphocytes Absolute Auto 1.7 X10*3/uL (1.2-4.9); Lymphocytes Percent Auto 21.4 % (20-40); Mean Corpuscular HGB Conc 33.5 g/dl (31.0-36.0); Mean Corpuscular Hemoglobin 30.5 pg (27.0-33.0); Mean Corpuscular Volume 91.2 fL (80.0-98.0); Monocytes Absolute Auto 0.7 X10*3/uL (0.1-1.2); Monocytes Percent Auto 8.4 % (2-11); Neutrophils Absolute Auto 5.2 x10*3/uL (2.0-8.3); Neutrophils Percent Auto 66.8 % (45-73); Platelet Count 207 X10*3/uL (160-400); Red Blood Count 4.55 X10*6/uL (4.60-5.80); Red Cell Distribution Width 11.9 % (11.0-16.0); White Blood Count 7.7 X10*3/uL (4.8-10.8)
[2022-08-12 11:13] LABS: Ammonia 97 umol/L (13-55)
[2022-08-12 11:16] LABS: Valproate 95.8 mcg/mL (50.0-100.0)
[2022-08-12 11:34] LABS: Alanine Aminotransferase 22 U/L (0-40); Albumin Level 3.9 g/dL (3.5-5.0); Alkaline Phosphatase 73 U/L (39-117); Anion Gap 13 (12-20); Aspartate Amino Transferase 14 U/L (5-37); Bilirubin Direct 0.1 mg/dL (0.0-0.5); Bilirubin Total 0.3 mg/dL (0.0-1.0); Blood Urea Nitrogen 12 mg/dL (9-16); Calcium 9.4 mg/dL (8.4-10.2); Carbon Dioxide 23 mmol/L (22-29); Chloride 107 mmol/L (96-108); Creatinine Clr Calc Pharmacy 123.2; Estimated Glomerular Filt Rate > 60; Glucose Random 102 mg/dL (60-115); Potassium 4.5 mmol/L (3.3-5.1); Sodium 138 mmol/L (135-145); Total Protein 6.4 g/dL (6.5-8.0)
[2022-08-12 20:45] VITALS: BP 143/69; PULSE 101; RESP 18; TEMP 36.2; O2SAT 99
[2022-08-12] MEDS: Divalproex Sodium ER 500 MG TAB.ER.24H 1500 MG PO (21:39)
[2022-08-12] MEDS: OLANZapine 10 MG TABLET 20 MG PO (21:39)
[2022-08-12] MEDS: Divalproex Sodium ER 250 MG TAB.ER.24H PO (21:39)
--- NOTE | 2022-08-13 05:11 | PC.NURSE ---
Ryan was expressing significant concern regarding the health of his father stating that his mother told him that My father almost today. he had to be brought to the hospital and they had to do that shock thing to get his heart started. But I don't really know how he is I don't think my mother is telling me everything Patients affect is flat and he appears depressed no behavioral concerns he was quiet and respectful of staff and peers throughout the evening. monitor for safety, continue Plan of Care
[2022-08-13] MEDS: Cholecalciferol (Vitamin D3) 25 MCG TABLET 50 MCG PO (08:13)
[2022-08-13 08:16] VITALS: BP 137/82; PULSE 87; RESP 16; TEMP 36.6; O2SAT 98
[2022-08-13] MEDS: clonazePAM 0.5 MG TABLET PO ×2 (11:57→21:07)
--- NOTE | 2022-08-13 15:46 | P.PNPSI_ITS ---
Subjective Subjective Date of Service: 08/13/22 Reason For Visit: Psychosis Interim History: calm, cooperative, pleasant. asking about next steps re monitoring VPA level, discharge date. per staff, pacing, calmer. says sleeping well. c/o high anx/dep. worried about his father, who is medically admitted to [facility]. elevated ammonia at 96. MoCA 27/30 (missed 1 for cube drawing and 2 on delayed recall). Mental Status Exam Mental Status Exam Narrative: adequately dressed and groomed. cooperative with interview. no PMA/PMR. speech nml in rate, nml amount. nml latency. incr loudness, nml tone. thoughts more organized. affect constricted, normo-intense, non-labile. mood very 50-50. no SI/HI/AVH expressed. Diagnostics Vital Signs (24Hr): Vital Signs - 24 hr 08/12/22 20:45 08/13/22 08:16 Temperature 97.2 F 97.9 F Pulse Rate 101 H 87 Respiratory Rate 18 16 Blood Pressure 143/69 H 137/82 Pulse Oximetry 99 98 Oxygen Delivery Method Room Air Room Air BMI result Body Mass Index 27.8 Labs 08/12/22 10:54 08/12/22 10:54 Labs: Laboratory Results - last 48 hr 08/12/22 08/12/22 08/12/22 10:54 10:54 10:54 WBC 7.7 RBC 4.55 L Hgb 13.9 L Hct 41.5 L MCV 91.2 MCH 30.5 MCHC 33.5 RDW 11.9 Plt Count 207 MPV 10.0 Immature Gran % (Auto) 0.4 Neut % (Auto) 66.8 Lymph % (Auto) 21.4 Hale % (Auto) 8.4 Eos % (Auto) 2.6 Baso % (Auto) 0.4 Lymph # (Auto) 1.7 Hale # (Auto) 0.7 Eos # (Auto) 0.2 Baso # (Auto) 0.0 Abs Immat Gran (auto) 0.03 Absolute Neuts (auto) 5.2 Absolute Nucleated RBC 0.000 Nucleated RBC % (auto) 0.0 Sodium 138 Potassium 4.5 Chloride 107 Carbon Dioxide 23 Anion Gap 13 BUN 12 Creatinine 0.88 Estim Creat Clear Calc 123.2 Estimated GFR > 60 Random Glucose 102 Calcium 9.4 Total Bilirubin 0.3 Direct Bilirubin 0.1 AST 14 ALT 22 Alkaline Phosphatase 73 Ammonia 97 H Total Protein 6.4 L Albumin 3.9 Valproic Acid 08/12/22 10:54 WBC RBC Hgb Hct MCV MCH MCHC RDW Plt Count MPV Immature Gran % (Auto) Neut % (Auto) Lymph % (Auto) Hale % (Auto) Eos % (Auto) Baso % (Auto) Lymph # (Auto) Hale # (Auto) Eos # (Auto) Baso # (Auto) Abs Immat Gran (auto) Absolute Neuts (auto) Absolute Nucleated RBC Nucleated RBC % (auto) Sodium Potassium Chloride Carbon Dioxide Anion Gap BUN Creatinine Estim Creat Clear Calc Estimated GFR Random Glucose Calcium Total Bilirubin Direct Bilirubin AST ALT Alkaline Phosphatase Ammonia Total Protein Albumin Valproic Acid 95.8 Imaging Radiology Impressions: ITS Impressions Soft Tissue Neck X-Ray 07/18/22 09:56 IMPRESSION: No acute abnormality. No evidence of radiopaque foreign body in the neck or upper chest. Foot X-Ray 07/23/22 14:00 IMPRESSION: Normal right foot. Medications Medications Current Medications Acetaminophen (Acetaminophen 325 Mg Tablet) 650 mg PO Q6H PRN PRN Reason: Headache/Pain Mild Scale (1-3) Last Admin: 08/09/22 05:19 Dose: 650 mg Al Hydroxide/Mg Hydroxide (Magnesium Hydrox/Alum Hydrox 30 Ml Oral.Susp) 30 ml PO Q6H PRN PRN Reason: Heartburn/Nausea Last Admin: 07/20/22 15:11 Dose: 30 ml Artificial Tears (Artificial Tears 15 Ml Drops) 2 drop EYE-BOTH TID PRN PRN Reason: Dry Eyes Bisacodyl (Bisacodyl 5 Mg Tablet.Dr) 10 mg PO ONCE LORENZA Calcium Carbonate (Calcium Carbonate 750 Mg Tab.Chew) 750 mg PO Q4H PRN PRN Reason: GI Upset Last Admin: 08/08/22 18:06 Dose: 750 mg Chlorpromazine HCl (Chlorpromazine Hcl 25 Mg/Ml Ampul) 100 mg IM BEDTIME PRN PRN Reason: per lj's order Clonazepam (Clonazepam 0.5 Mg Tablet) 0.5 mg PO TID PRN PRN Reason: Anxiety Last Admin: 08/13/22 11:57 Dose: 0.5 mg Divalproex Sodium (Divalproex Sodium Er 250 Mg Tab.Er.24h) 250 mg PO BEDTIME LORENZA Last Admin: 08/12/22 21:39 Dose: 250 mg Divalproex Sodium (Divalproex Sodium Er 500 Mg Tab.Er.24h) 1,500 mg PO BEDTIME LORENZA Last Admin: 08/12/22 21:39 Dose: 1,500 mg Famotidine (Famotidine 20 Mg Tablet) 20 mg PO DAILY [facility] Last Admin: 08/13/22 08:14 Dose: Not Given Hydrocortisone (Hydrocortisone 2.5 % Rectal Cr 30 Gm Tube) 1 appl [place] BID LORENZA Stop: 08/15/22 11:54 Last Admin: 08/13/22 08:14 Dose: Not Given Hydroxyzine HCl (Hydroxyzine Hcl 25 Mg Tablet) 25 mg PO Q6H PRN PRN Reason: Anxiety Last Admin: 08/08/22 23:05 Dose: 25 mg Magnesium Hydroxide (Milk Of Magnesia 30 Ml Oral.Susp) 30 ml PO DAILY PRN PRN Reason: Constipation Last Admin: 07/20/22 21:36 Dose: 30 ml Pt Own (Systane Eye (Drops)) 2 drop EYE-BOTH Q4H PRN PRN Reason: Dry Eyes Last Admin: 08/13/22 08:08 Dose: 2 drop Olanzapine (Olanzapine 2.5 Mg Tablet) 2.5 mg PO Q4H PRN PRN Reason: Psychosis Last Admin: 08/08/22 02:25 Dose: 2.5 mg Olanzapine (Olanzapine 10 Mg Tablet) 20 mg PO BEDTIME LORENZA Last Admin: 08/12/22 21:39 Dose: 20 mg Polyethylene Glycol (Polyethylene Glycol 3350 17 Gm Powd.Pack) 238 gm PO ONCE LORENZA Trazodone HCl (Trazodone Hcl 50 Mg Tablet) 50 mg PO BEDTIME MRX1 PRN PRN Reason: Insomnia Last Admin: 07/21/22 23:49 Dose: 50 mg Vitamin D (Cholecalciferol (Vitamin D3) 25 Mcg Tablet) 50 mcg PO DAILY [facility] Last Admin: 08/13/22 08:13 Dose: 50 mcg Allergies Allergies Allergy/AdvReac Type Severity Reaction Status Date / Time risperidone [From RISPERDAL] Allergy Unknown UNKNOWN Verified 06/14/22 14:37 topiramate [From TOPAMAX] Allergy Unknown HEADACHE Verified 06/14/22 14:37 Assessment & Plan Assessment & Plan (1) Schizoaffective disorder, bipolar type: Status: Chronic Code(s): F25.0 - Schizoaffective disorder, bipolar type (2) Noncompliance with medication regimen: Status: Acute Code(s): Z91.148 - Patient's other noncompliance with medication regimen for other reason Plan Patient acutely psychotic disorganized irritable agitated floridly paranoid reg arding his parents with whom he lives with. Not excepting medication or need for treatment patient does not except that he has mental illness need medication does not understand impact of his recent b ehavior that led to hospitalization encourage therapeutic [place] treatment acceptance patient has accepted previously olanzapine and Depakote 07/21: Continue current regimen and plans 07/22: Continue current plans 07/23: continue to offer VPA and olanzapine. filed for commitment. 07/24: continues to refuse medications. commitment hearing thursday 07/27 at 2 pm. 07/25: accepted zydis last night, appears more organized and less labile today. amenable to have another dose of zydis added in the morning, for a total of 10 BID. still refusing VPA, however. 07/26: accepting zyprexa 10 BID at the moment. refusing VPA. taking klonopin. court tomorrow. 07/27: committed and ordered medication in court. remains disorganized, bizarre. 07/28: taking zyprexa 10 BID. agreed to tegretol XR 200 BID, started this morning. 07/29: compliant with zyprexa and tegretol. clear improvement in manic Sx. 07/30: improvements in manic Sx continue. continue current mgmt. sleeping well, less irritable. 07/31: poor sleep last night. improvements in manic Sx continue. T/C increase in tegretol dosing after 5 days. 08/01: poor sleep, manic. increase tegretol to 300 BID as of tonight. 08/02: patient remains manic; guarded and ambivalent about medications; typewriter ribbon winder agreed to move medications to bedtime; encouraged patient to consider Depakote Change to Tegretol ER 600 mg q.h.s. Changed to Zyprexa 20 mg q.h.s. 08/03: remains symptomatic of beverly, attenuated from admission. continue current mgmt. 08/05: no changes 08/06: requesting DC of tegretol and start of VPA, which is accommodated. thorazine IM for refusal of VPA or zyprexa added. manic Sx reportedly continued with concerning severity over w/e. 08/07: slept better last night on VPA, more pleasant this morning. continue current mgmt. 08/08: poor sleep 2/2 hemorrhoid pain. steroid cream Rxed today. appearing slightly improved today. 08/09: steroid cream helpful. gradual improvement in manic Sx. continue current mgmt. 08/10: continue current mgmt. gradual improvements. check labs saturday morenita (ordered). 08/12 - weekday team may consider dec depakote to dec ammonia and ? s/e - too bad as patient has seemed more appropriate to staff. 08/13: VPA dosing has been decreased to 1750 from previous 2000 mg. VPA level 96, ammonia level 95. pt does not appear encephalopathic, however, and incidental findings of hyperammonemia can be WNL for ppl taking VPA. will continue next 5 days at 1750 mg daily and recheck VPA/ammonia in 5 days. MoCA today was . Reason for continued inpatient stay Substantial Risk for: inability to function and rapid decompensation Time Spent With Patient Time: Total time managing care of this patient today __25__ minutes.
[2022-08-13 17:19] VITALS: BP 140/85; PULSE 103; TEMP 36.6; O2SAT 98
[2022-08-13] MEDS: Divalproex Sodium ER 500 MG TAB.ER.24H 1500 MG PO (21:07)
[2022-08-13] MEDS: OLANZapine 10 MG TABLET 20 MG PO (21:08)
[2022-08-13] MEDS: Divalproex Sodium ER 250 MG TAB.ER.24H PO (21:08)
[2022-08-14 07:53] VITALS: BP 119/64; PULSE 95; RESP 18; TEMP 36.3; O2SAT 97
[2022-08-14] MEDS: Cholecalciferol (Vitamin D3) 25 MCG TABLET 50 MCG PO (08:25)
--- NOTE | 2022-08-14 14:56 | P.PNPSI_ITS ---
Subjective Subjective Date of Service: 08/14/22 Reason For Visit: Psychosis Interim History: seen twice, first mid morning, sleeping in bed saying he always gets tired this time of day. later seen up and about after lunch. further discussion held around possible reasons for morning tiredness, agrees to try decreasing zyprexa by 5 mg to 15 mg QHS. per staff, c/o high anxiety. concerned about his father's health. meds and meals compliant. denies SI/HI/AVH. +RIS. feels safe. slept well. Mental Status Exam Mental Status Exam Narrative: adequately dressed and groomed. cooperative with interview. no PMA/PMR. speech nml in rate, nml amount. nml latency. incr loudness, nml tone. thoughts organized. affect constricted, normo-intense, non-labile. no SI/HI/AVH expressed. Diagnostics Vital Signs (24Hr): Vital Signs - 24 hr 08/13/22 17:19 08/14/22 07:53 Temperature 97.9 F 97.4 F Pulse Rate 103 H 95 Respiratory Rate 18 Blood Pressure 140/85 H 119/64 Pulse Oximetry 98 97 Oxygen Delivery Method Room Air Room Air BMI result Body Mass Index 27.8 Labs 08/12/22 10:54 08/12/22 10:54 Imaging Radiology Impressions: ITS Impressions Soft Tissue Neck X-Ray 07/18/22 09:56 IMPRESSION: No acute abnormality. No evidence of radiopaque foreign body in the neck or upper chest. Foot X-Ray 07/23/22 14:00 IMPRESSION: Normal right foot. Medications Medications Current Medications Acetaminophen (Acetaminophen 325 Mg Tablet) 650 mg PO Q6H PRN PRN Reason: Headache/Pain Mild Scale (1-3) Last Admin: 08/09/22 05:19 Dose: 650 mg Al Hydroxide/Mg Hydroxide (Magnesium Hydrox/Alum Hydrox 30 Ml Oral.Susp) 30 ml PO Q6H PRN PRN Reason: Heartburn/Nausea Last Admin: 07/20/22 15:11 Dose: 30 ml Artificial Tears (Artificial Tears 15 Ml Drops) 2 drop EYE-BOTH TID PRN PRN Reason: Dry Eyes Bisacodyl (Bisacodyl 5 Mg Tablet.Dr) 10 mg PO ONCE LORENZA Calcium Carbonate (Calcium Carbonate 750 Mg Tab.Chew) 750 mg PO Q4H PRN PRN Reason: GI Upset Last Admin: 08/08/22 18:06 Dose: 750 mg Chlorpromazine HCl (Chlorpromazine Hcl 25 Mg/Ml Ampul) 100 mg IM BEDTIME PRN PRN Reason: per lj's order Clonazepam (Clonazepam 0.5 Mg Tablet) 0.5 mg PO TID PRN PRN Reason: Anxiety Last Admin: 08/13/22 21:07 Dose: 0.5 mg Divalproex Sodium (Divalproex Sodium Er 250 Mg Tab.Er.24h) 250 mg PO BEDTIME LORENZA Last Admin: 08/13/22 21:08 Dose: 250 mg Divalproex Sodium (Divalproex Sodium Er 500 Mg Tab.Er.24h) 1,500 mg PO BEDTIME LORENZA Last Admin: 08/13/22 21:07 Dose: 1,500 mg Famotidine (Famotidine 20 Mg Tablet) 20 mg PO DAILY LORENZA Last Admin: 08/14/22 08:27 Dose: Not Given Hydrocortisone (Hydrocortisone 2.5 % Rectal Cr 30 Gm Tube) 1 appl [place] BID LORENZA Stop: 08/15/22 11:54 Last Admin: 08/14/22 08:27 Dose: Not Given Hydroxyzine HCl (Hydroxyzine Hcl 25 Mg Tablet) 25 mg PO Q6H PRN PRN Reason: Anxiety Last Admin: 08/08/22 23:05 Dose: 25 mg Magnesium Hydroxide (Milk Of Magnesia 30 Ml Oral.Susp) 30 ml PO DAILY PRN PRN Reason: Constipation Last Admin: 07/20/22 21:36 Dose: 30 ml Pt Own (Systane Eye (Drops)) 2 drop EYE-BOTH Q4H PRN PRN Reason: Dry Eyes Last Admin: 08/14/22 06:05 Dose: 2 drop Olanzapine (Olanzapine 2.5 Mg Tablet) 2.5 mg PO Q4H PRN PRN Reason: Psychosis Last Admin: 08/08/22 02:25 Dose: 2.5 mg Olanzapine (Olanzapine 10 Mg Tablet) 20 mg PO BEDTIME LORENZA Last Admin: 08/13/22 21:08 Dose: 20 mg Polyethylene Glycol (Polyethylene Glycol 3350 17 Gm Powd.Pack) 238 gm PO ONCE LORENZA Trazodone HCl (Trazodone Hcl 50 Mg Tablet) 50 mg PO BEDTIME MRX1 PRN PRN Reason: Insomnia Last Admin: 07/21/22 23:49 Dose: 50 mg Vitamin D (Cholecalciferol (Vitamin D3) 25 Mcg Tablet) 50 mcg PO DAILY LORENZA Last Admin: 08/14/22 08:25 Dose: 50 mcg Allergies Allergies Allergy/AdvReac Type Severity Reaction Status Date / Time risperidone [From RISPERDAL] Allergy Unknown UNKNOWN Verified 06/14/22 14:37 topiramate [From TOPAMAX] Allergy Unknown HEADACHE Verified 06/14/22 14:37 Assessment & Plan Assessment & Plan (1) Schizoaffective disorder, bipolar type: Status: Chronic Code(s): F25.0 - Schizoaffective disorder, bipolar type (2) Noncompliance with medication regimen: Status: Acute Code(s): Z91.148 - Patient's other noncompliance with medication regimen for other reason Plan Patient acutely psychotic disorganized irritable agitated floridly paranoid regarding his parents with whom he lives with. Not excepting medication or need for treatment patient does not except that he has mental illness need medication does not understand impact of his recent behavior that led to hospitalization encourage therapeutic [place] treatment acceptance patient has accepted previously olanzapine and Depakote 07/21: Continue current regimen and plans 07/22: Continue current plans 07/23: continue to offer VPA and olanzapine. filed for commitment. 07/24: continues to refuse medications. commitment hearing thursday 07/27 at 2 pm. 07/25: accepted zydis last night, appears more organized and less labile today. amenable to have another dose of zydis added in the morning, for a total of 10 BID. still refusing VPA, however. 07/26: accepting zyprexa 10 BID at the moment. refusing VPA. taking klonopin. court tomorrow. 07/27: committed and ordered medication in court. remains disorganized, bizarre. 07/28: taking zyprexa 10 BID. agreed to tegretol XR 200 BID, started this morning. 07/29: compliant with zyprexa and tegretol. clear improvement in manic Sx. 07/30: improvements in manic Sx continue. continue current mgmt. sleeping well, less irritable. 2: poor sleep last night. improvements in manic Sx continue. T/C increase in tegretol dosing after 5 days. 08/01: poor sleep, manic. increase tegretol to 300 BID as of tonight. 08/02: patient remains manic; guarded and ambivalent about medications; medical underwriter agreed to move medications to bedtime; encouraged patient to consider Depakote Change to Tegretol ER 600 mg q.h.s. Changed to Zyprexa 20 mg q.h.s. 08/03: remains symptomatic of beverly, attenuated from admission. continue current mgmt. 08/05: no changes 08/06: requesting DC of tegretol and start of VPA, which is accommodated. thorazine IM for refusal of VPA or zyprexa added. manic Sx reportedly continued with concerning severity over w/e. 08/07: slept better last night on VPA, more pleasant this morning. continue current mgmt. 08/08: poor sleep 2/2 hemorrhoid pain. steroid cream Rxed today. appearing slightly improved today. 08/09: steroid cream helpful. gradual improvement in manic Sx. continue current mgmt. 08/10: continue current mgmt. gradual improvements. check labs saturday morenita (ordered). 08/12 - weekday team may consider dec depakote to dec ammonia and ? s/e - too bad as patient has seemed more appropriate to staff. 08/13: VPA dosing has been decreased to 1750 from previous 2000 mg. VPA level 96, ammonia level 95. pt does not appear encephalopathic, however, and incidental findings of hyperammonemia can be WNL for ppl taking VPA. will continue next 5 days at 1750 mg daily and recheck VPA/ammonia in 5 days. MoCA today was 27/30. 08/14: morning fatigue dependably. decrease HS olanzapine from 20 mg to 15 mg. sleeping well, more calm and organized. Reason for continued inpatient stay Substantial Risk for: inability to function and rapid decompensation Time Spent With Patient Time: Total time managing care of this patient today __25__ minutes.
[2022-08-14 20:17] VITALS: BP 120/60; PULSE 106; RESP 18; TEMP 36.7; O2SAT 97
[2022-08-14] MEDS: Divalproex Sodium ER 500 MG TAB.ER.24H 1500 MG PO (20:30)
[2022-08-14] MEDS: Divalproex Sodium ER 250 MG TAB.ER.24H PO (20:31)
[2022-08-14] MEDS: OLANZapine 7.5 MG TABLET 15 MG PO (20:31)
[2022-08-14] MEDS: clonazePAM 0.5 MG TABLET PO (21:51)
[2022-08-15 07:55] VITALS: BP 127/76; PULSE 97; RESP 18; TEMP 36.6; O2SAT 96
[2022-08-15] MEDS: clonazePAM 0.5 MG TABLET PO ×2 (07:57→20:42)
[2022-08-15] MEDS: Famotidine 20 MG TABLET PO (07:58)
[2022-08-15] MEDS: Cholecalciferol (Vitamin D3) 25 MCG TABLET 50 MCG PO (07:59)
--- NOTE | 2022-08-15 16:16 | P.PNPSI_ITS ---
Subjective Subjective Date of Service: 08/15/22 Reason For Visit: Psychosis Interim History: calm, cooperative, logical, reasonable. asking about discharge criteria, discussed possibility of mid next week if current trajectory holds. per staff, dep/anx 3. hoping to go to respite after discharge. concerned about growing cannabis at home and the money he believes he won in the [employer] and which his parents are secreting from him. Mental Status Exam Mental Status Exam Narrative: adequately dressed and groomed. cooperative with interview. no PMA/PMR. speech nml in rate, nml amount. nml latency. incr loudness, nml tone. thoughts organized. affect constricted, normo-intense, non-labile. no SI/HI/AVH expressed. Diagnostics Vital Signs (24Hr): Vital Signs - 24 hr 08/14/22 20:17 08/15/22 07:55 Temperature 98.0 F 97.9 F Pulse Rate 106 H 97 Respiratory Rate 18 18 Blood Pressure 120/60 127/76 Pulse Oximetry 97 96 Oxygen Delivery Method Room Air Room Air BMI result Body Mass Index 27.8 Labs 08/12/22 10:54 08/12/22 10:54 Imaging Radiology Impressions: ITS Impressions Soft Tissue Neck X-Ray 07/18/22 09:56 IMPRESSION: No acute abnormality. No evidence of radiopaque foreign body in the neck or upper chest. Foot X-Ray 07/23/22 14:00 IMPRESSION: Normal right foot. Medications Medications Current Medications Acetaminophen (Acetaminophen 325 Mg Tablet) 650 mg PO Q6H PRN PRN Reason: Headache/Pain Mild Scale (1-3) Last Admin: 08/09/22 05:19 Dose: 650 mg Al Hydroxide/Mg Hydroxide (Magnesium Hydrox/Alum Hydrox 30 Ml Oral.Susp) 30 ml PO Q6H PRN PRN Reason: Heartburn/Nausea Last Admin: 07/20/22 15:11 Dose: 30 ml Artificial Tears (Artificial Tears 15 Ml Drops) 2 drop EYE-BOTH TID PRN PRN Reason: Dry Eyes Bisacodyl (Bisacodyl 5 Mg Tablet.Dr) 10 mg PO ONCE LORENZA Calcium Carbonate (Calcium Carbonate 750 Mg Tab.Chew) 750 mg PO Q4H PRN PRN Reason: GI Upset Last Admin: 08/08/22 18:06 Dose: 750 mg Chlorpromazine HCl (Chlorpromazine Hcl 25 Mg/Ml Ampul) 100 mg IM BEDTIME PRN PRN Reason: per lj's order Clonazepam (Clonazepam 0.5 Mg Tablet) 0.5 mg PO BEDTIME LORENZA Divalproex Sodium (Divalproex Sodium Er 250 Mg Tab.Er.24h) 250 mg PO BEDTIME LORENZA Last Admin: 08/14/22 20:31 Dose: 250 mg Divalproex Sodium (Divalproex Sodium Er 500 Mg Tab.Er.24h) 1,500 mg PO BEDTIME LORENZA Last Admin: 08/14/22 20:30 Dose: 1,500 mg Famotidine (Famotidine 20 Mg Tablet) 20 mg PO DAILY LORENZA Last Admin: 08/15/22 07:58 Dose: 20 mg Hydroxyzine HCl (Hydroxyzine Hcl 25 Mg Tablet) 25 mg PO Q6H PRN PRN Reason: Anxiety Last Admin: 08/08/22 23:05 Dose: 25 mg Magnesium Hydroxide (Milk Of Magnesia 30 Ml Oral.Susp) 30 ml PO DAILY PRN PRN Reason: Constipation Last Admin: 07/20/22 21:36 Dose: 30 ml Pt Own (Systane Eye (Drops)) 2 drop EYE-BOTH Q4H PRN PRN Reason: Dry Eyes Last Admin: 08/14/22 20:30 Dose: 2 drop Olanzapine (Olanzapine 2.5 Mg Tablet) 2.5 mg PO Q4H PRN PRN Reason: Psychosis Last Admin: 08/08/22 02:25 Dose: 2.5 mg Olanzapine (Olanzapine 7.5 Mg Tablet) 15 mg PO BEDTIME LORENZA Last Admin: 08/14/22 20:31 Dose: 15 mg Polyethylene Glycol (Polyethylene Glycol 3350 17 Gm Powd.Pack) 238 gm PO ONCE LORENZA Trazodone HCl (Trazodone Hcl 50 Mg Tablet) 50 mg PO BEDTIME MRX1 PRN PRN Reason: Insomnia Last Admin: 07/21/22 23:49 Dose: 50 mg Vitamin D (Cholecalciferol (Vitamin D3) 25 Mcg Tablet) 50 mcg PO DAILY LORENZA Last Admin: 08/15/22 07:59 Dose: 50 mcg Allergies Allergies Allergy/AdvReac Type Severity Reaction Status Date / Time risperidone [From RISPERDAL] Allergy Unknown UNKNOWN Verified 06/14/22 14:37 topiramate [From TOPAMAX] Allergy Unknown HEADACHE Verified 06/14/22 14:37 Assessment & Plan Assessment & Plan (1) Schizoaffective disorder, bipolar type: Status: Chronic Code(s): F25.0 - Schizoaffective disorder, bipolar type (2) Noncompliance with medication regimen: Status: Acute Code(s): Z91.148 - Patient's other noncompliance with medication regimen for other reason Plan Patient acutely psychotic disorganized irritable agitated floridly paranoid r egarding his parents with whom he lives with. Not excepting medication or need for treatment patient does not except that he has mental illness need medication does not understand impact of his recent behavior that led to hospitalization encourage therapeutic [place] treatment acceptance patient has accepted previously olanzapine and Depakote 07/21: Continue current regimen and plans 07/22: Continue current plans 07/23: continue to offer VPA and olanzapine. filed for commitment. 07/24: continues to refuse medications. commitment hearing thursday 07/27 at 2 pm. 07/25: accepted zydis last night, appears more organized and less labile today. amenable to have another dose of zydis added in the morning, for a total of 10 BID. still refusing VPA, however. 07/26: accepting zyprexa 10 BID at the moment. refusing VPA. taking klonopin. court tomorrow. 07/27: committed and ordered medication in court. remains disorganized, bizarre. 07/28: taking zyprexa 10 BID. agreed to tegretol XR 200 BID, started this morning. 07/29: compliant with zyprexa and tegretol. clear improvement in manic Sx. 07/30: improvements in manic Sx continue. continue current mgmt. sleeping well, less irritable. 2: poor sleep last night. improvements in manic Sx continue. T/C increase in tegretol dosing after 5 days. 08/01: poor sleep, manic. increase tegretol to 300 BID as of tonight. 08/02: patient remains manic; guarded and ambivalent about medications; chief writer agreed to move medications to bedtime; encouraged patient to consider Depakote Change to Tegretol ER 600 mg q.h.s. Changed to Zyprexa 20 mg q.h.s. 08/03: remains symptomatic of beverly, attenuated from admission. continue current mgmt. 5/7: no changes 08/06: requesting DC of tegretol and start of VPA, which is accommodated. thorazine IM for refusal of VPA or zyprexa added. manic Sx reportedly continued with concerning severity over w/e. 08/07: slept better last night on VPA, more pleasant this morning. continue current mgmt. 08/08: poor sleep 2/2 hemorrhoid pain. steroid cream Rxed today. appearing slightly improved today. 08/09: steroid cream helpful. gradual improvement in manic Sx. continue current mgmt. 08/10: continue current mgmt. gradual improvements. check labs saturday morenita (ordered). 08/12 - weekday team may consider dec depakote to dec ammonia and ? s/e - too bad as patient has seemed more appropriate to staff. 08/13: VPA dosing has been decreased to 1750 from previous 2000 mg. VPA level 96, ammonia level 95. pt does not appear encephalopathic, however, and incidental findings of hyperammonemia can be WNL for ppl taking VPA. will continue next 5 days at 1750 mg daily and recheck VPA/ammonia in 5 days. MoCA t julio was . 08/14: morning fatigue dependably. decrease HS olanzapine from 20 mg to 15 mg. sleeping well, more calm and organized. 08/15: sleeping well, calm, organized. check labs saturday. Reason for continued inpatient stay Substantial Risk for: inability to function and rapid decompensation Time Spent With Patient Time: Total time managing care of this patient today __25__ minutes.
[2022-08-15 20:22] VITALS: BP 136/76; PULSE 106; RESP 18; TEMP 36.6; O2SAT 97
[2022-08-15] MEDS: Divalproex Sodium ER 250 MG TAB.ER.24H PO (20:31)
[2022-08-15] MEDS: Divalproex Sodium ER 500 MG TAB.ER.24H 1500 MG PO (20:31)
[2022-08-15] MEDS: OLANZapine 7.5 MG TABLET 15 MG PO (20:31)
[2022-08-16 07:00] VITALS: BMI 28.6
[2022-08-16] MEDS: Famotidine 20 MG TABLET PO (09:10)
[2022-08-16] MEDS: Cholecalciferol (Vitamin D3) 25 MCG TABLET 50 MCG PO (09:10)
[2022-08-16 09:36] VITALS: RESP 18
--- NOTE | 2022-08-16 14:16 | P.PNPSI_ITS ---
Subjective Subjective Date of Service: 08/16/22 Reason For Visit: Psychosis Interim History: briefly met with patient; discussed with team pt said he's doing ok; says he's not sure if he's going meet with his parents tonight or not. He has also said that he is waiting to find out about a respite bed thinking this is a better solution then going straight home. Otherwise no complaints and no requests; staff reports patient remains improved. Mental Status Exam Mental Status Exam Narrative: adequately dressed and groomed. cooperative with interview. no PMA/PMR. speech nml in rate, nml amount. nml latency. incr loudness, nml tone. thoughts organized. affect constricted, normo-intense, non-labile. no SI/HI/AVH expressed. Diagnostics Vital Signs (24Hr): Vital Signs - 24 hr 08/15/22 20:22 08/16/22 09:36 Temperature 97.8 F Pulse Rate 106 H Respiratory Rate 18 18 Blood Pressure 136/76 Pulse Oximetry 97 Oxygen Delivery Method Room Air BMI result Body Mass Index 27.8 Labs 08/12/22 10:54 08/12/22 10:54 Imaging Radiology Impressions: ITS Impressions Soft Tissue Neck X-Ray 07/18/22 09:56 IMPRESSION: No acute abnormality. No evidence of radiopaque foreign body in the neck or upper chest. Foot X-Ray 07/23/22 14:00 IMPRESSION: Normal right foot. Medications Medications Current Medications Acetaminophen (Acetaminophen 325 Mg Tablet) 650 mg PO Q6H PRN PRN Reason: Headache/Pain Mild Scale (1-3) Last Admin: 08/09/22 05:19 Dose: 650 mg Al Hydroxide/Mg Hydroxide (Magnesium Hydrox/Alum Hydrox 30 Ml Oral.Susp) 30 ml PO Q6H PRN PRN Reason: Heartburn/Nausea Last Admin: 07/20/22 15:11 Dose: 30 ml Artificial Tears (Artificial Tears 15 Ml Drops) 2 drop EYE-BOTH TID PRN PRN Reason: Dry Eyes Bisacodyl (Bisacodyl 5 Mg Tablet.Dr) 10 mg PO ONCE [facility] Calcium Carbonate (Calcium Carbonate 750 Mg Tab.Chew) 750 mg PO Q4H PRN PRN Reason: GI Upset Last Admin: 08/08/22 18:06 Dose: 750 mg Chlorpromazine HCl (Chlorpromazine Hcl 25 Mg/Ml Ampul) 100 mg IM BEDTIME PRN PRN Reason: per lj's order Clonazepam (Clonazepam 0.5 Mg Tablet) 0.5 mg PO BEDTIME [facility] Last Admin: 08/15/22 20:42 Dose: 0.5 mg Divalproex Sodium (Divalproex Sodium Er 250 Mg Tab.Er.24h) 250 mg PO BEDTIME [facility] Last Admin: 08/15/22 20:31 Dose: 250 mg Divalproex Sodium (Divalproex Sodium Er 500 Mg Tab.Er.24h) 1,500 mg PO BEDTIME [facility] Last Admin: 08/15/22 20:31 Dose: 1,500 mg Famotidine (Famotidine 20 Mg Tablet) 20 mg PO DAILY [facility] Last Admin: 08/16/22 09:10 Dose: 20 mg Hydroxyzine HCl (Hydroxyzine Hcl 25 Mg Tablet) 25 mg PO Q6H PRN PRN Reason: Anxiety Last Admin: 08/08/22 23:05 Dose: 25 mg Magnesium Hydroxide (Milk Of Magnesia 30 Ml Oral.Susp) 30 ml PO DAILY PRN PRN Reason: Constipation Last Admin: 07/20/22 21:36 Dose: 30 ml Pt Own (Systane Eye (Drops)) 2 drop EYE-BOTH Q4H PRN PRN Reason: Dry Eyes Last Admin: 08/14/22 20:30 Dose: 2 drop Olanzapine (Olanzapine 2.5 Mg Tablet) 2.5 mg PO Q4H PRN PRN Reason: Psychosis Last Admin: 08/08/22 02:25 Dose: 2.5 mg Olanzapine (Olanzapine 7.5 Mg Tablet) 15 mg PO BEDTIME [facility] Last Admin: 08/15/22 20:31 Dose: 15 mg Polyethylene Glycol (Polyethylene Glycol 3350 17 Gm Powd.Pack) 238 gm PO ONCE [facility] Trazodone HCl (Trazodone Hcl 50 Mg Tablet) 50 mg PO BEDTIME MRX1 PRN PRN Reason: Insomnia Last Admin: 07/21/22 23:49 Dose: 50 mg Vitamin D (Cholecalciferol (Vitamin D3) 25 Mcg Tablet) 50 mcg PO DAILY [facility] Last Admin: 08/16/22 09:10 Dose: 50 mcg Allergies Allergies Allergy/AdvReac Type Severity Reaction Status Date / Time risperidone [From RISPERDAL] Allergy Unknown UNKNOWN Verified 06/14/22 14:37 topiramate [From TOPAMAX] Allergy Unknown HEADACHE Verified 06/14/22 14:37 Assessment & Plan Assessment & Plan (1) Schizoaffective disorder, bipolar type: Status: Chronic Code(s): F25.0 - Schizoaffective disorder, bipolar type (2) Noncompliance with medication regimen: Status: Acute Code(s): Z91.148 - Patient's other noncompliance with medication regimen for other reason Plan Patient acutely psychotic disorganized irritable agitated floridly paranoid regarding his parents with whom he lives with. Not excepting medication or need for treatment patient does not except that he has mental illness need medication does not understand impact of his recent behavior that led to hospitalization encourage therapeutic [place] treatment acceptance patient has accepted previously olanzapine and Depakote 07/21: Continue current regimen and plans 07/22: Continue current plans 07/23: continue to offer VPA and olanzapine. filed for commitment. 07/24: continues to refuse medications. commitment hearing thursday 07/27 at 2 pm. 07/25: accepted zydis last night, appears more organized and less labile today. amenable to have another dose of zydis added in the morning, for a total of 10 BID. still refusing VPA, however. 07/26: accepting zyprexa 10 BID at the moment. refusing VPA. taking klonopin. court tomorrow. 07/27: committed and ordered medication in court. remains disorganized, bizarre. 07/28: taking zyprexa 10 BID. agreed to tegretol XR 200 BID, started this morning. 07/29: compliant with zyprexa and tegretol. clear improvement in manic Sx. 07/30: improvements in manic Sx continue. continue current mgmt. sleeping well, less irritable. 2: poor sleep last night. improvements in manic Sx continue. T/C increase in tegretol dosing after 5 days. 08/01: poor sleep, manic. increase tegretol to 300 BID as of tonight. 08/02: patient remains manic; guarded and ambivalent about medications; procedure writer agreed to move medications to bedtime; encouraged patient to consider Depakote Change to Tegretol ER 600 mg q.h.s. Changed to Zyprexa 20 mg q.h.s. 08/03: remains symptomatic of beverly, attenuated from admission. continue current mgmt. 08/05: no changes 08/06: requesting DC of tegretol and start of VPA, which is accommodated. thorazine IM for refusal of VPA or zyprexa added. manic Sx reportedly continued with concerning severity over w/e. 08/07: slept better last night on VPA, more pleasant this morning. continue current mgmt. 08/08: poor sleep 2/2 hemorrhoid pain. steroid cream Rxed today. appearing slightly improved today. 08/09: steroid cream helpful. gradual improvement in manic Sx. continue current mgmt. 08/10: continue current mgmt. gradual improvements. check labs saturday (ordered). 08/12 - weekday team may consider dec depakote to dec ammonia and ? s/e - too bad as patient has seemed more appropriate to staff. 08/13: VPA dosing has been decreased to 1750 from previous 2000 mg. VPA level 96, ammonia level 95. pt does not appear encephalopathic, however, and incidental findings of hyperammonemia can be WNL for ppl taking VPA. will continue next 5 days at 1750 mg daily and recheck VPA/ammonia in 5 days. MoCA today was 27/30. 08/14: morning fatigue dependably. decrease HS olanzapine from 20 mg to 15 mg. sleeping well, more calm and organized. 08/15: sleeping well, calm, organized. check labs saturday. 08/16: Continue current treatment plan Patient educated on: diagnosis Informed Consent: further education needed Reason for continued inpatient stay Substantial Risk for: med/psych decompensation Time Spent With Patient Time: Total time managing care of this patient today ____ minutes.
[2022-08-16 20:20] VITALS: BP 135/68; PULSE 107; RESP 16; TEMP 36.4; O2SAT 98
[2022-08-16] MEDS: Divalproex Sodium ER 250 MG TAB.ER.24H PO (21:28)
[2022-08-16] MEDS: clonazePAM 0.5 MG TABLET PO (21:28)
[2022-08-16] MEDS: Divalproex Sodium ER 500 MG TAB.ER.24H 1500 MG PO (21:28)
[2022-08-16] MEDS: OLANZapine 7.5 MG TABLET 15 MG PO (21:29)
[2022-08-17 08:30] VITALS: BP 123/57; PULSE 95; RESP 18; TEMP 36.3; O2SAT 98
[2022-08-17] MEDS: Famotidine 20 MG TABLET PO (08:44)
[2022-08-17] MEDS: Cholecalciferol (Vitamin D3) 25 MCG TABLET 50 MCG PO (08:44)
[2022-08-17] MEDS: Acetaminophen 325 MG TABLET 650 MG PO (08:45)
--- NOTE | 2022-08-17 15:37 | HO.PSYCHPN ---
Subjective Subjective Date of Service: 08/17/22 Reason For Visit: Psychosis Interim History: calm, cooperative. continues far better than at admission. logical, topical questions and comments. focussed on when he will be getting his labs drawn and when he might discharge. per staff, pleasant, visible. calm, less angry. some fatigue. eves - social, TV. eating and sleeping. going on about $ issues with family. Mental Status Exam Mental Status Exam Narrative: adequately dressed and groomed. cooperative with interview. no PMA/PMR. speech nml in rate, nml amount. nml latency. incr loudness, nml tone. thoughts organized. affect constricted, normo-intense, non-labile. no SI/HI/AVH expressed. Diagnostics Vital Signs (24Hr): Vital Signs - 24 hr 08/16/22 20:20 08/17/22 08:30 Temperature 97.6 F 97.4 F Pulse Rate 107 H 95 Respiratory Rate 16 18 Blood Pressure 135/68 123/57 L Pulse Oximetry 98 98 Oxygen Delivery Method Room Air Room Air BMI result Body Mass Index 28.6 Labs 08/12/22 10:54 08/12/22 10:54 Imaging Radiology Impressions: ITS Impressions Soft Tissue Neck X-Ray 07/18/22 09:56 IMPRESSION: No acute abnormality. No evidence of radiopaque foreign body in the neck or upper chest. Foot X-Ray 07/23/22 14:00 IMPRESSION: Normal right foot. Medications Medications Current Medications Acetaminophen (Acetaminophen 325 Mg Tablet) 650 mg PO Q6H PRN PRN Reason: Headache/Pain Mild Scale (1-3) Last Admin: 08/17/22 08:45 Dose: 650 mg Al Hydroxide/Mg Hydroxide (Magnesium Hydrox/Alum Hydrox 30 Ml Oral.Susp) 30 ml PO Q6H PRN PRN Reason: Heartburn/Nausea Last Admin: 07/20/22 15:11 Dose: 30 ml Artificial Tears (Artificial Tears 15 Ml Drops) 2 drop EYE-BOTH TID PRN PRN Reason: Dry Eyes Bisacodyl (Bisacodyl 5 Mg Tablet.Dr) 10 mg PO ONCE [facility] Calcium Carbonate (Calcium Carbonate 750 Mg Tab.Chew) 750 mg PO Q4H PRN PRN Reason: GI Upset Last Admin: 08/08/22 18:06 Dose: 750 mg Chlorpromazine HCl (Chlorpromazine Hcl 25 Mg/Ml Ampul) 100 mg IM BEDTIME PRN PRN Reason: per lj's order Clonazepam (Clonazepam 0.5 Mg Tablet) 0.5 mg PO BEDTIME [facility] Last Admin: 08/16/22 21:28 Dose: 0.5 mg Divalproex Sodium (Divalproex Sodium Er 250 Mg Tab.Er.24h) 250 mg PO BEDTIME [facility] Last Admin: 08/16/22 21:28 Dose: 250 mg Divalproex Sodium (Divalproex Sodium Er 500 Mg Tab.Er.24h) 1,500 mg PO BEDTIME [facility] Last Admin: 08/16/22 21:28 Dose: 1,500 mg Famotidine (Famotidine 20 Mg Tablet) 20 mg PO DAILY [facility] Last Admin: 08/17/22 08:44 Dose: 20 mg Hydroxyzine HCl (Hydroxyzine Hcl 25 Mg Tablet) 25 mg PO Q6H PRN PRN Reason: Anxiety Last Admin: 08/08/22 23:05 Dose: 25 mg Magnesium Hydroxide (Milk Of Magnesia 30 Ml Oral.Susp) 30 ml PO DAILY PRN PRN Reason: Constipation Last Admin: 07/20/22 21:36 Dose: 30 ml Pt Own (Systane Eye (Drops)) 2 drop EYE-BOTH Q4H PRN PRN Reason: Dry Eyes Last Admin: 08/14/22 20:30 Dose: 2 drop Olanzapine (Olanzapine 2.5 Mg Tablet) 2.5 mg PO Q4H PRN PRN Reason: Psychosis Last Admin: 08/08/22 02:25 Dose: 2.5 mg Olanzapine (Olanzapine 7.5 Mg Tablet) 15 mg PO BEDTIME [facility] Last Admin: 08/16/22 21:29 Dose: 15 mg Polyethylene Glycol (Polyethylene Glycol 3350 17 Gm Powd.Pack) 238 gm PO ONCE [facility] Trazodone HCl (Trazodone Hcl 50 Mg Tablet) 50 mg PO BEDTIME MRX1 PRN PRN Reason: Insomnia Last Admin: 07/21/22 23:49 Dose: 50 mg Vitamin D (Cholecalciferol (Vitamin D3) 25 Mcg Tablet) 50 mcg PO DAILY [facility] Last Admin: 08/17/22 08:44 Dose: 50 mcg Allergies Allergies Allergy/AdvReac Type Severity Reaction Status Date / Time risperidone [From RISPERDAL] Allergy Unknown UNKNOWN Verified 06/14/22 14:37 topiramate [From TOPAMAX] Allergy Unknown HEADACHE Verified 06/14/22 14:37 Assessment & Plan Assessment & Plan (1) Schizoaffective disorder, bipolar type: Status: Chronic Code(s): F25.0 - Schizoaffective disorder, bipolar type (2) Noncompliance with medication regimen: Status: Acute Code(s): Z91.148 - Patient's other noncompliance with medication regimen for other reason Plan Patient acutely psychotic disorganized irritable agitated floridly paranoid regarding his parents with whom he lives with. Not excepting medication or need for treatment patient does not except that he has mental illness need medication does not understand impact of his recent behavior that led to hospitalization encourage therapeutic [place] treatment acceptance patient has accepted previously olanzapine and Depakote 07/21: Continue current regimen and plans 07/22: Continue current plans 07/23: continue to offer VPA and olanzapine. filed for commitment. 07/24: continues to refuse medications. commitment hearing thursday 07/27 at 2 pm. 07/25: accepted zydis last night, appears more organized and less labile today. amenable to have another dose of zydis added in the morning, for a total of 10 BID. still refusing VPA, however. 07/26: accepting zyprexa 10 BID at the moment. refusing VPA. taking klonopin. court tomorrow. 07/27: committed and ordered medication in court. remains disorganized, bizarre. 07/28: taking zyprexa 10 BID. agreed to tegretol XR 200 BID, started this morning. 07/29: compliant with zyprexa and tegretol. clear improvement in manic Sx. 07/30: improvements in manic Sx continue. continue current mgmt. sleeping well, less irritable. 2: poor sleep last night. improvements in manic Sx continue. T/C increase in tegretol dosing after 5 days. 08/01: poor sleep, manic. increase tegretol to 300 BID as of tonight. 08/02: patient remains manic; guarded and ambivalent about medications; parts data writer agreed to move medications to bedtime; encouraged patient to consider Depakote Change to Tegretol ER 600 mg q.h.s. Changed to Zyprexa 20 mg q.h.s. 08/03: remains symptomatic of beverly, attenuated from admission. continue current mgmt. 08/05: no changes 08/06: requesting DC of tegretol and start of VPA, which is accommodated. thorazine IM for refusal of VPA or zyprexa added. manic Sx reportedly continued with concerning severity over w/e. 08/07: slept better last night on VPA, more pleasant this morning. continue current mgmt. 08/08: poor sleep 2/2 hemorrhoid pain. steroid cream Rxed today. appearing slightly improved today. 08/09: steroid cream helpful. gradual improvement in manic Sx. continue current mgmt. 08/10: continue current mgmt. gradual improvements. check labs saturday (ordered). 08/12 - weekday team may consider dec depakote to dec ammonia and ? s/e - too bad as patient has seemed more appropriate to staff. 08/13: VPA dosing has been decreased to 1750 from previous 2000 mg. VPA level 96, ammonia level 95. pt does not appear encephalopathic, however, and incidental findings of hyperammonemia can be WNL for ppl taking VPA. will continue next 5 days at 1750 mg daily and recheck VPA/ammonia in 5 days. MoCA today was . 08/14: morning fatigue dependably. decrease HS olanzapine from 20 mg to 15 mg. sleeping well, more calm and organized. 08/15: sleeping well, calm, organized. check labs saturday. 08/16: Continue current treatment plan. 08/17: check labs tonight. adjust VPA dosing accordingly. otherwise continue current mgmt. Reason for continued inpatient stay Substantial Risk for: inability to function and rapid decompensation Time Spent With Patient Time: Total time managing care of this patient today _25___ minutes.
[2022-08-17 20:31] LABS: Ammonia 49 umol/L (13-55)
[2022-08-17 20:37] LABS: Valproate 39.1 mcg/mL (50.0-100.0)
[2022-08-17 20:40] LABS: Alanine Aminotransferase 22 U/L (0-40); Alkaline Phosphatase 76 U/L (39-117); Anion Gap 13 (12-20); Aspartate Amino Transferase 14 U/L (5-37); Bilirubin Direct < 0.2 mg/dL (0.0-0.5); Bilirubin Total 0.2 mg/dL (0.0-1.0); Blood Urea Nitrogen 15 mg/dL (9-16); Calcium 9.3 mg/dL (8.4-10.2); Carbon Dioxide 26 mmol/L (22-29); Chloride 107 mmol/L (96-108); Creatinine Clr Calc Pharmacy 140.8; Estimated Glomerular Filt Rate > 60; Glucose Random 109 mg/dL (60-115); Potassium 3.9 mmol/L (3.3-5.1); Sodium 142 mmol/L (135-145); Total Protein 6.6 g/dL (6.5-8.0)
[2022-08-17 21:30] VITALS: BP 138/84; PULSE 90; RESP 16; TEMP 36.6; O2SAT 100
[2022-08-17] MEDS: Divalproex Sodium ER 250 MG TAB.ER.24H PO (21:41)
[2022-08-17] MEDS: clonazePAM 0.5 MG TABLET PO (21:41)
[2022-08-17] MEDS: OLANZapine 7.5 MG TABLET 15 MG PO (21:42)
[2022-08-17] MEDS: Divalproex Sodium ER 500 MG TAB.ER.24H 1500 MG PO (21:42)
[2022-08-18 08:20] VITALS: BP 133/71; PULSE 95; RESP 18; TEMP 36.6; O2SAT 97
[2022-08-18] MEDS: Cholecalciferol (Vitamin D3) 25 MCG TABLET 50 MCG PO (09:08)
[2022-08-18] MEDS: Famotidine 20 MG TABLET PO (09:12)
--- NOTE | 2022-08-18 09:20 | HO.PSYCHPN ---
Subjective Subjective Date of Service: 08/18/22 Reason For Visit: Psychosis Subjective Notes: Section 8 Healthcare Proxy: No Guardianship: No Medical Problems Affecting Mental Status: No Interim History: Patient was seen and discussed in rounds today. Records and plans were reviewed. He continues to be anxious, pacing. Denies any depression. He does interact with others more so. He was wondering about his Depakote level which is 39.1. I am a little surprised given the amount he is on will repeat that tomorrow morning. Eating and sleeping adequately. No changes were made today Medication Compliance: Yes Side effects from medications: No Attending Groups: Intermittent Diagnostics Vital Signs (24Hr): Vital Signs - 24 hr 08/17/22 21:30 Temperature 97.9 F Pulse Rate 90 Respiratory Rate 16 Blood Pressure 138/84 Pulse Oximetry 100 Oxygen Delivery Method Room Air BMI result Body Mass Index 28.6 Labs 08/12/22 10:54 08/17/22 20:16 Labs: Laboratory Results - last 48 hr 08/17/22 08/17/22 08/17/22 20:16 20:16 20:16 Sodium 142 Potassium 3.9 Chloride 107 Carbon Dioxide 26 Anion Gap 13 BUN 15 Creatinine 0.84 Estim Creat Clear Calc 140.8 Estimated GFR > 60 Random Glucose 109 Calcium 9.3 Total Bilirubin 0.2 Direct Bilirubin < 0.2 AST 14 ALT 22 Alkaline Phosphatase 76 Ammonia 49 Total Protein 6.6 Albumin 4.0 Valproic Acid 39.1 L Imaging Radiology Impressions: ITS Impressions Soft Tissue Neck X-Ray 07/18/22 09:56 IMPRESSION: No acute abnormality. No evidence of radiopaque foreign body in the neck or upper chest. Foot X-Ray 07/23/22 14:00 IMPRESSION: Normal right foot. Medications Medications Current Medications Acetaminophen (Acetaminophen 325 Mg Tablet) 650 mg PO Q6H PRN PRN Reason: Headache/Pain Mild Scale (1-3) Last Admin: 08/17/22 08:45 Dose: 650 mg Al Hydroxide/Mg Hydroxide (Magnesium Hydrox/Alum Hydrox 30 Ml Oral.Susp) 30 ml PO Q6H PRN PRN Reason: Heartburn/Nausea Last Admin: 07/20/22 15:11 Dose: 30 ml Artificial Tears (Artificial Tears 15 Ml Drops) 2 drop EYE-BOTH TID PRN PRN Reason: Dry Eyes Bisacodyl (Bisacodyl 5 Mg Tablet.Dr) 10 mg PO ONCE [facility] Calcium Carbonate (Calcium Carbonate 750 Mg Tab.Chew) 750 mg PO Q4H PRN PRN Reason: GI Upset Last Admin: 08/08/22 18:06 Dose: 750 mg Chlorpromazine HCl (Chlorpromazine Hcl 25 Mg/Ml Ampul) 100 mg IM BEDTIME PRN PRN Reason: per jl's order Clonazepam (Clonazepam 0.5 Mg Tablet) 0.5 mg PO BEDTIME [facility] Last Admin: 08/17/22 21:41 Dose: 0.5 mg Divalproex Sodium (Divalproex Sodium Er 250 Mg Tab.Er.24h) 250 mg PO BEDTIME [facility] Last Admin: 08/17/22 21:41 Dose: 250 mg Divalproex Sodium (Divalproex Sodium Er 500 Mg Tab.Er.24h) 1,500 mg PO BEDTIME [facility] Last Admin: 08/17/22 21:42 Dose: 1,500 mg Famotidine (Famotidine 20 Mg Tablet) 20 mg PO DAILY [facility] Last Admin: 08/18/22 09:12 Dose: 20 mg Hydroxyzine HCl (Hydroxyzine Hcl 25 Mg Tablet) 25 mg PO Q6H PRN PRN Reason: Anxiety Last Admin: 08/08/22 23:05 Dose: 25 mg Magnesium Hydroxide (Milk Of Magnesia 30 Ml Oral.Susp) 30 ml PO DAILY PRN PRN Reason: Constipation Last Admin: 07/20/22 21:36 Dose: 30 ml Pt Own (Systane Eye (Drops)) 2 drop EYE-BOTH Q4H PRN PRN Reason: Dry Eyes Last Admin: 08/18/22 06:36 Dose: 2 drop Olanzapine (Olanzapine 2.5 Mg Tablet) 2.5 mg PO Q4H PRN PRN Reason: Psychosis Last Admin: 08/08/22 02:25 Dose: 2.5 mg Olanzapine (Olanzapine 7.5 Mg Tablet) 15 mg PO BEDTIME [facility] Last Admin: 08/17/22 21:42 Dose: 15 mg Polyethylene Glycol (Polyethylene Glycol 3350 17 Gm Powd.Pack) 238 gm PO ONCE [facility] Trazodone HCl (Trazodone Hcl 50 Mg Tablet) 50 mg PO BEDTIME MRX1 PRN PRN Reason: Insomnia Last Admin: 07/21/22 23:49 Dose: 50 mg Vitamin D (Cholecalciferol (Vitamin D3) 25 Mcg Tablet) 50 mcg PO DAILY [facility] Last Admin: 08/18/22 09:08 Dose: 50 mcg Allergies Allergies Allergy/AdvReac Type Severity Reaction Status Date / Time risperidone [From RISPERDAL] Allergy Unknown UNKNOWN Verified 06/14/22 14:37 topiramate [From TOPAMAX] Allergy Unknown HEADACHE Verified 06/14/22 14:37 Assessment & Plan Assessment & Plan (1) Schizoaffective disorder, bipolar type: Status: Chronic Code(s): F25.0 - Schizoaffective disorder, bipolar type (2) Noncompliance with medication regimen: Status: Acute Code(s): Z91.148 - Patient's other noncompliance with medication regimen for other reason Plan Patient acutely psychotic disorganized irritable agitated floridly paranoid regarding his parents with whom he lives with. Not excepting medication or need for treatment patient does not except that he has mental illness need medication does not understand impact of his recent behavior that led to hospitalization encourage therapeutic [place] treatment acceptance patient has accepted previously olanzapine and Depakote 07/21: Continue current regimen and plans 07/22: Continue current plans 07/23: continue to offer VPA and olanzapine. filed for commitment. 07/24: continues to refuse medications. commitment hearing thursday 07/27 at 2 pm. 07/25: accepted zydis last night, appears more organized and less labile today. amenable to have another dose of zydis added in the morning, for a total of 10 BID. still refusing VPA, however. 07/26: accepting zyprexa 10 BID at the moment. refusing VPA. taking klonopin. court tomorrow. 07/27: committed and ordered medication in court. remains disorganized, bizarre. 07/28: taking zyprexa 10 BID. agreed to tegretol XR 200 BID, started this morning. 07/29: compliant with zyprexa and tegretol. clear improvement in manic Sx. 07/30: improvements in manic Sx continue. continue current mgmt. sleeping well, less irritable. 2: poor sleep last night. improvements in manic Sx continue. T/C increase in tegretol dosing after 5 days. 08/01: poor sleep, manic. increase tegretol to 300 BID as of tonight. 08/02: patient remains manic; guarded and ambivalent about medications; video game script writer agreed to move medications to bedtime; encouraged patient to consider Depakote Change to Tegretol ER 600 mg q.h.s. Changed to Zyprexa 20 mg q.h.s. 08/03: remains symptomatic of beverly, attenuated from admission. continue current mgmt. 08/05: no changes 08/06: requesting DC of tegretol and start of VPA, which is accommodated. thorazine IM for refusal of VPA or zyprexa added. manic Sx reportedly continued with concerning severity over w/e. 08/07: slept better last night on VPA, more pleasant this morning. continue current mgmt. 08/08: poor sleep 2/2 hemorrhoid pain. steroid cream Rxed today. appearing slightly improved today. 08/09: steroid cream helpful. gradual improvement in manic Sx. continue current mgmt. 08/10: continue current mgmt. gradual improvements. check labs saturday (ordered). 08/12 - weekday team may consider dec depakote to dec ammonia and ? s/e - too bad as patient has seemed more appropriate to staff. 08/13: VPA dosing has been decreased to 1750 from previous 2000 mg. VPA level 96, ammonia level 95. pt does not appear encephalopathic, however, and incidental findings of hyperammonemia can be WNL for ppl taking VPA. will continue next 5 days at 1750 mg daily and recheck VPA/ammonia in 5 days. MoCA today was 27/30. 08/14: morning fatigue dependably. decrease HS olanzapine from 20 mg to 15 mg. sleeping well, more calm and organized. 08/15: sleeping well, calm, organized. check labs saturday. 08/16: Continue current treatment plan. 08/17: check labs tonight. adjust VPA dosing accordingly. otherwise continue current mgmt. 08/18: Continue current regimen and plans. Repeat Depakote level tomorrow morning Reason for continued inpatient stay Substantial Risk for: med/psych decompensation Time Spent With Patient Time: Total time managing care of this patient today ____ minutes.
[2022-08-18] MEDS: OLANZapine 2.5 MG TABLET PO (11:34)
[2022-08-18 19:50] VITALS: BP 135/86; PULSE 77; RESP 16; TEMP 36.8; O2SAT 95
[2022-08-18] MEDS: OLANZapine 7.5 MG TABLET 15 MG PO (20:07)
[2022-08-18] MEDS: Divalproex Sodium ER 500 MG TAB.ER.24H 1500 MG PO (20:07)
[2022-08-18] MEDS: Divalproex Sodium ER 250 MG TAB.ER.24H PO (20:07)
[2022-08-18] MEDS: clonazePAM 0.5 MG TABLET PO (20:07)
--- NOTE | 2022-08-18 22:30 | PC.NURSE ---
Ryan is admitted to [facility] for safety, medication management and stabilization, diagnosis Schizoaffective disorder. This evening he continues to pace, interactive with peers, visible in the milieu, med adherent, compliant with mouth check post meds, [place]en order in place, no observed or reported med side effects. Verbalized that he has a Depakote level for the morning, last level noted to be sub-therapeutic, nutritional/ fluid intake good, grooming fair, denies SI/AVH, safe on the unit. No acute behavior issues, POC as outlined, continues on 15 min unit safety observation.
[2022-08-19 08:15] VITALS: BP 133/76; PULSE 90; RESP 18; TEMP 36.8; O2SAT 97
--- NOTE | 2022-08-19 08:30 | HO.PSYCHPN ---
Subjective Subjective Date of Service: 08/19/22 Reason For Visit: Psychosis Subjective Notes: Section 8 Healthcare Proxy: No Guardianship: No Medical Problems Affecting Mental Status: No Interim History: Patient was seen and discussed in rounds today. Records and plans were reviewed. He has been pleasant and cooperative. He is safe on the unit. He is concerned about his Depakote level which is still on the low side which I repeated this morning. No mood lability. No signs of psychosis. No behavioral issues. Eating and sleeping adequately. No changes were made today Medication Compliance: Yes Side effects from medications: No Attending Groups: Intermittent Mental Status Exam Mental Status Exam Narrative: In today's visit he is alert, oriented and pleasant. Normal speech. Good eye contact. Affect is appropriate and constricted. No signs of psychosis. No paranoia or delusions. No SI. Cognitively intact. Judgment is intact Diagnostics Vital Signs (24Hr): Vital Signs - 24 hr 08/18/22 19:50 Temperature 98.2 F Pulse Rate 77 Respiratory Rate 16 Blood Pressure 135/86 Pulse Oximetry 95 Oxygen Delivery Method Room Air BMI result Body Mass Index 28.6 Labs 08/12/22 10:54 08/17/22 20:16 Labs: Laboratory Results - last 48 hr 08/17/22 08/17/22 08/17/22 20:16 20:16 20:16 Sodium 142 Potassium 3.9 Chloride 107 Carbon Dioxide 26 Anion Gap 13 BUN 15 Creatinine 0.84 Estim Creat Clear Calc 140.8 Estimated GFR > 60 Random Glucose 109 Calcium 9.3 Total Bilirubin 0.2 Direct Bilirubin < 0.2 AST 14 ALT 22 Alkaline Phosphatase 76 Ammonia 49 Total Protein 6.6 Albumin 4.0 Valproic Acid 39.1 L Imaging Radiology Impressions: ITS Impressions Soft Tissue Neck X-Ray 07/18/22 09:56 IMPRESSION: No acute abnormality. No evidence of radiopaque foreign body in the neck or upper chest. Foot X-Ray 07/23/22 14:00 IMPRESSION: Normal right foot. Medications Medications Current Medications Acetaminophen (Acetaminophen 325 Mg Tablet) 650 mg PO Q6H PRN PRN Reason: Headache/Pain Mild Scale (1-3) Last Admin: 08/17/22 08:45 Dose: 650 mg Al Hydroxide/Mg Hydroxide (Magnesium Hydrox/Alum Hydrox 30 Ml Oral.Susp) 30 ml PO Q6H PRN PRN Reason: Heartburn/Nausea Last Admin: 07/20/22 15:11 Dose: 30 ml Artificial Tears (Artificial Tears 15 Ml Drops) 2 drop EYE-BOTH TID PRN PRN Reason: Dry Eyes Bisacodyl (Bisacodyl 5 Mg Tablet.Dr) 10 mg PO ONCE LORENZA Calcium Carbonate (Calcium Carbonate 750 Mg Tab.Chew) 750 mg PO Q4H PRN PRN Reason: GI Upset Last Admin: 08/08/22 18:06 Dose: 750 mg Chlorpromazine HCl (Chlorpromazine Hcl 25 Mg/Ml Ampul) 100 mg IM BEDTIME PRN PRN Reason: per lj's order Clonazepam (Clonazepam 0.5 Mg Tablet) 0.5 mg PO BEDTIME [facility] Last Admin: 08/18/22 20:07 Dose: 0.5 mg Divalproex Sodium (Divalproex Sodium Er 250 Mg Tab.Er.24h) 250 mg PO BEDTIME [facility] Last Admin: 08/18/22 20:07 Dose: 250 mg Divalproex Sodium (Divalproex Sodium Er 500 Mg Tab.Er.24h) 1,500 mg PO BEDTIME LORENZA Last Admin: 08/18/22 20:07 Dose: 1,500 mg Famotidine (Famotidine 20 Mg Tablet) 20 mg PO DAILY [facility] Last Admin: 08/18/22 09:12 Dose: 20 mg Hydroxyzine HCl (Hydroxyzine Hcl 25 Mg Tablet) 25 mg PO Q6H PRN PRN Reason: Anxiety Last Admin: 08/08/22 23:05 Dose: 25 mg Magnesium Hydroxide (Milk Of Magnesia 30 Ml Oral.Susp) 30 ml PO DAILY PRN PRN Reason: Constipation Last Admin: 07/20/22 21:36 Dose: 30 ml Pt Own (Systane Eye (Drops)) 2 drop EYE-BOTH Q4H PRN PRN Reason: Dry Eyes Last Admin: 08/18/22 10:09 Dose: 2 drop Olanzapine (Olanzapine 2.5 Mg Tablet) 2.5 mg PO Q4H PRN PRN Reason: Psychosis Last Admin: 08/18/22 11:34 Dose: 2.5 mg Olanzapine (Olanzapine 7.5 Mg Tablet) 15 mg PO BEDTIME L[facility] Last Admin: 08/18/22 20:07 Dose: 15 mg Polyethylene Glycol (Polyethylene Glycol 3350 17 Gm Powd.Pack) 238 gm PO ONCE LORENZA Trazodone HCl (Trazodone Hcl 50 Mg Tablet) 50 mg PO BEDTIME MRX1 PRN PRN Reason: Insomnia Last Admin: 07/21/22 23:49 Dose: 50 mg Vitamin D (Cholecalciferol (Vitamin D3) 25 Mcg Tablet) 50 mcg PO DAILY [facility] Last Admin: 08/18/22 09:08 Dose: 50 mcg Allergies Allergies Allergy/AdvReac Type Severity Reaction Status Date / Time risperidone [From RISPERDAL] Allergy Unknown UNKNOWN Verified 06/14/22 14:37 topiramate [From TOPAMAX] Allergy Unknown HEADACHE Verified 06/14/22 14:37 Assessment & Plan Assessment & Plan (1) Schizoaffective disorder, bipolar type: Status: Chronic Code(s): F25.0 - Schizoaffective disorder, bipolar type (2) Noncompliance with medication regimen: Status: Acute Code(s): Z91.148 - Patient's other noncompliance with medication regimen for other reason Plan Patient acutely psychotic disorganized irritable agitated floridly paranoid regarding his parents with whom he lives with. Not excepting medication or need for treatment patient does not except that he has mental illness need medication does not understand impact of his recent behavior that led to hospitalization encourage therapeutic [place] treatment acceptance patient has accepted previously olanzapine and Depakote 07/21: Continue current regimen and plans 07/22: Continue current plans 07/23: continue to offer VPA and olanzapine. filed for commitment. 07/24: continues to refuse medications. commitment hearing thursday 07/27 at 2 pm. 07/25: accepted zydis last night, appears more organized and less labile today. amenable to have another dose of zydis added in the morning, for a total of 10 BID. still refusing VPA, however. 07/26: accepting zyprexa 10 BID at the moment. refusing VPA. taking klonopin. court tomorrow. 07/27: committed and ordered medication in court. remains disorganized, bizarre. 07/28: taking zyprexa 10 BID. agreed to tegretol XR 200 BID, started this morning. 07/29: compliant with zyprexa and tegretol. clear improvement in manic Sx. 07/30: improvements in manic Sx continue. continue current mgmt. sleeping well, less irritable. 07/31: poor sleep last night. improvements in manic Sx continue. T/C increase in tegretol dosing after 5 days. 08/01: poor sleep, manic. increase tegretol to 300 BID as of tonight. 08/02: patient remains manic; guarded and ambivalent about medications; global technical writer agreed to move medications to bedtime; encouraged patient to consider Depakote Change to Tegretol ER 600 mg q.h.s. Changed to Zyprexa 20 mg q.h.s. 08/03: remains symptomatic of beverly, attenuated from admission. continue current mgmt. 08/05: no changes 08/06: requesting DC of tegretol and start of VPA, which is accommodated. thorazine IM for refusal of VPA or zyprexa added. manic Sx reportedly continued with concerning severity over w/e. 08/07: slept better last night on VPA, more pleasant this morning. continue current mgmt. 08/08: poor sleep 2/2 hemorrhoid pain. steroid cream Rxed today. appearing slightly improved today. 08/09: steroid cream helpful. gradual improvement in manic Sx. continue current mgmt. 08/10: continue current mgmt. gradual improvements. check labs saturday (ordered). 08/12 - weekday team may consider dec depakote to dec ammonia and ? s/e - too bad as patient has seemed more appropriate to staff. 08/13: VPA dosing has been decreased to 1750 from previous 2000 mg. VPA level 96, ammonia level 95. pt does not appear encephalopathic, however, and incidental findings of hyperammonemia can be WNL for ppl taking VPA. will continue next 5 days at 1750 mg daily and recheck VPA/ammonia in 5 days. MoCA today was . 08/14: morning fatigue dependably. decrease HS olanzapine from 20 mg to 15 mg. sleeping well, more calm and organized. 08/15: sleeping well, calm, organized. check labs saturday. 08/16: Continue current treatment plan. 08/17: check labs tonight. adjust VPA dosing accordingly. otherwise continue current mgmt. 08/18: Continue current regimen and plans. Repeat Depakote level tomorrow morning 08/19: Continue current regimen and plans. Pending Depakote level today Patient educated on: medication risk/benefits Reason for continued inpatient stay Substantial Risk for: med/psych decompensation Time Spent With Patient Time: Total time managing care of this patient today ____ minutes.
[2022-08-19] MEDS: Famotidine 20 MG TABLET PO (08:49)
[2022-08-19] MEDS: Cholecalciferol (Vitamin D3) 25 MCG TABLET 50 MCG PO (08:49)
[2022-08-19 08:57] LABS: Valproate 80.6 mcg/mL (50.0-100.0)
[2022-08-19 20:10] VITALS: BP 150/83; PULSE 106; RESP 18; TEMP 36.6; O2SAT 99
[2022-08-19] MEDS: Divalproex Sodium ER 250 MG TAB.ER.24H PO (22:05)
[2022-08-19] MEDS: OLANZapine 7.5 MG TABLET 15 MG PO (22:05)
[2022-08-19] MEDS: clonazePAM 0.5 MG TABLET PO (22:05)
[2022-08-19] MEDS: Divalproex Sodium ER 500 MG TAB.ER.24H 1500 MG PO (22:06)
[2022-08-20 08:15] VITALS: BP 156/77; PULSE 101; RESP 18; TEMP 36.6; O2SAT 97
[2022-08-20] MEDS: Cholecalciferol (Vitamin D3) 25 MCG TABLET 50 MCG PO (09:13)
--- NOTE | 2022-08-20 15:43 | P.PNPSI_ITS ---
Subjective Subjective Date of Service: 08/20/22 Reason For Visit: Psychosis Interim History: more pressured and disorganized today. VPA level 80 over w/e. agreeable to increase olanzapine back to 20 mg at HS. per staff, not attending groups. pacing. pressured speech at times. slept through the NOC. Mental Status Exam Mental Status Exam Narrative: adequately dressed and groomed. cooperative with interview. no PMA/PMR. speech incr in rate and amount, decr latency. incr loudness, nml tone. thoughts disorganized, delusional content. affect constricted, hyper-intense, mod-labile. no SI/HI/AVH expressed. Diagnostics Vital Signs (24Hr): Vital Signs - 24 hr 08/19/22 20:10 08/20/22 08:15 Temperature 97.9 F 97.9 F Pulse Rate 106 H 101 H Respiratory Rate 18 18 Blood Pressure 150/83 H 156/77 H Pulse Oximetry 99 97 Oxygen Delivery Method Room Air Room Air BMI result Body Mass Index 28.6 Labs 08/12/22 10:54 08/17/22 20:16 Labs: Laboratory Results - last 48 hr 08/19/22 08:02 Valproic Acid 80.6 Imaging Radiology Impressions: ITS Impressions Soft Tissue Neck X-Ray 07/18/22 09:56 IMPRESSION: No acute abnormality. No evidence of radiopaque foreign body in the neck or upper chest. Foot X-Ray 07/23/22 14:00 IMPRESSION: Normal right foot. Medications Medications Current Medications Acetaminophen (Acetaminophen 325 Mg Tablet) 650 mg PO Q6H PRN PRN Reason: Headache/Pain Mild Scale (1-3) Last Admin: 08/17/22 08:45 Dose: 650 mg Al Hydroxide/Mg Hydroxide (Magnesium Hydrox/Alum Hydrox 30 Ml Oral.Susp) 30 ml PO Q6H PRN PRN Reason: Heartburn/Nausea Last Admin: 07/20/22 15:11 Dose: 30 ml Artificial Tears (Artificial Tears 15 Ml Drops) 2 drop EYE-BOTH TID PRN PRN Reason: Dry Eyes Bisacodyl (Bisacodyl 5 Mg Tablet.Dr) 10 mg PO ONCE [facility] Calcium Carbonate (Calcium Carbonate 750 Mg Tab.Chew) 750 mg PO Q4H PRN PRN Reason: GI Upset Last Admin: 08/08/22 18:06 Dose: 750 mg Chlorpromazine HCl (Chlorpromazine Hcl 25 Mg/Ml Ampul) 100 mg IM BEDTIME PRN PRN Reason: per lj's order Clonazepam (Clonazepam 0.5 Mg Tablet) 0.5 mg PO BEDTIME [facility] Last Admin: 08/19/22 22:05 Dose: 0.5 mg Divalproex Sodium (Divalproex Sodium Er 250 Mg Tab.Er.24h) 250 mg PO BEDTIME LOR[facility] Last Admin: 08/19/22 22:05 Dose: 250 mg Divalproex Sodium (Divalproex Sodium Er 500 Mg Tab.Er.24h) 1,500 mg PO BEDTIME LORENZA Last Admin: 08/19/22 22:06 Dose: 1,500 mg Famotidine (Famotidine 20 Mg Tablet) 20 mg PO DAILY [facility] Last Admin: 08/20/22 09:15 Dose: Not Given Hydroxyzine HCl (Hydroxyzine Hcl 25 Mg Tablet) 25 mg PO Q6H PRN PRN Reason: Anxiety Last Admin: 08/08/22 23:05 Dose: 25 mg Magnesium Hydroxide (Milk Of Magnesia 30 Ml Oral.Susp) 30 ml PO DAILY PRN PRN Reason: Constipation Last Admin: 07/20/22 21:36 Dose: 30 ml Pt Own (Systane Eye (Drops)) 2 drop EYE-BOTH Q4H PRN PRN Reason: Dry Eyes Last Admin: 08/19/22 08:49 Dose: 2 drop Olanzapine (Olanzapine 2.5 Mg Tablet) 2.5 mg PO Q4H PRN PRN Reason: Psychosis Last Admin: 08/18/22 11:34 Dose: 2.5 mg Olanzapine (Olanzapine 10 Mg Tablet) 20 mg PO BEDTIME [facility] Polyethylene Glycol (Polyethylene Glycol 3350 17 Gm Powd.Pack) 238 gm PO ONCE LOR[facility] Trazodone HCl (Trazodone Hcl 50 Mg Tablet) 50 mg PO BEDTIME MRX1 PRN PRN Reason: Insomnia Last Admin: 07/21/22 23:49 Dose: 50 mg Vitamin D (Cholecalciferol (Vitamin D3) 25 Mcg Tablet) 50 mcg PO DAILY [facility] Last Admin: 08/20/22 09:13 Dose: 50 mcg Allergies Allergies Allergy/AdvReac Type Severity Reaction Status Date / Time risperidone [From RISPERDAL] Allergy Unknown UNKNOWN Verified 06/14/22 14:37 topiramate [From TOPAMAX] Allergy Unknown HEADACHE Verified 06/14/22 14:37 Assessment & Plan Assessment & Plan (1) Schizoaffective disorder, bipolar type: Status: Chronic Code(s): F25.0 - Schizoaffective disorder, bipolar type (2) Noncompliance with medication regimen: Status: Acute Code(s): Z91.148 - Patient's other noncompliance with medication regimen for other reason Plan Patient acutely psychotic disorganized irritable agitated floridly paranoid regarding his parents with whom he lives with. Not excepting medication or need for treatment patient does not except that he has mental illness need medication does not understand impact of his recent behavior that led to hospitalization encourage therapeutic [place] treatment acceptance patient has accepted previously olanzapine and Depakote 07/21: Continue current regimen and plans 07/22: Continue current plans 07/23: continue to offer VPA and olanzapine. filed for commitment. 07/24: continues to refuse medications. commitment hearing thursday 07/27 at 2 pm. 07/25: accepted zydis last night, appears more organized and less labile today. amenable to have another dose of zydis added in the morning, for a total of 10 BID. still refusing VPA, however. 07/26: accepting zyprexa 10 BID at the moment. refusing VPA. taking klonopin. court tomorrow. 07/27: committed and ordered medication in court. remains disorganized, bizarre. 07/28: taking zyprexa 10 BID. agreed to tegretol XR 200 BID, started this morning. 07/29: compliant with zyprexa and tegretol. clear improvement in manic Sx. 07/30: improvements in manic Sx continue. continue current mgmt. sleeping well, less irritable. 07/31: poor sleep last night. improvements in manic Sx continue. T/C increase in tegretol dosing after 5 days. 08/01: poor sleep, manic. increase tegretol to 300 BID as of tonight. 08/02: patient remains manic; guarded and ambivalent about medications; group underwriter agreed to move medications to bedtime; encouraged patient to consider Depakote Change to Tegretol ER 600 mg q.h.s. Changed to Zyprexa 20 mg q.h.s. 08/03: remains symptomatic of beverly, attenuated from admission. continue current mgmt. 08/05: no changes 08/06: requesting DC of tegretol and start of VPA, which is accommodated. thorazine IM for refusal of VPA or zyprexa added. manic Sx reportedly continued with concerning severity over w/e. 08/07: slept better last night on VPA, more pleasant this morning. continue current mgmt. 08/08: poor sleep 2/2 hemorrhoid pain. steroid cream Rxed today. appearing slightly improved today. 08/09: steroid cream helpful. gradual improvement in manic Sx. continue current mgmt. 08/10: continue current mgmt. gradual improvements. check labs saturday morenita (ordered). 08/12 - weekday team may consider dec depakote to dec ammonia and ? s/e - too bad as patient has seemed more appropriate to staff. 08/13: VPA dosing has been decreased to 1750 from previous 2000 mg. VPA level 96, ammonia level 95. pt does not appear encephalopathic, however, and in cidental findings of hyperammonemia can be WNL for ppl taking VPA. will continue next 5 days at 1750 mg daily and recheck VPA/ammonia in 5 days. MoCA today was . 08/14: morning fatigue dependably. decrease HS olanzapine from 20 mg to 15 mg. sleeping well, more calm and organized. 08/15: sleeping well, calm, organized. check labs saturday. 08/16: Continue current treatment plan. 08/17: check labs tonight. adjust VPA dosing accordingly. otherwise continue current mgmt. 08/18: Continue current regimen and plans. Repeat Depakote level tomorrow morning 08/19: Continue current regimen and plans. Pending Depakote level today. 08/20: VPA 80 yesterday. clearly more pressured and disorganized and delusional today. increase olanzapine back to 20 mg at HS. if he does not improve in the next several days will return VPA dosing to 2 grams. Reason for continued inpatient stay Substantial Risk for: inability to function and rapid decompensation Time Spent With Patient Time: Total time managing care of this patient today __25__ minutes.
[2022-08-20 20:40] VITALS: RESP 20
[2022-08-20] MEDS: clonazePAM 0.5 MG TABLET PO ×2 (22:32)
[2022-08-20] MEDS: Divalproex Sodium ER 250 MG TAB.ER.24H PO (22:32)
[2022-08-20] MEDS: OLANZapine 10 MG TABLET 20 MG PO (22:32)
[2022-08-20] MEDS: Divalproex Sodium ER 500 MG TAB.ER.24H 1500 MG PO (22:32)
[2022-08-21] MEDS: Acetaminophen 325 MG TABLET 650 MG PO (11:06)
--- NOTE | 2022-08-21 15:51 | P.PNPSI_ITS ---
Subjective Subjective Date of Service: 08/21/22 Reason For Visit: Psychosis Interim History: pressured, labile, irritable. circular conversation. seen both alone and with SW. agreeable to increase VPA back to 2000 mg, decr zyprexa down to 17.5 mg, and increase klonopin PRNs to 0.5 BID. per staff, focused on money matters. yelling eves, why do i need to go to rehab for a drug that's completely legal? manic Sx resurfacing. Mental Status Exam Mental Status Exam Narrative: adequately dressed and groomed. cooperative with interview. no PMA/PMR. speech incr in rate and amount, decr latency. incr loudness, nml tone. thoughts disorganized, delusional content. affect constricted, hyper-intense, mod-labile. no SI/HI/AVH expressed. Diagnostics Vital Signs (24Hr): Vital Signs - 24 hr 08/20/22 20:40 Respiratory Rate 20 BMI result Body Mass Index 28.6 Labs 08/12/22 10:54 08/17/22 20:16 Imaging Radiology Impressions: ITS Impressions Soft Tissue Neck X-Ray 07/18/22 09:56 IMPRESSION: No acute abnormality. No evidence of radiopaque foreign body in the neck or upper chest. Foot X-Ray 07/23/22 14:00 IMPRESSION: Normal right foot. Medications Medications Current Medications Acetaminophen (Acetaminophen 325 Mg Tablet) 650 mg PO Q6H PRN PRN Reason: Headache/Pain Mild Scale (1-3) Last Admin: 08/21/22 11:06 Dose: 650 mg Al Hydroxide/Mg Hydroxide (Magnesium Hydrox/Alum Hydrox 30 Ml Oral.Susp) 30 ml PO Q6H PRN PRN Reason: Heartburn/Nausea Last Admin: 07/20/22 15:11 Dose: 30 ml Artificial Tears (Artificial Tears 15 Ml Drops) 2 drop EYE-BOTH TID PRN PRN Reason: Dry Eyes Bisacodyl (Bisacodyl 5 Mg Tablet.Dr) 10 mg PO ONCE [facility]OR[facility] Calcium Carbonate (Calcium Carbonate 750 Mg Tab.Chew) 750 mg PO Q4H PRN PRN Reason: GI Upset Last Admin: 08/08/22 18:06 Dose: 750 mg Chlorpromazine HCl (Chlorpromazine Hcl 25 Mg/Ml Ampul) 100 mg IM BEDTIME PRN PRN Reason: per lj's order Clonazepam (Clonazepam 0.5 Mg Tablet) 0.5 mg PO BID PRN PRN Reason: agitation Divalproex Sodium (Divalproex Sodium Er 500 Mg Tab.Er.24h) 2,000 mg PO BEDTIME [facility] Famotidine (Famotidine 20 Mg Tablet) 20 mg PO DAILY [facility] Last Admin: 08/21/22 08:59 Dose: Not Given Hydroxyzine HCl (Hydroxyzine Hcl 25 Mg Tablet) 25 mg PO Q6H PRN PRN Reason: Anxiety Last Admin: 08/08/22 23:05 Dose: 25 mg Magnesium Hydroxide (Milk Of Magnesia 30 Ml Oral.Susp) 30 ml PO DAILY PRN PRN Reason: Constipation Last Admin: 07/20/22 21:36 Dose: 30 ml Pt Own (Systane Eye (Drops)) 2 drop EYE-BOTH Q4H PRN PRN Reason: Dry Eyes Last Admin: 08/19/22 08:49 Dose: 2 drop Olanzapine (Olanzapine 2.5 Mg Tablet) 2.5 mg PO Q4H PRN PRN Reason: Psychosis Last Admin: 08/18/22 11:34 Dose: 2.5 mg Olanzapine (Olanzapine 2.5 Mg Tablet) 17.5 mg PO BEDTIME [facility] Polyethylene Glycol (Polyethylene Glycol 3350 17 Gm Powd.Pack) 238 gm PO ONCE [facility]OR[facility] Trazodone HCl (Trazodone Hcl 50 Mg Tablet) 50 mg PO BEDTIME MRX1 PRN PRN Reason: Insomnia Last Admin: 07/21/22 23:49 Dose: 50 mg Vitamin D (Cholecalciferol (Vitamin D3) 25 Mcg Tablet) 50 mcg PO DAILY [facility] Last Admin: 08/21/22 08:59 Dose: Not Given Allergies Allergies Allergy/AdvReac Type Severity Reaction Status Date / Time risperidone [From RISPERDAL] Allergy Unknown UNKNOWN Verified 06/14/22 14:37 topiramate [From TOPAMAX] Allergy Unknown HEADACHE Verified 06/14/22 14:37 Assessment & Plan Assessment & Plan (1) Schizoaffective disorder, bipolar type: Status: Chronic Code(s): F25.0 - Schizoaffective disorder, bipolar type (2) Noncompliance with medication regimen: Status: Acute Code(s): Z91.148 - Patient's other noncompliance with medication regimen for other reason Plan Patient acutely psychotic disorganized irritable agitated floridly paranoid regarding his parents with whom he lives with. Not excepting medication or need for treatment patient does not except that he has mental illness need medication does not understand impact of his recent behavior that led to hospitalization encourage therapeutic [place] treatment acceptance patient has accepted previously olanzapine and Depakote 07/21: Continue current regimen and plans 07/22: Continue current plans 07/23: continue to offer VPA and olanzapine. filed for commitment. 07/24: continues to refuse medications. commitment hearing thursday 07/27 at 2 pm. 07/25: accepted zydis last night, appears more organized and less labile today. amenable to have another dose of zydis added in the morning, for a total of 10 BID. still refusing VPA, however. 07/26: accepting zyprexa 10 BID at the moment. refusing VPA. taking klonopin. court tomorrow. 07/27: committed and ordered medication in court. remains disorganized, bizarre. 07/28: taking zyprexa 10 BID. agreed to tegretol XR 200 BID, started this morning. 07/29: compliant with zyprexa and tegretol. clear improvement in manic Sx. 07/30: improvements in manic Sx continue. continue current mgmt. sleeping well, less irritable. 07/31: poor sleep last night. improvements in manic Sx continue. T/C increase in tegretol dosing after 5 days. 08/01: poor sleep, manic. increase tegretol to 300 BID as of tonight. 08/02: patient remains manic; guarded and ambivalent about medications; global technical writer agreed to move medications to bedtime; encouraged patient to consider Depakote Change to Tegretol ER 600 mg q.h.s. Changed to Zyprexa 20 mg q.h.s. 08/03: remains symptomatic of beverly, attenuated from admission. continue current mgmt. 08/05: no changes 08/06: requesting DC of tegretol and start of VPA, which is accommodated. thorazine IM for refusal of VPA or zyprexa added. manic Sx reportedly continued with concerning severity over w/e. 08/07: slept better last night on VPA, more pleasant this morning. continue current mgmt. 08/08: poor sleep 2/2 hemorrhoid pain. steroid cream Rxed today. appearing slightly improved today. 08/09: steroid cream helpful. gradual improvement in manic Sx. continue current mgmt. 08/10: continue current mgmt. gradual improvements. check labs saturday morenita (ordered). 08/12 - weekday team may consider dec depakote to dec ammonia and ? s/e - too bad as patient has seemed more appropriate to staff. 08/13: VPA dosing has been decreased to 1750 from previous 2000 mg. VPA level 96, ammonia level 95. pt does not appear encephalopathic, however, and incidental findings of hyperammonemia can be WNL for ppl taking VPA. will continue next 5 days at 1750 mg daily and recheck VPA/ammonia in 5 days. MoCA today was . 08/14: morning fatigue dependably. decrease HS olanzapine from 20 mg to 15 mg. sleeping well, more calm and organized. 08/15: sleeping well, calm, organized. check labs saturday. 08/16: Continue current treatment plan. 08/17: check labs tonight. adjust VPA dosing accordingly. otherwise continue current mgmt. 08/18: Continue current regimen and plans. Repeat Depakote level tomorrow morning 08/19: Continue current regimen and plans. Pending Depakote level today. 08/20: VPA 80 yesterday. clearly more pressured and disorganized and delusional today. increase olanzapine back to 20 mg at HS. if he does not improve in the next several days will return VPA dosing to 2 grams. 08/21: Sx such that changes are necessary today. incr VPA to 2 grams, incr klonopin PRNs to 0.5 mg BID. will decr olanzapine from 20 QHS to 17.5 QHS at pt's [place]/resistance. Reason for continued inpatient stay Substantial Risk for: harm to others, inability to function and rapid dec ompensation Time Spent With Patient Time: Total time managing care of this patient today __35__ minutes.
[2022-08-21] MEDS: clonazePAM 0.5 MG TABLET PO ×2 (16:02→21:52)
[2022-08-21 21:34] VITALS: BP 122/62; PULSE 105; TEMP 36.7; O2SAT 97
[2022-08-21] MEDS: OLANZapine 7.5 MG TABLET 15 MG PO (21:36)
[2022-08-21] MEDS: Divalproex Sodium ER 500 MG TAB.ER.24H 2000 MG PO (21:36)
[2022-08-21] MEDS: OLANZapine 2.5 MG TABLET PO (21:36)
[2022-08-22] MEDS: clonazePAM 0.5 MG TABLET PO ×2 (13:10→19:59)
--- NOTE | 2022-08-22 13:26 | HO.PSYCHPN ---
Subjective Subjective Date of Service: 08/22/22 Reason For Visit: Psychosis Interim History: found napping late morning, which has not been the case since zyprexa was decreased from 20 mg QHS to 15 mg QHS. irritable and labile through the torpor, however. per staff, pacing, declined VS and meds this morning. irritable all day yesterday. mother visited, pt and mother argued throughout the visit. slept in this morning. Mental Status Exam Mental Status Exam Narrative: adequately dressed and groomed. cooperative with interview. no PMA/PMR. speech incr in rate and amount, decr latency. incr loudness, nml tone. thoughts linear in brief interaction. affect constricted, hyper-intense, mod-labile. no SI/HI/AVH expressed. Diagnostics Vital Signs (24Hr): Vital Signs - 24 hr 08/21/22 21:34 Temperature 98.1 F Pulse Rate 105 H Blood Pressure 122/62 Pulse Oximetry 97 Oxygen Delivery Method Room Air BMI result Body Mass Index 28.6 Labs 08/12/22 10:54 08/17/22 20:16 Imaging Radiology Impressions: ITS Impressions Soft Tissue Neck X-Ray 07/18/22 09:56 IMPRESSION: No acute abnormality. No evidence of radiopaque foreign body in the neck or upper chest. Foot X-Ray 07/23/22 14:00 IMPRESSION: Normal right foot. Medications Medications Current Medications Acetaminophen (Acetaminophen 325 Mg Tablet) 650 mg PO Q6H PRN PRN Reason: Headache/Pain Mild Scale (1-3) Last Admin: 08/21/22 11:06 Dose: 650 mg Al Hydroxide/Mg Hydroxide (Magnesium Hydrox/Alum Hydrox 30 Ml Oral.Susp) 30 ml PO Q6H PRN PRN Reason: Heartburn/Nausea Last Admin: 07/20/22 15:11 Dose: 30 ml Artificial Tears (Artificial Tears 15 Ml Drops) 2 drop EYE-BOTH TID PRN PRN Reason: Dry Eyes Bisacodyl (Bisacodyl 5 Mg Tablet.Dr) 10 mg PO ONCE LORENZA Calcium Carbonate (Calcium Carbonate 750 Mg Tab.Chew) 750 mg PO Q4H PRN PRN Reason: GI Upset Last Admin: 08/08/22 18:06 Dose: 750 mg Chlorpromazine HCl (Chlorpromazine Hcl 25 Mg/Ml Ampul) 100 mg IM BEDTIME PRN PRN Reason: per lj's order Clonazepam (Clonazepam 0.5 Mg Tablet) 0.5 mg PO BID PRN PRN Reason: agitation Last Admin: 08/22/22 13:10 Dose: 0.5 mg Divalproex Sodium (Divalproex Sodium Er 500 Mg Tab.Er.24h) 2,000 mg PO BEDTIME [facility] Last Admin: 08/21/22 21:36 Dose: 2,000 mg Famotidine (Famotidine 20 Mg Tablet) 20 mg PO DAILY [facility] Last Admin: 08/22/22 10:06 Dose: Not Given Hydroxyzine HCl (Hydroxyzine Hcl 25 Mg Tablet) 25 mg PO Q6H PRN PRN Reason: Anxiety Last Admin: 08/08/22 23:05 Dose: 25 mg Magnesium Hydroxide (Milk Of Magnesia 30 Ml Oral.Susp) 30 ml PO DAILY PRN PRN Reason: Constipation Last Admin: 07/20/22 21:36 Dose: 30 ml Pt Own (Systane Eye (Drops)) 2 drop EYE-BOTH Q4H PRN PRN Reason: Dry Eyes Last Admin: 08/19/22 08:49 Dose: 2 drop Olanzapine (Olanzapine 2.5 Mg Tablet) 2.5 mg PO Q4H PRN PRN Reason: Psychosis Last Admin: 08/18/22 11:34 Dose: 2.5 mg Olanzapine (Olanzapine 7.5 Mg Tablet) 15 mg PO BEDTIME [facility] Last Admin: 08/21/22 21:36 Dose: 15 mg Olanzapine (Olanzapine 2.5 Mg Tablet) 2.5 mg PO BEDTIME [facility] Last Admin: 08/21/22 21:36 Dose: 2.5 mg Polyethylene Glycol (Polyethylene Glycol 3350 17 Gm Powd.Pack) 238 gm PO ONCE [facility]OR[facility] Trazodone HCl (Trazodone Hcl 50 Mg Tablet) 50 mg PO BEDTIME MRX1 PRN PRN Reason: Insomnia Last Admin: 07/21/22 23:49 Dose: 50 mg Vitamin D (Cholecalciferol (Vitamin D3) 25 Mcg Tablet) 50 mcg PO DAILY [facility] Last Admin: 08/22/22 10:06 Dose: Not Given Allergies Allergies Allergy/AdvReac Type Severity Reaction Status Date / Time risperidone [From RISPERDAL] Allergy Unknown UNKNOWN Verified 06/14/22 14:37 topiramate [From TOPAMAX] Allergy Unknown HEADACHE Verified 06/14/22 14:37 Assessment & Plan Assessment & Plan (1) Schizoaffective disorder, bipolar type: Status: Chronic Code(s): F25.0 - Schizoaffective disorder, bipolar type (2) Noncompliance with medication regimen: Status: Acute Code(s): Z91.148 - Patient's other noncompliance with medication regimen for other reason Plan Patient acutely psychotic disorganized irritable agitated floridly paranoid regarding his parents with whom he lives with. Not excepting medication or need for treatment patient does not except that he has mental illness need medication does not understand impact of his recent behavior that led to hospitalization encourage therapeutic [place] treatment acceptance patient has accepted previously olanzapine and Depakote 07/21: Continue current regimen and plans 07/22: Continue current plans 07/23: continue to offer VPA and olanzapine. filed for commitment. 07/24: continues to refuse medications. commitment hearing thursday 07/27 at 2 pm. 07/25: accepted zydis last night, appears more organized and less labile today. amenable to have another dose of zydis added in the morning, for a total of 10 BID. still refusing VPA, however. 07/26: accepting zyprexa 10 BID at the moment. refusing VPA. taking klonopin. court tomorrow. 07/27: committed and ordered medication in court. remains disorganized, bizarre. 07/28: taking zyprexa 10 BID. agreed to tegretol XR 200 BID, started this morning. 07/29: compliant with zyprexa and tegretol. clear improvement in manic Sx. 07/30: improvements in manic Sx continue. continue current mgmt. sleeping well, less irritable. 07/31: poor sleep last night. improvements in manic Sx continue. T/C increase in tegretol dosing after 5 days. 08/01: poor sleep, manic. increase tegretol to 300 BID as of tonight. 08/02: patient remains manic; guarded and ambivalent about medications; television script writer agreed to move medications to bedtime; encouraged patient to consider Depakote Change to Tegretol ER 600 mg q.h.s. Changed to Zyprexa 20 mg q.h.s. 08/03: remains symptomatic of beverly, attenuated from admission. continue current mgmt. 08/05: no changes 08/06: requesting DC of tegretol and start of VPA, which is accommodated. thorazine IM for refusal of VPA or zyprexa added. manic Sx reportedly continued with concerning severity over w/e. 08/07: slept better last night on VPA, more pleasant this morning. continue current mgmt. 08/08: poor sleep 2/2 hemorrhoid pain. steroid cream Rxed today. appearing slightly improved today. 08/09: steroid cream helpful. gradual improvement in manic Sx. continue current mgmt. 08/10: continue current mgmt. gradual improvements. check labs saturday morenita (ordered). 08/12 - weekday team may consider dec depakote to dec ammonia and ? s/e - too bad as patient has seemed more appropriate to staff. 08/13: VPA dosing has been decreased to 1750 from previous 2000 mg. VPA level 96, ammonia level 95. pt does not appear encephalopathic, however, and incidental findings of hyperammonemia can be WNL for ppl taking VPA. will continue next 5 days at 1750 mg daily and recheck VPA/ammonia in 5 days. MoCA today was . 08/14: morning fatigue dependably. decrease HS olanzapine from 20 mg to 15 mg. sleeping well, more calm and organized. 08/15: sleeping well, calm, organized. check labs saturday. 08/16: Continue current treatment plan. 08/17: check labs tonight. adjust VPA dosing accordingly. otherwise continue current mgmt. 08/18: Continue current regimen and plans. Repeat Depakote level tomorrow morning 08/19: Continue current regimen and plans. Pending Depakote level today. 08/20: VPA 80 yesterday. clearly more pressured and disorganized and delusional today. increase olanzapine back to 20 mg at HS. if he does not improve in the next several days will return VPA dosing to 2 grams. 08/21: Sx such that changes are necessary today. incr VPA to 2 grams, incr klonopin PRNs to 0.5 mg BID. will decr olanzapine from 20 QHS to 17.5 QHS at pt's [place]/resistance. 08/22: more tired today, napping again late morning. continue current mgmt for now. remains labile and irritable. Reason for continued inpatient stay Substantial Risk for: harm to self, harm to others, inability to function and rapid decompensation Time Spent With Patient Time: Total time managing care of this patient today ____ minutes.
[2022-08-22] MEDS: Divalproex Sodium ER 500 MG TAB.ER.24H 2000 MG PO (20:09)
[2022-08-22 20:10] VITALS: BP 127/63; PULSE 104; RESP 16; TEMP 36.6; O2SAT 98
[2022-08-22] MEDS: OLANZapine 2.5 MG TABLET PO (20:10)
[2022-08-22] MEDS: OLANZapine 7.5 MG TABLET 15 MG PO (20:10)
[2022-08-23 07:00] VITALS: BMI 29.3
[2022-08-23] MEDS: Cholecalciferol (Vitamin D3) 25 MCG TABLET 50 MCG PO (08:15)
[2022-08-23 10:25] VITALS: BP 135/76; PULSE 96; RESP 18; TEMP 36.4; O2SAT 99
[2022-08-23] MEDS: Famotidine 20 MG TABLET PO (11:58)
--- NOTE | 2022-08-23 14:47 | HO.PSYCHPN ---
Subjective Subjective Date of Service: 08/23/22 Reason For Visit: Psychosis Interim History: napping late morning. more easily rousable. c/o sedation. asks to split VPA, which is accommodated. MD also offers to decrease olanzapine back to 15 at HS. per staff, irritable. using klonopin PRNs. Mental Status Exam Mental Status Exam Narrative: adequately dressed and groomed. cooperative with interview. no PMA/PMR. speech incr in rate and amount, decr latency. incr loudness, nml tone. thoughts linear in brief interaction. affect constricted, hyper-intense, non-labile. no SI/HI/AVH expressed. Diagnostics Vital Signs (24Hr): Vital Signs - 24 hr 08/22/22 20:10 08/23/22 10:25 Temperature 97.9 F 97.6 F Pulse Rate 104 H 96 Respiratory Rate 16 18 Blood Pressure 127/63 135/76 Pulse Oximetry 98 99 Oxygen Delivery Method Room Air Room Air BMI result Body Mass Index 29.3 Labs 08/12/22 10:54 08/17/22 20:16 Imaging Radiology Impressions: ITS Impressions Soft Tissue Neck X-Ray 07/18/22 09:56 IMPRESSION: No acute abnormality. No evidence of radiopaque foreign body in the neck or upper chest. Foot X-Ray 07/23/22 14:00 IMPRESSION: Normal right foot. Medications Medications Current Medications Acetaminophen (Acetaminophen 325 Mg Tablet) 650 mg PO Q6H PRN PRN Reason: Headache/Pain Mild Scale (1-3) Last Admin: 08/21/22 11:06 Dose: 650 mg Al Hydroxide/Mg Hydroxide (Magnesium Hydrox/Alum Hydrox 30 Ml Oral.Susp) 30 ml PO Q6H PRN PRN Reason: Heartburn/Nausea Last Admin: 07/20/22 15:11 Dose: 30 ml Artificial Tears (Artificial Tears 15 Ml Drops) 2 drop EYE-BOTH TID PRN PRN Reason: Dry Eyes Bisacodyl (Bisacodyl 5 Mg Tablet.Dr) 10 mg PO ONCE LORENZA Calcium Carbonate (Calcium Carbonate 750 Mg Tab.Chew) 750 mg PO Q4H PRN PRN Reason: GI Upset Last Admin: 08/08/22 18:06 Dose: 750 mg Chlorpromazine HCl (Chlorpromazine Hcl 25 Mg/Ml Ampul) 100 mg IM BEDTIME PRN PRN Reason: per lj's order Clonazepam (Clonazepam 0.5 Mg Tablet) 0.5 mg PO BID PRN PRN Reason: agitation Last Admin: 08/22/22 19:59 Dose: 0.5 mg Divalproex Sodium (Divalproex Sodium Er 500 Mg Tab.Er.24h) 1,000 mg PO BID [facility] Famotidine (Famotidine 20 Mg Tablet) 20 mg PO DAILY [facility] Last Admin: 08/23/22 11:58 Dose: 20 mg Hydroxyzine HCl (Hydroxyzine Hcl 25 Mg Tablet) 25 mg PO Q6H PRN PRN Reason: Anxiety Last Admin: 08/08/22 23:05 Dose: 25 mg Magnesium Hydroxide (Milk Of Magnesia 30 Ml Oral.Susp) 30 ml PO DAILY PRN PRN Reason: Constipation Last Admin: 07/20/22 21:36 Dose: 30 ml Pt Own (Systane Eye (Drops)) 2 drop EYE-BOTH Q4H PRN PRN Reason: Dry Eyes Last Admin: 08/23/22 11:58 Dose: 2 drop Olanzapine (Olanzapine 2.5 Mg Tablet) 2.5 mg PO Q4H PRN PRN Reason: Psychosis Last Admin: 08/18/22 11:34 Dose: 2.5 mg Olanzapine (Olanzapine 7.5 Mg Tablet) 15 mg PO BEDTIME LORENZA Last Admin: 08/22/22 20:10 Dose: 15 mg Polyethylene Glycol (Polyethylene Glycol 3350 17 Gm Powd.Pack) 238 gm PO ONCE LORENZA Trazodone HCl (Trazodone Hcl 50 Mg Tablet) 50 mg PO BEDTIME MRX1 PRN PRN Reason: Insomnia Last Admin: 07/21/22 23:49 Dose: 50 mg Vitamin D (Cholecalciferol (Vitamin D3) 25 Mcg Tablet) 50 mcg PO DAILY [facility] Last Admin: 08/23/22 08:15 Dose: 50 mcg Allergies Allergies Allergy/AdvReac Type Severity Reaction Status Date / Time risperidone [From RISPERDAL] Allergy Unknown UNKNOWN Verified 06/14/22 14:37 topiramate [From TOPAMAX] Allergy Unknown HEADACHE Verified 06/14/22 14:37 Assessment & Plan Assessment & Plan (1) Schizoaffective disorder, bipolar type: Status: Chronic Code(s): F25.0 - Schizoaffective disorder, bipolar type (2) Noncompliance with medication regimen: Status: Acute Code(s): Z91.148 - Patient's other noncompliance with medication regimen for other reason Plan Patient acutely psychotic disorganized irritable agitated floridly paranoid regarding his parents with whom he lives with. Not excepting medication or need for treatment patient does not except that he has mental illness need medication does not understand impact of his recent behavior that led to hospitalization encourage therapeutic [place] treatment acceptance patient has accepted previously olanzapine and Depakote 07/21: Continue current regimen and plans 07/22: Continue current plans 07/23: continue to offer VPA and olanzapine. filed for commitment. 07/24: continues to refuse medications. commitment hearing thursday 07/27 at 2 pm. 07/25: accepted zydis last night, appears more organized and less labile today. amenable to have another dose of zydis added in the morning, for a total of 10 BID. still refusing VPA, however. 07/26: accepting zyprexa 10 BID at the moment. refusing VPA. taking klonopin. court tomorrow. 07/27: committed and ordered medication in court. remains disorganized, bizarre. 07/28: taking zyprexa 10 BID. agreed to tegretol XR 200 BID, started this morning. 07/29: compliant with zyprexa and tegretol. clear improvement in manic Sx. 07/30: improvements in manic Sx continue. continue current mgmt. sleeping well, less irritable. 07/31: poor sleep last night. improvements in manic Sx continue. T/C increase in tegretol dosing after 5 days. 08/01: poor sleep, manic. increase tegretol to 300 BID as of tonight. 08/02: patient remains manic; guarded and ambivalent about medications; check writer salesperson agreed to move medications to bedtime; encouraged patient to consider Depakote Change to Tegretol ER 600 mg q.h.s. Changed to Zyprexa 20 mg q.h.s. 08/03: remains symptomatic of beverly, attenuated from admission. continue current mgmt. 08/05: no changes 08/06: requesting DC of tegretol and start of VPA, which is accommodated. thorazine IM for refusal of VPA or zyprexa added. manic Sx reportedly continued with concerning severity over w/e. 08/07: slept better last night on VPA, more pleasant this morning. continue current mgmt. 08/08: poor sleep 2/2 hemorrhoid pain. steroid cream Rxed today. appearing slightly improved today. 08/09: steroid cream helpful. gradual improvement in manic Sx. continue current mgmt. 08/10: continue current mgmt. gradual improvements. check labs saturday morenita (ordered). 08/12 - weekday team may consider dec depakote to dec ammonia and ? s/e - too bad as patient has seemed more appropriate to staff. 08/13: VPA dosing has been decreased to 1750 from previous 2000 mg. VPA level 96, ammonia level 95. pt does not appear encephalopathic, however, and incidental findings of hyperammonemia can be WNL for ppl taking VPA. will continue next 5 days at 1750 mg daily and recheck VPA/ammonia in 5 days. MoCA today was . 08/14: morning fatigue dependably. decrease HS olanzapine from 20 mg to 15 mg. sleeping well, more calm and organized. 08/15: sleeping well, calm, organized. check labs saturday. 08/16: Continue current treatment plan. 08/17: check labs tonight. adjust VPA dosing accordingly. otherwise continue current mgmt. 08/18: Continue current regimen and plans. Repeat Depakote level tomorrow morning 08/19: Continue current regimen and plans. Pending Depakote level today. 08/20: VPA 80 yesterday. clearly more pressured and disorganized and delusional today. increase olanzapine back to 20 mg at HS. if he does not improve in the next several days will return VPA dosing to 2 grams. 08/21: Sx such that changes are necessary today. incr VPA to 2 grams, incr klonopin PRNs to 0.5 mg BID. will decr olanzapine from 20 QHS to 17.5 QHS at pt's [place]/resistance. 08/22: more tired today, napping again late morning. continue current mgmt for now. remains labile and irritable. 08/23: continues more tired, but slightly more energetic than yesterday. requesting split dosing VPA, which is done. HS zyprexa also lowered from 17.5 to 15. otherwise continue current mgmt. Reason for continued inpatient stay Substantial Risk for: inability to function and rapid decompensation Time Spent With Patient Time: Total time managing care of this patient today ____ minutes.
[2022-08-23 18:00] VITALS: BP 129/77; PULSE 111; RESP 18; TEMP 36.5; O2SAT 98
[2022-08-23] MEDS: Divalproex Sodium ER 500 MG TAB.ER.24H 1000 MG PO (21:14)
[2022-08-23] MEDS: OLANZapine 7.5 MG TABLET 15 MG PO (21:14)
[2022-08-23] MEDS: clonazePAM 0.5 MG TABLET PO (21:14)
[2022-08-24 08:01] VITALS: BP 143/63; PULSE 96; RESP 18; TEMP 36.4; O2SAT 96
[2022-08-24] MEDS: Cholecalciferol (Vitamin D3) 25 MCG TABLET 50 MCG PO (09:41)
[2022-08-24] MEDS: Divalproex Sodium ER 500 MG TAB.ER.24H 1000 MG PO ×2 (10:01→21:29)
--- NOTE | 2022-08-24 14:09 | P.PNPSI_ITS ---
Subjective Subjective Date of Service: 08/24/22 Reason For Visit: Psychosis Interim History: calm, cooperative. improved from recent days. asking about discharge and labs. per staff, wants to know D/C date. pacing halls. pleasant approachable. denies psych Sx. Mental Status Exam Mental Status Exam Narrative: adequately dressed and groomed. cooperative with interview. no PMA/PMR. speech nml rate and amount, decr latency. incr loudness, nml tone. thoughts linear and logical. affect constricted, normo-intense, non-labile. no SI/HI/AVH expressed. Diagnostics Vital Signs (24Hr): Vital Signs - 24 hr 08/23/22 18:00 08/24/22 08:01 Temperature 97.7 F 97.6 F Pulse Rate 111 H 96 Respiratory Rate 18 18 Blood Pressure 129/77 143/63 H Pulse Oximetry 98 96 Oxygen Delivery Method Room Air Room Air BMI result Body Mass Index 29.3 Labs 08/12/22 10:54 08/17/22 20:16 Imaging Radiology Impressions: ITS Impressions Soft Tissue Neck X-Ray 07/18/22 09:56 IMPRESSION: No acute abnormality. No evidence of radiopaque foreign body in the neck or upper chest. Foot X-Ray 07/23/22 14:00 IMPRESSION: Normal right foot. Medications Medications Current Medications Acetaminophen (Acetaminophen 325 Mg Tablet) 650 mg PO Q6H PRN PRN Reason: Headache/Pain Mild Scale (1-3) Last Admin: 08/21/22 11:06 Dose: 650 mg Al Hydroxide/Mg Hydroxide (Magnesium Hydrox/Alum Hydrox 30 Ml Oral.Susp) 30 ml PO Q6H PRN PRN Reason: Heartburn/Nausea Last Admin: 07/20/22 15:11 Dose: 30 ml Artificial Tears (Artificial Tears 15 Ml Drops) 2 drop EYE-BOTH TID PRN PRN Reason: Dry Eyes Bisacodyl (Bisacodyl 5 Mg Tablet.Dr) 10 mg PO ONCE LORENZA Calcium Carbonate (Calcium Carbonate 750 Mg Tab.Chew) 750 mg PO Q4H PRN PRN Reason: GI Upset Last Admin: 08/08/22 18:06 Dose: 750 mg Chlorpromazine HCl (Chlorpromazine Hcl 25 Mg/Ml Ampul) 100 mg IM BEDTIME PRN PRN Reason: per lj's order Clonazepam (Clonazepam 0.5 Mg Tablet) 0.5 mg PO BID PRN PRN Reason: agitation Last Admin: 08/23/22 21:14 Dose: 0.5 mg Divalproex Sodium (Divalproex Sodium Er 500 Mg Tab.Er.24h) 1,000 mg PO BID [facility] Last Admin: 08/24/22 10:01 Dose: 1,000 mg Famotidine (Famotidine 20 Mg Tablet) 20 mg PO DAILY [facility] Last Admin: 08/24/22 09:46 Dose: Not Given Hydroxyzine HCl (Hydroxyzine Hcl 25 Mg Tablet) 25 mg PO Q6H PRN PRN Reason: Anxiety Last Admin: 08/08/22 23:05 Dose: 25 mg Magnesium Hydroxide (Milk Of Magnesia 30 Ml Oral.Susp) 30 ml PO DAILY PRN PRN Reason: Constipation Last Admin: 07/20/22 21:36 Dose: 30 ml Pt Own (Systane Eye (Drops)) 2 drop EYE-BOTH Q4H PRN PRN Reason: Dry Eyes Last Admin: 08/23/22 11:58 Dose: 2 drop Olanzapine (Olanzapine 2.5 Mg Tablet) 2.5 mg PO Q4H PRN PRN Reason: Psychosis Last Admin: 08/18/22 11:34 Dose: 2.5 mg Olanzapine (Olanzapine 7.5 Mg Tablet) 15 mg PO BEDTIME [facility] Last Admin: 08/23/22 21:14 Dose: 15 mg Polyethylene Glycol (Polyethylene Glycol 3350 17 Gm Powd.Pack) 238 gm PO ONCE LORENZA Trazodone HCl (Trazodone Hcl 50 Mg Tablet) 50 mg PO BEDTIME MRX1 PRN PRN Reason: Insomnia Last Admin: 07/21/22 23:49 Dose: 50 mg Vitamin D (Cholecalciferol (Vitamin D3) 25 Mcg Tablet) 50 mcg PO DAILY [facility] Last Admin: 08/24/22 09:41 Dose: 50 mcg Allergies Allergies Allergy/AdvReac Type Severity Reaction Status Date / Time risperidone [From RISPERDAL] Allergy Unknown UNKNOWN Verified 06/14/22 14:37 topiramate [From TOPAMAX] Allergy Unknown HEADACHE Verified 06/14/22 14:37 Assessment & Plan Assessment & Plan (1) Schizoaffective disorder, bipolar type: Status: Chronic Code(s): F25.0 - Schizoaffective disorder, bipolar type (2) Noncompliance with medication regimen: Status: Acute Code(s): Z91.148 - Patient's other noncompliance with medication regimen for other reason Plan Patient acutely psychotic disorganized irritable agitated floridly paranoid regarding his parents with whom he lives with. Not excepting medication or need for treatment patient does not except that he has mental illness need medication does not understand impact of his recent behavior that led to hospitalization encourage therapeutic [place] treatment acceptance patient has accepted previously olanzapine and Depakote 07/21: Continue current regimen and plans 07/22: Continue current plans 07/23: continue to offer VPA and olanzapine. filed for commitment. 07/24: continues to refuse medications. commitment hearing thursday 07/27 at 2 pm. 07/25: accepted zydis last night, appears more organized and less labile today. amenable to have another dose of zydis added in the morning, for a total of 10 BID. still refusing VPA, however. 07/26: accepting zyprexa 10 BID at the moment. refusing VPA. taking klonopin. court tomorrow. 07/27: committed and ordered medication in court. remains disorganized, bizarr e. 07/28: taking zyprexa 10 BID. agreed to tegretol XR 200 BID, started this morning. 07/29: compliant with zyprexa and tegretol. clear improvement in manic Sx. 07/30: improvements in manic Sx continue. continue current mgmt. sleeping well, less irritable. 07/31: poor sleep last night. improvements in manic Sx continue. T/C increase in tegretol dosing after 5 days. 08/01: poor sleep, manic. increase tegretol to 300 BID as of tonight. 08/02: patient remains manic; guarded and ambivalent about medications; telegraphic typewriter operator agreed to move medications to bedtime; encouraged patient to consider Depakote Change to Tegretol ER 600 mg q.h.s. Changed to Zyprexa 20 mg q.h.s. 08/03: remains symptomatic of beverly, attenuated from admission. continue current mgmt. 08/05: no changes 08/06: requesting DC of tegretol and start of VPA, which is accommodated. thorazine IM for refusal of VPA or zyprexa added. manic Sx reportedly continued with concerning severity over w/e. 08/07: slept better last night on VPA, more pleasant this morning. continue current mgmt. 08/08: poor sleep 2/2 hemorrhoid pain. steroid cream Rxed today. appearing slightly improved today. 08/09: steroid cream helpful. gradual improvement in manic Sx. continue current mgmt. 08/10: continue current mgmt. gradual improvements. check labs saturday morenita (ordered). 08/12 - weekday team may consider dec depakote to dec ammonia and ? s/e - too bad as patient has seemed more appropriate to staff. 08/13: VPA dosing has been decreased to 1750 from previous 2000 mg. VPA level 96, ammonia level 95. pt does not appear encephalopathic, however, and incidental findings of hyperammonemia can be WNL for ppl taking VPA. will continue next 5 days at 1750 mg daily and recheck VPA/ammonia in 5 days. MoCA today was 27/30. 08/14: morning fatigue dependably. decrease HS olanzapine from 20 mg to 15 mg. sleeping well, more calm and organized. 08/15: sleeping well, calm, organized. check labs saturday. 08/16: Continue current treatment plan. 08/17: check labs tonight. adjust VPA dosing accordingly. otherwise continue current mgmt. 08/18: Continue current regimen and plans. Repeat Depakote level tomorrow morning 08/19: Continue current regimen and plans. Pending Depakote level today. 08/20: VPA 80 yesterday. clearly more pressured and disorganized and delusional today. increase olanzapine back to 20 mg at HS. if he does not improve in the next several days will return VPA dosing to 2 grams. 08/21: Sx such that changes are necessary today. incr VPA to 2 grams, incr klonopin PRNs to 0.5 mg BID. will decr olanzapine from 20 QHS to 17.5 QHS at pt's [place]/resistance. 08/22: more tired today, napping again late morning. continue current mgmt for now. remains labile and irritable. 08/23: continues more tired, but slightly more energetic than yesterday. requesting split dosing VPA, which is done. HS zyprexa also lowered from 17.5 to 15. otherwise continue current mgmt. 08/24: less tired, up and about this morning. affect non-labile and normo- intense, not pressured. clearly improved. continue current mgmt. check labs saturday night. Reason for continued inpatient stay Substantial Risk for: inability to function and rapid decompensation Time Spent With Patient Time: Total time managing care of this patient today __25__ minutes.
[2022-08-24] MEDS: clonazePAM 0.5 MG TABLET PO (19:52)
[2022-08-24 20:24] VITALS: BP 131/62; PULSE 109; RESP 18; TEMP 36.7; O2SAT 96
[2022-08-24] MEDS: OLANZapine 7.5 MG TABLET 15 MG PO (21:30)
[2022-08-25 08:51] VITALS: BP 115/66; PULSE 95; RESP 18; TEMP 36.5; O2SAT 97
[2022-08-25] MEDS: Famotidine 20 MG TABLET PO (08:55)
[2022-08-25] MEDS: Cholecalciferol (Vitamin D3) 25 MCG TABLET 50 MCG PO (08:55)
[2022-08-25] MEDS: Divalproex Sodium ER 500 MG TAB.ER.24H 1000 MG PO ×2 (08:55→21:14)
--- NOTE | 2022-08-25 14:12 | P.PNPSI_ITS ---
Subjective Subjective Date of Service: 08/25/22 Reason For Visit: Psychosis Interim History: continues more calm and logical than prior. asking about when to draw drug level and when he may discharge. per staff, pacing. med-compliant. some RIS. better. Mental Status Exam Mental Status Exam Narrative: adequately dressed and groomed. cooperative with interview. no PMA/PMR. speec h nml rate and amount, and latency. incr loudness, nml tone. thoughts linear and logical. affect constricted, normo-intense, non-labile. no SI/HI/AVH expressed. Diagnostics Vital Signs (24Hr): Vital Signs - 24 hr 08/24/22 20:24 08/25/22 08:51 Temperature 98.1 F 97.7 F Pulse Rate 109 H 95 Respiratory Rate 18 18 Blood Pressure 131/62 115/66 Pulse Oximetry 96 97 Oxygen Delivery Method Room Air Room Air BMI result Body Mass Index 29.3 Labs 08/12/22 10:54 08/17/22 20:16 Imaging Radiology Impressions: ITS Impressions Soft Tissue Neck X-Ray 07/18/22 09:56 IMPRESSION: No acute abnormality. No evidence of radiopaque foreign body in the neck or upper chest. Foot X-Ray 07/23/22 14:00 IMPRESSION: Normal right foot. Medications Medications Current Medications Acetaminophen (Acetaminophen 325 Mg Tablet) 650 mg PO Q6H PRN PRN Reason: Headache/Pain Mild Scale (1-3) Last Admin: 08/21/22 11:06 Dose: 650 mg Al Hydroxide/Mg Hydroxide (Magnesium Hydrox/Alum Hydrox 30 Ml Oral.Susp) 30 ml PO Q6H PRN PRN Reason: Heartburn/Nausea Last Admin: 07/20/22 15:11 Dose: 30 ml Artificial Tears (Artificial Tears 15 Ml Drops) 2 drop EYE-BOTH TID PRN PRN Reason: Dry Eyes Bisacodyl (Bisacodyl 5 Mg Tablet.Dr) 10 mg PO ONCE LORENZA Calcium Carbonate (Calcium Carbonate 750 Mg Tab.Chew) 750 mg PO Q4H PRN PRN Reason: GI Upset Last Admin: 08/08/22 18:06 Dose: 750 mg Chlorpromazine HCl (Chlorpromazine Hcl 25 Mg/Ml Ampul) 100 mg IM BEDTIME PRN PRN Reason: per lj's order Clonazepam (Clonazepam 0.5 Mg Tablet) 0.5 mg PO BID PRN PRN Reason: agitation Last Admin: 08/24/22 19:52 Dose: 0.5 mg Divalproex Sodium (Divalproex Sodium Er 500 Mg Tab.Er.24h) 1,000 mg PO BID [facility] Last Admin: 08/25/22 08:55 Dose: 1,000 mg Famotidine (Famotidine 20 Mg Tablet) 20 mg PO DAILY [facility] Last Admin: 08/25/22 08:55 Dose: 20 mg Hydroxyzine HCl (Hydroxyzine Hcl 25 Mg Tablet) 25 mg PO Q6H PRN PRN Reason: Anxiety Last Admin: 08/08/22 23:05 Dose: 25 mg Magnesium Hydroxide (Milk Of Magnesia 30 Ml Oral.Susp) 30 ml PO DAILY PRN PRN Reason: Constipation Last Admin: 07/20/22 21:36 Dose: 30 ml Pt Own (Systane Eye (Drops)) 2 drop EYE-BOTH Q4H PRN PRN Reason: Dry Eyes Last Admin: 08/23/22 11:58 Dose: 2 drop Olanzapine (Olanzapine 2.5 Mg Tablet) 2.5 mg PO Q4H PRN PRN Reason: Psychosis Last Admin: 08/18/22 11:34 Dose: 2.5 mg Olanzapine (Olanzapine 7.5 Mg Tablet) 15 mg PO BEDTIME [facility] Last Admin: 08/24/22 21:30 Dose: 15 mg Polyethylene Glycol (Polyethylene Glycol 3350 17 Gm Powd.Pack) 238 gm PO ONCE LORENZA Trazodone HCl (Trazodone Hcl 50 Mg Tablet) 50 mg PO BEDTIME MRX1 PRN PRN Reason: Insomnia Last Admin: 07/21/22 23:49 Dose: 50 mg Vitamin D (Cholecalciferol (Vitamin D3) 25 Mcg Tablet) 50 mcg PO DAILY [facility] Last Admin: 08/25/22 08:55 Dose: 50 mcg Allergies Allergies Allergy/AdvReac Type Severity Reaction Status Date / Time risperidone [From RISPERDAL] Allergy Unknown UNKNOWN Verified 06/14/22 14:37 topiramate [From TOPAMAX] Allergy Unknown HEADACHE Verified 06/14/22 14:37 Assessment & Plan Assessment & Plan (1) Schizoaffective disorder, bipolar type: Status: Chronic Code(s): F25.0 - Schizoaffective disorder, bipolar type (2) Noncompliance with medication regimen: Status: Acute Code(s): Z91.148 - Patient's other noncompliance with medication regimen for other reason Plan Patient acutely psychotic disorganized irritable agitated floridly paranoid regarding his parents with whom he lives with. Not excepting medication or need for treatment patient does not except that he has mental illness need medication does not understand impact of his recent behavior that led to hospitalization encourage therapeutic [place] treatment acceptance patient has accepted previously olanzapine and Depakote 07/21: Continue current regimen and plans 07/22: Continue current plans 07/23: continue to offer VPA and olanzapine. filed for commitment. 07/24: continues to refuse medications. commitment hearing thursday 07/27 at 2 pm. 07/25: accepted zydis last night, appears more organized and less labile today. amenable to have another dose of zydis added in the morning, for a total of 10 BID. still refusing VPA, however. 07/26: accepting zyprexa 10 BID at the moment. refusing VPA. taking klonopin. court tomorrow. 07/27: committed and ordered medication in court. remains disorganized, bizarre. 07/28: taking zyprexa 10 BID. agreed to tegretol XR 200 BID, started this morning. 07/29: compliant with zyprexa and tegretol. clear improvement in manic Sx. 07/30: improvements in manic Sx continue. continue current mgmt. sleeping well, less irritable. 07/31: poor sleep last night. improvements in manic Sx continue. T/C increase in tegretol dosing after 5 days. 08/01: poor sleep, manic. increase tegretol to 300 BID as of tonight. 08/02: patient remains manic; guarded and ambivalent about medications; fiction and nonfiction writer prose agreed to move medications to bedtime; encouraged patient to consider Depakote Change to Tegretol ER 600 mg q.h.s. Changed to Zyprexa 20 mg q.h.s. 08/03: remains symptomatic of beverly, attenuated from admission. continue current mgmt. 08/05: no changes 08/06: requesting DC of tegretol and start of VPA, which is accommodated. thorazine IM for refusal of VPA or zyprexa added. manic Sx reportedly continued with concerning severity over w/e. 08/07: slept better last night on VPA, more pleasant this morning. continue current mgmt. 08/08: poor sleep 2/2 hemorrhoid pain. steroid cream Rxed today. appearing slightly improved today. 08/09: steroid cream helpful. gradual improvement in manic Sx. continue current mgmt. 08/10: continue current mgmt. gradual improvements. check labs saturday (ordered). 08/12 - weekday team may consider dec depakote to dec ammonia and ? s/e - too bad as patient has seemed more appropriate to staff. 08/13: VPA dosing has been decreased to 1750 from previous 2000 mg. VPA level 96, ammonia level 95. pt does not appear encephalopathic, however, and incid ental findings of hyperammonemia can be WNL for ppl taking VPA. will continue next 5 days at 1750 mg daily and recheck VPA/ammonia in 5 days. MoCA today was 30. 08/14: morning fatigue dependably. decrease HS olanzapine from 20 mg to 15 mg. sleeping well, more calm and organized. 08/15: sleeping well, calm, organized. check labs saturday. 08/16: Continue current treatment plan. 08/17: check labs tonight. adjust VPA dosing accordingly. otherwise continue current mgmt. 08/18: Continue current regimen and plans. Repeat Depakote level tomorrow morning 08/19: Continue current regimen and plans. Pending Depakote level today. 08/20: VPA 80 yesterday. clearly more pressured and disorganized and delusional today. increase olanzapine back to 20 mg at HS. if he does not improve in the next several days will return VPA dosing to 2 grams. 08/21: Sx such that changes are necessary today. incr VPA to 2 grams, incr klonopin PRNs to 0.5 mg BID. will decr olanzapine from 20 QHS to 17.5 QHS at pt's [place]/resistance. 08/22: more tired today, napping again late morning. continue current mgmt for now. remains labile and irritable. 08/23: continues more tired, but slightly more energetic than yesterday. requesting split dosing VPA, which is done. HS zyprexa also lowered from 17.5 to 15. otherwise continue current mgmt. 08/24: less tired, up and about this morning. affect non-labile and normo- intense, not pressured. clearly improved. continue current mgmt. check labs saturday. 08/25: up and about. gains continue. continue current mgmt. check labs tomorrow night. Reason for continued inpatient stay Substantial Risk for: rapid decompensation Time Spent With Patient Time: Total time managing care of this patient today ____ minutes.
[2022-08-25 20:25] VITALS: BP 119/62; PULSE 108; RESP 18; TEMP 36.7; O2SAT 97
[2022-08-25] MEDS: OLANZapine 7.5 MG TABLET 15 MG PO (21:14)
[2022-08-25] MEDS: clonazePAM 0.5 MG TABLET PO (23:01)
[2022-08-25] MEDS: traZODone HCL 50 MG TABLET PO (23:01)
[2022-08-26 09:12] VITALS: BP 122/66; PULSE 93; RESP 18; TEMP 36.6; O2SAT 97
[2022-08-26] MEDS: Famotidine 20 MG TABLET PO (09:35)
[2022-08-26] MEDS: Divalproex Sodium ER 500 MG TAB.ER.24H 1000 MG PO ×2 (09:35→22:05)
[2022-08-26] MEDS: Cholecalciferol (Vitamin D3) 25 MCG TABLET 50 MCG PO (09:35)
--- NOTE | 2022-08-26 15:36 | HO.PSYCHPN ---
Subjective Subjective Date of Service: 08/26/22 Reason For Visit: Psychosis Interim History: continues to feel relatively well. asking about labs and D/C. slept 8+ hours overnight. per staff, had a good day yesterday. brighter affect, med-compliant. Mental Status Exam Mental Status Exam Narrative: adequately dressed and groomed. cooperative with interview. no PMA/PMR. speech nml rate and amount, and latency. incr loudness, nml tone. thoughts linear and logical. affect constricted, normo-intense, non-labile. no SI/HI/AVH expressed. Diagnostics Vital Signs (24Hr): Vital Signs - 24 hr 08/25/22 20:25 08/26/22 09:12 Temperature 98.1 F 97.9 F Pulse Rate 108 H 93 Respiratory Rate 18 18 Blood Pressure 119/62 122/66 Pulse Oximetry 97 97 Oxygen Delivery Method Room Air Room Air BMI result Body Mass Index 29.3 Labs 08/12/22 10:54 08/17/22 20:16 Imaging Radiology Impressions: ITS Impressions Soft Tissue Neck X-Ray 07/18/22 09:56 IMPRESSION: No acute abnormality. No evidence of radiopaque foreign body in the neck or upper chest. Foot X-Ray 07/23/22 14:00 IMPRESSION: Normal right foot. Medications Medications Current Medications Acetaminophen (Acetaminophen 325 Mg Tablet) 650 mg PO Q6H PRN PRN Reason: Headache/Pain Mild Scale (1-3) Last Admin: 08/21/22 11:06 Dose: 650 mg Al Hydroxide/Mg Hydroxide (Magnesium Hydrox/Alum Hydrox 30 Ml Oral.Susp) 30 ml PO Q6H PRN PRN Reason: Heartburn/Nausea Last Admin: 07/20/22 15:11 Dose: 30 ml Artificial Tears (Artificial Tears 15 Ml Drops) 2 drop EYE-BOTH TID PRN PRN Reason: Dry Eyes Bisacodyl (Bisacodyl 5 Mg Tablet.Dr) 10 mg PO ONCE LORENZA Calcium Carbonate (Calcium Carbonate 750 Mg Tab.Chew) 750 mg PO Q4H PRN PRN Reason: GI Upset Last Admin: 08/08/22 18:06 Dose: 750 mg Chlorpromazine HCl (Chlorpromazine Hcl 25 Mg/Ml Ampul) 100 mg IM BEDTIME PRN PRN Reason: per lj's order Divalproex Sodium (Divalproex Sodium Er 500 Mg Tab.Er.24h) 1,000 mg PO BID [facility] Last Admin: 08/26/22 09:35 Dose: 1,000 mg Famotidine (Famotidine 20 Mg Tablet) 20 mg PO DAILY [facility] Last Admin: 08/26/22 09:35 Dose: 20 mg Hydroxyzine HCl (Hydroxyzine Hcl 25 Mg Tablet) 25 mg PO Q6H PRN PRN Reason: Anxiety Last Admin: 08/08/22 23:05 Dose: 25 mg Magnesium Hydroxide (Milk Of Magnesia 30 Ml Oral.Susp) 30 ml PO DAILY PRN PRN Reason: Constipation Last Admin: 07/20/22 21:36 Dose: 30 ml Pt Own (Systane Eye (Drops)) 2 drop EYE-BOTH Q4H PRN PRN Reason: Dry Eyes Last Admin: 08/23/22 11:58 Dose: 2 drop Olanzapine (Olanzapine 2.5 Mg Tablet) 2.5 mg PO Q4H PRN PRN Reason: Psychosis Last Admin: 08/18/22 11:34 Dose: 2.5 mg Olanzapine (Olanzapine 7.5 Mg Tablet) 15 mg PO BEDTIME [facility] Last Admin: 08/25/22 21:14 Dose: 15 mg Polyethylene Glycol (Polyethylene Glycol 3350 17 Gm Powd.Pack) 238 gm PO ONCE LORENZA Trazodone HCl (Trazodone Hcl 50 Mg Tablet) 50 mg PO BEDTIME MRX1 PRN PRN Reason: Insomnia Last Admin: 08/25/22 23:01 Dose: 50 mg Vitamin D (Cholecalciferol (Vitamin D3) 25 Mcg Tablet) 50 mcg PO DAILY [facility] Last Admin: 08/26/22 09:35 Dose: 50 mcg Allergies Allergies Allergy/AdvReac Type Severity Reaction Status Date / Time risperidone [From RISPERDAL] Allergy Unknown UNKNOWN Verified 06/14/22 14:37 topiramate [From TOPAMAX] Allergy Unknown HEADACHE Verified 06/14/22 14:37 Assessment & Plan Assessment & Plan (1) Schizoaffective disorder, bipolar type: Status: Chronic Code(s): F25.0 - Schizoaffective disorder, bipolar type (2) Noncompliance with medication regimen: Status: Acute Code(s): Z91.148 - Patient's other noncompliance with medication regimen for other reason Plan Patient acutely psychotic disorganized irritable agitated floridly paranoid regarding his parents with whom he lives with. Not excepting medication or need for treatment patient does not except that he has mental illness need medication does not understand impact of his recent behavior that led to hospitalization encourage therapeutic [place] treatment acceptance patient has accepted previously olanzapine and Depakote 07/21: Continue current regimen and plans 07/22: Continue current plans 07/23: continue to offer VPA and olanzapine. filed for commitment. 07/24: continues to refuse medications. commitment hearing thursday 07/27 at 2 pm. 07/25: accepted zydis last night, appears more organized and less labile today. amenable to have another dose of zydis added in the morning, for a total of 10 BID. still refusing VPA, however. 07/26: accepting zyprexa 10 BID at the moment. refusing VPA. taking klonopin. court tomorrow. 07/27: committed and ordered medication in court. remains disorganized, bizarre. 07/28: taking zyprexa 10 BID. agreed to tegretol XR 200 BID, started this morning. 07/29: compliant with zyprexa and tegretol. clear improvement in manic Sx. 07/30: improvements in manic Sx continue. continue current mgmt. sleeping well, less irritable. 07/31: poor sleep last night. improvements in manic Sx continue. T/C increase in tegretol dosing after 5 days. 08/01: poor sleep, manic. increase tegretol to 300 BID as of tonight. 08/02: patient remains manic; guarded and ambivalent about medications; medical underwriter agreed to move medications to bedtime; encouraged patient to consider Depakote Change to Tegretol ER 600 mg q.h.s. Changed to Zyprexa 20 mg q.h.s. 08/03: remains symptomatic of beverly, attenuated from admission. continue current mgmt. 08/05: no changes 08/06: requesting DC of tegretol and start of VPA, which is accommodated. thorazine IM for refusal of VPA or zyprexa added. manic Sx reportedly continued with concerning severity over w/e. 08/07: slept better last night on VPA, more pleasant this morning. continue current mgmt. 08/08: poor sleep 2/2 hemorrhoid pain. steroid cream Rxed today. appearing slightly improved today. 08/09: steroid cream helpful. gradual improvement in manic Sx. continue current mgmt. 08/10: continue current mgmt. gradual improvements. check labs saturday [place] (ordered). 08/12 - weekday team may consider dec depakote to dec ammonia and ? s/e - too bad as patient has seemed more appropriate to staff. 08/13: VPA dosing has been decreased to 1750 from previous 2000 mg. VPA level 96, ammonia level 95. pt does not appear encephalopathic, however, and incidental findings of hyperammonemia can be WNL for ppl taking VPA. will continue next 5 days at 1750 mg daily and recheck VPA/ammonia in 5 days. MoCA today was . 08/14: morning fatigue dependably. decrease HS olanzapine from 20 mg to 15 mg. sleeping well, more calm and organized. 08/15: sleeping well, calm, organized. check labs saturday. 08/16: Continue current treatment plan. 08/17: check labs tonight. adjust VPA dosing accordingly. otherwise continue current mgmt. 08/18: Continue current regimen and plans. Repeat Depakote level tomorrow morning 08/19: Continue current regimen and plans. Pending Depakote level today. 08/20: VPA 80 yesterday. clearly more pressured and disorganized and delusional today. increase olanzapine back to 20 mg at HS. if he does not improve in the next several days will return VPA dosing to 2 grams. 08/21: Sx such that changes are necessary today. incr VPA to 2 grams, incr klonopin PRNs to 0.5 mg BID. will decr olanzapine from 20 QHS to 17.5 QHS at pt's [place]/resistance. 08/22: more tired today, napping again late morning. continue current mgmt for now. remains labile and irritable. 08/23: continues more tired, but slightly more energetic than yesterday. requesting split dosing VPA, which is done. HS zyprexa also lowered from 17.5 to 15. otherwise continue current mgmt. 08/24: less tired, up and about this morning. affect non-labile and normo-intense, not pressured. clearly improved. continue current mgmt. check labs saturday night. 08/25: up and about. gains continue. continue current mgmt. check labs tomorrow night. 08/26: gains maintained. checks labs tonight. continue current mgmt. Reason for continued inpatient stay Substantial Risk for: inability to function and rapid decompensation Time Spent With Patient Time: Total time managing care of this patient today ____ minutes.
[2022-08-26] MEDS: Acetaminophen 325 MG TABLET 650 MG PO (16:38)
[2022-08-26 20:30] LABS: Ammonia 36 umol/L (13-55)
[2022-08-26 20:34] LABS: Valproate 73.3 mcg/mL (50.0-100.0)
[2022-08-26 20:37] LABS: Alanine Aminotransferase 20 U/L (0-40); Albumin Level 3.9 g/dL (3.5-5.0); Alkaline Phosphatase 76 U/L (39-117); Aspartate Amino Transferase 14 U/L (5-37); Bilirubin Direct < 0.2 mg/dL (0.0-0.5); Bilirubin Total 0.2 mg/dL (0.0-1.0); Total Protein 6.5 g/dL (6.5-8.0)
[2022-08-26] MEDS: OLANZapine 7.5 MG TABLET 15 MG PO (22:05)
[2022-08-26] MEDS: clonazePAM 0.5 MG TABLET PO (22:17)
[2022-08-26 22:25] VITALS: BP 123/72; PULSE 108; TEMP 36.6; O2SAT 97
[2022-08-27 06:00] VITALS: BP 110/55; PULSE 103; RESP 18; TEMP 36.6; O2SAT 98
[2022-08-27] MEDS: Cholecalciferol (Vitamin D3) 25 MCG TABLET 50 MCG PO (09:25)
[2022-08-27] MEDS: Divalproex Sodium ER 500 MG TAB.ER.24H 1000 MG PO ×2 (09:25→22:44)
--- NOTE | 2022-08-27 15:21 | HO.PSYCHPN ---
Subjective Subjective Date of Service: 08/27/22 Reason For Visit: Psychosis Interim History: remains calm and cooperative, far less irritable. labs reviewed, pt told they look good. will plan for discharge mid-week. per staff, VPA level 73.3, ammonia WNL. feeling well. Mental Status Exam Mental Status Exam Narrative: adequately dressed and groomed. cooperative with interview. no PMA/PMR. speech nml rate and amount, and latency. incr loudness, nml tone. thoughts linear and logical. affect constricted, normo-intense, non-labile. no SI/HI/AVH expressed. Diagnostics Vital Signs (24Hr): Vital Signs - 24 hr 08/26/22 22:25 08/27/22 06:00 Temperature 97.9 F 97.9 F Pulse Rate 108 H 103 H Respiratory Rate 18 Blood Pressure 123/72 110/55 L Pulse Oximetry 97 98 Oxygen Delivery Method Room Air Room Air BMI result Body Mass Index 29.3 Labs 08/12/22 10:54 08/17/22 20:16 Labs: Laboratory Results - last 48 hr 08/26/22 08/26/22 08/26/22 20:13 20:13 20:13 Total Bilirubin 0.2 Direct Bilirubin < 0.2 AST 14 ALT 20 Alkaline Phosphatase 76 Ammonia 36 Total Protein 6.5 Albumin 3.9 Valproic Acid 73.3 Imaging Radiology Impressions: ITS Impressions Soft Tissue Neck X-Ray 07/18/22 09:56 IMPRESSION: No acute abnormality. No evidence of radiopaque foreign body in the neck or upper chest. Foot X-Ray 07/23/22 14:00 IMPRESSION: Normal right foot. Medications Medications Current Medications Acetaminophen (Acetaminophen 325 Mg Tablet) 650 mg PO Q6H PRN PRN Reason: Headache/Pain Mild Scale (1-3) Last Admin: 08/26/22 16:38 Dose: 650 mg Al Hydroxide/Mg Hydroxide (Magnesium Hydrox/Alum Hydrox 30 Ml Oral.Susp) 30 ml PO Q6H PRN PRN Reason: Heartburn/Nausea Last Admin: 07/20/22 15:11 Dose: 30 ml Artificial Tears (Artificial Tears 15 Ml Drops) 2 drop EYE-BOTH TID PRN PRN Reason: Dry Eyes Bisacodyl (Bisacodyl 5 Mg Tablet.Dr) 10 mg PO ONCE LORENZA Calcium Carbonate (Calcium Carbonate 750 Mg Tab.Chew) 750 mg PO Q4H PRN PRN Reason: GI Upset Last Admin: 08/08/22 18:06 Dose: 750 mg Chlorpromazine HCl (Chlorpromazine Hcl 25 Mg/Ml Ampul) 100 mg IM BEDTIME PRN PRN Reason: per lj's order Clonazepam (Clonazepam 0.5 Mg Tablet) 0.5 mg PO BID PRN PRN Reason: agitation Last Admin: 08/26/22 22:17 Dose: 0.5 mg Divalproex Sodium (Divalproex Sodium Er 500 Mg Tab.Er.24h) 1,000 mg PO BID LORENZA Last Admin: 08/27/22 09:25 Dose: 1,000 mg Famotidine (Famotidine 20 Mg Tablet) 20 mg PO DAILY [facility] Last Admin: 08/27/22 09:28 Dose: Not Given Hydroxyzine HCl (Hydroxyzine Hcl 25 Mg Tablet) 25 mg PO Q6H PRN PRN Reason: Anxiety Last Admin: 08/08/22 23:05 Dose: 25 mg Magnesium Hydroxide (Milk Of Magnesia 30 Ml Oral.Susp) 30 ml PO DAILY PRN PRN Reason: Constipation Last Admin: 07/20/22 21:36 Dose: 30 ml Pt Own (Systane Eye (Drops)) 2 drop EYE-BOTH Q4H PRN PRN Reason: Dry Eyes Last Admin: 08/23/22 11:58 Dose: 2 drop Olanzapine (Olanzapine 2.5 Mg Tablet) 2.5 mg PO Q4H PRN PRN Reason: Psychosis Last Admin: 08/18/22 11:34 Dose: 2.5 mg Olanzapine (Olanzapine 7.5 Mg Tablet) 15 mg PO BEDTIME LORENZA Last Admin: 08/26/22 22:05 Dose: 15 mg Polyethylene Glycol (Polyethylene Glycol 3350 17 Gm Powd.Pack) 238 gm PO ONCE LORENZA Trazodone HCl (Trazodone Hcl 50 Mg Tablet) 50 mg PO BEDTIME MRX1 PRN PRN Reason: Insomnia Last Admin: 08/25/22 23:01 Dose: 50 mg Vitamin D (Cholecalciferol (Vitamin D3) 25 Mcg Tablet) 50 mcg PO DAILY [facility] Last Admin: 08/27/22 09:25 Dose: 50 mcg Allergies Allergies Allergy/AdvReac Type Severity Reaction Status Date / Time risperidone [From RISPERDAL] Allergy Unknown UNKNOWN Verified 06/14/22 14:37 topiramate [From TOPAMAX] Allergy Unknown HEADACHE Verified 06/14/22 14:37 Assessment & Plan Assessment & Plan (1) Schizoaffective disorder, bipolar type: Status: Chronic Code(s): F25.0 - Schizoaffective disorder, bipolar type (2) Noncompliance with medication regimen: Status: Acute Code(s): Z91.148 - Patient's other noncompliance with medication regimen for other reason Plan Patient acutely psychotic disorganized irritable agitated floridly paranoid regarding his parents with whom he lives with. Not excepting medication or need for treatment patient does not except that he has mental illness need medication does not understand impact of his recent behavior that led to hospitalization encourage therapeutic [place] treatment acceptance patient has accepted previously olanzapine and Depakote 07/21: Continue current regimen and plans 07/22: Continue current plans 07/23: continue to offer VPA and olanzapine. filed for commitment. 07/24: continues to refuse medications. commitment hearing thursday 07/27 at 2 pm. 07/25: accepted zydis last night, appears more organized and less labile today. amenable to have another dose of zydis added in the morning, for a total of 10 BID. still refusing VPA, however. 07/26: accepting zyprexa 10 BID at the moment. refusing VPA. taking klonopin. court tomorrow. 07/27: committed and ordered medication in court. remains disorganized, bizarre. 07/28: taking zyprexa 10 BID. agreed to tegretol XR 200 BID, started this morning. 07/29: compliant with zyprexa and tegretol. clear improvement in manic Sx. 07/30: improvements in manic Sx continue. continue current mgmt. sleeping well, less irritable. 2: poor sleep last night. improvements in manic Sx continue. T/C increase in tegretol dosing after 5 days. 08/01: poor sleep, manic. increase tegretol to 300 BID as of tonight. 08/02: patient remains manic; guarded and ambivalent about medications; communications writer agreed to move medications to bedtime; encouraged patient to consider Depakote Change to Tegretol ER 600 mg q.h.s. Changed to Zyprexa 20 mg q.h.s. 5/5: remains symptomatic of beverly, attenuated from admission. continue current mgmt. 08/05: no changes 08/06: requesting DC of tegretol and start of VPA, which is accommodated. thorazine IM for refusal of VPA or zyprexa added. manic Sx reportedly continued with concerning severity over w/e. 08/07: slept better last night on VPA, more pleasant this morning. continue current mgmt. 08/08: poor sleep 2/2 hemorrhoid pain. steroid cream Rxed today. appearing slightly improved today. 08/09: steroid cream helpful. gradual improvement in manic Sx. continue current mgmt. 08/10: continue current mgmt. gradual improvements. check labs saturday morenita (ordered). 08/12 - weekday team may consider dec depakote to dec ammonia and ? s/e - too bad as patient has seemed more appropriate to staff. 08/13: VPA dosing has been decreased to 1750 from previous 2000 mg. VPA level 96, ammonia level 95. pt does not appear encephalopathic, however, and incidental findings of hyperammonemia can be WNL for ppl taking VPA. will continue next 5 days at 1750 mg daily and recheck VPA/ammonia in 5 days. MoCA today was . 08/14: morning fatigue dependably. decrease HS olanzapine from 20 mg to 15 mg. sleeping well, more calm and organized. 08/15: sleeping well, calm, organized. check labs saturday. 08/16: Continue current treatment plan. 08/17: check labs tonight. adjust VPA dosing accordingly. otherwise continue current mgmt. 08/18: Continue current regimen and plans. Repeat Depakote level tomorrow morning 08/19: Continue current regimen and plans. Pending Depakote level today. 08/20: VPA 80 yesterday. clearly more pressured and disorganized and delusional today. increase olanzapine back to 20 mg at HS. if he does not improve in the next several days will return VPA dosing to 2 grams. 08/21: Sx such that changes are necessary today. incr VPA to 2 grams, incr klonopin PRNs to 0.5 mg BID. will decr olanzapine from 20 QHS to 17.5 QHS at pt's w[place]/resistance. 08/22: more tired today, napping again late morning. continue current mgmt for now. remains labile and irritable. 08/23: continues more tired, but slightly more energetic than yesterday. requesting split dosing VPA, which is done. HS zyprexa also lowered from 17.5 to 15. otherwise continue current mgmt. 08/24: less tired, up and about this morning. affect non-labile and normo-intense, not pressured. clearly improved. continue current mgmt. check labs saturday night. 08/25: up and about. gains continue. continue current mgmt. check labs tomorrow night. 08/26: gains maintained. checks labs tonight. continue current mgmt. 08/27: VPA 73.3, ammonia WNL, LFTs WNL. in good clinical control. plan for discharge mid-week. Reason for continued inpatient stay Substantial Risk for: rapid decompensation Time Spent With Patient Time: Total time managing care of this patient today ____ minutes.
[2022-08-27 22:30] VITALS: BP 134/73; PULSE 111; RESP 18; TEMP 36.8; O2SAT 97
[2022-08-27] MEDS: OLANZapine 7.5 MG TABLET 15 MG PO (22:44)
[2022-08-27] MEDS: clonazePAM 0.5 MG TABLET PO (22:45)
[2022-08-28 09:20] VITALS: BP 120/72; PULSE 97; RESP 18; TEMP 36.3; O2SAT 97
[2022-08-28] MEDS: Divalproex Sodium ER 500 MG TAB.ER.24H 1000 MG PO ×2 (09:32→21:29)
[2022-08-28] MEDS: Cholecalciferol (Vitamin D3) 25 MCG TABLET 50 MCG PO (09:32)
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
[2022-08-28] MEDS: clonazePAM 0.5 MG TABLET PO ×2 (15:42→21:29)
[2022-08-28 20:17] VITALS: BP 120/70; PULSE 96; RESP 16; TEMP 36.7; O2SAT 98
[2022-08-28] MEDS: traZODone HCL 50 MG TABLET PO (21:29)
[2022-08-28] MEDS: OLANZapine 7.5 MG TABLET 15 MG PO (21:37)
[2022-08-29] MEDS: Divalproex Sodium ER 500 MG TAB.ER.24H 1000 MG PO (07:58)
[2022-08-29] MEDS: Famotidine 20 MG TABLET PO (07:58)
[2022-08-29] MEDS: Cholecalciferol (Vitamin D3) 25 MCG TABLET 50 MCG PO (07:58)
[2022-08-29 08:34] VITALS: BP 134/69; PULSE 86; RESP 18; TEMP 36.2
== END 2022-08-29 10:05 | disposition home or self-care (01) | DRG 885 ==
LOC: HO.ED 12:09 → HO.PADLT16 21:05
PROVIDERS: Physician Assistant; Psychiatry & Neurology Psychiatry; Admitting Provider Psychiatry & Neurology Psychiatry; Emergency Provider Emergency Medicine Emergency Medical Services; Visit Provider Psychiatry & Neurology Psychiatry
DX: F25.0 Schizoaffective disorder, bipolar type (principal); K21.9 Gastro-esophageal reflux disease without esophagitis; Z20.822 Contact with and (suspected) exposure to COVID-19; Z91.148 Patient's other noncompliance with medication regimen for other reason; Z88.8 Allergy status to other drugs, medicaments and biological substances; Z79.899 Other long term (current) drug therapy
CPT/HCPCS: 36415; 70360; 73630; 80048; 80076; 80164; 80307; 82077; 82140; 83735; 85025; 87635; 99285; S9485

== ENCOUNTER 2023-01-08 09:50 | Day surgery (SDC) | payer MEDICARE, MEDICAID, SELFPAY ==
[2023-01-02 19:11] VITALS: BMI 30.2
--- NOTE | 2023-01-04 10:53 | HO.ANESPROP2 ---
Documented by User: Laura Coulter NP 01/04/23 10:54 HPI - Anesthesia Eval Consult details Narrative: 47yo M for Colonoscopy PMFSH Active Problems Active Problems: All Active Problems (Updated 09/20/22 @ 11:32 by Jose Holguin, [facility]) Viral illness (Acute) Screening for colon cancer (Acute) Physical exam (Acute) Sprain of elbow, left (Acute) Medication monitoring encounter (Acute) Encounter for annual wellness visit (AWV) in Medicare patient (Acute) Schizoaffective disorder, bipolar type (Chronic) Sinus pressure (Acute) Schizophrenia (Acute) Inspiratory pain (Acute) Rib pain on right side (Acute) Anemia (Acute) Chronic lower back pain (Acute) Left knee pain (Acute) Past Medical History Medical History Noncompliance with medication regimen Psychosis GERD (gastroesophageal reflux disease) Mood disorder Family History Family History Father No problems noted. Mother Breast cancer Diabetes mellitus Brother No problems noted. Sister No problems noted. Surgical History Surgical History Hx of LASIK History of dental surgery No pertinent past surgical history Social History Social History Household Members: Family Household Members Other:: parents and sister Housing: House Do you presently have visiting nurse or other home services: No Unable to assess alcohol history related to: Refusing to respond Alcohol intake: current Alcohol intake frequency: does not drink Patient Tobacco Use Status: Former Tobacco user Quit Date: 2020 Tobacco use type: Cigarette e-Cigarette/Vaping Use: Never Used Second Hand Smoke Exposure: Yes Use of substances other than those prescribed or required for medical reasons: Yes Substance Use Type: Marijuana Substance Use Type Other:: MEDICINAL CARD Substance Use Frequency: Daily Are you DNR?: No Advance Directives: No Advance Directives Information Provided: Yes Advance Directives on File: No Recently lost weight without trying: No Nutrition Risks: No Nutritional Risk service: No Current occupational status: disabled Current occupational exposures/hazards: No Sexual orientation: Decline to Answer Cognitive needs: No Hearing needs: No Vision needs: No Meds Allergies Allergy/AdvReac Type Severity Reaction Status Date / Time topiramate [From TOPAMAX] Allergy Intermediate HEADACHE Verified 01/08/23 10:05 risperidone [From RISPERDAL] Allergy Unknown UNKNOWN Verified 01/08/23 10:00 Home Medications Medication Instructions Recorded Confirmed Last Taken Type divalproex 500 mg tablet,delayed 250 mg PO DAILY 01/02/23 01/08/23 01/08/23 History release divalproex 500 mg tablet,extended 1,500 mg PO BEDTIME 01/02/23 01/08/23 Unknown History release 24 hr (Depakote ER) Exam Exam Date and Time: January 04, 2023 1053 Height,Weight and Vital Signs: Height 6 ft 2 in Weight 106.594 kg Assessment and Plan Assessment Anesthesia Assessment: Chart Reviewed Documented by User: Kym Mauro MD 01/08/23 10:29 [facility] Past Medical History Medical History Noncompliance with medication regimen Psychosis GERD (gastroesophageal reflux disease) Mood disorder Family History Family History Father No problems noted. Mother Breast cancer Diabetes mellitus Brother No problems noted. Sister No problems noted. Family history of problems with anesthesia: No Surgical History Surgical History Hx of LASIK History of dental surgery No pertinent past surgical history History of Problems with Anesthesia: No Social History Social History Household Members: Family Household Members Other:: parents and sister Housing: House Do you presently have visiting nurse or other home services: No Unable to assess alcohol history related to: Refusing to respond Alcohol intake: current Alcohol intake frequency: does not drink Patient Tobacco Use Status: Former Tobacco user Quit Date: 2020 Tobacco use type: Cigarette e-Cigarette/Vaping Use: Never Used Second Hand Smoke Exposure: Yes Use of substances other than those prescribed or required for medical reasons: Yes Substance Use Type: Marijuana Substance Use Type Other:: MEDICINAL CARD Substance Use Frequency: Daily Are you DNR?: No Advance Directives: No Advance Directives Information Provided: Yes Advance Directives on File: No Recently lost weight without trying: No Nutrition Risks: No Nutritional Risk service: No Current occupational status: disabled Current occupational exposures/hazards: No Sexual orientation: Decline to Answer Cognitive needs: No Hearing needs: No Vision needs: No Meds Allergies Allergy/AdvReac Type Severity Reaction Status Date / Time topiramate [From TOPAMAX] Allergy Intermediate HEADACHE Verified 01/08/23 10:05 risperidone [From RISPERDAL] Allergy Unknown UNKNOWN Verified 01/08/23 10:00 Home Medications Medication Instructions Recorded Confirmed Last Taken Type divalproex 500 mg tablet,delayed 250 mg PO DAILY 01/02/23 01/08/23 01/08/23 History release divalproex 500 mg tablet,extended 1,500 mg PO BEDTIME 01/02/23 01/08/23 Unknown History release 24 hr (Depakote ER) Exam Airway Mallampati Class: II TM Dist: >3cm Neck ROM: Full Heart: rrr Lungs: cta Assessment and Plan Assessment Anesthesia Assessment: Anesthesia Plan Discussed Final Anesthetic Review Family History of Problems with Anesthesia: No History of Problems with Anesthesia: No NPO: Yes ASA Class: III Final Preanesthetic Review: No Changes in Pt Med Stat, Meds/Allgs Chart Reviewed, Consent Obtained/Reviewed and Anes Risks/Benef Reviewed Patient Risk: Intermediate Procedure Risk: Low Anesthetic Plan Anesthetic Plan: MAC: Disposition: Standard PACU
[2023-01-08 10:03] VITALS: BP 118/71; PULSE 85; RESP 16; TEMP 36.2; O2SAT 97
--- NOTE | 2023-01-08 10:12 | MHC.SHP ---
Pre-Procedural Eval Section A Date of Service: 01/08/23 Section B Chief Complaint: Encounter for screening for malignant neoplasm Relevant Family History (Specify if Yes): No Relevant Social History: Other (specify) (THC) Present Medications: see Short Stay Collaborative assessment Medical History: Significant History (Psychosis GERD (gastroesophageal reflux disease) Mood disorder) History of Previous Operations: Relevant previous surgery/procedure and date(s) (dental surgery) Allergies: Allergies Allergy/AdvReac Type Severity Reaction Status Date / Time topiramate [From TOPAMAX] Allergy Intermediate HEADACHE Verified 01/08/23 10:05 risperidone [From RISPERDAL] Allergy Unknown UNKNOWN Verified 01/08/23 10:00 Review of Systems Sugical H&P ROS: Negative: Constitution, Cardiovascular, Respiratory, Neurological, Psychiatric, Hem-Onc, Allergic/Immunologic, Gastrointestinal, Genitourinary, Musculoskeletal, Integumentary, Endocrine and Eyes/Ears/Nose/Throat Exam Surgical H&P Exam: Normal: HEENT, Normal: Heart, Normal: Lungs, Normal: Extremities, Normal: Abdomen, Normal: Skin and Normal: Neurological Plan Diagnosis/Plan: Unchanged I have reviewed the history and physical and performed a pertinent physical examination on my patient. No changes have occurred unless specified. Time Spent With Patient Time: Total time managing care of this patient today ____ minutes.
--- NOTE | 2023-01-08 10:58 | W.PM.OPN ---
Operative Note Operative Note Date of Service: 01/08/23 Narrative: Operative Information Procedure Description: Colonoscopy Indication: screening Anesthesia: MAC COLONOSCOPY Instrument: Olympus variable stiffness pediatric scope 190L Colonoscopy Monitoring: Vital signs and clinical assessment, continuous EKG monitoring, Pulse oximetry, Carbon Dioxide monitoring and blood pressure monitoring were done throughout the procedure. Colon withdrawal time was 14 minutes. Procedure: The patient was placed in the left lateral decubitis position and pre-procedure medications were administered. After a digital rectal examination of the ano-rectum, the video colonoscope was inserted into the rectum and advanced through the colon to the cecum/TI. The colonoscope was slowly withdrawn in a retrograde panoramic fashion and the colon mucosa was carefully examined including a retroflexed view of the rectum. Findings and interventions are described below. Procedure Difficulty: easy Findings: Terminal Ileum-normal Cecum:normal Ascending Colon: normal Transverse Colon - x 2 sessile polyps noted, 6-8 mm, one removed with cold snare and the other with cold forceps Descending Colon:normal Sigmoid Colon: normal Rectum: Retroflexion with small internal hemorrhoids, grade I, 2-3 diminutive polyps 2-3 mm removed with cold forceps Anorectum - normal Colon preparation: [place] Bowel Preparation Scale Right colon; 2 Transverse colon: 3 Left colon; 3 (0 = Unprepared colon segment with mucosa not seen due to solid stool that cannot be cleared. 1 = Portion of mucosa of the colon segment seen, but other areas of the colon segment not well seen due to staining, residual stool and/or opaque liquid. 2 = Minor amount of residual staining, small fragments of stool and/or opaque liquid, but mucosa of colon segment seen well. 3 = Entire mucosa of colon segment seen well with no residual staining, small fragments of stool or opaque liquid) Impression and Post Procedure Diagnosis: polyps internal hemorrhoids Plan: High fiber diet leaflet Avoid straining at stool, epsom salts and sitz bath, anusol supps or cream Repeat Colonoscopy in 4-5 years due to polyps or earlier if clinically indicated Above findings were reviewed with the patient and relevant handouts were provided if indicated.
[2023-01-08 11:08] VITALS: BP 111/69; PULSE 82; RESP 18; TEMP 36.1; O2SAT 93
[2023-01-08 11:23] VITALS: BP 135/72; PULSE 66; RESP 16; O2SAT 98
[2023-01-08 11:38] VITALS: BP 119/75; PULSE 66; RESP 16; TEMP 36.1; O2SAT 98
== END 2023-01-08 12:27 | disposition home or self-care (01) ==
PROVIDERS: PCP Nurse Practitioner Family; Visit Provider Internal Medicine Gastroenterology
PROC: 0DJD8ZZ Inspection of Lower Intestinal Tract, Via Natural or Artificial Opening Endoscopic (ICD-10-PCS; CPT 45378; principal; 2023-01-08 12:00)
DX: Z12.11 Encounter for screening for malignant neoplasm of colon (principal); D12.3 Benign neoplasm of transverse colon; K62.1 Rectal polyp; K64.0 First degree hemorrhoids; K21.9 Gastro-esophageal reflux disease without esophagitis; F29 Unspecified psychosis not due to a substance or known physiological condition; F39 Unspecified mood [affective] disorder; Z79.899 Other long term (current) drug therapy; Z91.148 Patient's other noncompliance with medication regimen for other reason; Z88.8 Allergy status to other drugs, medicaments and biological substances; Z87.891 Personal history of nicotine dependence; F12.90 Cannabis use, unspecified, uncomplicated
CPT/HCPCS: 45385; 45380; 88305; J2250

== ENCOUNTER → 2023-01-08 09:50 | Outpatient (BNV) | payer MEDICARE, MEDICAID, SELFPAY | PROVIDERS: PCP Nurse Practitioner Family; Visit Provider Internal Medicine Gastroenterology | DX: Z12.11 Encounter for screening for malignant neoplasm of colon (principal); D12.3 Benign neoplasm of transverse colon; D12.8 Benign neoplasm of rectum; K64.0 First degree hemorrhoids | CPT/HCPCS: 45380; 45385 ==

== ENCOUNTER 2023-01-23 08:05 | Outpatient (AMB) | payer MEDICARE, MEDICAID, SELFPAY ==
[2023-01-23 08:12] VITALS: BP 130/74; PULSE 96; O2SAT 95; BMI 35.2
--- NOTE | 2023-01-23 08:12 | MHC.OFFVIS ---
Intake Vital Signs 01/23/23 08:12 Height 6 ft Weight 259 lb 11.272 oz BMI 35.2 BP 130/74 Blood Pressure Location Lt brachial Position Sitting Pulse 96 Pulse Source Pulse Oximeter Pulse Oximetry (%) 95 Oxygen Delivery Method Room Air Intake Visit Reasons: S/p colon- Torres Intake Note: Pt presents to the office today for a s/p colonoscopy. Pt states he is feeling well and denies any N/V/D. Allergies topiramate [From TOPAMAX] Allergy (Intermediate, Verified 01/23/23 08:15) HEADACHE risperidone [From RISPERDAL] Allergy (Unknown, Verified 01/23/23 08:15) UNKNOWN Medication List - Last Reconciled 01/23/23 by Tanisha Rogers PA-C cholecalciferol (vitamin D3) 50 mcg PO DAILY 90 days clonazepam 0.5 mg PO BID PRN 30 days divalproex 250 mg PO DAILY divalproex ER (Depakote ER) 1,500 mg PO BEDTIME olanzapine 15 mg (2 x 7.5 mg) PO BEDTIME 30 days HPI HPI Comments History of Present Illness Details A 47 y/o male f/u after screening colonoscopy w/ polypectomy- he tolerated well No complaints Reviewed procedure report, path and recommendation No GI or general complaints Normal bowels- great appetite PFSH Medical History Noncompliance with medication regimen Psychosis GERD (gastroesophageal reflux disease) Mood disorder Surgical History Hx of colonoscopy Hx of LASIK History of dental surgery No pertinent past surgical history Family History Father No problems noted. Mother Breast cancer Diabetes mellitus Brother No problems noted. Sister No problems noted. Social History Household Members: Family Household Members Other:: parents and sister Housing: House Do you presently have visiting nurse or other home services: No Unable to assess alcohol history related to: Refusing to respond Alcohol intake: current Alcohol intake frequency: does not drink Patient Tobacco Use Status: Former Tobacco user Quit Date: 2020 Tobacco use type: Cigarette e-Cigarette/Vaping Use: Never Used Second Hand Smoke Exposure: Yes Substance Use Type: Marijuana service: No Current occupational status: disabled Current occupational exposures/hazards: No Sexual orientation: Decline to Answer Cognitive needs: No Hearing needs: No Vision needs: No Review of Systems Const All systems reviewed & are unremarkable except as noted in HPI and below Card Denies chest pain and Denies dyspnea Resp Denies dyspnea GI Denies abdominal pain and Denies change in bowel habits Physical Exam Vital Signs: Last Vital Signs Pulse 96 01/23/23 08:12 BP 130/74 01/23/23 08:12 Pulse Ox 95 01/23/23 08:12 Oxygen Delivery Method Room Air 01/23/23 08:12 BMI result Body Mass Index 35.2 Const General: cooperative, healthy appearing, comfortable, no acute distress and anxious Orientation/consciousness: patient oriented x3 Limitations: no limitations Neuro General: patient oriented x3 Extrem General: Yes full ROM Psych Speech and movement: Pressured speech present Affect: Anxious affect present Attitude: cooperative Thought process: Normal thought process present Results Reviewed Results Reviewed: Impression and Post Procedure Diagnosis: polyps internal hemorrhoids Plan: High fiber diet leaflet Avoid straining at stool, epsom salts and sitz bath, anusol supps or cream Repeat Colonoscopy in 4-5 years due to polyps or earlier if clinically indicated olegario: Ryan Salinas Age/Sex: 47/M Attending: Ray Torres MD : 1975 Submitted by: Ray Torres MD Copies to: Jose Holguin [facility]- MR #: [id number] Status: [facility] Collected: 01/08/23 Location: [facility] Received: 01/08/23 Diagnosis A. Colon, transverse, polyps, biopsy: Tubular adenoma (1 of 3 pieces involved); negative for high-grade dysplasia and carcinoma. B. Colon, rectal polyp, biopsy: Hyperplastic polyp. Clinical History Pre-Op Dx: Encounter for screening for malignant neoplasm Post-Op Dx: Polyps, hemorrhoids Assessment & Plan Assessment & Plan (1) Tubular adenoma of colon: Code(s): D12.6 - Benign neoplasm of colon, unspecified Plan: repeat 4 years- adenomas (2) Hemorrhoids: Code(s): K64.9 - Unspecified hemorrhoids Plan: HFD Avoid straining Plan pls place 4 year reminder for recall colonoscopy Patient Instructions: 4 year reminder for recall colonoscopy All FDR > 36 should have screening colonoscopy Maintain HFD Avoid strain Decline consult for hemorrhoids Coding Level of Care Code Est Pt Level 3 (88757) Diagnoses Tubular adenoma of colon D12.6 Hemorrhoids K64.9 Time Spent (min) 25
== END 2023-01-23 08:44 | disposition home or self-care (01) ==
PROVIDERS: PCP Nurse Practitioner Family; Visit Provider Physician Assistant
DX: D12.6 Benign neoplasm of colon, unspecified (principal); K64.9 Unspecified hemorrhoids
CPT/HCPCS: 99213

== ENCOUNTER → 2023-01-23 08:05 | Outpatient (BNVA) | payer MEDICARE, MEDICAID, SELFPAY | PROVIDERS: PCP Nurse Practitioner Family; Visit Provider Physician Assistant | DX: K64.9 Unspecified hemorrhoids (principal); D12.6 Benign neoplasm of colon, unspecified | CPT/HCPCS: 99212 ==

== ENCOUNTER 2023-07-11 12:53 | Outpatient (AMB) | payer MEDICARE, MEDICAID, SELFPAY ==
[2023-07-11 12:55] VITALS: BP 110/70; PULSE 91; TEMP 36.3; O2SAT 96; BMI 35.1
--- NOTE | 2023-07-11 12:55 | AM.OFFWIN_ITS ---
Intake Vital Signs 07/11/23 12:55 Height 6 ft Weight 259 lb BMI 35.1 BP 110/70 Blood Pressure Location Lt brachial Position Sitting Pulse 91 Pulse Source Pulse Oximeter Temp 97.4 F Temp Source Temporal Artery Scan Pulse Oximetry (%) 96 Oxygen Delivery Method Room Air Intake Visit Reasons: EP RT leg pain/pain medication (lobby) Intake Note: pt is here today for rt leg pain started may Patient Tobacco Use Status: Former Tobacco user Quit Date: 2020 Allergies topiramate [From TOPAMAX] Allergy (Intermediate, Verified 07/11/23 12:59) HEADACHE risperidone [From RISPERDAL] Allergy (Unknown, Verified 07/11/23 12:59) UNKNOWN Do you need a note to return to daycare/school/sports/work: No HPI HPI Comments History of Present Illness Details 47 y/o male patient who presents to walk in clinic with c/o right leg pain since May. Reports that pain starts at the hip, thigh and all way down to the foot. Describes the pain as sharp with spasm. Reports that he has been sleeping on a couch since May, and believes this is the cause for the pain. [facility] Medical History Noncompliance with medication regimen Psychosis GERD (gastroesophageal reflux disease) Mood disorder Surgical History Hx of colonoscopy Hx of LASIK History of dental surgery No pertinent past surgical history Family History Father No problems noted. Mother Breast cancer Diabetes mellitus Brother No problems noted. Sister No problems noted. Social History Household Members: Family Household Members Other:: parents and sister Housing: House Do you presently have visiting nurse or other home services: No Unable to assess alcohol history related to: Refusing to respond Alcohol intake: current Alcohol intake frequency: does not drink Patient Tobacco Use Status: Former Tobacco user Quit Date: 2020 Tobacco use type: Cigarette e-Cigarette/Vaping Use: Never Used Second Hand Smoke Exposure: Yes Substance Use Type: Marijuana service: No Current occupational status: disabled Current occupational exposures/hazards: No Sexual orientation: Decline to Answer Cognitive needs: No Hearing needs: No Vision needs: No Physical Exam Vital Signs: Last Vital Signs Temp 97.4 F 07/11/23 12:55 Pulse 91 07/11/23 12:55 BP 110/70 07/11/23 12:55 Pulse Ox 96 07/11/23 12:55 Oxygen Delivery Method Room Air 07/11/23 12:55 BMI result Body Mass Index 35.1 Const General: no acute distress Nutritional Appearance: obese Orientation/consciousness: patient oriented x3 Neuro General: patient oriented x3, gait normal and moves all extremities Extrem Right lower extremity: normal to inspection, full ROM, no joint enlargement, hip/thigh Details: normal to inspection and normal ROM, knee Details: normal to inspection and normal ROM; no tenderness and no swelling, lower leg Details: normal to inspection and no edema, ankle Details: normal to inspection, no edema and normal ROM; no tenderness and no swelling and foot Details: normal to inspection and toes with normal ROM; no edema Left lower extremity: normal to inspection, full ROM, no joint enlargement, hip/thigh Details: normal to inspection, knee Details: normal to inspection and normal ROM, lower leg Details: normal to inspection, ankle Details: normal to inspection, no edema and normal ROM; no tenderness and no swelling and foot Det ails: normal to inspection and toes with normal ROM; no edema Psych Speech and movement: Normal speech and movement present Assessment & Plan Assessment & Plan (1) Right leg pain: Code(s): M79.604 - Pain in right leg Plan: - Exam Normal -Normal ROM - Acetaminophen for pain relief. Medications: New cyclobenzaprine 10 mg PO BEDTIME 10 tabs 0RF Muscle Spasm M79.604 - Pain in right leg acetaminophen 1,000 mg (2 x 500 mg) PO Q6H PRN 30 caps 0RF pain (scale score 4-6 ) M79.604 - Pain in right leg Coding Level of Care Code Est Pt Level 3 (75238) Diagnoses Right leg pain M79.604 Time Spent (min) 15
== END 2023-07-11 13:37 | disposition home or self-care (01) ==
PROVIDERS: PCP Nurse Practitioner Family; Visit Provider Nurse Practitioner Family
DX: M79.604 Pain in right leg (principal)
CPT/HCPCS: 99213

== ENCOUNTER 2023-07-18 10:20 | Outpatient (AMB) | payer MEDICARE, MEDICAID, SELFPAY ==
--- NOTE | 2023-07-18 10:36 | A.OFFPC_ITS ---
Vital Signs 07/18/23 10:37 Height 6 ft Weight 257 lb BMI 34.9 BP 118/68 Blood Pressure Location Rt brachial Position Sitting Pulse 107 H Pulse Source Pulse Oximeter Pulse Oximetry (%) 95 Oxygen Delivery Method Room Air Intake Visit Reasons: Derm referral Intake Note: Patient here to get a dermatology referral for rash in groin area that has been present for a while which is not going away. Allergies topiramate [From TOPAMAX] Allergy (Intermediate, Verified 07/18/23 10:39) HEADACHE risperidone [From RISPERDAL] Allergy (Unknown, Verified 07/18/23 10:39) UNKNOWN Medication List - Last Reconciled 07/18/23 by ALONZO Key acetaminophen 1,000 mg (2 x 500 mg) PO Q6H PRN cholecalciferol (vitamin D3) 50 mcg PO DAILY 90 days clonazepam 0.5 mg PO BID PRN 30 days cyclobenzaprine 10 mg PO BEDTIME divalproex 250 mg PO DAILY divalproex ER (Depakote ER) 1,500 mg PO BEDTIME ketoconazole 2% 1 appl topical BID Tobacco use date assessed: 07/18/23 Dental Screening Dental Screen Date: 07/18/23 Did you have a dental visit in the last 12 months?: Yes Did you have a dental problem in the last 6 months where you did not have access to dental care?: No Was dental information given to patient?: Patient has dentist HPI Derm referral HPI Details Pt reports a red rash to his groin. ? tinea. Will send ketoconazole. Reenforced the importance of keeping groin region dry. He reports there is some faint itching, denies any drainage, or tenderness. [facility] Medical History Noncompliance with medication regimen Psychosis GERD (gastroesophageal reflux disease) Mood disorder Surgical History Hx of colonoscopy Hx of LASIK History of dental surgery No pertinent past surgical history Family History Father No problems noted. Mother Breast cancer Diabetes mellitus Brother No problems noted. Sister No problems noted. Social History Household Members: Family Household Members Other:: parents and sister Housing: House Do you presently have visiting nurse or other home services: No Unable to assess alcohol history related to: Refusing to respond Alcohol intake: current Alcohol intake frequency: does not drink Patient Tobacco Use Status: Former Tobacco user Quit Date: 2020 Tobacco use type: Cigarette e-Cigarette/Vaping Use: Never Used Second Hand Smoke Exposure: Yes Substance Use Type: Marijuana service: No Current occupational status: disabled Current occupational exposures/hazards: No Sexual orientation: Decline to Answer Cognitive needs: No Hearing needs: No Vision needs: No Questionnaire PHQ-9 Over the last 2 weeks, how often have you been bothered by any of the following problems? 1. Little interest or pleasure in doing things: several days 2. Feeling down, depressed, or hopeless: several days 3. Trouble falling or staying asleep, or sleeping too much: several days 4. Feeling tired or having little energy: more than half the days 5. Poor appetite or overeating: more than half the days 6. Feeling bad about yourself - or that you are a failure or have let yourself or your family down: several days 7. Trouble concentrating on things, such as reading the newspaper or watching television: not at all 8. Moving or speaking so slowly that other people could have noticed. Or the opposite - being so fidgety or restless that you have been moving around a lot more than usual: several days 9. Thoughts that you would be better off or of hurting yourself in some way: not at all Total score: 9 Depression Screening Interpretation: Negative Depression Screening Done: Yes 97141 - PHQ-9 Billing: Yes Source: Developed by Drs. Shahid Beckwith, Virginia Garg, James Longoria and colleagues, with an educational katrina from [employer]. Thrive Questionnaire Date Thrive assessed: 07/18/23 I am a: Patient What is your living situation today?: I have a steady place to live Within the past 12 months, did the food you bought not last and you didn't have the money to get more?: Never true Within the past 12 months, did you worry whether your food would run out before you got money to buy more?: Never true Do you have trouble paying for medicines?: No Do you have trouble getting transportation to medical appointments?: Yes Do you have trouble paying your heating and electricity bill?: No Do you have trouble taking care of your child, family member or friend?: No Do you have trouble with day-to-day activities such as bathing, preparing meals, shopping, managing finances, etc.?: No Are you currently unemployed and looking for a job?: Yes Are you interested in more education?: Yes Currently or been in a relationship where the following occur: I choose not to answer this question THRIVE Score: 1 ARTEMIO-7 AMB Questionnaire ARTEMIO-7 Date ARTEMIO - 7 assessed: 07/18/23 Feeling nervous, anxious, or on edge: 2 = More than half the days Not being able to stop or control worryin = More than half the days Worrying too much about different things: 1 = Several days Trouble relaxin = Several days Being so restless that it is hard to sit still: 0 = Not at all Becoming easily annoyed or irritable: 1 = Several days Feeling afraid as if something awful might happen: 0 = Not at all Total ARTEMIO-7 score (0-4 normal; 5-9 mild; 10-14 moderate; 15-21 severe): 7 Source: Developed by Drs. Shahid Beckwith, Virginia Garg, James Longoria and colleagues, with an educational katrina from [employer]. ARTEMIO-7 Assessment Billing ARTEMIO-7 Assessment Tool: ARTEMIO-7 Assessment 73192 Review of Systems Const Denies chills and Denies fever(s) Eyes Denies blurry vision ENT Denies vertigo, Denies dizziness and Denies sore throat Card Denies chest pain at rest, Denies chest pain with activity, Denies diaphoresis, Denies dyspnea and Denies dyspnea on exertion Resp Denies cough, Denies dyspnea, Denies dyspnea on exertion and Denies wheezing GI Denies abdominal pain, Denies melena, Denies hematochezia, Denies constipation, Denies diarrhea and Denies loose stools Denies hematuria Musc Denies numbness and Denies tingling Skin/Breast Denies lesions Neuro Denies vertigo, Denies dizziness, Denies numbness and Denies tingling Psych Denies anxiety, Denies depression, Denies homicidal ideation, Denies suicidal ideation and Denies other (substance abuse) Aller/Immun Denies wheezing Physical exam (Primary Care) Vital Signs: Last Vital Signs Pulse 107 H 07/18/23 10:37 BP 118/68 07/18/23 10:37 Pulse Ox 95 07/18/23 10:37 Oxygen Delivery Method Room Air 07/18/23 10:37 BMI result Body Mass Index 34.9 Tobacco/Smoking Status: Tobacco use Status Tobacco use date assessed 07/18/23 07/18/23 10:40 Patient Tobacco Use Status Former Tobacco user 07/18/23 10:40 Tobacco use type Cigarette 07/18/23 10:40 e-Cigarette/Vaping Use Never Used 07/18/23 10:40 PHQ-9: PHQ-9 Score PHQ-9: Total score 9 07/18/23 11:08 Depression Screening Interpretation: Negative Thrive Assessment: Date of Thrive Assessment Date Thrive assessed 07/18/23 07/18/23 10:44 Currently or been in a relationship where the following occur: I choose not to answer this question Const General: cooperative Nutritional Appearance: obese Orientation/consciousness: patient oriented x3 HENMT Head: Yes normal to inspection, Yes normocephalic and Yes atraumatic Ears: TM's normal bilaterally Eyes General: appearance normal, both eyes and all related structures Alignment and Position: alignment normal and position normal Neck Neck: Yes normal visual inspection and Yes no lymphadenopathy Thyroid: Thyroid normal Resp Effort & Inspection: normal respiratory effort Auscultation: clear to auscultation bilaterally Cardio Rate: regular rate Rhythm: regular rhythm Heart sounds: S1 normal heart sound present, S2 normal heart sound present and no murmurs GI Palpation (GI): Soft to palpation and nontender Auscultation: normal bowel sounds Male General Exam: Yes normal external exam Penis: normal penis Scrotum: scrotum normal, testes descended bilaterally and no inguinal hernias Testes: no testicular mass Skin Other: bilat inguinal regions with faint macular erythema Neuro General: patient oriented x3 Romberg Test: Negative Psych Appearance: grossly normal Mental Status: mental status grossly normal Speech and movement: Normal speech and movement present Affect: normal affect Attitude: cooperative Thought process: Normal thought process present Thought content: Normal thought content present Insight: Good insight present (Psych) Judgement: Good judgement present (Psych) Assessment and Plan Assessment & Plan (1) Tinea: Code(s): B35.9 - Dermatophytosis, unspecified Plan: Ketoconazole sent (2) Physical exam: Code(s): Z00.00 - Encounter for general adult medical examination without abnormal findings Plan: Labs ordered for PE in near future Plan The patient agreed to the use of a medical surgery nurse for this encounter. Scribed for ALONZO Duque by Trina Ann medical surgery nurse, on 07/18/2023 at 11:05 EST. Orders: Orders Complete Blood Count Auto Diff Today Z00.00 - Encounter for general adult medical examination without abnormal findings Comprehensive [place]. Panel Fast Today Z00.00 - Encounter for general adult medical examination without abnormal findings TSH reflex Free T4 Today Z00.00 - Encounter for general adult medical examination without abnormal findings UA CC w/rflx Micro + Cult Today Z00.00 - Encounter for general adult medical examination without abnormal findings Lipid Panel Today Z00.00 - Encounter for general adult medical examination without abnormal findings Medications: New ketoconazole 2% 1 appl topical BID 60 grams 1RF Coding Level of Care Code Est Pt Level 3 (06162) Diagnoses Tinea B35.9 Physical exam Z00.00 Additional Codes ARTEMIO-7 Assessment Billing - ARTEMIO-7 Assessment Tool: ARTEMIO-7 Assessment 14255 ([id number])
[2023-07-18 10:37] VITALS: BP 118/68; PULSE 107; O2SAT 95; BMI 34.9
== END 2023-07-18 13:04 | disposition home or self-care (01) ==
PROVIDERS: PCP Nurse Practitioner Family; Visit Provider Nurse Practitioner Family
DX: B35.9 Dermatophytosis, unspecified (principal); Z00.00 Encounter for general adult medical examination without abnormal findings
CPT/HCPCS: 99213

== ENCOUNTER 2023-08-08 10:00 | Outpatient (REF) | payer MEDICARE, MEDICAID, SELFPAY ==
[2023-08-08 13:25] LABS: Appearance Urine Clear; Color Urine Yellow; Glucose Urine UA Negative (Negative); Leukocyte Esterase Urine Negative (Negative); Nitrite Urine Negative (Negative); PH 8.5 (5.0-9.0); Urine Blood Negative (Negative); Urine Ketones Negative (Negative); Urine Protein Negative (Neg-Trace)
[2023-08-08 13:40] LABS: MANUAL DIFF FLAG NO
[2023-08-08 13:44] LABS: Basophils Percent Auto 0.5 % (0-2); Eosinophils Absolute Auto 0.2 X10*3/uL (0.0-0.4); Eosinophils Percent Auto 2.9 % (0-4); Hematocrit 44.6 % (42.0-52.0); Hemoglobin 15.2 g/dl (14.0-18.0); Imm Gran Abs Auto 0.03 X10*3/uL (0.00-0.03); Imm Gran Pct Auto 0.4 % (0.0-0.4); Lymphocytes Absolute Auto 1.9 X10*3/uL (1.2-4.9); Lymphocytes Percent Auto 25.4 % (20-40); Mean Corpuscular HGB Conc 34.1 g/dl (31.0-36.0); Mean Corpuscular Hemoglobin 31.6 pg (27.0-33.0); Mean Corpuscular Volume 92.7 fL (80.0-98.0); Mean Platelet Volume 11.6 fL (9.4-12.4); Monocytes Absolute Auto 0.7 X10*3/uL (0.1-1.2); Monocytes Percent Auto 8.9 % (2-11); Neutrophils Absolute Auto 4.5 x10*3/uL (2.0-8.3); Neutrophils Percent Auto 61.9 % (45-73); Platelet Count 203 X10*3/uL (160-400); Red Blood Count 4.81 X10*6/uL (4.60-5.80); Red Cell Distribution Width 12.1 % (11.0-16.0); White Blood Count 7.3 X10*3/uL (4.8-10.8)
[2023-08-08 14:05] LABS: Alanine Aminotransferase 32 U/L (0-40); Albumin Level 4.2 g/dL (3.5-5.0); Alkaline Phosphatase 62 U/L (39-117); Anion Gap 14 (12-20); Aspartate Amino Transferase 22 U/L (5-37); Bilirubin Total 0.5 mg/dL (0.0-1.0); Blood Urea Nitrogen 11 mg/dL (9-16); Calcium 9.4 mg/dL (8.4-10.2); Carbon Dioxide 26 mmol/L (22-29); Chloride 105 mmol/L (96-108); Cholesterol 214 mg/dL (<200); Estimated Glomerular Filt Rate > 60; Glucose Fasting 101 mg/dL (60-99); HDL Cholesterol 42 mg/dL (>40); LDL Cholesterol Calculated 142 mg/dL (<100); Potassium 4.3 mmol/L (3.3-5.1); Sodium 141 mmol/L (135-145); Total Protein 7.7 g/dL (6.5-8.0); Triglycerides 150 mg/dL (<150)
[2023-08-08 14:08] LABS: Alanine Aminotransferase 30 U/L (0-40); Albumin Level 4.2 g/dL (3.5-5.0); Alkaline Phosphatase 63 U/L (39-117); Anion Gap 15 (12-20); Aspartate Amino Transferase 22 U/L (5-37); Bilirubin Total 0.5 mg/dL (0.0-1.0); Blood Urea Nitrogen 11 mg/dL (9-16); Calcium 9.5 mg/dL (8.4-10.2); Carbon Dioxide 25 mmol/L (22-29); Chloride 106 mmol/L (96-108); Estimated Glomerular Filt Rate > 60; Glucose Random 102 mg/dL (60-115); Potassium 4.2 mmol/L (3.3-5.1); Sodium 142 mmol/L (135-145); Total Protein 7.7 g/dL (6.5-8.0)
[2023-08-08 14:25] LABS: Valproate 75.7 mcg/mL (50.0-100.0)
[2023-08-08 14:26] LABS: TSH reflex Free T4 2.26 uIU/mL (0.32-4.0)
[2023-08-08 14:27] LABS: Thyroid Stimulating Hormone 2.31 uIU/mL (0.32-4.0)
== END 2023-08-08 10:01 | disposition home or self-care (01) ==
LOC: HO.HMGCLDS 10:00
PROVIDERS: PCP Nurse Practitioner Family; Referring Provider Psychiatry & Neurology Psychiatry; Visit Provider Nurse Practitioner Family
DX: Z00.00 Encounter for general adult medical examination without abnormal findings (principal); Z79.899 Other long term (current) drug therapy
CPT/HCPCS: 36415; 80053; 80061; 80164; 81003; 84443; 85025

== ENCOUNTER 2023-08-15 08:50 | Outpatient (AMB) | payer MEDICARE, MEDICAID, SELFPAY ==
--- NOTE | 2023-08-15 08:51 | MHC.PC.OV ---
Vital Signs 08/15/23 08:54 08/15/23 10:11 Height 6 ft Weight 254 lb BMI 34.4 BP 130/80 Blood Pressure Location Lt brachial Position Sitting Pulse 115 H 98 Pulse Source Pulse Oximeter Pulse Oximetry (%) 96 Oxygen Delivery Method Room Air Intake Visit Reasons: follow up from colonoscopy Intake Note: Patient here to discuss colonoscopy. Allergies topiramate [From TOPAMAX] Allergy (Intermediate, Verified 08/15/23 10:13) HEADACHE risperidone [From RISPERDAL] Allergy (Unknown, Verified 08/15/23 10:13) UNKNOWN Medication List - Last Reconciled 08/15/23 by ALONZO Key acetaminophen 1,000 mg (2 x 500 mg) PO Q6H PRN cholecalciferol (vitamin D3) 50 mcg PO DAILY 90 days clonazepam 0.5 mg PO BID PRN 30 days cyclobenzaprine 10 mg PO BEDTIME divalproex ER (Depakote ER) 1,500 mg PO BEDTIME ketoconazole 2% 1 appl topical BID Tobacco use date assessed: 07/18/23 Dental Screening Dental Screen Date: 07/18/23 HPI follow up from colonoscopy HPI Details Pt is here for a PE. Labs were already performed. Colon screen is up to date. Pt is diaphoretic (though also raining heavily outside). He reports frequent thoughts in the morning that cause him to pace. He reports thinking about the past. Encouraged pt to avoid these thoughts and focus on the future. Denies any SI and HI. Dyslipidemia: Pt's last lipids were elevated. Will repeat labs in 2 months. Pt has a psychiatrist he sees on a regular basis [facility] Medical History Noncompliance with medication regimen Psychosis GERD (gastroesophageal reflux disease) Mood disorder Surgical History Hx of colonoscopy Hx of LASIK History of dental surgery No pertinent past surgical history Family History Father No problems noted. Mother Breast cancer Diabetes mellitus Brother No problems noted. Sister No problems noted. Social History Household Members: Family Household Members Other:: parents and sister Housing: House Do you presently have visiting nurse or other home services: No Unable to assess alcohol history related to: Refusing to respond Alcohol intake: current Alcohol intake frequency: does not drink Patient Tobacco Use Status: Former Tobacco user Quit Date: 2020 Tobacco use type: Cigarette e-Cigarette/Vaping Use: Never Used Second Hand Smoke Exposure: Yes Substance Use Type: Marijuana service: No Current occupational status: disabled Current occupational exposures/hazards: No Sexual orientation: Decline to Answer Cognitive needs: No Hearing needs: No Vision needs: No Questionnaire PHQ-9 Over the last 2 weeks, how often have you been bothered by any of the following problems? 25610 - PHQ-9 Billing: Patient declined-do not bill Source: Developed by Drs. Shahid Beckwith, James Rushing and colleagues, with an educational katrina from [employer]. Thrive Questionnaire Date Thrive assessed: 07/18/23 ARTEMIO-7 AMB Questionnaire ARTEMIO-7 Date ARTEMIO - 7 assessed: 07/18/23 Source: Developed by Drs. Shahid Beckwith, Virginia Garg, James Longoria and colleagues, with an educational katrina from [employer]. ARTEMIO-7 Assessment Billing ARTEMIO-7 Assessment Tool: pt declined-do not bill Review of Systems Const Denies chills and Denies fever(s) Eyes Denies blurry vision ENT Denies vertigo, Denies dizziness and Denies sore throat Card Denies chest pain at rest, Denies chest pain with activity, Denies diaphoresis, Denies dyspnea and Denies dyspnea on exertion Resp Denies cough, Denies dyspnea, Denies dyspnea on exertion and Denies wheezing GI Denies abdominal pain, Denies melena, Denies hematochezia, Denies constipation, Denies diarrhea and Denies loose stools Denies hematuria Musc Denies numbness and Denies tingling Skin/Breast Denies lesions Neuro Denies vertigo, Denies dizziness, Denies numbness and Denies tingling Psych Denies anxiety, Denies depression, Denies homicidal ideation, Denies suicidal ideation and Denies other (substance abuse) Aller/Immun Denies wheezing Physical exam (Primary Care) Vital Signs: Last Vital Signs Pulse 115 H 05/16/24 08:54 BP 130/80 08/15/23 08:54 Pulse Ox 96 08/15/23 08:54 Oxygen Delivery Method Room Air 08/15/23 08:54 BMI result Body Mass Index 34.4 Tobacco/Smoking Status: Tobacco use Status Tobacco use date assessed 07/18/23 08/15/23 08:51 Patient Tobacco Use Status Former Tobacco user 08/15/23 08:51 Tobacco use type Cigarette 08/15/23 08:51 e-Cigarette/Vaping Use Never Used 08/15/23 08:51 Thrive Assessment: Date of Thrive Assessment Date Thrive assessed 07/18/23 08/15/23 08:51 Const Other: diaphoretic General: cooperative, comfortable, no acute distress and diaphoretic Nutritional Appearance: well nourished Orientation/consciousness: patient oriented x3 HENMT Head: Yes normal to inspection, Yes normocephalic and Yes atraumatic Ears: TM's normal bilaterally Eyes General: appearance normal, both eyes and all related structures Alignment and Position: alignment normal and position normal Neck Neck: Yes normal visual inspection and Yes no lymphadenopathy Thyroid: Thyroid normal Resp Effort & Inspection: normal respiratory effort Auscultation: clear to auscultation bilaterally Cardio Rate: regular rate Rhythm: regular rhythm Heart sounds: S1 normal heart sound present, S2 normal heart sound present and no murmurs GI Palpation (GI): Soft to palpation and nontender Auscultation: normal bowel sounds Male General Exam: Yes normal external exam Penis: normal penis Scrotum: scrotum normal, testes descended bilaterally and no inguinal hernias Testes: no testicular mass Skin Rashes: no rashes Neuro General: patient oriented x3, moves all extremities, no focal motor deficits and deep tendon reflexes 2+ bilaterally Romberg Test: Negative Psych Appearance: grossly normal Mental Status: mental status grossly normal Speech and movement: Normal speech and movement present Affect: normal affect Attitude: cooperative Thought process: Normal thought process present Thought content: Normal thought content present Insight: Good insight present (Psych) Judgement: Good judgement present (Psych) Assessment and Plan Assessment & Plan (1) Physical exam: Code(s): Z00.00 - Encounter for general adult medical examination without abnormal findings Plan The patient agreed to the use of a medical screener for this encounter. Scribed for Jose Holguin BRICK MASON- by Trina Ann, medical screener, on 08/15/2023 at 09:10 EST. Coding Level of Care Code Est Pt Prev Care 40-64y(37678) Diagnoses Physical exam Z00.00
[2023-08-15 08:54] VITALS: BP 130/80; PULSE 115; O2SAT 96; BMI 34.4
[2023-08-15 10:11] VITALS: PULSE 98
== END 2023-08-15 09:22 | disposition home or self-care (01) ==
PROVIDERS: PCP Nurse Practitioner Family; Visit Provider Nurse Practitioner Family
DX: Z00.00 Encounter for general adult medical examination without abnormal findings (principal)
CPT/HCPCS: 99396

== ENCOUNTER 2024-02-11 10:28 | Outpatient (AMB) | payer MEDICARE, MEDICAID, SELFPAY ==
[2024-02-11 10:30] VITALS: BP 112/72; PULSE 92; O2SAT 96; BMI 35.8
--- NOTE | 2024-02-11 10:30 | MHC.PC.OV ---
Vital Signs 02/11/24 10:30 Height 6 ft Weight 264 lb BMI 35.8 BP 112/72 Blood Pressure Location Rt brachial Position Sitting Pulse 92 Pulse Source Pulse Oximeter Pulse Oximetry (%) 96 Intake Visit Reasons: PE Intake Note: pt is here for PE Feed Weigher Required: No Accompanied by: Self / Same As Patient Allergies topiramate [From TOPAMAX] Allergy (Intermediate, Verified 02/11/24 12:03) HEADACHE risperidone [From RISPERDAL] Allergy (Unknown, Verified 02/11/24 12:03) UNKNOWN Medication List - Last Reconciled 02/11/24 by ALONZO Key clonazepam 0.5 mg PO BID PRN 30 days divalproex ER (Depakote ER) 1,500 mg PO BEDTIME olanzapine 15 mg PO BEDTIME Tobacco use date assessed: 07/18/23 Dental Screening Dental Screen Date: 07/18/23 HPI PE HPI Details Pt is here for a PE. Will order labs. Colon screen is up to date. Pt sees a psychologist. [facility] Medical History Noncompliance with medication regimen Psychosis GERD (gastroesophageal reflux disease) Mood disorder Surgical History Hx of colonoscopy Hx of LASIK History of dental surgery No pertinent past surgical history Family History Father No problems noted. Mother Breast cancer Diabetes mellitus Brother No problems noted. Sister No problems noted. Social History Household Members: Family Household Members Other:: parents and sister Housing: House Do you presently have visiting nurse or other home services: No Unable to assess alcohol history related to: Refusing to respond Alcohol intake: current Alcohol intake frequency: does not drink Patient Tobacco Use Status: Former Tobacco user Tobacco use type: Cigarette e-Cigarette/Vaping Use: Never Used Second Hand Smoke Exposure: Yes Substance Use Type: Marijuana service: No Current occupational status: disabled Current occupational exposures/hazards: No Sexual orientation: Decline to Answer Cognitive needs: No Hearing needs: No Vision needs: No Questionnaire PHQ-9 Over the last 2 weeks, how often have you been bothered by any of the following problems? 1. Little interest or pleasure in doing things: several days 2. Feeling down, depressed, or hopeless: several days 3. Trouble falling or staying asleep, or sleeping too much: several days 4. Feeling tired or having little energy: several days 5. Poor appetite or overeating: several days 6. Feeling bad about yourself - or that you are a failure or have let yourself or your family down: several days 7. Trouble concentrating on things, such as reading the newspaper or watching television: several days 8. Moving or speaking so slowly that other people could have noticed. Or the opposite - being so fidgety or restless that you have been moving around a lot more than usual: not at all 9. Thoughts that you would be better off or of hurting yourself in some way: not at all Total score: 7 Depression Screening Interpretation: Negative Depression Screening Done: Yes 55352 - PHQ-9 Billing: Yes Source: Developed by Drs. Shahid Beckwith, Virginia Garg, James Longoria and colleagues, with an educational katrina from [employer]. Thrive Questionnaire Date Thrive assessed: 07/18/23 I am a: Patient What is your living situation today?: I have a steady place to live Within the past 12 months, did the food you bought not last and you didn't have the money to get more?: Sometimes True Within the past 12 months, did you worry whether your food would run out before you got money to buy more?: Sometimes True Do you have trouble paying for medicines?: No Do you have trouble getting transportation to medical appointments?: No Do you have trouble paying your heating and electricity bill?: No Do you have trouble taking care of your child, family member or friend?: No Do you have trouble with day-to-day activities such as bathing, preparing meals, shopping, managing finances, etc.?: No Are you currently unemployed and looking for a job?: No Are you interested in more education?: No Please select the resources that you would like help with: Housing/Alf Currently or been in a relationship where the following occur: I choose not to answer THRIVE Score: 2 AUDIT C Alcohol Use Questionnaire (AUDIT-C) 1. How often do you have a drink containing alcohol?: Monthly or less 2. How many drinks containing alcohol do you have on a typical day when you are drinking?: 1 or 2 3. How often do you have six or more drinks on one occasion?: Less than monthly Total Score: 2 ARTEMIO-7 AMB Questionnaire ARTEMIO-7 Date ARTEMIO - 7 assessed: 07/18/23 Feeling nervous, anxious, or on edge: 0 = Not at all Not being able to stop or control worryin = Not at all Worrying too much about different things: 0 = Not at all Trouble relaxin = Not at all Being so restless that it is hard to sit still: 0 = Not at all Becoming easily annoyed or irritable: 1 = Several days Feeling afraid as if something awful might happen: 0 = Not at all Total ARTEMIO-7 score (0-4 normal; 5-9 mild; 10-14 moderate; 15-21 severe): 1 Source: Developed by Drs. Shahid Beckwith, Virginia Garg, Jamse Longoria and colleagues, with an educational katrina from [employer]. Review of Systems Const Denies chills and Denies fever(s) Eyes Denies blurry vision ENT Denies vertigo, Denies dizziness and Denies sore throat Card Denies chest pain at rest, Denies chest pain with activity, Denies diaphoresis, Denies dyspnea and Denies dyspnea on exertion Resp Denies cough, Denies dyspnea, Denies dyspnea on exertion and Denies wheezing GI Denies abdominal pain, Denies melena, Denies hematochezia, Denies constipation, Denies diarrhea and Denies loose stools Denies hematuria Musc Denies numbness and Denies tingling Skin/Breast Denies lesions Neuro Denies vertigo, Denies dizziness, Denies numbness and Denies tingling Psych Denies anxiety, Denies depression, Denies homicidal ideation, Denies suicidal ideation and Denies other (substance abuse) Aller/Immun Denies wheezing Physical exam (Primary Care) Vital Signs: Last Vital Signs Pulse 92 02/11/24 10:30 BP 112/72 02/11/24 10:30 Pulse Ox 96 02/11/24 10:30 BMI result Body Mass Index 35.8 Tobacco/Smoking Status: Tobacco use Status Tobacco use date assessed 07/18/23 02/11/24 10:35 Patient Tobacco Use Status Former Tobacco user 02/11/24 10:35 Tobacco use type Cigarette 02/11/24 10:35 e-Cigarette/Vaping Use Never Used 02/11/24 10:35 PHQ-9: PHQ-9 Score PHQ-9: Total score 7 02/11/24 10:35 Depression Screening Interpretation: Negative Thrive Assessment: Date of Thrive Assessment Date Thrive assessed 07/18/23 02/11/24 10:35 Currently or been in a relationship where the following occur: I choose not to answer Const General: cooperative Nutritional Appearance: obese Orientation/consciousness: patient oriented x3 HENMT Head: Yes normal to inspection, Yes normocephalic and Yes atraumatic Ears: TM's normal bilaterally Eyes General: appearance normal, both eyes and all related structures Alignment and Position: alignment normal and position normal Neck Neck: Yes normal visual inspection, Yes no lymphadenopathy and Yes supple Resp Effort & Inspection: normal respiratory effort Auscultation: clear to auscultation bilaterally Cardio Rate: regular rate Rhythm: regular rhythm Heart sounds: S1 normal heart sound present, S2 normal heart sound present and no murmurs GI Palpation (GI): Soft to palpation and nontender Auscultation: normal bowel sounds Male General Exam: Yes normal external exam Penis: normal penis Scrotum: scrotum normal, testes descended bilaterally and no inguinal hernias Testes: no testicular mass Skin Rashes: no rashes Neuro General: patient oriented x3, moves all extremities, no focal motor deficits and deep tendon reflexes 2+ bilaterally Romberg Test: Negative Psych Appearance: grossly normal Mental Status: mental status grossly normal Speech and movement: Normal speech and movement present Affect: normal affect Attitude: cooperative Thought process: Normal thought process present Thought content: Normal thought content present Insight: Good insight present (Psych) Judgement: Good judgement present (Psych) Coding Level of Care Code Est Pt Prev Care 40-64y(26647) Diagnoses Physical exam Z00.00 Screening for prostate cancer Z12.5 Additional Codes PHQ-9 - 55778 - PHQ-9 Billing: Yes ([id number]) Assessment & Plan Assessment & Plan (1) Physical exam: Code(s): Z00.00 - Encounter for general adult medical examination without abnormal findings Category: Medical Plan: Labs ordered (2) Screening for prostate cancer: Code(s): Z12.5 - Encounter for screening for malignant neoplasm of prostate Category: Medical Plan: PSA ordered Plan The patient agreed to the use of a medical information officer for this encounter. Scribed for ALONZO Duque by Trina Ann medical information officer, on 02/11/2024 at 10:45 EST. Orders: Orders Comprehensive [place]. Panel Fast Today Z00.00 - Encounter for general adult medical examination without abnormal findings TSH reflex Free T4 Today Z00.00 - Encounter for general adult medical examination without abnormal findings UA CC w/rflx Micro + Cult Today Z00.00 - Encounter for general adult medical examination without abnormal findings Lipid Panel Today Z00.00 - Encounter for general adult medical examination without abnormal findings Complete Blood Count Auto Diff Today Z00.00 - Encounter for general adult medical examination without abnormal findings Prostate Specific Antigen Scr Today Z12.5 - Encounter for screening for malignant neoplasm of prostate
== END 2024-02-11 11:16 | disposition home or self-care (01) ==
PROVIDERS: PCP Nurse Practitioner Family; Visit Provider Nurse Practitioner Family
DX: Z00.00 Encounter for general adult medical examination without abnormal findings (principal); Z12.5 Encounter for screening for malignant neoplasm of prostate

== ENCOUNTER → 2024-02-11 10:28 | Outpatient (BNVA) | payer MEDICARE, MEDICAID, SELFPAY | PROVIDERS: PCP Nurse Practitioner Family; Visit Provider Nurse Practitioner Family | DX: Z00.00 Encounter for general adult medical examination without abnormal findings (principal) | CPT/HCPCS: 96127; 99396 ==

== ENCOUNTER 2024-07-15 12:28 | Outpatient (REF) | payer MEDICARE, MEDICAID, SELFPAY ==
[2024-07-15 16:09] LABS: MANUAL DIFF FLAG NO
[2024-07-15 16:18] LABS: Basophils Percent Auto 0.4 % (0-2); Eosinophils Absolute Auto 0.1 X10*3/uL (0.0-0.4); Eosinophils Percent Auto 1.9 % (0-4); Hemoglobin 14.5 g/dl (14.0-18.0); Imm Gran Abs Auto 0.05 X10*3/uL (0.00-0.03); Imm Gran Pct Auto 0.7 % (0.0-0.4); Lymphocytes Absolute Auto 1.8 X10*3/uL (1.2-4.9); Lymphocytes Percent Auto 25.5 % (20-40); Mean Corpuscular HGB Conc 33.7 g/dl (31.0-36.0); Mean Corpuscular Volume 91.9 fL (80.0-98.0); Mean Platelet Volume 11.3 fL (9.4-12.4); Monocytes Absolute Auto 0.7 X10*3/uL (0.1-1.2); Monocytes Percent Auto 9.6 % (2-11); Neutrophils Absolute Auto 4.3 x10*3/uL (2.0-8.3); Neutrophils Percent Auto 61.9 % (45-73); Platelet Count 221 X10*3/uL (160-400); Red Blood Count 4.68 X10*6/uL (4.60-5.80); Red Cell Distribution Width 12.3 % (11.0-16.0)
[2024-07-15 16:20] LABS: Appearance Urine Clear; Color Urine Yellow; Glucose Urine UA Negative (Negative); Leukocyte Esterase Urine Negative (Negative); Nitrite Urine Negative (Negative); PH 8.5 (5.0-9.0); Specific Gravity - Urine 1.015 (1.005-1.025); Urine Blood Negative (Negative); Urine Ketones Trace mg/dL (Negative); Urine Protein Negative (Neg-Trace)
[2024-07-15 16:47] LABS: Alanine Aminotransferase 31 U/L (0-40); Albumin Level 4.1 g/dL (3.5-5.0); Alkaline Phosphatase 75 U/L (39-117); Anion Gap 12 (12-20); Aspartate Amino Transferase 29 U/L (5-37); Bilirubin Total 0.4 mg/dL (0.0-1.0); Blood Urea Nitrogen 8 mg/dL (9-16); Calcium 9.3 mg/dL (8.4-10.2); Carbon Dioxide 27 mmol/L (22-29); Chloride 107 mmol/L (96-108); Cholesterol 213 mg/dL (<200); Estimated Glomerular Filt Rate > 60; Glucose Fasting 97 mg/dL (60-99); HDL Cholesterol 47 mg/dL (>40); LDL Cholesterol Calculated 139 mg/dL (<100); Potassium 4.1 mmol/L (3.3-5.1); Sodium 142 mmol/L (135-145); Total Protein 7.3 g/dL (6.5-8.0); Triglycerides 139 mg/dL (<150)
[2024-07-15 16:48] LABS: TSH reflex Free T4 2.79 uIU/mL (0.32-4.0)
[2024-07-15 16:49] LABS: Prostate Specific Antigen Scr 0.33 ng/mL (<0.05-4.0)
== END 2024-07-15 12:29 | disposition home or self-care (01) ==
LOC: HO.HMGCLDS 12:28
PROVIDERS: PCP Nurse Practitioner Family; Visit Provider Nurse Practitioner Family
DX: Z00.00 Encounter for general adult medical examination without abnormal findings (principal); Z12.5 Encounter for screening for malignant neoplasm of prostate
CPT/HCPCS: 36415; 80053; 80061; 81003; 84153; 84443; 85025

== ENCOUNTER 2024-09-16 15:53 | Outpatient (AMB) | payer MEDICARE, MEDICAID, SELFPAY ==
[2024-09-16 15:56] VITALS: BP 138/84; PULSE 108; TEMP 36.6; O2SAT 96; BMI 36.5
--- NOTE | 2024-09-16 15:56 | AM.OFFWIN_ITS ---
Intake Vital Signs 09/16/24 15:56 Height 6 ft Weight 269 lb BMI 36.5 BP 138/84 Blood Pressure Location Lt brachial Position Sitting Pulse 108 H Pulse Source Pulse Oximeter Temp 97.9 F Temp Source Oral Pulse Oximetry (%) 96 Oxygen Delivery Method Room Air Intake Visit Reasons: EP-lump in back of throat Intake Note: Pt presents to the office today for c/o a lump in the top of his throat. Pt states this started last week. Patient Tobacco Use Status: Former Tobacco user Allergies topiramate (From TOPAMAX) Allergy (Intermediate, Verified 09/16/24 16:00) HEADACHE risperidone (From RISPERDAL) Allergy (Unknown, Verified 09/16/24 16:00) UNKNOWN HPI HPI Comments History of Present Illness Details History of Present Illness - The patient is a 48-year-old male pres enting with a lump in the throat. - Symptoms began last week, post ingesti on of a meal comprising a hamburger and fries. - Describes a recurring feeling of a lum p in the throat that is not alleviated by swallowing, emiliano to a sensation of food stuck. - Reports absence of pain or other respi ratory symptoms like runny nose or congestion. - Denies dysphagia, maintaining normal d ietary and fluid intake with no vomiting episodes. - Denies history of traumatic ingestion incidents or lodged items in the throat. - Has a history of sinus issues that typ ically resolve without intervention. - The sensation is reported as central i n the throat, without lateral predominance. - Denies cigarette smoking but admits to marijuana use. - He denies fever, chills, CP, SOB, abd pain, n/v/d, congestion, runny nose, ZUÑIGA, vomiting, difficulty swallowing, or GERD. Physical Exam General: Cooperative, healthy appearing, comfortable, no acute distress and well developed Orientation: Patient oriented x3 Head: Normal to inspection Ears: Hearing grossly normal bilaterally Nose: Normal external nose present Mouth: Uvula is midline, not swollen. Normal oropharynx noted. Tonsils not swollen, no exudates noted. Tongue is midline with a small canker sore. Face and sinus: Normal facial exam. No sinus tenderness noted. Neck: Normal visual inspection and Yes full ROM. No thyromegaly noted. No lymphadenopathy noted. Respiratory: Normal respiratory effort and able to speak in complete sentences. Clear to auscultation bilaterally Cardiovascular: Regular rate and rhythm. Normal S1 and S2 GI: Normal to inspection. Soft to palpation and nontender Skin: No rashes or lesions noted Patient was informed and verbally consented to the use of an ambient scribe for clinic note documentation during this visit. [facility] Medical History Noncompliance with medication regimen Psychosis GERD (gastroesophageal reflux disease) Mood disorder Surgical History Hx of colonoscopy Hx of LASIK History of dental surgery No pertinent past surgical history Family History Father No problems noted. Mother Breast cancer Diabetes mellitus Brother No problems noted. Sister No problems noted. Social History Household Members: Family Household Members Other:: parents and sister Housing: House Do you presently have visiting nurse or other home services: No Unable to assess alcohol history related to: Refusing to respond Alcohol intake: current Alcohol intake frequency: does not drink Patient Tobacco Use Status: Former Tobacco user Tobacco use type: Cigarette e-Cigarette/Vaping Use: Never Used Second Hand Smoke Exposure: Yes Substance Use Type: Marijuana service: No Current occupational status: disabled Current occupational exposures/hazards: No Sexual orientation: Decline to Answer Cognitive needs: No Hearing needs: No Vision needs: No Review of Systems Const All systems reviewed & are unremarkable except as noted in HPI and below Physical Exam Vital Signs: Last Vital Signs Temp 97.9 F 09/16/24 15:56 Pulse 108 H 09/16/24 15:56 BP 138/84 09/16/24 15:56 Pulse Ox 96 09/16/24 15:56 Oxygen Delivery Method Room Air 09/16/24 15:56 BMI result Body Mass Index 36.5 Assessment & Plan Assessment & Plan (1) Sensation of lump in throat: Code(s): R09.A2 - Foreign body sensation, throat Plan Most likely globus sensation vs FB vs hiatal hernia vs cyst vs GERD Plan - Monitor for any progression of symptoms indicating emergent airway compromise or unrelenting vomiting. - Diet as tolerated. - Follow up with primary care physician for further assessment and potential referral to a gastrointestinal specialist for esophagogastroduodenoscopy (EGD) to investigate the cause of the foreign body sensation. - Acute emergency room evaluation advised if symptoms progress to airway restriction or unresolvable vomiting. - Communication with the primary care provider offered to possibly speed up the referral process. - Instructed to seek immediate emergency care for symptoms such as shortness of breath, difficulty breathing or swallowing as they develop. Coding Level of Care Code Est Pt Level 3 (41311) Diagnoses Sensation of lump in throat R09.A2
== END 2024-09-16 16:32 | disposition home or self-care (01) ==
PROVIDERS: PCP Nurse Practitioner Family; Visit Provider Physician Assistant Medical
DX: R09.A2 Foreign body sensation, throat (principal)

== ENCOUNTER → 2024-09-16 15:53 | Outpatient (BNVA) | payer MEDICARE, MEDICAID, SELFPAY | PROVIDERS: PCP Nurse Practitioner Family; Visit Provider Physician Assistant Medical | DX: R09.A2 Foreign body sensation, throat (principal) | CPT/HCPCS: 99212 ==